=== PATIENT | male | born 1945 | race Caucasian/White ===

== ENCOUNTER → 2023-09-14 11:59 | Outpatient (REF) | payer OTHER, SELFPAY | LOC: HWRAD 11:59 | PROVIDERS: ATTENDING PHYSICIAN Internal Medicine | DX: T14.8XXA Other injury of unspecified body region, initial encounter (principal) | CPT/HCPCS: 73070 ==

== ENCOUNTER 2023-09-24 09:49 | Inpatient (IN) | payer OTHER, SELFPAY ==
[2023-09-24] VITALS (20 sets, daily range): BP systolic 80–115; BP diastolic 56–93; BMI 25.1; BMI 25.2
[2023-09-24 07:42] LABS: % Basophils 0.4 % (0-2); % Eosinophils 1.4 % (0-6); % Immature Granulocytes 0.4 % (0-0.5); % Monocytes 10.8 % (1.7-9.3); Absolute Eosinophils 0.1 10^3/uL (0-0.7); Absolute Lymphocytes 0.7 10^3/uL (1.2-3.4); Absolute Monocytes 0.9 10^3/uL (0.1-0.6); Absolute Neutrophils 6.3 10^3/uL (1.4-6.5); Hematocrit 48.2 % (39.0-52.0); Hemoglobin 15.9 g/dL (13.0-18.0); Mean Corpuscular Hgb 30.6 pg (27.0-31.0); Mean Corpuscular Volume 92.7 fL (80.0-94.0); Mean Platelet Volume 11.4 fL (7.4-10.4); Nucleated Red Blood Cells % 0 % (-); Platelet Count 149 10^3/uL (130-400); Red Cell Dist. Width 13.8 % (11.5-14.5)
[2023-09-24 08:00] LABS: Blood Urea Nitrogen 53 mg/dl (9-20); Calcium 9.4 mg/dl (8.4-10.2); Carbon Dioxide 22 mmol/L (22-30); Chloride 105 mmol/L (98-107); Glucose 252 mg/dl (70-99); Potassium 5.6 mmol/L (3.5-5.1); Sodium 136 mmol/L (135-145); eGFR 33.12
[2023-09-24] MEDS: NSS 250 IV (08:08)
[2023-09-24 08:20] LABS: NT-proBNP 18600 pg/ml
--- NOTE | 2023-09-24 09:19 | HPS.HSE ---
Family Physician
-
Family Physician: Lian Salcedo
Chief Complaint
-
Tachyarrhythmia
History of Present Illness
Patient 78 years old male with multiple comorbidities some of which include CHF, atrial fibrillation, VT/VF, CAD, hypertension, hyperlipidemia, diabetes mellitus, CKD, GI bleed in the past, FAY and came into the hospital with generalized fatigue
associated with diaphoresis and dyspnea. Patient tells me he has not been feeling well since yesterday and last night he was up and down for most of the night and woke up this morning around 5 AM having shortness of breath and diaphoresis and
feeling 'hunger in his heart' and he thinks this is similar to when he had a heart attack so decided to come to the hospital. He denies chest pain. He denies nausea or vomiting. Denies lower extremity edema. He denies weight gain. Denies
paroxysmal nocturnal dyspnea or orthopnea. Denies any fevers or chills. Denies nausea vomiting or diarrhea. Patient has history of CAD with PCI in 2012 subsequent in-stent thrombosis due to noncompliance and had another PCI in 2019 and had
ischemic cardiomyopathy and also cardiac arrhythmias and required cardioversions and ablation in the past and follows up with [facility]. Here in the ER, he was noted to be tachycardic in the 140s and he had a troponin of 17 with
blood pressure borderline low in the 100s. Cardiology consulted. He was referred to hospitalist for further evaluation.
Medical History
Past Medical History
Past Medical History: Reports Other (Chronic systolic CHF, paroxysmal atrial fibrillation, VT/VF, CAD, hypertension, hyperlipidemia, diabetes mellitus, CKD, GI bleed in the past, FAY.)
Past Surgical History: Reports Other (PCIs with stents, ablations, cardioversions, hip repair.)
Social History
Tobacco: Former Smoker
Alcohol: Occasional
Drug: None
Family History
Family History: Not pertinent
Allergies / Home Medications
Allergies reflects when Allergies were last updated in [facility].
Home Medications with original date entered in [employer]
Allergy/Medication List:
Allergies
Allergy/AdvReac Type Severity Reaction Status Date / Time
No Known Allergies Allergy Verified 09/24/23 07:19
Home Medications
tamsulosin 0.4 mg capsule 0.4 mg PO QPM Urinary issue 05/28/18
aspirin 81 mg tablet,delayed release 81 mg PO DAILY Blood clot prevention/tx 11/01/18
levothyroxine 25 mcg tablet 25 mcg PO DAILY Thyroid 02/03/20
rivaroxaban 15 mg tablet (Xarelto) 15 mg PO DAILY Blood clot prevention/tx 02/03/20
furosemide 40 mg tablet 40 mg PO DAILYPRN PRN edema 10/14/20
hydralazine 25 mg tablet 75 mg PO Q8H 03/27/23
magnesium oxide 800 mg PO HS 03/27/23
sacubitril 24 mg-valsartan 26 mg tablet (Entresto) 1 tab PO Q12H 03/27/23
Review of Systems
-
A 12 point ROS was completed and negative except as noted: Yes
Physical Exam
Vital Signs
Vital Signs
Temp Pulse Resp BP Pulse Ox
97.7 F 137 22 109/81 97
09/24/23 07:18 09/24/23 08:30 09/24/23 08:30 09/24/23 08:30 09/24/23 08:00
Physical exam:
General: Acutely ill
HEENT: Normocephalic, Atraumatic and Moist Mucous Membranes
Respiratory: Clear to Auscultation; Negative Wheezes, Rales or Rhonchi
Cardiac: Regular Rhythm, tachycardic, and S1/S2
GI: Soft, Nontender and Nondistended
Musculoskeletal: No Clubbing, No Cyanosis and No Edema
Neuro: Awake, Alert and Oriented
Psych: Calm
Physical Exam
General: Other
Laboratory Results
-
09/24/23 07:33
09/24/23 07:33
Laboratory Results
Troponin I 17.900 ng/ml H* 09/24/23 07:33
Data Reviewed
-
Diagnostic Radiology: Image Personally Visualized and interpreted
Lab Data: Labs Reviewed by me
Impression/Plan
-
IMPRESSION:
Patient 78 years old male with multiple comorbidities including complex cardiac history with CAD, A-fib, V. tach, V-fib, among other, came into the hospital with tachycardia and elevated troponin. Patient at increased risk morbidity mortality due
to cardiac arrhythmia and comorbidities. He will need to be admitted to intensive care unit and manage accordingly.
PLAN:
Wide-complex tachycardia felt to be atrial tachycardia (less likely although possible A-fib with aberration or VT):
Plan for cardioversion today
EPS cardiology consult
Cardiac monitoring
Initially admitted to ICU but later on cardiology okay'ed to transfer to IVU.
Elevated troponin, NSTEMI versus type II RI due to atrial arrhythmia:
Start heparin drip
Hold DOAC
Troponin is 17.9
Will continue to trend troponin
Plan to cardiac catheterization tomorrow or earlier if clinical picture worsens.
N.p.o. after midnight for above procedure
Plan for bedside echocardiogram
Interventional cardiology consulted
Cardiac monitoring
Hypotension, intermittent shock likely related to arrhythmia (cardiogenic):
Monitor blood pressure and address arrhythmia first
If persistent hypotension might require pressors
No signs of active infection
Bedside echocardiogram
Dyspnea:
Likely related to arrhythmia but cannot exclude ACS and less likely heart failure exacerbation or pneumonia
Chronic systolic CHF:
Baseline EF around 10 to 15%
Appears euvolemic
On goal-directed medical therapy
Monitor I/O
Daily weight
2 g sodium diet
CAD:
Stent to LAD 2011 and 2018
On heparin drip
Plan for cardiac cath
Beta-claudia intolerance
Statin intolerance
CKD versus ZENAIDA on CKD:
Monitor renal function closely
Baseline creatinine around 1.6
Avoid nephrotoxic
IV fluids given in the ED.
Hold off on any further IV fluid given history of CHF.
Paroxysmal atrial fibrillation:
Intolerance to beta-blockers
Intolerance to amiodarone
On anticoagulation, Xarelto
Currently on IV heparin drip in light of upcoming procedure and holding DOAC as above
History of cardioversions and ablation at [facility] back in April of this year
Hypertension:
Blood pressure medications with holding parameters
Monitor blood pressure and adjust medications as needed
Hyperlipidemia:
Intolerant to statin
Diabetes mellitus type 2:
Insulin sliding scale
Diabetic diet
Update hemoglobin A1c in a.m.
Hypothyroidism:
Will continue thyroid replacement
Update TSH in a.m.
BPH:
Will continue Flomax
Anemia:
He tells me he is due for iron infusion but will check ferritin, iron, TIBC, B12 and folate a.m.
Further recommendations based on rest of workup.
Thrombocytopenia:
No signs of active bleeding
Continue to monitor closely
History of GI in the past:
Monitor for any signs of GI bleed while on anticoagulation
FAY:
Intolerant to CPAP
Rheumatoid arthritis:
Follow-up as outpatient
RSD:
Monitor for pain exacerbation
DVT prophylaxis:
On heparin drip
CODE STATUS:
Full code
Total Critical Care Time 55 minutes. I was immediately available to the patient and staff. I personally examined, reviewed labs, diagnostic images/reports, interpretations, treatment plans, discussed patient care with other providers and family
or caregivers (if patient is unable to make decisions), entered orders as appropriate and documented the medical record.
--- NOTE | 2023-09-24 09:29 | W.PN.CD ---
Today's Communication / Plan
-
-
Early cardioversion for his symptomatic ATach precipitating type II AZ
Likely cath tomorrow
Impression / Plan
-
Consult dictated
Type II AZ
- Spoke with interventional cardiology
- Agree with them that we will defer cath for now and control arrhythmia
- Likely cath tomorrow, depending on clinical course
Atach, suspect he is an an AT and that has prompted his type II AZ
- Current atach in the 130-140 range, 1:1 by intracardiac EGMs from ICD interrogation
- Plan early cardioversion, spoke with anesthesia, anticipate cardioversion close to noon
Chronic compensated HFrEF - NYHF II at baseline, He reports [facility]
Ischemic cardiomyopathy
Prior anterior STEMI's 2018 and 04/2011. LAD PCI twice
AFib and ATach, he describes an 11 hour ablation at [facility] in 04/2023
- Unknown if paroxysmal or persistent forms, hx paroxysmal
- [id number] score is 6 (age, HTN, CHF, CAD, DM).
- On Xarelto with no missed doses
- Prior cardioversions, and he has had early recurrence of AT/AF in past
CKD, details unknown
Amio intolerance
Amio induced thyroid disease
BB intolerance
Statin intolerance, wont take any chol med
HTN
DM, type II, on no meds
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
Physical Exam
Vital Signs/Labs
Vital Signs
Temp Pulse Resp BP Pulse Ox
97.7 F 137 22 109/81 97
09/24/23 07:18 09/24/23 08:30 09/24/23 08:30 09/24/23 08:30 07/07/24 08:00
09/23/23 09/24/23 09/25/23
06:59 06:59 06:59
Actual Weight 81.6 kg
09/24/23 07:33
09/24/23 07:33
09/24/23
07:33
Abe-U-Kiijrqqpwyn Pept [id number]
LAB Results
09/24/23
07:33
Troponin I 17.900 H*
Data Reviewed
-
Date of Service: September 24, 2023
[2023-09-24 09:53] LABS: Lactic Acid 1.3 mmol/L (0.7-2.0)
--- NOTE | 2023-09-24 10:43 | W.PN.UPDATE ---
Addendum entered and electronically signed by Belia Valencia MD 09/24/23 12:30:
Addendum: Of note, at time of patient evaluation in ED, he only complains of generalized fatigue. He denies any CP, SOB, palpitations, dizziness or any other symptoms. No LOC or syncope at home. He notes prior iron deficiency anemia needing IV iron
repletion a few months ago. PLts low at 114K but no anemia on labs form today. Trop downtrending to 14.
Belia Valencia MD, [facility], [facility]
Original Note:
Update Note
Progress Note Update
Interventional Cardiology Note
Patient seen and evaluated in the emergency department. 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
due to in-stent thrombosis in the setting of noncompliance with another PCI in 2019, ischemic cardiomyopathy with baseline LVEF of 10 to 15% on goal-directed medical therapy, atrial arrhythmias on chronic Xarelto, last dose yesterday evening around
7 or 8 PM, chronic kidney disease stage III A, baseline creatinine 1.6 who follows at [facility] with most recent ablation of questionable atrial arrhythmia in April 2023 and follow-up as an outpatient within the last month who
presents with generalized fatigue, diaphoresis and some shortness of breath found to have an NSTEMI with initial troponin of 17 and EKG showing atrial tachycardia versus atrial flutter with heart rates in the 140s to 150s, borderline low blood
pressures ranging from 95-109 systolic.
On exam patient is awake, alert, mentating well, oriented x 3, elevated JVP, fine bibasilar Rales but otherwise clear, tachycardic, normal S1 and S2, abdomen is soft, nontender, nondistended with active bowel sounds, warm extremities.
Labs notable for creatinine of 2.0, lactate normal at 1.3. Troponin trends are pending. Most recent blood pressure 114/72.
Bedside echocardiogram with overall LVEF of about 10 to 15%. No obvious LV thrombus or significant pericardial effusion.
As discussed with Dr. Romel Gonzales, plan will be to continue management for presumed NSTEMI, trending troponins, monitoring on telemetry and treating underlying atrial arrhythmia for now. Tentative heart catheterization likely tomorrow in the
setting of recent Xarelto with baseline CKD. However if any worsening from a clinical standpoint, we would have a low threshold to take patient urgently to the heart catheterization lab as needed.
Also discussed all of above with patient and ED staff.
Belia Valencia MD, FACC, [facility]
[2023-09-24 11:02] LABS: Hematocrit 44.7 % (39.0-52.0); Hemoglobin 15.2 g/dL (13.0-18.0); Mean Corpuscular Hgb 31.2 pg (27.0-31.0); Mean Corpuscular Volume 91.8 fL (80.0-94.0); Mean Platelet Volume 10.9 fL (7.4-10.4); Platelet Count 114 10^3/uL (130-400); Red Blood Cell Count 4.87 10^6/uL (4.70-6.10); Red Cell Dist. Width 13.9 % (11.5-14.5); White Blood Cell Count 8.1 10^3/uL (4.8-10.8)
[2023-09-24 11:15] LABS: APTT 40.1 Sec (23.4-35.0)
--- NOTE | 2023-09-24 11:27 | CON.INTV ---
Addendum entered and electronically signed by Yossi Mackay MD 09/24/23 12:03:
Patient has been transferred to IVU
Patient is not interested in revisiting sleep apnea treatment, inspire at this time
We will sign off. Please call with questions
Original Note:
Consultation
Consultation Request
Date/Time Consultation Requested: 09/23
Date/Time Consultation Performed: 09/23
Reason for Consultation: Critical care
Medical History
-
History of Present Illness:
History obtained from the patient and reviewing outpatient records and prior hospital records. There are no ER records for me to review. 78-year-old male with complex cardiac history, atrial fibrillation, VT/VF, coronary disease, cardiomyopathy,
history of GI bleed with AVM requiring cauterization who presents with fatigue and shortness of breath. He states he is always fatigued and feels rundown but yesterday evening and through the night and into this morning he felt it was slightly
worse. He denies chest pain, palpitations, leg pain, leg swelling, change in weight, fevers, nausea, GI symptoms. Records suggest he came in with atrial tachycardia although there is no documentation from the ED. Cardiology correspondence suggest
heart rate 140s. Marginal blood pressure noted 80s to 90s. To my knowledge, no rate control medication was provided. We are asked to help from critical care standpoint due to hypotension, tachycardia.
.
PMH: Arrhythmias (atrial fibrillation on several toe with prior failed cardioversion, intolerant to amiodarone. Hx of periprocedurel VT/VF, required shock 03/2018), CAD (stable angina, emergent LAD PCI March 2018 required IABP; LAD stent 2011), CHF
(cardiomyopathy, EF 15%, followed at [facility] ([facility])), HTN, Hypercholesterolemia (refuses statin therapy), NIDDM (diagnosed 2010, noncompliant), Renal Failure (chronic kidney disease, baseline creatinine 1.4), Other (history of GI bleed with
AVM requiring cauterization September 2018, maintain on subtherapeutic Xarelto 15 mg as opposed to 20 mg (per pt). FAY intolerant to CPAP)
Past Medical History
Past Medical History: None (See above)
Past Surgical History: None (See above)
Social History
Tobacco: Former Smoker ([id number], quit )
Alcohol: Occasional
Drug: None
Personal: Single
Living: Alone
Employment: Retired
Allergies / Home Medications
Allergies
Allergy/AdvReac Type Severity Reaction Status Date / Time
No Known Allergies Allergy Verified 09/24/23 07:19
Home Medications
�Medication �Instructions �Recorded �Confirmed �Last Taken �Type
tamsulosin 0.4 mg capsule 0.4 mg PO QPM Urinary issue 05/28/18 03/27/23 03/26/23 History
aspirin 81 mg tablet,delayed 81 mg PO DAILY Blood clot 11/01/18 03/27/23 03/27/23 History
release prevention/tx
levothyroxine 25 mcg tablet 25 mcg PO DAILY Thyroid 02/03/20 03/27/23 03/27/23 History
rivaroxaban 15 mg tablet (Xarelto) 15 mg PO DAILY Blood clot 02/03/20 03/27/23 03/27/23 History
prevention/tx
furosemide 40 mg tablet 40 mg PO DAILYPRN PRN edema 10/14/20 03/27/23 03/25/23 History
hydralazine 25 mg tablet 75 mg PO Q8H 03/27/23 03/27/23 03/27/23 History
magnesium oxide 800 mg PO HS 03/27/23 03/27/23 03/26/23 History
sacubitril 24 mg-valsartan 26 mg 1 tab PO Q12H 03/27/23 03/27/23 03/27/23 History
tablet (Entresto)
Review of Systems
-
All other systems: Negative unless noted
Vitals / Labs / Diagnostic Testing
Vital Signs
Temp Pulse Resp BP Pulse Ox
97.7 F 129 19 102/90 97
09/24/23 07:18 09/24/23 10:30 09/24/23 10:30 09/24/23 10:30 09/24/23 09:00
Lab Data
09/24/23 10:42
09/24/23 07:33
Laboratory Results
09/24/23
11:15
PT Cancelled
INR Cancelled
Diagnostic Testing:
Physical Exam
-
HEENT: Normocephalic and Anicteric
Cardiovascular: S1/S2, Regular Rhythm and Murmur (n)
Respiratory: Wheeze (n), Rales (n), Rhonchi (n) and Non-Labored Respirations
GI: Soft and Non Distended
Neurology: Awake, Alert and No Motor Deficits
Skin: Good Color
Assessment
-
78-year-old male with complex cardiac history, history of known coronary disease, stent placement 2011 and 2019, hypertension/hyperlipidemia, diabetes, ischemic cardiomyopathy EF 50% presents with fatigue, shortness of breath. Patient was found to
be tachycardic and hypotensive, admitted to ICU for further management, possible cardioversion and catheterization. We are asked to help from critical care standpoint 09/24/2023
Acute dyspnea x 24 hours
Tachycardia, heart rate 140s
Atrial tachycardia
Elevated troponin
Mild bilateral infiltrates, questionable mild pulm edema (my review)
Conditions present prior to admission
History of ischemic cardiomyopathy, EF 15%
Atrial fibrillation, on subtherapeutic Xarelto (15mg)
Intolerant to amiodarone
Multiple failed cardioversions at [facility]
NIDDM, noncompliant
History of acute GI bleed/melena
AVM
History of acute anterior ST elevation CO status post emergent catheterization 04/12/18, proximal LAD stent/IABP placed
Periprocedural VT/VF, requiring cardioversion �2/amiodarone
ICM EF 15%
Followed at [facility]
History of coronary disease, LAD stent 2011, 2018
Hypertension/Hyperlipidemia
Refuses statin therapy
CKD3, baseline Cr 1.3
History of iron deficiency anemia
RA
RSD involving right knee
Treated with Percocet/Naprosyn
30+ pack year history smoking, quit 30 years ago
BPH
History of obstructive sleep apnea, intolerant to CPAP
Plan/recommendations
At this time, patient with extremely complex medical history
Reviewed outpatient records
Patient sees cardiology at [facility]
Does not follow-up with pulmonary
History of sleep apnea, intolerant
Moving forward
Patient being managed for atrial tachycardia
Cardiology following. No rate medications have been administered at this time
Patient proceeded to spontaneously convert to sinus rhythm during my evaluation
Blood pressure is improved from systolic pressure 80s to 90s to now 110s to 120s
Patient unaware symptomatically of conversion
Elevated troponin noted
Continue heparin therapy per cardiology
Patient intolerant to many rate control meds in the past including beta-claudia and amiodarone (according to patient)
Plan for catheterization in the a.m.
Unfortunately, patient intolerant to CPAP in the past
Recommend sleeping with head of bed elevated 30-45� of able
Patient was supposed to follow-up in the sleep clinic regarding inspire and/for nocturnal oxygen
Failed to follow-up
Unfortunately, patient has exhibited noncompliance on a variety of fronts in the past
Compliance with diet and cardiology recommendations discussed
Low suspicion for thromboembolic disease at this time. Patient without any presyncopal symptoms
Patient on low-dose Xarelto
Questionable history of rheumatoid arthritis noted. Although this puts him at risk for interstitial process, no evidence of interstitial disease per CT chest October 2018
Reviewed with critical care nursing, primary service, cardiology
TCCT 31 min
[2023-09-24 11:49] LABS: Magnesium 1.7 mg/dl (1.6-2.3)
[2023-09-24] MEDS: HEPARIN 25000 UNITS/250 ML IV (12:24)
--- NOTE | 2023-09-24 12:51 | PTCARENOTE ---
Updated assessment, admission data and ongoing vital sign trends. Dr Gonzales at bedside upon arrival to ICU, ecg obtained and charted. Patient presently in normal sinus 1degree avb noted, rate in the 90's with improved BP. Heparin drip started with
plan to eat today and have cardiac cath tomorrow. Downgraded to IVU as per hospitalist and cardiology. Advertising Sales Executive into see patient and updated. Continue follow up plan of cares. Friend/Family update by patient via phone. [place] patient to surrounds
and plan of cares.
--- NOTE | 2023-09-24 13:57 | PTCARENOTE ---
Patient's friend at bedside, updated as per his request. Review and reinforce teaching. Update plan of transfer to IVU await report update. Pharmacy at bedside update medicine rec. Continue to follow.
--- NOTE | 2023-09-24 15:46 | PTCARENOTE ---
Assumed care of pt upon tsf from ICU. Pt arrives in WC, Ox3. VSS, CM shows NSR with first degree and BBB, POX 94% on RA. Pt denies any pain or discomfort, for CC in am. Heparin drip infusing at 1,000 units/hr through RAC, first PTT due at 1830.
[2023-09-24] MEDS: ENTRESTO 24 MG/26 MG 1 TAB PO (15:53)
[2023-09-24] MEDS: NOVOLOG FLEXPEN-LOW RESISTANCE 3 UNITS SC (16:09)
[2023-09-24 16:13] LABS: Glucose - Point of Care 287 mg/dl (70-99)
[2023-09-24] MEDS: FLOMAX 0.4 MG PO (17:02)
[2023-09-24 21:24] LABS: Glucose - Point of Care 287 mg/dl (70-99)
[2023-09-24] MEDS: APRESOLINE PO (21:56)
[2023-09-24] MEDS: MAG-TAB SR 168 MG PO (21:56)
[2023-09-25] VITALS (11 sets, daily range): BP systolic 76–163; BP diastolic 58–134; BMI 25.2
[2023-09-25 00:37] LABS: Hematocrit 42.3 % (39.0-52.0); Hemoglobin 14.7 g/dL (13.0-18.0); Mean Corp Hgb Conc. 34.8 g/dL (33.0-37.0); Mean Corpuscular Hgb 31.1 pg (27.0-31.0); Mean Corpuscular Volume 89.6 fL (80.0-94.0); Red Blood Cell Count 4.72 10^6/uL (4.70-6.10); Red Cell Dist. Width 13.6 % (11.5-14.5); White Blood Cell Count 7.6 10^3/uL (4.8-10.8)
[2023-09-25 00:43] LABS: APTT 57.3 Sec (23.4-35.0)
[2023-09-25 01:00] LABS: Blood Urea Nitrogen 67 mg/dl (9-20); Calcium 9.1 mg/dl (8.4-10.2); Carbon Dioxide 14 mmol/L (22-30); Chloride 107 mmol/L (98-107); Estimated Creatinine Clearance 33 ml/min; Glucose 258 mg/dl (70-99); Iron 103 ug/dl (49-181); Magnesium 1.9 mg/dl (1.6-2.3); Potassium 5.4 mmol/L (3.5-5.1); Sodium 132 mmol/L (135-145); eGFR 35.22
[2023-09-25 01:07] LABS: Percent Saturation 38 % (20-50); Total Iron Binding Capacity 266 ug/dl (261-462)
[2023-09-25 01:08] LABS: Platelet Count 84 10^3/uL (130-400)
[2023-09-25 01:28] LABS: TSH Reflex To Free T4 1.86 uIU/ml (0.47-4.68)
[2023-09-25 01:57] LABS: Vitamin B12 695 pg/ml (239-931)
[2023-09-25 06:16] LABS: Glucose - Point of Care 223 mg/dl (70-99)
[2023-09-25] MEDS: SYNTHROID 25 MCG PO (06:41)
[2023-09-25 06:49] LABS: APTT 65.9 Sec (23.4-35.0)
[2023-09-25] MEDS: ASPIR LOW (ENTERIC COATED) 81 MG PO (08:08)
[2023-09-25] MEDS: APRESOLINE 50 MG PO (08:08)
[2023-09-25] MEDS: ENTRESTO 24 MG/26 MG 1 TAB PO (08:09)
[2023-09-25] MEDS: NOVOLOG FLEXPEN-LOW RESISTANCE 2 UNITS SC ×2 (08:12→17:00)
[2023-09-25 08:13] LABS: Glucose - Point of Care 212 mg/dl (70-99)
--- NOTE | 2023-09-25 08:41 | W.PN.CD ---
Today's Communication / Plan
-
IVF to try and lower risk of cath IV contrast induced nephropathy
Proceed to high risk cath / PCI
I reviewed the intensification of antiplatelet therapy that will be needed if new stent placed, could also intensify for NSTEMI but given GI bleed hx would only do if stent performed
He is chronically on ASA/Xarelto 15 mg a day
Has had GI bleeding on higher dose Xarelto. Correct AFib dose for his renal fxn is 15 a day
Impression / Plan
-
Type II MT
- Spoke with interventional cardiology today 09/25/[address] Jolley agrees to proceed at elevated risk
Atach, that has prompted his type II MT
- Was in atach in the 130-140 range, 1:1 by intracardiac EGMs from ICD interrogation
- He broke to sinus shortly after arrival from ICU to IVU yesterday afternoon
IVCD
- QRS wider than in past
- BiV ICD not really set up to provide [employer] perhaps based on preference of the HF team at [facility] when his QRS was over 120 but not LBBB
- For now no change to BiV ICD setup as his heart failure is so well compensated
[facility], He reports baseline EF now 12% ([facility])
Ischemic cardiomyopathy
Prior anterior STEMI's 2018 and 04/2011. LAD PCI twice
AFib and ATach, he describes an 11 hour ablation at [facility] in 04/2023
- Unknown if paroxysmal or persistent forms, hx paroxysmal
- [id number] score is 6 (age, HTN, CHF, CAD, DM).
- On Xarelto with no missed doses
- Prior cardioversions, and he has had early recurrence of AT/AF in past
CKD, details unknown
Amio intolerance
Amio induced thyroid disease
BB intolerance
Statin intolerance, wont take any chol med
HTN
DM, type II, on no meds
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
Subjective:
Feels better this morning
Physical Exam
Vital Signs/Labs
Vital Signs
Temp Pulse Resp BP Pulse Ox
97.8 F 88 15 104/77 98
09/25/23 07:08 09/25/23 08:08 09/25/23 08:23 09/25/23 08:08 09/25/23 08:23
09/24/23 09/25/23 09/26/23
06:59 06:59 06:59
Actual Weight 82 kg
09/25/23 00:20
09/25/23 00:20
PT Cancelled 09/24/23 11:15
INR Cancelled 09/24/23 11:15
APTT 65.9 Sec (23.4-35.0) H 09/25/23 06:22
Magnesium 1.9 mg/dl (1.6-2.3) 09/25/23 00:20
09/24/23
07:33
Aqh-C-Ukalcfqxoxn Pept [id number]
LAB Results
09/24/23 09/24/23 09/24/23
07:33 10:42 18:30
Troponin I 17.900 H* 14.500 H* Cancelled
09/25/23
00:20
Troponin I 28.500 H*
Physical Exam
Constitutional: No acute distress
EENT: Anicteric
Cardiovascular: Rhythm & rate is regular and Pedal edema is absent
Respiratory: Respiratory effort normal and Lungs clear to auscul.
GI: Soft and Distention absent
Data Reviewed
-
Date of Service: September 25, 2023
EKG: Other (Tele is sinus with PACs)
[2023-09-25] MEDS: NSS 1000 IV (08:52)
--- NOTE | 2023-09-25 09:03 | CM ---
Reviewed chart. Met with Mr. Ruiz to review discharge plans. He states prior to admission he resides alone in a one story home with a few steps to enter. He states prior to admission he was independent with ambulation and adls. He states he has
supplemental home 02 at home but currently does not use. He states he has a prescription plan and uses [facility]. Medical work-up in progress. The discharge plan is to return home when medically stable.
[2023-09-25 09:56] LABS: Glycohemoglobin (HgbA1c) 7.8 % (4.0-5.6)
--- NOTE | 2023-09-25 10:00 | PTCARENOTE ---
Dr Walker discussed canceling the cath today. He states to continue IV fluid for a total of 500 cc.
--- NOTE | 2023-09-25 10:08 | W.PN.UPDATE ---
Update Note
Progress Note Update
Alerted by pharmacy about Platelet count drop
HIT blood test ordered
Heparin stopped
Dr. Barbosa informed and I asked him to overtake platelet evaluation/management.
Reviewed with Dr. Jolley. He prefers to cancel cath for today and have cath done once platelets on the rise.
I will resume diet and stop IVF in several hours
Daily BMP/CBC/plt counts for at least several days.
More then 55 min spent on this pt today.
[2023-09-25 11:23] LABS: Glucose - Point of Care 190 mg/dl (70-99)
[2023-09-25] MEDS: NOVOLOG FLEXPEN-LOW RESISTANCE 1 UNITS SC (11:23)
[2023-09-25] MEDS: LOKELMA 10 GRAM PO (12:34)
--- NOTE | 2023-09-25 12:43 | W.PN.HOSP.TC ---
Today's Communication/Plan
-
Stop Entresto
Lokelma
sodium bicarbonate
N.p.o. after midnight
Assessment / Plan
Assessment / Plan
Gen-AAOx3, NAD
HEENT-NC, AT, anicteric, clear oral mm
Neck-supple
CV-reg, no M, +S1/S2
Lungs-clear B/L
Abd-soft, NT, ND
Ext-no edema
Musculoskeletal-no cyanosis, clubbing
Skin-warm and dry
Neuro-grossly non-focal
Psych-calm, cooperative
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 Doubt HIT as platelet count was low prior to initiation of heparin. Discussed with cardiology. He has seen hematology in the past, will try to discuss with .
Joni.
Atrial tachycardia/atrial fibrillation -on chronic Xarelto therapy. Spontaneously converted to sinus rhythm on day of admission.
Type II VT -peak troponin was 28.5. Awaiting cardiac catheterization tomorrow. Catheterization was canceled for today due to concerns over thrombocytopenia.
Hyperkalemia -discontinue Entresto. Give a dose of Lokelma.
Chronic heart failure reduced EF -stable.
CKD 3b -unclear baseline but creatinine was noted to be 1.6 in March. Currently 1.9. IV fluids ordered by cardiology in preparation for cardiac catheterization.
Normal anion gap metabolic acidosis, bicarb 14. Will recheck labs, start sodium bicarbonate.
Amiodarone induced thyroid disease -continue levothyroxine.
DM2 with hyperglycemia -hemoglobin A1c 7.8%. Glucose 258 this morning. Not on diabetes meds at home. Currently on low resistance aspart scale.
Pseudohyponatremia - due to hyperglycemia.
Essential hypertension -relative hypotension noted.
History of GI bleed
Full code
Anticipated Discharge: > 48 hours
Subjective/Interval History
-
Date of Service: September 25, 2023
Patient seen and examined. Currently no complaints.
Objective Data
-
Labs:
Laboratory Results
09/25/23 09/25/23 09/25/23
00:20 06:22 10:20
WBC 7.6
Hgb 14.7
Hct 42.3
Plt Count 84 L D
APTT 57.3 H 65.9 H
Sodium 132 L
Potassium 5.4 H
Chloride 107
Carbon Dioxide 14 L*
BUN 67 H
Creatinine 1.9 H
Glucose 258 H
Calcium 9.1
Vital Signs:
Vital Signs
Temp Pulse Resp BP Pulse Ox
97.8 F 84 22 98/73 98
09/25/23 11:17 09/25/23 11:15 09/25/23 11:17 09/25/23 11:15 09/25/23 11:17
I&O
09/24/23 09/25/23 09/26/23
06:59 06:59 06:59
Intake Total 545 / 545
Output Total 500 / 500
Balance 45 / 45
Review of Systems
-
History Source: Patient
All other systems: Reviewed and negative
--- NOTE | 2023-09-25 13:02 | PTCARENOTE ---
Extensive patient education completed about the pathophysiology of SC, the function of the heart including echo interpretation, maximizing cardiac output, and possible causes of SC. Modifiable risk factors discussed including A1C results and
glucose monitoring. Pt refuses to take medications for his diabetes. Reports that he used to be on insulin but, 'the doctors are all in cahoots with the drug companies and they only order all these medications to make money'. Pt refuses to change
this opinion despite extensive teaching. Pt demonstrated understanding of the teaching using the teach back method.
[2023-09-25] MEDS: SODIUM BICARBONATE 650 MG PO ×2 (15:10→21:05)
--- NOTE | 2023-09-25 16:34 | PTCARENOTE ---
Assumed care of pt from day RN. Pt received awake and alert, Ox3. VSS, CM shows NSR with first degree AVB, POX 98% on RA. Cath d/c'd for today, rescheduled for tomorow. He denies any pain or discomfort, resting comfortably.
[2023-09-25 16:59] LABS: Glucose - Point of Care 207 mg/dl (70-99)
[2023-09-25] MEDS: FLOMAX 0.4 MG PO (17:01)
[2023-09-25] MEDS: MAG-TAB SR 168 MG PO (21:06)
[2023-09-25] MEDS: APRESOLINE PO (21:07)
[2023-09-25 22:16] LABS: Glucose - Point of Care 225 mg/dl (70-99)
[2023-09-26] VITALS (15 sets, daily range): BP systolic 97–155; BP diastolic 69–134; BMI 25.4
--- NOTE | 2023-09-26 02:14 | PTCARENOTE ---
Pt. assessed at change of shift. Pt. AOx3, no complaints of pain. Continuing to monitor throughout the shift.
[2023-09-26 02:40] LABS: % Basophils 0.5 % (0-2); % Eosinophils 2.6 % (0-6); % Immature Granulocytes 0.3 % (0-0.5); % Lymphocytes 13.8 % (20.5-51.1); % Monocytes 9.3 % (1.7-9.3); % Neutrophils 73.5 % (42.2-75.2); Absolute Eosinophils 0.2 10^3/uL (0-0.7); Absolute Lymphocytes 0.9 10^3/uL (1.2-3.4); Absolute Monocytes 0.6 10^3/uL (0.1-0.6); Absolute Neutrophils 4.6 10^3/uL (1.4-6.5); Hematocrit 43.2 % (39.0-52.0); Hemoglobin 14.7 g/dL (13.0-18.0); Mean Corpuscular Hgb 30.5 pg (27.0-31.0); Mean Corpuscular Volume 89.6 fL (80.0-94.0); Mean Platelet Volume 11.1 fL (7.4-10.4); Nucleated Red Blood Cells % 0 % (-); Platelet Count 109 10^3/uL (130-400); Red Blood Cell Count 4.82 10^6/uL (4.70-6.10); Red Cell Dist. Width 13.8 % (11.5-14.5); White Blood Cell Count 6.2 10^3/uL (4.8-10.8)
[2023-09-26 03:02] LABS: Blood Urea Nitrogen 71 mg/dl (9-20); Calcium 9.1 mg/dl (8.4-10.2); Carbon Dioxide 16 mmol/L (22-30); Chloride 106 mmol/L (98-107); Estimated Creatinine Clearance 35 ml/min; Glucose 190 mg/dl (70-99); Potassium 4.8 mmol/L (3.5-5.1); Sodium 134 mmol/L (135-145); eGFR 37.58
[2023-09-26] MEDS: SYNTHROID 25 MCG PO (05:32)
[2023-09-26 08:29] LABS: Glucose - Point of Care 185 mg/dl (70-99)
[2023-09-26] MEDS: NOVOLOG FLEXPEN-LOW RESISTANCE 1 UNITS SC ×3 (09:08→17:04)
[2023-09-26] MEDS: ASPIR LOW (ENTERIC COATED) 81 MG PO (09:08)
[2023-09-26] MEDS: SODIUM BICARBONATE 650 MG PO ×3 (09:09→19:57)
[2023-09-26] MEDS: APRESOLINE 50 MG PO ×2 (09:09→19:57)
--- NOTE | 2023-09-26 12:14 | PTCARENOTE ---
Rec'd Pt post cardiac cath, A,A+O, denies pain. R-band intact to R radial site. VSS.
--- NOTE | 2023-09-26 12:15 | ITS.CL.CATH ---
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
Cardiac Catheterization
Procedure Report:
CARDIAC CATHETERIZATION REPORT
Date of Procedure: 09/26/2023
Referring: Romel Gonzales MD
Indication: Non-STEMI (peak Trop 29) in patient with ischemic cardiomyopathy
HEMODYNAMIC DATA
AO:
LV: Not done
LEFT VENTRICULOGRAPHY: Not done due to CKD stage IIIb
CORONARY ANGIOGRAPHY
Dominance: Right
Left Main: Calcified without focal stenosis
LAD: The LAD is severely calcified. There is a long stented segment from the proximal through mid LAD. There is focal 50-60% stenosis in the distal portion of the stent not extending to the distal edge however. There is 60% LAD stenosis distal to
the stented segment and otherwise mild luminal irregularities.
Circumflex: There is a medium sized ramus intermedius branch with 60% proximal and 70% mid stenoses. There is a relatively long 95% highly calcific mid circumflex stenosis distal to the takeoff of a tiny OM1 and proximal to the origin of the large
OM 2. The circumflex continues on to supply a large OM 3. There is calcific 70% ostial and 80% mid OM2 stenoses
RCA: Dominant severely calcified with 70% proximal stenosis, 60% mid stenosis, 40% mid stenosis just proximal to the crux, and 30% distal stenosis past the crux. The large PDA has 70% mid and 50% distal stenoses. The RCA terminates with a small
posterolateral system
Angioplasty: Options were discussed at the conclusion of the procedure. I told him we could pause and have him seen by CT surgery to discuss bypass; however, with ejection fraction measured at 12% by echo the likelihood that he would be considered
an acceptable surgical candidate by any surgical team is remote. The alternative was to proceed with high risk staged multivessel intervention with the plan to attempt to treat the severe multisegment circumflex disease and bring him back probably
in a week or two for RCA intervention. He opted for a trial of high risk PCI. A 6 Jordanian EBU 3.75 guide catheter was used. Heparin was used for anticoagulation. Plavix 600 mg was administered at the procedure conclusion. A BMW wire was advanced
into the circumflex and passed through the highly diseased mid circumflex. However, we were unable to pass this wire into the severely diseased large OM2 and instead positioned it in the distal circumflex. We then attempted to advance a whisper
wire into OM 2. This was unsuccessful. We then passed a Fielder XT wire with some difficulty into the large OM 2 through the ostial disease and then with difficulty through the 80% mid stenosis. At this point balloon angioplasty of the mid OM 2
lesion was accomplished with a 2.0 x 12 Euphora to 10 aly. This was followed by placement of a 2.5 x 12 Parth frontier MARY deployed across the mid OM 2 lesion. Stent deployment at 14 aly was followed by postdilatation with a 2.5 NC Euphora to 17
aly. The angiographic result was outstanding. At this point we dilated the severely calcified 95% mid circumflex disease which extended into the origin of OM 2 with a 2.5 x 20 NC trek to 10 aly. We then carefully placed a 3.5 x 26 [place] frontier
MARY across the mid circumflex lesion and into OM 2 to treat the ostial disease. Stent deployment at 14 aly was accomplished. At this point we noted some decrement in flow both in OM 2 and in the circumflex distal to OM 2. The patient remained
asymptomatic. Multiple doses of intracoronary adenosine were administered with steady improvement in flow rate. A decision was made not to post dilate the stent for fear of inducing more no reflow. Lasix 40 mg IV was administered at the procedure
conclusion. The final angiographic result was outstanding.
This was a complex case requiring multiple guidewires and balloons as well as significant procedural and fluoroscopy time.
Closure Device: None-the procedure was performed via the right radial artery.
Radiation (mGy): 894
DAP (cm2.Gy): 63.7
Fluoroscopy time: 11.2 minutes
Contrast: 123 mL Visipaque
CONCLUSIONS
1: Non-STEMI presentation in the setting of severe ischemic cardiomyopathy
2: Severe calcific triple-vessel CAD as described
3. Successful stenting of 80% mid OM2 stenosis using 2.5 x 12 [place] frontier MARY
4. Successful stenting of 95% mid circumflex stenosis extending into the origin of OM 2 using 3.5 x 26 Parth frontier MARY
5. Transient slow flow into OM 2 and OM 3 successfully treated with serial doses of intracoronary adenosine
6. Recommend triple therapy for 1 week then Xarelto/Plavix for 12 months. The Xarelto dose of 15 mg daily will be decreased to 10 mg daily while on Plavix per guidelines
7. Continue medication for severe left ventricular dysfunction
8. The patient will return for RCA intervention in 1-2 weeks
Copy to: Romel Gonzales MD, Lian Salcedo MD
Samuel Dangelo MD, FACC, [facility]
[2023-09-26 12:33] LABS: Glucose - Point of Care 189 mg/dl (70-99)
--- NOTE | 2023-09-26 12:56 | W.PN.HOSP.TC ---
Today's Communication/Plan
-
Start Farxiga
Assessment / Plan
Assessment / Plan
Gen-AAOx3, NAD
HEENT-NC, AT, anicteric, clear oral mm
Neck-supple
CV-reg, no M, +S1/S2
Lungs-clear B/L
Abd-soft, NT, ND
Ext-no edema
Musculoskeletal-no cyanosis, clubbing
Skin-warm and dry
Neuro-grossly non-focal
Psych-calm, cooperative
Multivessel CAD -severe three-vessel CAD noted on catheterization today. EF 12%, not CABG candidate according to cardiology. Mid circumflex and OM 2 lesions were stented. Cardiology plans on repeat catheterization in 1 to 2 weeks for RCA disease.
They recommended medical management of LAD disease.
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 Doubt HIT as platelet count was low prior to initiation of heparin. Discussed with cardiology. Diagnosis of pseudothrombocytopenia confirmed with hematology, I
spoke with Dr. Quinones on the phone, he knows the patient from previous visits.
Atrial tachycardia/atrial fibrillation -on chronic Xarelto therapy. Spontaneously converted to sinus rhythm on day of admission.
Type II AK -peak troponin was 28.5.
Hyperkalemia -discontinued Entresto. Given a dose of Lokelma yesterday, potassium improved to 4.8.
Chronic heart failure reduced EF -stable.
CKD 3b -unclear baseline but creatinine was noted to be 1.6 in March. Currently 1.8.
Normal anion gap metabolic acidosis, bicarb 16. Continue sodium bicarbonate. Recommend outpatient nephrology follow-up. Discussed with patient.
Amiodarone induced thyroid disease -continue levothyroxine.
DM2 with hyperglycemia -hemoglobin A1c 7.8%. Not on diabetes meds at home. I spent a good amount of time explaining to patient the benefits of diabetes treatment especially in light of his known CAD and chronic kidney disease. Recommend starting
SGLT-2 inhibitor. He is agreeable to start Farxiga. I explained the risks and benefits, and he understands and wants to try it. We discussed the benefits on his renal function, diabetes, heart disease.
Pseudohyponatremia - due to hyperglycemia.
Essential hypertension -relative hypotension noted.
History of GI bleed
Full code
Dispo -can discharge when cleared by cardiology.
Anticipated Discharge: Within 24 hours
Subjective/Interval History
-
Date of Service: September 26, 2023
Patient seen and examined. No complaints.
Objective Data
-
Labs:
Laboratory Results
09/26/23
02:25
WBC 6.2
Hgb 14.7
Hct 43.2
Plt Count 109 L D
Sodium 134 L
Potassium 4.8
Chloride 106
Carbon Dioxide 16 L
BUN 71 H
Creatinine 1.8 H
Glucose 190 H
Calcium 9.1
Vital Signs:
Vital Signs
Temp Pulse Resp BP Pulse Ox
97.4 F 95 18 124/91 95
09/26/23 08:23 09/26/23 12:15 09/26/23 08:23 09/26/23 12:15 09/26/23 08:23
I&O
09/25/23 09/26/23 09/27/23
06:59 06:59 06:59
Intake Total 545 / 545 885 / 885
Output Total 500 / 500
Balance 45 / 45 885 / 885
Review of Systems
-
History Source: Patient
All other systems: Reviewed and negative
[2023-09-26] MEDS: NSS 1000 IV (13:02)
[2023-09-26] MEDS: FARXIGA 5 MG PO (13:05)
--- NOTE | 2023-09-26 14:11 | CM ---
Reviewed chart. Telephone call to his insurance to check on co-pay for Farxiga 5 mg po daily. He is in the coverage gap for his prescriptions, so a one month supply would be $144.14 and a 90 day mail order supply would be $388.82. His out of
packet cost is $8000.00. He has $5100.00 remaining. After he meets his out of pocket cost the medication is free. He can use the one month free coupon. Placed the coupon in his red discharge folder.
[2023-09-26 17:04] LABS: Glucose - Point of Care 165 mg/dl (70-99)
[2023-09-26] MEDS: XARELTO 10 MG PO (17:15)
[2023-09-26] MEDS: FLOMAX 0.4 MG PO (17:15)
[2023-09-26 19:57] LABS: Glucose - Point of Care 242 mg/dl (70-99)
[2023-09-26] MEDS: MAG-TAB SR 168 MG PO (19:57)
--- NOTE | 2023-09-26 23:45 | PTCARENOTE ---
R radial CDI. + pulses. ambulating the room as a self. POC discussed- pt verbalized understanding.
[2023-09-27] VITALS (10 sets, daily range): BP systolic 96–131; BP diastolic 62–80; BMI 25.3
[2023-09-27] MEDS: SYNTHROID 25 MCG PO (03:19)
[2023-09-27 04:10] LABS: % Basophils 0.3 % (0-2); % Immature Granulocytes 0.3 % (0-0.5); % Lymphocytes 10.9 % (20.5-51.1); % Monocytes 10.4 % (1.7-9.3); % Neutrophils 76.1 % (42.2-75.2); Absolute Eosinophils 0.1 10^3/uL (0-0.7); Absolute Lymphocytes 0.7 10^3/uL (1.2-3.4); Absolute Monocytes 0.7 10^3/uL (0.1-0.6); Hematocrit 43.6 % (39.0-52.0); Hemoglobin 14.6 g/dL (13.0-18.0); Mean Corp Hgb Conc. 33.5 g/dL (33.0-37.0); Mean Corpuscular Hgb 30.5 pg (27.0-31.0); Mean Platelet Volume 11.7 fL (7.4-10.4); Nucleated Red Blood Cells % 0 % (-); Platelet Count 102 10^3/uL (130-400); Red Blood Cell Count 4.79 10^6/uL (4.70-6.10); Red Cell Dist. Width 13.6 % (11.5-14.5); White Blood Cell Count 6.6 10^3/uL (4.8-10.8)
[2023-09-27 04:32] LABS: Blood Urea Nitrogen 68 mg/dl (9-20); Carbon Dioxide 21 mmol/L (22-30); Chloride 103 mmol/L (98-107); Estimated Creatinine Clearance 33 ml/min; Glucose 175 mg/dl (70-99); HDL Cholesterol 39 mg/dl; LDL Cholesterol, Calculated 184 mg/dl; Potassium 4.8 mmol/L (3.5-5.1); Sodium 135 mmol/L (135-145); Total Cholesterol 246 mg/dl (50-199); Triglyceride 119 mg/dl (10-149); Very Low Density Lipoprotein 23 mg/dl (0-30); eGFR 35.22
[2023-09-27 06:54] LABS: Glucose - Point of Care 178 mg/dl (70-99)
[2023-09-27] MEDS: PLAVIX 75 MG PO (07:33)
[2023-09-27] MEDS: SODIUM BICARBONATE 650 MG PO ×3 (07:33→20:54)
[2023-09-27] MEDS: ASPIR LOW (ENTERIC COATED) 81 MG PO (07:33)
[2023-09-27] MEDS: FARXIGA 5 MG PO (07:33)
[2023-09-27] MEDS: APRESOLINE 50 MG PO ×2 (07:33→22:10)
[2023-09-27] MEDS: NOVOLOG FLEXPEN-LOW RESISTANCE 1 UNITS SC ×2 (07:34→11:57)
[2023-09-27] MEDS: FLUSH (NSS) 1 FLUSH IV (07:34)
--- NOTE | 2023-09-27 07:41 | PTCARENOTE ---
The patient refuses his Protonix medication this morning even after explaining tp him whys its ordered. He states that he doesn't want that and doesn't want to see it on his medication list when he goes home. He states that people are over zealous
prescribing medications.
--- NOTE | 2023-09-27 08:03 | W.PN.CD ---
Today's Communication / Plan
-
Continue meds
Tentative plan for RCA PCI next MondayOctober 05
Impression / Plan
-
NSTEMI
- S/p PCI to OM2 and circumflex
- aspirin plavix Xarelto 10 mg for 1 week, RCA PCI next Monday, last dose of Xarelto will be Monday prior to planned RCA intervention
ZENAIDA on CKD
- Cr 1.6 in March
- today 1.9
- if stable tomorrow likley d/c
Atach, that has prompted his type II GA
- Was in atach in the 130-140 range, 1:1 by intracardiac EGMs from ICD interrogation
- He broke to sinus shortly after arrival from ICU to IVU yesterday afternoon
IVCD
- QRS wider than in past
- BiV ICD not really set up to provide RECOVERY COACH perhaps based on preference of the HF team at [facility] when his QRS was over 120 but not LBBB
- For now no change to BiV ICD setup as his heart failure is so well compensated
Chronic compensated HFrEF - NYHF II at baseline, He reports baseline EF now 12% ([facility])
Ischemic cardiomyopathy
Prior anterior STEMI's 2018 and 04/2011. LAD PCI twice
AFib and ATach, he describes an 11 hour ablation at [facility] in 04/2023
- Unknown if paroxysmal or persistent forms, hx paroxysmal
- [id number] score is 6 (age, HTN, CHF, CAD, DM).
- On Xarelto with no missed doses
- Prior cardioversions, and he has had early recurrence of AT/AF in past
Amio intolerance
Amio induced thyroid disease
BB intolerance
Statin intolerance, wont take any chol med
HTN
DM, type II, on no meds
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
Subjective:
Continues to feel better anxious to leave
Physical Exam
Vital Signs/Labs
Vital Signs
Temp Pulse Resp BP Pulse Ox
98.3 F 90 20 124/70 94
09/27/23 06:50 09/27/23 07:33 09/27/23 06:50 09/27/23 07:33 09/27/23 06:50
09/26/23 09/27/23 09/28/23
06:59 06:59 06:59
Actual Weight 182 lb 5.156 oz 181 lb 3.52 oz
09/27/23 03:16
09/27/23 03:16
PT Cancelled 09/24/23 11:15
INR Cancelled 09/24/23 11:15
APTT 65.9 Sec (23.4-35.0) H 09/25/23 06:22
Magnesium 1.9 mg/dl (1.6-2.3) 09/25/23 00:20
Triglycerides 119 mg/dl (10-149) 09/27/23 03:16
LDL Cholesterol, Calc 184 mg/dl 09/27/23 03:16
VLDL Cholesterol, Calc 23 mg/dl (0-30) 09/27/23 03:16
HDL Cholesterol 39 mg/dl 09/27/23 03:16
09/24/23
07:33
[id number] Pept [id number]
LAB Results
09/24/23 09/24/23 09/24/23
07:33 10:42 18:30
Troponin I 17.900 H* 14.500 H* Cancelled
09/25/23 09/25/23
00:20 08:41
Troponin I 28.500 H* 19.500 H*
Physical Exam
Constitutional: No acute distress
EENT: Anicteric
Cardiovascular: Rhythm & rate is regular and Pedal edema is absent
Respiratory: Respiratory effort normal and Lungs clear to auscul.
GI: Soft
Neuro/Psych: AO x 3
Data Reviewed
-
Date of Service: September 27, 2023
EKG: Tracing Personally Visualized and interpreted (sr)
Echo: Report Reviewed by me
Labs: Labs Reviewed by me
--- NOTE | 2023-09-27 08:33 | W.PN.HOSP.TC ---
Today's Communication/Plan
-
Discharge
Assessment / Plan
Assessment / Plan
Gen-AAOx3, NAD
HEENT-NC, AT, anicteric, clear oral mm
Neck-supple
CV-reg, no M, +S1/S2
Lungs-clear B/L
Abd-soft, NT, ND
Ext-no edema
Musculoskeletal-no cyanosis, clubbing
Skin-warm and dry
Neuro-grossly non-focal
Psych-calm, cooperative
Multivessel CAD -severe three-vessel CAD noted on catheterization. EF 12%, not CABG candidate according to cardiology. Mid circumflex and OM 2 lesions were stented. Cardiology plans on repeat catheterization in 1 to 2 weeks for RCA disease. They
recommended medical management of LAD disease. For discharge on aspirin, Plavix, reduced dose of Xarelto for 7 days then Plavix and Xarelto thereafter according to cardiology.
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 Doubt HIT as platelet count was low prior to initiation of heparin. Discussed with cardiology. Diagnosis of pseudothrombocytopenia confirmed with hematology, I
spoke with Dr. Quinones on the phone, he knows the patient from previous visits.
Atrial tachycardia/atrial fibrillation -on chronic Xarelto therapy. Spontaneously converted to sinus rhythm on day of admission.
NSTEMI -peak troponin was 28.5.
Hyperkalemia -discontinued Entresto. Given a dose of Lokelma yesterday, potassium improved to 4.8.
Chronic heart failure reduced EF -stable.
CKD 3b -unclear baseline but creatinine was noted to be 1.6 in March. Currently 1.9.
Normal anion gap metabolic acidosis, bicarb 16. Continue sodium bicarbonate. Recommend outpatient nephrology follow-up. Discussed with patient.
Amiodarone induced thyroid disease -continue levothyroxine.
DM2 with hyperglycemia -hemoglobin A1c 7.8%. Not on diabetes meds at home. Farxiga started, continue on discharge.
Pseudohyponatremia - due to hyperglycemia.
Essential hypertension -relative hypotension noted.
History of GI bleed
Full code
Dispo -medically stable for discharge today. Outpatient follow-up.
35 minutes spent in discharge process.
Anticipated Discharge: Today
Subjective/Interval History
-
Date of Service: September 27, 2023
Patient seen and examined. No complaints. Eager to go home.
Objective Data
-
Labs:
Laboratory Results
09/27/23
03:16
WBC 6.6
Hgb 14.6
Hct 43.6
Plt Count 102 L
Sodium 135
Potassium 4.8
Chloride 103
Carbon Dioxide 21 L
BUN 68 H
Creatinine 1.9 H
Glucose 175 H
Calcium 9.0
Vital Signs:
Vital Signs
Temp Pulse Resp BP Pulse Ox
98.3 F 90 20 124/70 94
09/27/23 06:50 09/27/23 07:33 09/27/23 06:50 09/27/23 07:33 09/27/23 06:50
I&O
09/26/23 09/27/23 09/28/23
06:59 06:59 06:59
Intake Total 885 / 885 360 / 360
Output Total 150 / 150
Balance 885 / 885 -150 / -150 360 / 360
Review of Systems
-
History Source: Patient
All other systems: Reviewed and negative
--- NOTE | 2023-09-27 08:42 | W.DS.TRANS ---
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
-
Discharge Instructions:
Sleep Apnea Risk Intermediate
Discharge Diagnosis/Procedures Myocardial infarction, angioplasty and stent x2
to Left Circumflex artery
Diet Low Cholesterol,Low Fat,Diabetic, Carb
Controlled
Activity As tolerated
Driving Restrictions No driving for 24 hours
Bathing Restrictions None
Blood Work BMP in 1 week with your primary care doctor
Specialty Instructions Weigh Daily
Instructions: *PCP/Other Student Outreach Coordinator Heart Failure Instructions
Stand-Alone Forms: DC Instructions- Cath/EP Lab
Changes to Home Medications: Yes
Discharge Medications:
DC Medications w/original date entered in [email or web address]
tamsulosin 0.4 mg capsule 0.4 mg PO QPM Urinary issue 05/28/18
aspirin 81 mg tablet,delayed release 81 mg PO DAILY Blood clot prevention/tx 11/01/18
levothyroxine 25 mcg tablet 25 mcg PO DAILY Thyroid 02/03/20
furosemide 40 mg tablet 40 mg PO DAILYPRN PRN edema 10/14/20
hydralazine 25 mg tablet 50 mg PO BID Blood Pressure 03/27/23
magnesium oxide 800 mg PO HS Supplement 03/27/23
sacubitril 24 mg-valsartan 26 mg tablet (Entresto) 1 tab PO Q12H Heart Failure 03/27/23
atorvastatin 40 mg tablet 40 mg PO QPM #30 tabs 09/27/23
clopidogrel 75 mg tablet 75 mg PO DAILY #30 tabs 09/27/23
dapagliflozin propanediol 5 mg tablet 5 mg PO DAILY #30 tabs 09/27/23
rivaroxaban 10 mg tablet (Xarelto) 10 mg PO QPM #30 tabs 09/27/23
sodium bicarbonate 650 mg tablet 650 mg PO TID #20 tabs 09/27/23
Home Medication Changes
Xarelto dose reduced to 10 mg daily
Pending Results: No
--- NOTE | 2023-09-27 08:52 | CM ---
Addendum entered by Monse Copeland 09/27/23 09:33:
Reviewed co-pay for Bernicega with him. He states he cannot afford the co-pay.
Original Note:
Reviewed chart. Met with Mr. Ruiz to review discharge plans. He states he is feeling better and maybe able to go home soon. We reviewed [facility] and at this time he is declining [facility] Services. Prior to admission he resides alone in a one
story home with several steps to enter. Prior to admission he was independent with ambulation and adls. He has supplemental home 02 but current not using. He has a prescription plan and uses [facility]. Medical work-up in progress. The
discharge plan is to return home when medically stable.
[2023-09-27 11:57] LABS: Glucose - Point of Care 175 mg/dl (70-99)
[2023-09-27] MEDS: LOPRESSOR 5 MG IV (13:16)
[2023-09-27] MEDS: FLUSH (NSS) 2 FLUSH IV ×2 (13:16→16:32)
--- NOTE | 2023-09-27 13:20 | PTCARENOTE ---
Addendum entered by Milly Shepherd RN 09/27/23 13:26:
BP 120/80 during arrhythmia.
Original Note:
The patient was reading in bed and his HR went up to the 140's. He was asymptomatic, no sob, no chest pain, no palpations. ECG showing wide QRS tachycardia. I notified Dr. Barbosa and Dr. Smyth. Hope came in to see the patient while I was
having him blow through a closed straw. He tried bearing down also. He agreed to 5mg of IV metoprolol. Metoprolol was given as ordered and his HR decreased to the 90s.
--- NOTE | 2023-09-27 14:10 | W.PN.UPDATE ---
Update Note
Progress Note Update
Patient with atrial tachycardia. Rate sustained at 139 bpm. He is asymptomatic.
He preferred nonpharmacologic strategies. We tried vagal maneuver x 2 but unfortunately both were unsuccessful.
He agreed to a single dose of beta-claudia, metoprolol 5 mg IV was administered with rastafari to sinus rhythm. Heart rate in the 80s. Follow telemetry.
[2023-09-27] MEDS: LOPRESSOR 2.5 MG IV (16:32)
--- NOTE | 2023-09-27 16:32 | PTCARENOTE ---
The patient got oob to go to the bathroom and his HR went up to 139 and showing Atach on the monitor, BP 96/62. He was asymptomatic. I instructed hi to bear down while he was on the toilet but to no avail. I notified Hope, 2.5mg of Metoprolol was
ordered and given. His HR came down to 101.
[2023-09-27 16:48] LABS: Glucose - Point of Care 253 mg/dl (70-99)
[2023-09-27] MEDS: NOVOLOG FLEXPEN-LOW RESISTANCE 3 UNITS SC (16:49)
--- NOTE | 2023-09-27 17:42 | PTCARENOTE ---
The patient stated that he felt a 'little dizzy.' HR is 101 and showing afib on the monitor, BP 116/70. The patient stated that he 'hates metoprolol because of the way it makes me feel.' Instructed the patient to ring for help before he gets oob.
[2023-09-27] MEDS: FLOMAX 0.4 MG PO (18:32)
[2023-09-27] MEDS: XARELTO 10 MG PO (18:32)
[2023-09-27] MEDS: MAG-TAB SR 168 MG PO (20:54)
[2023-09-27 22:04] LABS: Glucose - Point of Care 218 mg/dl (70-99)
[2023-09-28 04:11] VITALS: BP 114/86
[2023-09-28] MEDS: SYNTHROID 25 MCG PO (04:34)
[2023-09-28 04:39] VITALS: BMI 25.5
[2023-09-28 04:49] LABS: % Basophils 0.4 % (0-2); % Eosinophils 2.5 % (0-6); % Immature Granulocytes 0.4 % (0-0.5); % Lymphocytes 15.2 % (20.5-51.1); % Monocytes 9.7 % (1.7-9.3); % Neutrophils 71.8 % (42.2-75.2); Absolute Eosinophils 0.1 10^3/uL (0-0.7); Absolute Lymphocytes 0.7 10^3/uL (1.2-3.4); Absolute Monocytes 0.5 10^3/uL (0.1-0.6); Absolute Neutrophils 3.5 10^3/uL (1.4-6.5); Hematocrit 40.9 % (39.0-52.0); Hemoglobin 13.7 g/dL (13.0-18.0); Mean Corp Hgb Conc. 33.5 g/dL (33.0-37.0); Mean Corpuscular Hgb 30.4 pg (27.0-31.0); Mean Corpuscular Volume 90.9 fL (80.0-94.0); Mean Platelet Volume 11.4 fL (7.4-10.4); Nucleated Red Blood Cells % 0 % (-); Platelet Count 103 10^3/uL (130-400); Red Cell Dist. Width 13.7 % (11.5-14.5); White Blood Cell Count 4.9 10^3/uL (4.8-10.8)
--- NOTE | 2023-09-28 05:08 | PTCARENOTE ---
Assumed care of patient at change of shift. VSS. Vpaced, NSR with first degree, and occasional PVCs on monitor. R radial site intact and open to air. Patient educated on activity restrictions. Ambulating independently in room, able to make needs
known. Call kimble within reach.
[2023-09-28 05:12] LABS: Blood Urea Nitrogen 70 mg/dl (9-20); Calcium 9.1 mg/dl (8.4-10.2); Carbon Dioxide 19 mmol/L (22-30); Chloride 105 mmol/L (98-107); Estimated Creatinine Clearance 33 ml/min; Glucose 194 mg/dl (70-99); Potassium 4.6 mmol/L (3.5-5.1); Sodium 135 mmol/L (135-145); eGFR 35.22
--- NOTE | 2023-09-28 07:24 | W.PN.CD ---
Today's Communication / Plan
-
Begin metoprolol XL 12.5mg daily
Impression / Plan
-
NSTEMI
- S/p PCI to OM2 and circumflex
- aspirin plavix Xarelto 10 mg for 1 week, RCA PCI next Monday, last dose of Xarelto will be Monday prior to planned RCA intervention. NO Xarelto next in prep for PCI Monday. Continue ASA 81 and Plavix 75qd without interruption
ZENAIDA on CKD
- Cr 1.6 in March
- today 1.9, yesterday 1.9, 1.8
- Stable renal function, OK for discharge
Atach, that has prompted his type II OH
- Was in atach in the 130-140 range, 1:1 by intracardiac EGMs from ICD interrogation
- He broke to sinus shortly after arrival from ICU to IVU
- He had episode yesterday that broke after metoprolol 5mg IV
- Following prolonged discussion about the benefit of BB in a man with low EF and episodic AT he has agreed to try low dose of BB starting today. When he returns if tolerating well we will increase dose. Will begin Metoprolol XL 12.5 mg daily
IVCD
- QRS wider than in past
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
- For now no change to BiV ICD setup as his heart failure is so well compensated
Chronic compensated HFrEF - [facility] II at baseline, He reports baseline EF now 12% ([facility])
Ischemic cardiomyopathy
Prior anterior STEMI's 2018 and 04/2011. LAD PCI twice
AFib and ATach, he describes an 11 hour ablation at [facility] in 04/2023
- Unknown if paroxysmal or persistent forms, hx paroxysmal
- [id number] score is 6 (age, HTN, CHF, CAD, DM).
- On Xarelto with no missed doses
- Prior cardioversions, and he has had early recurrence of AT/AF in past
Amio intolerance
Amio induced thyroid disease
BB intolerance
Statin intolerance, wont take any chol med
HTN
DM, type II, on no meds
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
DISPO: OK for home today from CV standpoint
Subjective:
Feels well. Wants to leave [facility].
Physical Exam
Vital Signs/Labs
Vital Signs
Temp Pulse Resp BP Pulse Ox
97.5 F 88 20 114/86 97
09/28/23 04:18 09/28/23 05:00 09/28/23 04:18 09/28/23 04:11 09/28/23 04:18
09/27/23 09/28/23 09/29/23
06:59 06:59 06:59
Actual Weight 181 lb 3.52 oz 182 lb 12.211 oz
09/28/23 04:29
09/28/23 04:29
PT Cancelled 09/24/23 11:15
INR Cancelled 09/24/23 11:15
APTT 65.9 Sec (23.4-35.0) H 09/25/23 06:22
Magnesium 1.9 mg/dl (1.6-2.3) 09/25/23 00:20
Triglycerides 119 mg/dl (10-149) 09/27/23 03:16
LDL Cholesterol, Calc 184 mg/dl 09/27/23 03:16
VLDL Cholesterol, Calc 23 mg/dl (0-30) 09/27/23 03:16
HDL Cholesterol 39 mg/dl 09/27/23 03:16
09/24/23
07:33
Wme-[id number] Pept [id number]
LAB Results
09/25/23
08:41
Troponin I 19.500 H*
Physical Exam
Constitutional: No acute distress and Comfortable
EENT: Anicteric
Cardiovascular: Rhythm & rate is regular and S1S2 is normal
Respiratory: Respiratory effort normal, Wheeze Absent and Crackles Absent
GI: Non tender
Neuro/Psych: AO x 3 and Motor deficits absent
Data Reviewed
-
Date of Service: September 28, 2023
[2023-09-28 07:39] VITALS: BP 131/88
[2023-09-28 07:41] LABS: Glucose - Point of Care 179 mg/dl (70-99)
[2023-09-28] MEDS: PLAVIX 75 MG PO (07:56)
[2023-09-28] MEDS: APRESOLINE 50 MG PO (07:56)
[2023-09-28] MEDS: SODIUM BICARBONATE 650 MG PO (07:56)
[2023-09-28] MEDS: TOPROL XL 12.5 MG PO (07:57)
[2023-09-28] MEDS: ASPIR LOW (ENTERIC COATED) 81 MG PO (07:57)
[2023-09-28] MEDS: FARXIGA 5 MG PO (07:57)
[2023-09-28] MEDS: NOVOLOG FLEXPEN-LOW RESISTANCE 1 UNITS SC ×2 (09:37→12:38)
[2023-09-28 11:38] VITALS: BP 126/93
[2023-09-28 11:41] LABS: Glucose - Point of Care 193 mg/dl (70-99)
--- NOTE | 2023-09-28 12:35 | W.DS.TRANS ---
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
-
Discharge Instructions:
Sleep Apnea Risk Intermediate
Discharge Diagnosis/Procedures Myocardial infarction, angioplasty and stent x2
to Left Circumflex artery
Diet Low Cholesterol,Low Fat,Diabetic, Carb
Controlled
Activity As tolerated
Driving Restrictions No driving for 24 hours
Bathing Restrictions None
Blood Work BMP in 1 week with your primary care doctor
Specialty Instructions Weigh Daily
Instructions: *PCP/Other Spray Cementer Heart Failure Instructions
Stand-Alone Forms: DC Instructions- Cath/EP Lab
Changes to Home Medications: Yes
Discharge Medications:
DC Medications w/original date entered in [employer]
tamsulosin 0.4 mg capsule 0.4 mg PO QPM Urinary issue 05/28/18
aspirin 81 mg tablet,delayed release 81 mg PO DAILY Blood clot prevention/tx 11/01/18
levothyroxine 25 mcg tablet 25 mcg PO DAILY Thyroid 02/03/20
furosemide 40 mg tablet 40 mg PO DAILYPRN PRN edema 10/14/20
hydralazine 25 mg tablet 50 mg PO BID Blood Pressure 03/27/23
magnesium oxide 800 mg PO HS Supplement 03/27/23
sacubitril 24 mg-valsartan 26 mg tablet (Entresto) 1 tab PO Q12H Heart Failure 03/27/23
atorvastatin 40 mg tablet 40 mg PO QPM #30 tabs 09/27/23
clopidogrel 75 mg tablet 75 mg PO DAILY #30 tabs 09/27/23
dapagliflozin propanediol 5 mg tablet 5 mg PO DAILY #30 tabs 09/27/23
rivaroxaban 10 mg tablet (Xarelto) 10 mg PO QPM #30 tabs 09/27/23
sodium bicarbonate 650 mg tablet 650 mg PO TID #20 tabs 09/27/23
metoprolol succinate 25 mg tablet,extended release 24 hr 12.5 mg (1/2 x 25 mg) PO DAILY #30 tabs 09/28/23
Home Medication Changes
Xarelto dose reduced.
Pending Results: No
--- NOTE | 2023-09-28 12:36 | W.PN.HOSP.TC ---
Today's Communication/Plan
-
Discharge
Assessment / Plan
Assessment / Plan
Gen-AAOx3, NAD
HEENT-NC, AT, anicteric, clear oral mm
Neck-supple
CV-reg, no M, +S1/S2
Lungs-clear B/L
Abd-soft, NT, ND
Ext-no edema
Musculoskeletal-no cyanosis, clubbing
Skin-warm and dry
Neuro-grossly non-focal
Psych-calm, cooperative
Multivessel CAD -severe three-vessel CAD noted on catheterization. EF 12%, not CABG candidate according to cardiology. Mid circumflex and OM 2 lesions were stented. Cardiology plans on repeat catheterization in 1 to 2 weeks for RCA disease. They
recommended medical management of LAD disease. For discharge on aspirin, Plavix, reduced dose of Xarelto for 7 days then Plavix and Xarelto thereafter according to cardiology.
Cardiology recommends not taking Xarelto on or Monday of next week in preparation for catheterization on October 05. Discussed with patient.
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 Doubt HIT as platelet count was low prior to initiation of heparin. Discussed with cardiology. Diagnosis of pseudothrombocytopenia confirmed with hematology, I
spoke with Dr. Quinones on the phone, he knows the patient from previous visits.
Atrial tachycardia/atrial fibrillation -on chronic Xarelto therapy. Spontaneously converted to sinus rhythm on day of admission.
NSTEMI -peak troponin was 28.5.
Hyperkalemia -resolved.
Chronic heart failure reduced EF -stable.
CKD 3b -unclear baseline but creatinine was noted to be 1.6 in March. Currently 1.9.
Normal anion gap metabolic acidosis, bicarb 16. Continue sodium bicarbonate. Recommend outpatient nephrology follow-up. Discussed with patient.
Amiodarone induced thyroid disease -continue levothyroxine.
DM2 with hyperglycemia -hemoglobin A1c 7.8%. Not on diabetes meds at home. Farxiga started, continue on discharge.
Pseudohyponatremia - due to hyperglycemia.
Essential hypertension -relative hypotension noted.
History of GI bleed
Full code
Dispo -medically stable for discharge today. Outpatient follow-up.
35 minutes spent in discharge process.
Anticipated Discharge: Today
Subjective/Interval History
-
Date of Service: September 28, 2023
Patient seen and examined. No complaints.
Objective Data
-
Labs:
Laboratory Results
09/28/23
04:29
WBC 4.9
Hgb 13.7
Hct 40.9
Plt Count 103 L
Sodium 135
Potassium 4.6
Chloride 105
Carbon Dioxide 19 L
BUN 70 H
Creatinine 1.9 H
Glucose 194 H
Calcium 9.1
Vital Signs:
Vital Signs
Temp Pulse Resp BP Pulse Ox
98.4 F 84 20 131/88 99
09/28/23 11:39 09/28/23 09:00 09/28/23 11:39 09/28/23 07:57 09/28/23 11:39
I&O
09/27/23 09/28/23 09/29/23
06:59 06:59 06:59
Intake Total 720 / 720
Output Total 150 / 150
Balance -150 / -150 720 / 720
Review of Systems
-
History Source: Patient
All other systems: Reviewed and negative
--- NOTE | 2023-09-28 13:29 | PTCARENOTE ---
Pt discharged to home, will return next Monday for cardiac cath. He is aware not to take Xarelto after 10/03 in preparation for repeat cardiac cath. He is also aware that he cannot drive for 24 hrs after having cardiac cath.
[2023-09-29 15:36] LABS: ACT-LR - POC > 397 Seconds (116-155)
[2023-09-29 15:36] LABS: ACT-LR - POC > 397 Seconds (116-155)
== END 2023-09-28 14:17 | disposition home or self-care (01) | DRG 322 ==
LOC: IVU 09:49
PROVIDERS: Internal Medicine Cardiovascular Disease; ADMITTING PHYSICIAN Hospitalist; ATTENDING PHYSICIAN Hospitalist; CONSULT PHYSICIAN Internal Medicine Cardiovascular Disease; CONSULT PHYSICIAN Internal Medicine Critical Care Medicine; EMERGENCY PHYSICIAN Emergency Medicine; FAMILY PHYSICIAN Internal Medicine
PROC: B2111ZZ Fluoroscopy of Multiple Coronary Arteries using Low Osmolar Contrast (ICD-10-PCS; 2023-09-26)
PROC: 027135Z Dilation of Coronary Artery, Two Arteries with Two Drug-eluting Intraluminal Devices, Percutaneous Approach (ICD-10-PCS; 2023-09-26)
DX: I21.4 Non-ST elevation (NSTEMI) myocardial infarction (principal); E87.20 Acidosis, unspecified; I13.0 Hypertensive heart and chronic kidney disease with heart failure and stage 1 through stage 4 chronic kidney disease, or unspecified chronic kidney disease; I47.19 Other supraventricular tachycardia; I50.22 Chronic systolic (congestive) heart failure; N17.9 Acute kidney failure, unspecified; E11.22 Type 2 diabetes mellitus with diabetic chronic kidney disease; D69.59 Other secondary thrombocytopenia; N18.32 Chronic kidney disease, stage 3b; M06.9 Rheumatoid arthritis, unspecified; E11.65 Type 2 diabetes mellitus with hyperglycemia; E03.2 Hypothyroidism due to medicaments and other exogenous substances; T46.2X5A Adverse effect of other antidysrhythmic drugs, initial encounter; I25.10 Atherosclerotic heart disease of native coronary artery without angina pectoris; I25.5 Ischemic cardiomyopathy; Z95.5 Presence of coronary angioplasty implant and graft; I25.2 Old myocardial infarction; I48.0 Paroxysmal atrial fibrillation; E78.5 Hyperlipidemia, unspecified; N40.0 Benign prostatic hyperplasia without lower urinary tract symptoms; G47.33 Obstructive sleep apnea (adult) (pediatric); E87.5 Hyperkalemia; Z79.82 Long term (current) use of aspirin; Z79.890 Hormone replacement therapy; Z79.899 Other long term (current) drug therapy; Z87.19 Personal history of other diseases of the digestive system; Z88.8 Allergy status to other drugs, medicaments and biological substances
CPT/HCPCS: 71045; 80048; 80061; 82607; 82728; 82746; 82962; 83036; 83540; 83550; 83605; 83735; 83880; 84443; 84484; 85025; 85027; 85049; 85347; 85730; 93005; 93306; 93454; 99291; C1725; C1769; C1874; C1894; C9600; J0153; J1327; Q9967

== ENCOUNTER 2023-10-06 11:21 | Day surgery (SDC) | payer OTHER, SELFPAY ==
[2023-10-06] VITALS (19 sets, daily range): BP systolic 101–150; BP diastolic 48–107; BMI 27.5
[2023-10-06 12:04] LABS: Glucose - Point of Care 162 mg/dl (70-99)
[2023-10-06 14:37] LABS: ACT-LR - POC 313 Seconds (116-155)
--- NOTE | 2023-10-06 15:03 | ITS.CL.ANGIO ---
Content Specialist - Angioplasty
Angioplasty
Procedure Report:
CORONARY ANGIOPLASTY REPORT
Date of Procedure: 10/06/2023
Referring: Romel Gonzales MD
Indication: Completion of revascularization for severe CAD/severe left ventricular dysfunction
PROCEDURE SUMMARY:
Successful stenting of 70% calcific mid and 70-80% calcific proximal RCA stenoses using 3.5 x 38 Xience rebecca point MARY
DESCRIPTION OF PROCEDURE: The patient returns for completion of his revascularization. He underwent complex circumflex stenting one week ago and returns now for treatment of calcific proximal and mid RCA disease.
Access was obtained via the right radial artery and a 6 F sheath placed. An AR1 guide provided good backup support. A BMW wire was advanced into the distal RCA. Angioplasty of the calcific proximal and mid lesions was accomplished to 12 BRANDI with a
2.5 x 12 NC Euphora balloon. We attempted unsuccessfully to place a 3.5 x 38 Xience [place] MARY to the target location. The undeployed stent was carefully removed and further angioplasty performed at the mid lesion using a 3.0 x 15 NC Euphora
inflated to 12 brandi. A 6F guideliner was advanced into the RCA to enhance backup support. The stent was then delivered to the target location and deployed at 14atm. Post dilation was accomplished with a 3.5 x 20 NC Euphora to 17 brandi. The final
angiographic result was outstanding. There were no procedural complications.
ANTI-COAGULATION THERAPY
1: Heparin 6000 units
Total contrast: 28 ml Visipaque
Closure Device Used: None- the procedure was performed via the right radial artery
Radiation (mGy): 438
DAP (cm2.Gy): 42.6
Fluoro time: 9.2 min
CONCLUSIONS: Successful stenting of prox and mid RCA disease using 3.5 x 38 Xience MARY. Plan one week triple therapy (ASA/Plavix/Xarelto 10mg) then Plavix and Xarelto 10mg alone for one year.
Copy to: Romel Gonzales MD, Lian Salcedo MD
Samuel Dangelo MD, MERGED WITH [facility]
[2023-10-06] MEDS: LASIX 40 MG IV (15:26)
[2023-10-06] MEDS: NSS 1000 IV (15:27)
--- NOTE | 2023-10-06 16:15 | W.PN.UPDATE ---
Update Note
Progress Note Update
78 yo WM s/p PCI RCA x 1 MARY (same day). He feels good, no cp, he has sob and fatigue from his low EF, EKG AsVpaced, R rad site c/d/i with TR band. He got the post op IV hydration protocol as well as Lasix 40 iv x 1. He will be in triple therapy
ASA/Plavix/Xarelto 10mg for 1 week then stop ASA. He will resume Xarelto Sat evening. Activity restrictions reviewed. Cardiac rehab c/s. He is for d/c home after 730pm.
CONCLUSIONS: Successful stenting of prox and mid RCA disease using 3.5 x 38 Xience AMRY. Plan one week triple therapy (ASA/Plavix/Xarelto 10mg) then Plavix and Xarelto 10mg alone for one year.
Copy to: Romel Gonzales MD, Lian Salcedo MD
[2023-10-10 11:03] LABS: ACT-LR - POC > 397 Seconds (116-155)
== END 2023-10-06 19:29 | disposition home or self-care (01) ==
LOC: CATH 11:21
PROVIDERS: ATTENDING PHYSICIAN Internal Medicine Cardiovascular Disease; FAMILY PHYSICIAN Internal Medicine; OTHER PHYSICIAN Internal Medicine Cardiovascular Disease
DX: I25.10 Atherosclerotic heart disease of native coronary artery without angina pectoris (principal); I21.4 Non-ST elevation (NSTEMI) myocardial infarction; I50.22 Chronic systolic (congestive) heart failure; Z79.01 Long term (current) use of anticoagulants; Z79.82 Long term (current) use of aspirin
CPT/HCPCS: 82962; 85347; 93005; C1725; C1769; C1874; C1894; C9600; Q9967

== ENCOUNTER 2023-11-01 07:15 | Emergency (ER) | payer OTHER, SELFPAY ==
[2023-11-01 07:22] VITALS: BP 99/66
[2023-11-01 08:34] LABS: % Basophils 0.6 % (0-2); % Eosinophils 3.6 % (0-6); % Immature Granulocytes 0.2 % (0-0.5); % Lymphocytes 13.6 % (20.5-51.1); % Monocytes 8.4 % (1.7-9.3); % Neutrophils 73.6 % (42.2-75.2); Absolute Eosinophils 0.2 10^3/uL (0-0.7); Absolute Lymphocytes 0.7 10^3/uL (1.2-3.4); Absolute Monocytes 0.4 10^3/uL (0.1-0.6); Absolute Neutrophils 3.5 10^3/uL (1.4-6.5); Hematocrit 47.6 % (39.0-52.0); Hemoglobin 15.7 g/dL (13.0-18.0); Mean Corpuscular Volume 93.9 fL (80.0-94.0); Mean Platelet Volume 11.7 fL (7.4-10.4); Nucleated Red Blood Cells % 0 % (-); Platelet Count 101 10^3/uL (130-400); Red Blood Cell Count 5.07 10^6/uL (4.70-6.10); Red Cell Dist. Width 14.2 % (11.5-14.5); White Blood Cell Count 4.8 10^3/uL (4.8-10.8)
[2023-11-01 08:40] LABS: ALT (SGPT) 42 U/L (0-50); AST (SGOT) 33 U/L (17-59); Albumin 4.5 g/dl (3.5-5.0); Alkaline Phosphatase 86 U/L (38-126); Blood Urea Nitrogen 57 mg/dl (9-20); Calcium 9.6 mg/dl (8.4-10.2); Carbon Dioxide 20 mmol/L (22-30); Chloride 104 mmol/L (98-107); Glucose 200 mg/dl (70-99); Magnesium 1.8 mg/dl (1.6-2.3); Potassium 5.1 mmol/L (3.5-5.1); Sodium 136 mmol/L (135-145); Total Bilirubin 1.2 mg/dl (0.2-1.3); Total Protein 6.9 g/dl (6.3-8.2); eGFR 37.58
[2023-11-01 09:58] VITALS: BP 98/67
[2023-11-01 10:00] VITALS: BP 96/63
--- NOTE | 2023-11-01 10:45 | ED.GENMED ---
History of Present Illness
General
Chief Complaint: Cardiac Symptoms
Source: patient
Exam Limitations: none
Time Seen by Provider: 11/01/23 07:29
History of Present Illness
History of Present Illness:
This is an 78-year-old male who presents after presenting to cardiac rehab and being found to be tachycardic. In addition his blood pressure was low. Patient is a long history of congestive heart failure and A-fib. He has a pacemaker. The
patient states his EF is less than 15%. The patient is frustrated because he feels normal and at baseline. The patient states he does not want to be here. He sees his regular campus monitor at [facility]. He did have a heart attack
in the past and recently had a stent. Denies melena or hematochezia. No chest pain. No shortness of breath. No abdominal pain. No back pain.
Past History
Past History
ED Past Medical History: Arrthythmia (Vent Tach, Atrial flutter), CAD, CHF, HTN, NIDDM, [place] and Other (Enlarged prostate)
ED Past Surgical History: Cardiac (stents X2), Orthopedic (hip fx) and Other (Cardiac stent)
Social History
Tobacco: Former smoker
Alcohol: None
Drug: None
Personal:
Living: alone
Phy Exam
Physical Exam
Physical Exam:
CONSTITUTIONAL Patient alert and oriented to person, place and time. Well-appearing. Vital signs reviewed.
HEAD atraumatic, normocephalic.
EYES eyelids normal to inspection, Extraocular muscles intact, Conjunctiva normal, Sclera normal.
NECK normal range of motion, Trachea midline, no jugular venous distention.
RESPIRATORY CHEST No respiratory distress noted, Chest expansion equal, Bilateral breath sounds clear.
CARDIOVASCULAR regular rate and tachycardic
ABDOMEN abdomen nontender, Bowel sounds normal. No distention.
BACK normal inspection, no obvious deformities
UPPER EXTREMITY range of motion normal, Motor strength normal, no cyanosis, no edema.
LOWER EXTREMITY range of motion normal, Motor strength normal, no cyanosis, no edema.
NEURO Speech normal, No focal motor deficits, Faraz coma scale 15, Memory normal, Cranial Nerves intact to screening exam.
SKIN skin warm, dry, and normal in color.
PSYCHIATRIC patient oriented to person place and time, Normal affect.
Course
Orders/Labs/Results
Orders:
Orders
11/01/23 07:16
EKG [Electrocardiogram (*1)] Urgent
Reason for Study: Bradycardia / Tachycardia
EKG- Treatment ONCE
11/01/23 08:12
Complete Blood Count/With Diff Urgent
Comprehensive Metabolic Panel Urgent
Magnesium Urgent
11/01/23 08:48
Electrocardiogram (*1) Urgent
Reason for Study: Palpitations
EKG- Treatment ONCE
11/01/23 11:32
EKG [Electrocardiogram (*1)] Routine
Reason for Study: Tachycardia
Abnormal Lab Results
11/01/23
08:12
Plt Count 101 L 10^3/uL
(130-400)
MPV 11.7 H fL
(7.4-10.4)
Absolute Lymphs (auto) 0.7 L 10^3/uL
(1.2-3.4)
Lymphocytes % 13.6 L %
(20.5-51.1)
Carbon Dioxide 20 L mmol/L
(22-30)
BUN 57 H mg/dl
(9-20)
Creatinine 1.8 H mg/dL
(0.7-1.3)
Glucose 200 H mg/dl
(70-99)
11/01/23 08:12
11/01/23 08:12
Vital Signs
Initial and Last Documented VS:
Initial Vital Signs
Temp Pulse Resp BP Pulse Ox
97.9 F 130 18 99/66 97
11/01/23 07:22 11/01/23 07:22 11/01/23 07:22 11/01/23 07:22 11/01/23 07:22
Last Documented Vital Signs
Temp Pulse Resp BP Pulse Ox
97.9 F 88 15 109/65 98
11/01/23 07:22 11/01/23 11:00 11/01/23 11:00 11/01/23 11:00 11/01/23 11:00
MDM/Problems Addressed
MDM/Problems Addressed:
Atrial tachycardia, A-V dissociation, chronic heart failure
*Pulse Oximetry
Patient hypoxic: no
*EKG
Interpreted by ED Provider?: Yes
Interpretation: abnormal
Rate: tachycardiac
Rhythm: sinus
Ischemia: non-specific ST changes
*Pigment Making Supervisor Interpretation
Rate: tachycardiac
Interpretation: abnormal
Rhythm: sinus
*Critical Care Note
Total Time (30-74mins, 75-104mins- exclusive of procedures): 30 minutes
Data Reviewed
Review of Other/Old Records Reveals: Other (Catheterization report reviewed from September 2023)
Source: patient
Prescriptions/Medications Considered But Not Given:
Considered AV blockade but patient has tenuous blood pressure and likely cannot tolerate any other additional medications given his current medications
Patient Management
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
Escalation/DeEscalation of care consider admission/obs:
case d/w Dr Hernandez. Patient with extensive medical history. Stable and has no symptoms. Was tachycardic on arrival that has resolved. Now appears to have second-degree heart block. Dr. Hernandez feels patient safe for discharge and he did
discuss the case with the patient's primary campus monitor. They did make some medication adjustments. Patient feels well and wants to go home.
ED Attending Note
-
Portions of this chart may have been created with voice recognition software.� Occasional wrong word or��sound alike� substitutions may have occurred due to the inherent limitations of voice recognition software.
Discharge Plan
Departure
Patient Disposition: Home (Routine Discharge)
Date of Disposition: 11/01/23
Time of Disposition: 12:35
Patient with high blood pressure during this ER visit?: No
Discharge Problem:
Atrial tachycardia, Second-degree heart block
Prescriptions:
No Action
tamsulosin 0.4 MG capsule
0.4 mg PO QPM
levothyroxine 25 MCG tablet
25 mcg PO DAILY
furosemide 40 MG tablet
40 mg PO DAILYPRN PRN (Reason: edema)
hydralazine 25 mg Tablet
50 mg PO BID
Entresto 24-26 mg Tablet
1 tab PO Q12H
magnesium oxide 400 mg magnesium Tablet
800 mg PO HS
clopidogrel 75 mg Tablet
75 mg PO DAILY Qty: 30 0RF
sodium bicarbonate 650 mg Tablet
650 mg PO TID Qty: 20 0RF
dapagliflozin propanediol 5 mg Tablet
5 mg PO DAILY Qty: 30 0RF
Rx Instructions:
has not started
Xarelto 10 mg Tablet
10 mg PO QPM Qty: 30 0RF
metoprolol succinate 25 mg tablet extended release 24 hr
12.5 mg PO HS
aspirin 81 MG tablet,delayed release (DR/EC)
81 mg PO DAILY Qty: 1 0RF
Rx Instructions:
Stop after 10/13/23
Referrals:
Lian Salcedo MD [Family Provider] -
Activity Restrictions/Additional Instructions:
Atrial tachycardia
Second degree heart block
Please see your campus monitor in follow-up as advised. Return immediately for chest pain, shortness of breath, weakness of any kind, fevers or any other concerns.
Interventions
Interventions:
*Risk Screen - Suicide Last Done: 11/01/23 07:23
*General Assessment Last Done: 11/01/23 07:23
*Neglect/Abuse Screening Last Done: 11/01/23 07:23
ED- Fall Risk Assessment Last Done: 11/01/23 09:26
*ED COVID-19 Vaccine History Last Done: 11/01/23 07:23
ED- Pulmonary Assessment Last Done: 11/01/23 09:26
ED- Cardiac Assessment Last Done: 11/01/23 09:26
Discharge Date and Time
Print Language: KISWAHILI
[2023-11-01 11:00] VITALS: BP 109/65
--- NOTE | 2023-11-01 11:16 | CON.CAR ---
Addendum entered and electronically signed by Alex Hernandez MD 11/01/23 12:43:
I saw and examined the patient.
The CHAIR INSTALLER's note was reviewed and I agree with the note.
Patient was sent to the emergency department after showing up in cardiac rehab with asymptomatic heart rates in the 130s and rhythm consistent with atrial tachycardia. Patient denies having any complaints of palpitations heart racing chest pain
shortness of breath lightheadedness or dizziness.
78-year-old male with a history of cardiomyopathy and severely reduced left ventricular function, ejection fraction 15%, coronary artery disease and most recent coronary stenting in September 2023, atrial fibrillation status post ablation, atrial
tachycardia and biventricular ICD. Of note during patient's last admission he was noted to have atrial tachycardia he received some beta-claudia during that admission and his rhythm resolved. In the past he had reported not feeling well on
beta-blockers but during that visit agreed to take Toprol-XL 12.5 mg a day which he has tolerated as an outpatient. Patient was asymptomatic when he was evaluated the emergency department. Respiratory status was stable he appeared euvolemic and
lungs were clear. ECGs showed atrial tachycardia in addition there were periods where he had atrial tachycardia versus sinus tachycardia and Mobitz 1 secondary AV block. His device was interrogated and appeared to be functioning appropriately he
only had very brief A-fib i on October 20 with multiple very short episodes and in total with a equaled about 4 minutes. No other arrhythmias detected. Considering the patient's heart rates were back in the 80s and he was asymptomatic it appears
reasonable for him to be discharged. I have recommended increasing Toprol-XL to 12.5 mg twice daily and patient is currently in agreement. He will then follow-up with Dr. Jorge Quintanilla at [facility] at the end of the month as
previously scheduled.
-The above issues were reviewed with his primary executive secretary Dr. Quintanilla
-Treatment plan also coordinated with emergency department physician Dr Gaines
Original Note:
Consultation
Consultation Request
Date/Time Consultation Requested: 11/01/23 1045
Date/Time Consultation Performed: 11/01/23 1100
Requesting Provider: Dr. Gaines
Performing Provider: Carrie SR for Dr. Hernandez
Reason for Consultation: arrhythmia
Medical History
-
Chief Complaint: arrhythmia
History of Present Illness:
78 y/o male with CAD with hx RI's and stenting (most recent last month), ICM EF 15%, HFrEF, AFIB (s/p ablations), atach, DM, [employer] Bi-V ICD. He is here from cardiac rehab due to suspected atrial tachycardia noted on the monitor. HR was
elevated and BP was on low end. He was and is feeling fine. HR on arrival 130's with SBP in 80's. However HR currently in 80's-90's and BP 109/65.
Past Medical History
Past Medical History: Arrhythmias (AFIB, atach), CAD, CHF and NIDDM
Social History
Tobacco: Former Smoker
Family History
Family History: Reviewed & Not Pertinent
Allergies / Home Medications
Allergy/AdvReac Type Severity Reaction Status Date / Time
Cbzpkio-RWC-[id number] Reductase Allergy Unknown Unknown Verified 11/01/23 07:17
Inhibitor
�Medication �Instructions �Recorded �Confirmed �Type
tamsulosin 0.4 mg capsule 0.4 mg PO QPM Urinary issue 05/28/18 10/06/23 History
levothyroxine 25 mcg tablet 25 mcg PO DAILY Thyroid 02/03/20 10/06/23 History
furosemide 40 mg tablet 40 mg PO DAILYPRN PRN edema 10/14/20 10/06/23 History
hydralazine 25 mg tablet 50 mg PO BID Blood Pressure 03/27/23 10/06/23 History
magnesium oxide 800 mg PO HS Supplement 03/27/23 10/06/23 History
sacubitril 24 mg-valsartan 26 mg 1 tab PO Q12H Heart Failure 03/27/23 10/06/23 History
tablet (Entresto)
clopidogrel 75 mg tablet 75 mg PO DAILY #30 tabs 09/27/23 10/06/23 Rx
dapagliflozin propanediol 5 mg 5 mg PO DAILY #30 tabs 09/27/23 10/06/23 Rx
tablet
rivaroxaban 10 mg tablet (Xarelto) 10 mg PO QPM #30 tabs 09/27/23 10/06/23 Rx
sodium bicarbonate 650 mg tablet 650 mg PO TID #20 tabs 09/27/23 10/06/23 Rx
aspirin 81 mg tablet,delayed 81 mg PO DAILY Blood clot 10/06/23 10/06/23 Rx
release prevention/tx #1 tab
metoprolol succinate 25 mg 12.5 mg PO HS 10/06/23 10/06/23 History
tablet,extended release 24 hr
Review of Systems
-
History Source: Patient
All other systems: Negative unless noted (no symptoms)
Physical Exam
Vital Signs
Temp Pulse Resp BP Pulse Ox
97.9 F 88 15 109/65 98
11/01/23 07:22 11/01/23 11:00 11/01/23 11:00 11/01/23 11:00 11/01/23 11:00
Lab Results
11/01/23 08:12
11/01/23 08:12
Physical Exam
General: Well Developed, Well Nourished and No Apparent Distress
HEENT: Normocephalic and Anicteric
Respiratory: Clear and Non Labored Respirations
Cardiac: Regular Rhythm
Musculoskeletal: No Edema
Skin: Warm and Dry
Neuro: AO x 3
Psych: Calm
Impression / Plan
-
Arrhythmia:
-initially was in an atrial tachycardia on arrival in 130's, but now appears as SR with Mobitz 1 heart block
-no symptoms
-increase metoprolol XL to 12.5 mg PO BID and follow-up with his primary executive secretary (Dr. Quintanilla)- will send in prescription
CAD:
-with recent NSTEMI and stenting
-stable without CP
-continue medical therapy with Plavix, Xarelto as planned
HFrEF:
-appears compensated
ICM EF 15%:
-[employer] ICD in place and was interrogated this AM and no concerning arrhythmias
-on Entresto and metoprolol, as well as Farxiga
Dr. Hernandez called and discussed above case with Dr. Quintanilla (patient's executive secretary)
Data Reviewed
-
EKG: Tracing Personally Visualized and interpreted
Medical Tests (Nuc Med, Echo etc): Report Reviewed by me (echo 09/24/23:LVEF is 15%. Global hypokinesis with akinesis of the apex and septum. The RV is dilated and hypokinetic. Severe biatrial enlargement. Mild mitral regurgitation. Mild aortic
stenosis, mean 7 mmHg . Mild to moderate tricuspid regurgitation. Est PASP 58 mmHg.)
Labs: Labs Reviewed by me
[2023-11-01 11:52] VITALS: BP 128/86
[2023-11-01 12:00] VITALS: BP 120/95
== END 2023-11-01 12:55 | disposition home or self-care (01) ==
LOC: EMR 07:15
PROVIDERS: EMERGENCY PHYSICIAN Emergency Medicine; FAMILY PHYSICIAN Internal Medicine; OTHER PHYSICIAN Internal Medicine Cardiovascular Disease
DX: I44.1 Atrioventricular block, second degree (principal); I47.19 Other supraventricular tachycardia; I11.0 Hypertensive heart disease with heart failure; I50.22 Chronic systolic (congestive) heart failure; I48.91 Unspecified atrial fibrillation; I25.10 Atherosclerotic heart disease of native coronary artery without angina pectoris; E11.9 Type 2 diabetes mellitus without complications; N40.0 Benign prostatic hyperplasia without lower urinary tract symptoms; I08.3 Combined rheumatic disorders of mitral, aortic and tricuspid valves; I42.9 Cardiomyopathy, unspecified; I48.92 Unspecified atrial flutter; I25.2 Old myocardial infarction; Z98.890 Other specified postprocedural states; Z95.810 Presence of automatic (implantable) cardiac defibrillator; Z95.5 Presence of coronary angioplasty implant and graft; Z87.891 Personal history of nicotine dependence; Z79.02 Long term (current) use of antithrombotics/antiplatelets; Z79.82 Long term (current) use of aspirin; Z88.8 Allergy status to other drugs, medicaments and biological substances
CPT/HCPCS: 99291; 93289; 80053; 83735; 85025; 93005

== ENCOUNTER 2023-11-17 06:48 | Outpatient (RCR) | payer OTHER, SELFPAY ==
[2023-10-25 14:18] LABS: Glucose - Point of Care 142 mg/dl (70-99)
[2023-10-25 15:00] LABS: Glucose - Point of Care 143 mg/dl (70-99)
[2023-10-27 06:31] LABS: Glucose - Point of Care 167 mg/dl (70-99)
[2023-10-27 07:13] LABS: Glucose - Point of Care 162 mg/dl (70-99)
[2023-10-30 06:28] LABS: Glucose - Point of Care 172 mg/dl (70-99)
[2023-10-30 07:10] LABS: Glucose - Point of Care 172 mg/dl (70-99)
[2023-11-01 06:36] LABS: Glucose - Point of Care 188 mg/dl (70-99)
[2023-11-03 06:36] LABS: Glucose - Point of Care 177 mg/dl (70-99)
[2023-11-03 07:19] LABS: Glucose - Point of Care 174 mg/dl (70-99)
[2023-11-06 06:31] LABS: Glucose - Point of Care 173 mg/dl (70-99)
[2023-11-06 07:24] LABS: Glucose - Point of Care 148 mg/dl (70-99)
[2023-11-08 06:33] LABS: Glucose - Point of Care 165 mg/dl (70-99)
[2023-11-08 07:24] LABS: Glucose - Point of Care 175 mg/dl (70-99)
[2023-11-13 07:12] LABS: Glucose - Point of Care 158 mg/dl (70-99)
== END 2023-11-17 23:59 | disposition home or self-care (01) ==
LOC: CRHB 06:48
PROVIDERS: ATTENDING PHYSICIAN Internal Medicine Cardiovascular Disease; FAMILY PHYSICIAN Internal Medicine
DX: I25.10 Atherosclerotic heart disease of native coronary artery without angina pectoris (principal); Z95.5 Presence of coronary angioplasty implant and graft; I25.2 Old myocardial infarction
CPT/HCPCS: 80053; 82962; 83735; 85025; 93005; G0422; G0423

== ENCOUNTER 2023-12-18 09:01 | Outpatient (RCR) | payer OTHER, SELFPAY | END 2023-12-18 23:59 | disposition home or self-care (01) | LOC: CRHB 09:01 | PROVIDERS: ATTENDING PHYSICIAN Internal Medicine Cardiovascular Disease; FAMILY PHYSICIAN Internal Medicine Endocrinology, Diabetes & Metabolism | DX: I25.110 Atherosclerotic heart disease of native coronary artery with unstable angina pectoris (principal); Z95.5 Presence of coronary angioplasty implant and graft | CPT/HCPCS: 93005; 93798; G0422; G0423 ==

== ENCOUNTER 2024-01-17 08:48 | Outpatient (RCR) | payer OTHER, SELFPAY | END 2024-01-17 23:59 | disposition home or self-care (01) | LOC: CRHB 08:48 | PROVIDERS: ATTENDING PHYSICIAN Internal Medicine Cardiovascular Disease; FAMILY PHYSICIAN Internal Medicine Endocrinology, Diabetes & Metabolism | DX: I25.10 Atherosclerotic heart disease of native coronary artery without angina pectoris (principal); Z95.5 Presence of coronary angioplasty implant and graft | CPT/HCPCS: G0422; G0423 ==

== ENCOUNTER 2024-05-31 21:17 | Inpatient (IN) | payer OTHER, SELFPAY ==
[2024-05-31] VITALS (7 sets, daily range): BP systolic 98–132; BP diastolic 67–117; BMI 25.0
[2024-05-31 17:17] LABS: % Basophils 0.4 % (0-2); % Eosinophils 1.1 % (0-6); % Immature Granulocytes 0.2 % (0-0.5); % Lymphocytes 10.4 % (20.5-51.1); % Monocytes 8.8 % (1.7-9.3); % Neutrophils 79.1 % (42.2-75.2); Absolute Eosinophils 0.1 10^3/uL (0-0.7); Absolute Lymphocytes 0.6 10^3/uL (1.2-3.4); Absolute Monocytes 0.5 10^3/uL (0.1-0.6); Absolute Neutrophils 4.3 10^3/uL (1.4-6.5); Hematocrit 54.1 % (39.0-52.0); Hemoglobin 17.5 g/dL (13.0-18.0); Mean Corp Hgb Conc. 32.3 g/dL (33.0-37.0); Mean Corpuscular Hgb 31.9 pg (27.0-31.0); Mean Corpuscular Volume 98.5 fL (80.0-94.0); Nucleated Red Blood Cells % 0 % (-); Platelet Count 90 10^3/uL (130-400); Red Blood Cell Count 5.49 10^6/uL (4.70-6.10); White Blood Cell Count 5.5 10^3/uL (4.8-10.8)
[2024-05-31 17:28] LABS: ALT (SGPT) 33 U/L (0-50); AST (SGOT) 27 U/L (17-59); Alkaline Phosphatase 79 U/L (38-126); Blood Urea Nitrogen 60 mg/dl (9-20); Calcium 9.6 mg/dl (8.4-10.2); Carbon Dioxide 16 mmol/L (22-30); Chloride 108 mmol/L (98-107); Glucose 246 mg/dl (70-99); Potassium 4.9 mmol/L (3.5-5.1); Sodium 136 mmol/L (135-145); Total Bilirubin 1.1 mg/dl (0.2-1.3); Total Protein 6.3 g/dl (6.3-8.2); eGFR 35.22
[2024-05-31 17:33] LABS: Troponin I 0.072 ng/ml
--- NOTE | 2024-05-31 19:07 | ED.GENMED ---
History of Present Illness
General
Chief Complaint: Cardiac Symptoms
Source: patient
Exam Limitations: none
Time Seen by Provider: 05/31/24 19:02
Nursing documentation reviewed up to this point in time: agreed with
History of Present Illness
History of Present Illness:
78-year-old male presents emergency department from complaining of shortness of breath. He was seen in [facility] and [place], and sent to the emergency department. He has a [employer] pacemaker.
Past History
Past History
ED Past Medical History: Arrthythmia (Vent Tach, Atrial flutter), CAD, CHF, HTN, NIDDM, AR and Other (Enlarged prostate)
ED Past Surgical History: Cardiac (stents X2), Orthopedic (hip fx) and Other (Cardiac stent)
Social History
Tobacco: Former smoker
Alcohol: None
Drug: None
Personal:
Living: alone
Review of Systems
Review of Systems
Allergies reviewed?: Yes
All Other Systems: Not applicable
Constitutional: Reports no symptoms
EENT: Reports no symptoms
Respiratory: Reports trouble breathing
Cardiac: Reports no symptoms
ABD/GI: Reports no symptoms
: Reports no symptoms
Musculoskeletal: Reports no symptoms
Skin: Reports no symptoms
Neurological: Reports no symptoms
Endocrine: Reports no symptoms
Hematologic/Lymphatic: Reports no symptoms
Psychiatric: Reports no symptoms
Phy Exam
Physical Exam
Physical Exam:
Physical Exam
General: Appears short of breath
Neck: supple. no meningeal signs. normal posterior pharynx
Heart: s1/s2 regular rate and rhythm, no murmur. equal radial
pulses. Pacemaker
HEENT: Pupils equal round reactive to light, EOMI
Lungs: Moderate respiratory distress. Rales bilaterally
Abdomen: normal bowel sounds. not tender. no CVAT
Neuro: alert and oriented. no focal neurological deficits cranial nerves II through XII intact
Skin: no rash
Psychiatric: well kept. interactive and cooperative
Extremities: no edema. no calf tenderness. negative homans. good distal pulses
Scores
Heart Failure Risk
Heart Failure Risk Score: Yes
History of Stroke or TIA: No
History of intubation for respiratory distress: No
Heart rate on ED arrival >/= 110: No
SaO2 <90% on arrival on room air: No
HR >/=110 during 3min walk test (or too ill to perform test): Yes
ECG has acute ischemic changes: No
Urea >/=12mmol/L (BUN 33.6mg/dL): Yes
Serum CO2>/=35mmol/L: No
Troponin I or T elevated to AR Level (0.4mg/dL): No
NT-proBNP >/=5,000ng/L (5,000pg/ml): Yes
HF Risk Score: 4
Admission Status: HIGH RISK 26.1% Consider SNF treatment or admission to hospital
Course
Orders/Labs/Results
Orders:
Orders
05/31/24 Breakfast
Cholesterol Lowering
At Your Request: Full Participation
Cholesterol Lowering: Sodium, 2 Gram
05/31/24 16:38
Electrocardiogram (*1) Urgent
Reason for Study: Shortness of Breath
05/31/24 16:39
EKG- Treatment ONCE
05/31/24 16:54
Complete Blood Count/With Diff Urgent
Comprehensive Metabolic Panel Urgent
NT-proBNP Urgent
Comment: ADD ON
Troponin I Urgent
05/31/24 19:05
Add On- LAB Urgent
Tests Added?: pro-bnp
05/31/24 19:06
CR Chest - 2 Views Urgent
Comment:
Reason For Exam: short of breath
05/31/24 20:19
Furosemide [Lasix] 40 mg IV NOW STA
05/31/24 20:57
Admit/Transfer Patient As Directed
Co-Sign Provider:
Level of Care: Inpatient admission
Assign to:: IMU- Intermediate Care
Physician / Group: uriely
Diagnosis: Dyspnea. Acute decompensated chr HFrEF
Reason for Hospitalization: Dyspnea
Acute decompensated chr HFrEF
Expected length of stay greater than two midnights?: Yes
ELOS- Estimated Length of Stay in days: 5
I certify the patient meets the requirements for IP care: Yes
05/31/24 20:59
Code Status As Directed
Resuscitation Status: Full Code
05/31/24 22:05
Levothyroxine [Synthroid] 25 mcg PO HS
Sacubitril 24/Valsartan 26 [Entresto 24 mg/26 mg] 1 tab PO Q12
05/31/24 22:05
HF DIETARY CONSULT Routine
HF EDUCATOR CONSULT Routine
Comment:
Activity As Directed
Activity Level: With Assistance
Intake/ Output As Directed
Frequency: Per unit guidelines
Patient Education As Directed
Type: CHF folder
Comment: give on admission. Document in Interdisciplinary Education record
Sleep Apnea Assessment by RN As Directed
Comment:
Physician Instructions:
Vital Signs As Directed
Frequency: Other
Additional Instructions:: Q12 or per unit guidelines if more frequent.
Weight As Directed
Frequency: Daily
Type of Scale: Standing Scale
Comment: Daily morning weight. If unable to stand, use balanced bed scale.
Weight As Directed
Frequency: Once
Type of Scale: Standing Scale
Comment: Upon Admission. If unable to stand, use balanced bed scale.
Pulse Ox/cont/shift [RESP] Routine
Quantity: 1
Special Instructions: Daily pulse oximetry at rest. If greater than 92% at rest also obtain pulse oximetry
while ambulating as tolerated.
05/31/24 22:56
Troponin I Q6H
Comment: at admission & every 6 hours x 2 (3 total), ECG to be done with each level
06/01/24 04:05
Troponin I Q6H
Comment: at admission & every 6 hours x 2 (3 total), ECG to be done with each level
06/01/24 06:00
Echo 2D MMode Color/Doppler IN AM
Reason for Study: heart failure
Basic Metabolic Panel IN AM
Cardiovascular Evaluation IN AM
Complete Blood Count/No Diff IN AM
TSH Reflex To Free T4 IN AM
06/01/24 08:00
Clopidogrel Bisulfate [Plavix] 75 mg PO DAILY
Dapagliflozin [Farxiga] 5 mg PO DAILY
Furosemide [Lasix] 40 mg IV DAILY
06/01/24 10:05
Troponin I Q6H
Comment: at admission & every 6 hours x 2 (3 total), ECG to be done with each level
06/01/24 18:00
Rivaroxaban [Xarelto] 10 mg PO QPM
Tamsulosin [Flomax] 0.4 mg PO QPM
06/02/24 06:00
Basic Metabolic Panel IN AM
06/03/24 06:00
Basic Metabolic Panel IN AM
Abnormal Lab Results
05/31/24
16:54
Hct 54.1 H %
(39.0-52.0)
MCV 98.5 H fL
(80.0-94.0)
MCH 31.9 H pg
(27.0-31.0)
MCHC 32.3 L g/dL
(33.0-37.0)
RDW 15.0 H %
(11.5-14.5)
Plt Count 90 L 10^3/uL
(130-400)
MPV 12.0 H fL
(7.4-10.4)
Absolute Lymphs (auto) 0.6 L 10^3/uL
(1.2-3.4)
Neutrophils % 79.1 H %
(42.2-75.2)
Lymphocytes % 10.4 L %
(20.5-51.1)
Chloride 108 H mmol/L
(98-107)
Carbon Dioxide 16 L mmol/L
(22-30)
BUN 60 H mg/dl
(9-20)
Creatinine 1.9 H mg/dL
(0.7-1.3)
Glucose 246 H mg/dl
(70-99)
Troponin I 0.072 H* ng/ml
05/31/24 16:54
05/31/24 16:54
Vital Signs
Initial and Last Documented VS:
Initial Vital Signs
Temp Pulse Resp BP Pulse Ox
97.5 F 86 16 124/80 96
05/31/24 16:48 05/31/24 16:48 05/31/24 16:48 05/31/24 16:48 05/31/24 16:48
Last Documented Vital Signs
Temp Pulse Resp BP Pulse Ox
98.2 F 75 21 98/67 93
05/31/24 22:30 05/31/24 22:58 05/31/24 21:30 05/31/24 22:58 05/31/24 23:16
MDM/Problems Addressed
Differential Diagnosis Includes:
CHF exacerbation, pneumonia, atrial fibrillation
MDM/Problems Addressed:
78-year-old male with CHF exacerbation. A-fib not found on interrogation of pacemaker. Admit to hospitalist. IV Lasix given.
Chronic conditions affecting care: Cardiomyopathy and Arrhythmia
Acute Exacerbation and/or Progression of Chronic Illness: Cardiomyopathy and Arrhythmia
*Radiology
Radiology exam reviewed: radiology read reviewed (Chest x-ray pulmonary edema)
*Pulse Oximetry
Patient hypoxic: no
*EKG
Interpreted by ED Provider?: Yes
EKG Intrepretation Date: 05/31/24
EKG Intrepretation Time: 16:42
Interpretation: abnormal
Comparison EKG: changes noted
Heart Rate: 88
Rate: normal
Rhythm: av sequential
[place]: left axis deviation
Interval: normal interval
QRS Pattern: normal QRS
Ischemia: no ischemia
*Violin Teacher Interpretation
Rate: normal
Interpretation: abnormal
Heart Rate: 78
Rhythm: sinus and av sequential
*Critical Care Note
Total Time (30-74mins, 75-104mins- exclusive of procedures): Not Applicable
Data Reviewed
Review of Other/Old Records Reveals: Progress Notes (Prior atrial tachycardia )
Patient Management
Social determinants of health affecting care: Living situation and Strong social support
Discussion with other providers: Hospitalist
Escalation/DeEscalation of care consider admission/obs:
Admit indicated
ED Attending Note
-
Portions of this chart may have been created with voice recognition software.� Occasional wrong word or��sound alike� substitutions may have occurred due to the inherent limitations of voice recognition software.
Discharge Plan
Departure
Patient Disposition: Admit
Date of Disposition: 05/31/24
Time of Disposition: 20:19
Admit to: Telemetry
Presentation/result/management discussed w/ accepting MD/DO: Hospitalist
Patient with high blood pressure during this ER visit?: No
Condition: Fair
Discharge Problem:
Acute exacerbation of CHF (congestive heart failure)
Interventions
Interventions:
*Risk Screen - Suicide Last Done: 05/31/24 22:22
*General Assessment Last Done: 05/31/24 17:52
*Neglect/Abuse Screening Last Done: 05/31/24 17:52
*ED- Fall Risk Assessment Last Done: 05/31/24 17:52
*ED COVID-19 Vaccine History Last Done: 05/31/24 22:22
*Nursing Disposition Last Done: 05/31/24 22:10
ED- Pulmonary Assessment Last Done: 05/31/24 17:52
ED- Cardiac Assessment Last Done: 05/31/24 17:52
Discharge Date and Time
Discharge Date/Time: 05/31/24 22:00
[2024-05-31 19:49] LABS: NT-proBNP 10800 pg/ml
[2024-05-31] MEDS: LASIX 40 MG IV (20:31)
--- NOTE | 2024-05-31 20:47 | HPS.HSE ---
Family Physician
-
Family Physician: Stella Salcedo
Chief Complaint
-
SoB
History of Present Illness
78 y/o male with CAD with hx PR's and stenting (most recent last month), ICM EF 15%, HFrEF, AFIB (s/p ablations), atach, DM, [employer] Bi-V ICD seen at ER
- shortness of breadth today
- he reports ' I was swimming two days ago ' m
- he reports taking Frusemide e only as needed and perhaps once a month only
Loss 5.3 kg weight over ( 84.3 kg i September, Now
- He was seen in [facility] and [place], and sent to the emergency department.
Medical History
Past Medical History
Past Medical History: Reports Other (Chronic systolic CHF, paroxysmal atrial fibrillation, VT/VF, CAD, hypertension, hyperlipidemia, diabetes mellitus, CKD, GI bleed in the past, FAY.)
Past Surgical History: Reports Other (PCIs with stents, ablations, cardioversions, hip repair.)
Social History
Tobacco: Former Smoker
Alcohol: Occasional
Drug: None
Family History
Family History: Not pertinent
Allergies / Home Medications
Allergies reflects when Allergies were last updated in [employer].
Home Medications with original date entered in [facility]
Allergy/Medication List:
Allergies
Allergy/AdvReac Type Severity Reaction Status Date / Time
No Known Allergies Allergy Verified 09/24/23 07:19
Home Medications
tamsulosin 0.4 mg capsule 0.4 mg PO QPM Urinary issue 05/28/18
aspirin 81 mg tablet,delayed release 81 mg PO DAILY Blood clot prevention/tx 11/01/18
levothyroxine 25 mcg tablet 25 mcg PO DAILY Thyroid 02/03/20
rivaroxaban 15 mg tablet (Xarelto) 15 mg PO DAILY Blood clot prevention/tx 02/03/20
furosemide 40 mg tablet 40 mg PO DAILYPRN PRN edema 10/14/20
hydralazine 25 mg tablet 75 mg PO Q8H 03/27/23
magnesium oxide 800 mg PO HS 03/27/23
sacubitril 24 mg-valsartan 26 mg tablet (Entresto) 1 tab PO Q12H 03/27/23
Review of Systems
-
Constitutional: Reports No Symptoms
EENT: Reports No Symptoms
Respiratory: Reports See HPI and Trouble Breathing
Cardiac: Reports No Symptoms
Abdomen/GI: Reports No Symptoms
: Reports No Symptoms
Musculoskeletal: Reports No Symptoms
Skin: Reports No Symptoms
Neurological: Reports No Symptoms
Endocrine: Reports No Symptoms
Hematologic/Lymphatic: Reports No Symptoms
Psych: Reports No Symptoms
Physical Exam
Vital Signs
Vital Signs
Temp Pulse Resp BP Pulse Ox
97.5 F 78 24 117/83 99
05/31/24 16:48 05/31/24 20:31 05/31/24 20:30 05/31/24 20:31 05/31/24 19:30
Physical Exam
General: Other
Laboratory Results
-
05/31/24 16:54
05/31/24 16:54
Laboratory Results
Total Bilirubin 1.1 mg/dl (0.2-1.3) 05/31/24 16:54
AST 27 U/L (17-59) 05/31/24 16:54
ALT 33 U/L (0-50) 05/31/24 16:54
Alkaline Phosphatase 79 U/L (38-126) 05/31/24 16:54
Troponin I 0.072 ng/ml H* 05/31/24 16:54
Data Reviewed
-
Diagnostic Radiology: Image Personally Visualized and interpreted
Medical Tests (Nuc Med, Echo, EKG etc): Report Reviewed by me
Lab Data: Labs Reviewed by me
Impression/Plan
-
Reviewed VS:
Selected Entries
05/31/24
16:48 05/31/24
17:45 05/31/24
17:50
Temp 97.5 F
Pulse 86 86
Resp Rate 16
Blood pressure 124/80
SaO2 96
Oxygen Mode of Delivery Room air
Actual Weight 79 kg
Laboratory Tests
09/24/23 11/01/23 05/31/24
07:33 08:12 16:54
WBC 5.5
Hgb 17.5
Plt Count 101 L 90 L
Potassium 4.9
Chloride 108 H
Carbon Dioxide 16 L
BUN 60 H
Creatinine 1.8 H 1.9 H
eGFR 37.58 35.22
Glucose 246 H
Troponin I 0.072 H*
Xrd-S-Zygsywgjeor Pept [id number]
05/31/24 CXR: pending final report. CHF by my view
EKG
Atrial-sensed ventricular-paced rhythm with prolonged AV conduction
Biventricular pacemaker detected
ABNORMAL ECG
WHEN COMPARED WITH ECG OF 27-NOV-2023 07:02,
ELECTRONIC VENTRICULAR PACEMAKER HAS REPLACED WIDE QRS TACHYCARDIA
VENT. RATE HAS DECREASED BY 44 BPM
Confirmed by JOSHUA HILL MD ([id number]) on 05/31/2024 5:15:47 PM
09/24/23 TTE
Left ventricle is moderately dilated.
LVEF is 15%.
Global hypokinesis with akinesis of the apex and septum.
The RV is dilated and hypokinetic
Severe biatrial enlargement.
Mild mitral regurgitation.
Mild aortic stenosis, mean 7 mmHg (very poor LVEF noted).
Mild to moderate tricuspid regurgitation.
Est PASP 58 mmHg, RA estimated at 3 mmHg.
No pericardial effusion.
Pacing/ICD wires noted.
No significant change since the prior study of 11/02/2018 but ICD is new.
Last hospitalist admission:
ASSESSMENT & PLAN
Dyspnea with exertion. Not orthopneic
Acute decompensated chr HFrEF
Reports taking Frusemide e only as needed and perhaps once a month only
Loss 5.3 kg weight over ( 84.3 kg i September, Now 79 kg)
HX ICM EF 15%
[employer] ICD in place and was interrogated upon admission at ER and no concerning arrhythmias
- significantly elevated pro BNP
- IV Lasix 40 daily - f/u IOS, daily Wt and daily BMP
- c/w current MANAGER DRUG GDMT : Entresto , Dapagliflozin, metoprolol XL
- c/w PO Hydralazine
- CBC card consult
Paced rhythm: Atrial-sensed ventricular-paced rhythm with prolonged AV conduction
Biventricular pacemaker detected
HX Afib
- do not see current A Fib on [employer] PPMK interrogation
- c/w MANAGER DRUG Xarelto
HX CAD: with recent NSTEMI and stenting
-stable without CP
-continue medical therapy with Plavix, Xarelto as planned
HX CKD3b
At baseline Cr hi 1s and baseline e GFR 30s
- daily BMP while IV Diuresing
Chronic thrombocytopenia
- no active bleeding
- currently on DAPL and Xarelto
- Trend Platelet count
Hypothyroid
- on MANAGER DRUG LT4
BPH
- on Tamsulosin
DVT Px: Xarelto
Full code
IMU
[2024-05-31] MEDS: FLUSH (NSS) 1 FLUSH IV (21:30)
[2024-05-31] MEDS: ENTRESTO 24 MG/26 MG PO (22:58)
[2024-05-31] MEDS: XARELTO 10 MG PO (23:03)
[2024-05-31] MEDS: FLOMAX 0.4 MG PO (23:03)
[2024-05-31 23:31] LABS: Troponin I 0.086 ng/ml
[2024-06-01] VITALS (7 sets, daily range): BP systolic 89–122; BP diastolic 54–93; BMI 25.7
--- NOTE | 2024-06-01 00:47 | PTCARENOTE ---
Patient admitted to IMU around 2229. Patient aaox3, able to transfer from stretcher to bed with standby assist x1. Patient has [employer] bi-ventricular pacemaker and is currently 100% v-paced, positive pedal and radial pulses b/l. Patient on
RA, [place] noted, pox 93-97% on RA. Overnight patients o2 sats decreased to low 80's, quick rebound return to 97%. Patient started on O2 2L via n/c due to frequent pox drops to low 80's. BS active, patient continent of bowel and bladder. Using bedside
urinal with standing assist x1 for safety. Patient ambulatory independently at baseline. 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 Patient with skin tear to lower RUE and lower LUE as well,
silicone bordered foam dressings applied. Patient currently resting in bed, forgets to use call kimble prior to getting oob, bed alarm on. Will continue to monitor pt closely.
[2024-06-01] MEDS: SYNTHROID 25 MCG PO ×2 (04:49→21:24)
[2024-06-01 05:26] LABS: Hematocrit 48.6 % (39.0-52.0); Hemoglobin 15.8 g/dL (13.0-18.0); Mean Corp Hgb Conc. 32.5 g/dL (33.0-37.0); Mean Corpuscular Hgb 31.1 pg (27.0-31.0); Mean Corpuscular Volume 95.7 fL (80.0-94.0); Mean Platelet Volume 11.9 fL (7.4-10.4); Platelet Count 97 10^3/uL (130-400); Red Blood Cell Count 5.08 10^6/uL (4.70-6.10); Red Cell Dist. Width 14.6 % (11.5-14.5); White Blood Cell Count 3.9 10^3/uL (4.8-10.8)
[2024-06-01 05:41] LABS: Blood Urea Nitrogen 62 mg/dl (9-20); Calcium 9.1 mg/dl (8.4-10.2); Carbon Dioxide 19 mmol/L (22-30); Chloride 107 mmol/L (98-107); Estimated Creatinine Clearance 30 ml/min; Glucose 215 mg/dl (70-99); HDL Cholesterol 30 mg/dl; LDL Cholesterol, Calculated 119 mg/dl; Magnesium 1.9 mg/dl (1.6-2.3); Potassium 4.5 mmol/L (3.5-5.1); Sodium 139 mmol/L (135-145); Total Cholesterol 165 mg/dl (50-199); Triglyceride 83 mg/dl (10-149); Very Low Density Lipoprotein 16 mg/dl (0-30); eGFR 33.12
[2024-06-01 05:45] LABS: Troponin I 0.079 ng/ml
[2024-06-01 06:11] LABS: TSH Reflex To Free T4 4.45 uIU/ml (0.47-4.68)
--- NOTE | 2024-06-01 08:23 | CON.CAR ---
Addendum entered and electronically signed by Alex Hernandez MD 06/01/24 11:07:
I saw and examined the patient.
The BLIND STITCH MACHINE OPERATOR's note was reviewed and I agree with the note.
Primary resident engineer Dr. Quintanilla
78-year-old male with a history of cardiomyopathy and severely reduced left ventricular function, ejection fraction 15%, coronary artery disease and most recent coronary stenting in September 2023, atrial fibrillation status post ablation, atrial
tachycardia, biventricular ICD and CKD normally followed by Dr. Quintanilla. Patient's had increased shortness of breath for over a week was seen by primary resident engineer and told he would need to go to the ER to be shocked although by ECG and telemetry
has been in sinus rhythm with heart rates in the 70s and 80s. Review of ICD interrogation without evidence of sustained VT or sustained atrial arrhythmias. Unclear if patient had an abnormal rhythm in his physician's office. He has a history of
atrial tachycardia it is possible he had atrial tachycardia that was below the tach detection rate for his device and is now spontaneously back in sinus rhythm. Patient's had atrial tachycardia in the past had tolerated Toprol 12.5 mg a day but
then did not like the way he felt when the dose was increased so he discontinued it and he has not been on it for a month or 2. He has been admitted to the hospitalist service. Chest x-ray suggested mild interstitial edema and patient has received
IV diuretics but it appears did not have much diuresis overnight. Currently comfortable at rest had some shortness of breath walking to the bathroom remains on 2 L nasal cannula.
.
Heart failure reduced ejection fraction-appears he has a component of acute on chronic left heart failure. Not clear that there is a precipitating factor. Unclear if he is had more atrial arrhythmias that are not detectable on his device that
could have contributed no clear dietary and distraction or change in medical therapy. Of note patient does have underlying CKD and creatinine 2.0
-Diuresis with IV Lasix with close monitoring of renal function. Patient currently on IV Lasix 40 mg twice daily if patient does not appear to have a response to the 40 mg this morning then will give a total of Lasix 80 mg this morning
-Monitor renal function and weights closely
.
PAT. Prior history of PAT
-Would resume Toprol 12.5 mg in the evening. He is tolerated this in the past and is willing to go back on it.
.
PAF
-In sinus rhythm
-Prior history. On Xarelto and Plavix with dosing as listed. Will continue with current dosing and can follow-up with PCP
.
Coronary artery disease. Currently with no symptoms to suggest angina. Continue current medical therapy.
-Troponin 0.086 and 0.079 likely non-VA troponin related to CHF
.
? Or arrhythmia. Unclear if patient had arrhythmia in physicians office that is not noted on his device. If he has a history of PAF A-fib should have been detected possible that he could have had PAT at lower rate then detected.
-Will try and contact primary resident engineer
.
CKD. Monitor closely with diuresis. Creatinine currently 2.0
.
ICD
.
Reviewed issues with patient. He wants to go home but also wants to feel better I explained to him that he has cardiac issues and medical issues that are quite complex and that it will take time to address his issues. We also will need to have him
at a point where his breathing feels better while off oxygen prior to considering discharge
Original Note:
Consultation
Consultation Request
Date/Time Consultation Requested: 05/31/24 444
Date/Time Consultation Performed: 06/01/24 0820
Requesting Provider: Dr. Lopez
Performing Provider: Carrie SR for Dr. Hernandez
Reason for Consultation: CHF
Medical History
-
Chief Complaint: SOB
History of Present Illness:
78 y/o male with CAD with stenting (confirmed with patient last stenting 10/06/[address] Dangelo), HFrEF, ICM EF 15%, ICD in place, AT, CKD, PAF, thrombocytopenia. He follows at [place] with Dr. Quintanilla and Dr. Melara, but had stenting with
[facility] 2023. He is here for evaluation of SOB and is admitted for management of nvnxo-xt-mzazbra HFrEF. He tells me that he has had progressive SOB since earlier this week and that he saw Dr. Quintanilla yesterday, who told him to go to the hospital to
be 'shocked'. On arrival, his EKG shows a-sensed, V-paced rhythm- same on monitor. BS interrogation also does not appear to show arrhythmic issue this past week to my review. However, he does seem to be volume overloaded and is admitted for CHF
exacerbation. He has noted his weight creeping up. He normally takes lasix 40 mg PRN once a month when he feels sluggish- more recently it has been once per week. He reports noting mild BLE edema. No orthopnea or PND. He is being treated with IV
lasix. He does not feel that there has been successful diuresis yet. He is in no distress at the time of my assessment. He is wearing O2 by SC. He has no CP.
Past Medical History
Past Medical History: Arrhythmias, CAD and CHF
Social History
Tobacco: Former Smoker
Family History
Family History: Reviewed & Not Pertinent
Allergies / Home Medications
Allergy/AdvReac Type Severity Reaction Status Date / Time
Xfpksil-KSN-GaW Reductase Allergy Pt. Verified 05/31/24 22:12
Inhibitor reports
muscle
cramps
�Medication �Instructions �Recorded �Confirmed �Type
tamsulosin 0.4 mg capsule 0.4 mg PO QPM Urinary issue 05/28/18 05/31/24 History
levothyroxine 25 mcg tablet 25 mcg PO HS Thyroid 02/03/20 05/31/24 History
furosemide 40 mg tablet 40 mg PO DAILYPRN PRN edema 10/14/20 05/31/24 History
sacubitril 24 mg-valsartan 26 mg 1 tab PO Q12H Heart Failure 03/27/23 05/31/24 History
tablet (Entresto)
clopidogrel 75 mg tablet 75 mg PO DAILY #30 tabs 09/27/23 05/31/24 Rx
dapagliflozin propanediol 5 mg 5 mg PO DAILY #30 tabs 09/27/23 05/31/24 Rx
tablet
rivaroxaban 10 mg tablet (Xarelto) 10 mg PO QPM #30 tabs 09/27/23 05/31/24 Rx
Review of Systems
-
History Source: Patient
All other systems: Negative unless noted
Constitutional: Weight Gain
Respiratory: Trouble Breathing
Musculoskeletal: Edema
Physical Exam
Vital Signs
Temp Pulse Resp BP Pulse Ox
97.6 F 66 24 109/75 98
06/01/24 03:00 06/01/24 06:00 06/01/24 05:30 06/01/24 06:00 06/01/24 06:00
Lab Results
06/01/24 04:59
06/01/24 04:59
Troponin I 0.079 ng/ml H* 06/01/24 04:59
Tsi-R-Ngiotgdnrqu Pept 75317 pg/ml 05/31/24 16:54
Physical Exam
General: Well Developed, Well Nourished and No Apparent Distress
HEENT: Normocephalic and Anicteric
Respiratory: Crackles (left base, mild) and Other (on O2 by NC)
Cardiac: Regular Rhythm and Peripheral Edema (trace BLE)
Skin: Warm and Dry
Neuro: AO x 3
Psych: Calm
Impression / Plan
-
Sqbob-ei-liklveu HFrEF/severe ICM EF 15%:
-agree with IV lasix, but will likely need a higher dose- this requires intensive monitoring
-repeat echo is ordered
-continue SGLT2i, Entresto. Formerly on CHF BB, but made him feel bad so he stopped. Will not add MRA with renal function.
-weight currently 179. He thinks dry weight is low 170's.
CAD with multiple stents:
-confirmed most recent 09/[address] Dangelo
-on Plavix, Xarelto
-denies any CP
PAF, AT:
-rhythm is stable at present- follow telemetry
-formerly on BB, but it made him feel bad so stopped months ago
-on lower Xarelto with Plavix on board
BS ICD:
-interrogation in chart
CKD:
-monitor with diuresis
-follows with Dr. Rboles
Data Reviewed
-
EKG: Tracing Personally Visualized and interpreted ( GRAIN SCOOPER 88 B PM)
Radiology: Report Reviewed by me (CXR: Cardiomegaly. Radiographic findings suggest mild interstitial pulmonary edema pattern.)
Medical Tests (Nuc Med, Echo etc): Report Reviewed by me (Cath 10/06/23: Successful stenting of 70% calcific mid and 70-80% calcific proximal RCA stenoses using 3.5 x 38 Xience rebecca point MARY. Echo 09/24/23: LVEF is 15%. Global hypokinesis with akinesis
of the apex and septum. The RV is dilated and hypokinetic. Severe biatrial enlargement. Mild mitral regurgit)
Labs: Labs Reviewed by me
--- NOTE | 2024-06-01 08:34 | W.PN.HOSP.TC ---
Today's Communication/Plan
-
see bold
Assessment / Plan
Assessment / Plan
HPI: 78 y/o male with CAD with stenting (confirmed with patient last stenting 10/06/[address] Dangelo), HFrEF, ICM EF 15%, ICD in place, AT, CKD, PAF, thrombocytopenia. He follows at [facility] with Dr. Quintanilla and Dr. Melara, but had stenting with
Antolin 2023. He is here for evaluation of SOB and is admitted for management of aeoam-ma-gfvgfqq HFrEF.
#Acute heart failure with a reduced ejection fraction
#Ischemic cardiomyopathy ejection fraction 15% status post ICD
Reports taking Lasix only as needed perhaps once a month
Cardiology following, continue Lasix 40 mg IV daily
Continue Farxiga & enresto, cardiology added Toprol-XL 12.5 mg every afternoon
Trend creatinine, trend daily weights
#Stage III CKD
Trend creatinine with diuresis
#Paroxysmal atrial fibrillation
#Paroxysmal atrial tachycardia
Resumed on Toprol XL 12.5 mg every afternoon, continue Xarelto
#Coronary artery disease status post stent
#Nonischemic myocardial injury
Continue Plavix, xarelto
#Hypothyroidism
Continue levothyroxine
#BPH
Continue Flomax
DVT prophylaxis�continue Xarelto
Full code
Total time spent to see the patient on the floor, examine the patient, review data and lab results, discuss treatment plan with patient, nursing staff around 51 minutes.
Physical Exam
General: No acute distress
HEENT: Normocephalic, Atraumatic, EOMI, MMM
Respiratory: Bibasilar crackles
Cardiac: Normal S1/S2, Regular Rate and Rhythm
GI: Soft, Nontender, Nondistended, Normal Bowel Sounds
Extremities: No Clubbing, Cyanosis
Bilateral lower extremity edema with skin changes reflective of chronic venous stasis dermatitis
Neuro: Nonfocal/Grossly Intact
Anticipated Discharge: 24 - 48 hours
Subjective/Interval History
-
Date of Service: June 01, 2024
Patient denies shortness of breath at rest. Has dyspnea with activity, mildly improved. No fever, no vomiting. No chest pain.
Objective Data
-
Labs:
Laboratory Results
06/01/24
04:59
WBC 3.9 L
Hgb 15.8
Hct 48.6
Plt Count 97 L
Sodium 139
Potassium 4.5
Chloride 107
Carbon Dioxide 19 L
BUN 62 H
Creatinine 2.0 H
Glucose 215 H
Calcium 9.1
Vital Signs:
Vital Signs
Temp Pulse Resp BP Pulse Ox
97.6 F 66 24 109/75 98
06/01/24 03:00 06/01/24 06:00 06/01/24 05:30 06/01/24 06:00 06/01/24 06:00
I&O
05/31/24 06/01/24 06/02/24
06:59 06:59 06:59
Intake Total 240 / 240
Output Total 745 / 745
Balance -505 / -505
[2024-06-01] MEDS: ENTRESTO 24 MG/26 MG 1 TAB PO (09:06)
[2024-06-01] MEDS: PLAVIX 75 MG PO (09:06)
[2024-06-01] MEDS: FARXIGA 5 MG PO (09:07)
[2024-06-01] MEDS: LASIX 40 MG IV ×2 (09:07→12:43)
--- NOTE | 2024-06-01 12:27 | CM ---
Reviewed the chart notes and spoke with the patient at the bedside. The patient resides alone in a one story home with two steps to enter. The patient reports no DME/VN/SNF. The patient confirmed his pharmacy of choice is the [facility]
[place]. CM continues to be available to patient/family and is monitoring medical plan for needs at discharge.
Plan: Discharge plans will depend on the patient's progress.
--- NOTE | 2024-06-01 18:04 | PTCARENOTE ---
Report given to Rosi CHEEK on ; Pt sent to room 415-1 via wheelchair
[2024-06-01] MEDS: TOPROL XL 12.5 MG PO (18:08)
[2024-06-01] MEDS: FLOMAX 0.4 MG PO (18:08)
[2024-06-01] MEDS: XARELTO 10 MG PO (18:08)
--- NOTE | 2024-06-01 18:28 | PTCARENOTE ---
PATIENT TRANSFERRED FROM IMU VIA WHEELCHAIR. PT AOX3, PLEASANT AND ABLE TO MAKE NEEDS KNOWN. PT AMBULATED TO BED FROM STRETCHER. PT ORIENTED TO ROOM & RECEIVED PM MEDICATIONS. NO COMPLAINTS OFFERED AT THIS TIME. CONTINUE TO MONITOR
[2024-06-01] MEDS: ENTRESTO 24 MG/26 MG PO (20:20)
[2024-06-01] MEDS: MAGNESIUM OXIDE 500 MG PO (20:27)
[2024-06-02 03:00] VITALS: BP 96/63
[2024-06-02 06:00] VITALS: BMI 24.9
[2024-06-02 07:30] VITALS: BP 124/70
[2024-06-02 07:42] LABS: Blood Urea Nitrogen 61 mg/dl (9-20); Calcium 8.7 mg/dl (8.4-10.2); Carbon Dioxide 20 mmol/L (22-30); Chloride 106 mmol/L (98-107); Estimated Creatinine Clearance 36 ml/min; Glucose 176 mg/dl (70-99); Magnesium 1.9 mg/dl (1.6-2.3); Potassium 4.3 mmol/L (3.5-5.1); Sodium 136 mmol/L (135-145); eGFR 40.25
[2024-06-02] MEDS: FARXIGA 5 MG PO (08:24)
[2024-06-02] MEDS: ENTRESTO 24 MG/26 MG 1 TAB PO ×2 (08:24→20:27)
[2024-06-02] MEDS: PLAVIX 75 MG PO (08:25)
[2024-06-02] MEDS: LASIX 40 MG IV ×2 (08:25→11:13)
--- NOTE | 2024-06-02 09:21 | W.PN.HOSP.TC ---
Today's Communication/Plan
-
Continue IV Lasix
Ambulate
Assessment / Plan
Assessment / Plan
HPI: 78 y/o male with CAD with stenting (confirmed with patient last stenting 10/06/[address] Dangelo), HFrEF, ICM EF 15%, ICD in place, AT, CKD, PAF, thrombocytopenia. He follows at [place] with Dr. Quintanilla and Dr. Melara, but had stenting with
Antolin 2023. He is here for evaluation of SOB and is admitted for management of rymig-hr-vcvuiqr HFrEF.
#Acute heart failure with a reduced ejection fraction
#Acute hypoxic respiratory insufficiency
#Ischemic cardiomyopathy ejection fraction 15% status post ICD
Reports taking Lasix only as needed perhaps once a month
Was requiring 2 L of oxygen, currently 97% on room air
Cardiology following, continue Lasix 40 mg IV daily
Continue Farxiga & enresto, cardiology added Toprol-XL 12.5 mg every afternoon
Trend creatinine, trend daily weights
#Stage III CKD
Trend creatinine with diuresis
#Paroxysmal atrial fibrillation
#Paroxysmal atrial tachycardia
Resumed on Toprol XL 12.5 mg every afternoon, continue Xarelto
#Coronary artery disease status post stent
#Nonischemic myocardial injury
Continue Plavix, xarelto
#Hypothyroidism
Continue levothyroxine
#BPH
Continue Flomax
DVT prophylaxis�continue Xarelto
Full code
Total time spent to see the patient on the floor, examine the patient, review data and lab results, discuss treatment plan with patient, nursing staff around 41 minutes.
Physical Exam
General: No acute distress
HEENT: Normocephalic, Atraumatic, EOMI, MMM
Respiratory: Clear to auscultation bilaterally
Cardiac: Normal S1/S2, Regular Rate and Rhythm
GI: Soft, Nontender, Nondistended, Normal Bowel Sounds
Extremities: No Clubbing, Cyanosis
Bilateral lower extremity edema with skin changes reflective of chronic venous stasis dermatitis
Neuro: Nonfocal/Grossly Intact
Anticipated Discharge: 24 - 48 hours
Subjective/Interval History
-
Date of Service: June 02, 2024
Patient denies shortness of breath at rest. States he does not know if his dyspnea with activity has improved since he has not walked around much. No chest pain. No fever, no vomiting.
Objective Data
-
Labs:
Laboratory Results
06/02/24
06:55
Sodium 136
Potassium 4.3
Chloride 106
Carbon Dioxide 20 L
BUN 61 H
Creatinine 1.7 H
Glucose 176 H
Calcium 8.7
Vital Signs:
Vital Signs
Temp Pulse Resp BP Pulse Ox
97.8 F 63 18 124/70 99
06/02/24 07:30 06/02/24 08:25 06/02/24 07:30 06/02/24 08:25 06/02/24 07:30
I&O
06/01/24 06/02/24 06/03/24
06:59 06:59 06:59
Intake Total 240 / 240 1440 / 1440
Output Total 745 / 745 950 / 950
Balance -505 / -505 490 / 490
--- NOTE | 2024-06-02 10:05 | W.PN.CD ---
Addendum entered and electronically signed by Alex Hernandez MD 06/02/24 19:57:
ICD is [employer]
Addendum entered and electronically signed by Alex Hernandez MD 06/02/24 11:09:
I was able to get a hold of Dr. Quintanilla's coverage reviewed with Dr. Traylor.
Patient's heart rates were in the 80s by ECG in the office it was just in the office they could not tell if patient had atrial flutter. Review of interrogation did not show any evidence of A-fib or a flutter in May. Patient's had brief episodes
by prior cardiac monitoring in April. We agreed that we would continue with heart failure treatment and also would plan to discharge on daily Lasix when it is time for him to leave the hospital.
I also confirmed that on their med list the Xarelto dosing is 15 mg daily
Addendum entered and electronically signed by Alex Hernandez MD 06/02/24 10:11:
I had a long discussion with the patient both yesterday and today about the importance of trying to optimize his medical therapy I also had suggested that he remains in the hospital. Yesterday he had wanted to go home today we also had a discussion
regarding timing of discharge. He is agreeable with staying today but is hoping that he could be discharged tomorrow. It is possible that if he is weaned off O2 respiratory status is close to baseline and labs are stable then discharge could be
considered in 24 hours.
Original Note:
Today's Communication / Plan
-
-Faint wheeze at bases. Would favor additional inpatient IV diuretic and close monitoring. Note patient was only using as needed Lasix at home I explained importance of daily Lasix. He has 40 mg tablets would likely go Lasix 40 mg once a day at
home. I also made him aware that he may not respond as well to Lasix 40 mg with his underlying renal insufficiency. He will need to also watch salt and volume intake. patient states he will be better about his diet he thinks he was eating too
much salt prior to admission and this was contributing.
.
Also a call was placed to his primary cell tuber hand office. Trying to reach covering cell tuber hand to see if there is any additional information but any abnormal rhythms that were witnessed during his office visit. Patient raise question of abnormal
rhythm. None noted on his device. He does have prior history of PAT and was not taking beta-claudia. Now back on low-dose beta-claudia which will be continued.
Impression / Plan
-
Sdubf-rw-hqomqcv HFrEF/severe ICM EF 15%:
-IV lasix. received 80mg IV yesterday. Feels better but still is on O2. Will see if we can wean O2 and see how he does with ambulation
-Faint wheeze at bases. Would favor additional inpatient IV diuretic and close monitoring. Note patient was only using as needed Lasix at home I explained importance of daily Lasix. He has 40 mg tablets would likely go Lasix 40 mg once a day at
home. I also made him aware that he may not respond as well to Lasix 40 mg with his underlying renal insufficiency. He will need to also watch salt and volume intake. patient states he will be better about his diet he thinks he was eating too
much salt prior to admission and this was contributing.
- echo 06/03/24
-continue SGLT2i, Entresto. Formerly on CHF BB, but made him feel bad so he stopped. Will not add MRA with renal function.
-weigth 78.6 kg . I/O only a littel negatvei ? accuracy. Weights since admit79, 81 78.6
- monitor renal function [facility] improved 2.0-1.7 with diuresis
CAD with multiple stents:
-confirmed most recent 09/[address] Dangelo
-on Plavix, Xarelto
-denies any CP
PAF, AT:
-rhythm is stable at present- follow telemetry
- was on tolreol 12.5mg in evening and tolerated but did not like it whendose was increased an dhe has been off a couple months. Restarted evening dosing this admit ( for both PAT and CM)
-on lower Xarelto with Plavix on board
BS ICD:
-interrogation in chart
CKD:
-monitor with diuresis
-follows with Dr. Robles
Physical Exam
Vital Signs/Labs
Vital Signs
Temp Pulse Resp BP Pulse Ox
97.8 F 63 18 124/70 99
06/02/24 07:30 06/02/24 08:25 06/02/24 07:30 06/02/24 08:25 06/02/24 07:30
06/01/24 06/02/24 06/03/24
06:59 06:59 06:59
Actual Weight 81.4 kg 78.608 kg
06/01/24 04:59
06/02/24 06:55
Magnesium 1.9 mg/dl (1.6-2.3) 06/02/24 06:55
Triglycerides 83 mg/dl (10-149) 06/01/24 04:59
LDL Cholesterol, Calc 119 mg/dl 06/01/24 04:59
VLDL Cholesterol, Calc 16 mg/dl (0-30) 06/01/24 04:59
HDL Cholesterol 30 mg/dl 06/01/24 04:59
05/31/24
16:54
Onq-Q-Joumobdlqdt Pept 19906
LAB Results
05/31/24 05/31/24 06/01/24
16:54 22:56 04:59
Troponin I 0.072 H* 0.086 H* 0.079 H*
06/01/24
10:05
Troponin I Cancelled
Physical Exam
Constitutional: No acute distress
Cardiovascular: Rhythm & rate is regular
Respiratory: Lungs clear to auscul.
GI: Soft
Neuro/Psych: Alert, Oriented and AO x 3
Data Reviewed
-
Date of Service: June 02, 2024
Medical Decision Making: Reviewed Test Results
Echo: Report Reviewed by me
Medical Tests (PFT, Pathology etc): Report Reviewed by me
Labs: Labs Reviewed by me
[2024-06-02 11:03] VITALS: BP 122/82
--- NOTE | 2024-06-02 11:17 | W.PN.UPDATE ---
Addendum entered and electronically signed by Alex Hernandez MD 06/02/24 19:56:
ICD is [employer]
Original Note:
Update Note
Progress Note Update
I received a call back from Dr. Quintanilla's coverage. Additional info was gained so they were calling back to share the information apparently patient was felt to be in atrial flutter by interrogation in the office that seems to be in conflict with
what the remote interrogation was detecting. Our ECGs appear consistent with sinus and remote interrogation did not clearly suggest atrial flutter.
Will have additional assessment by EP and interrogation of device tomorrow to clarify patient's rhythm and make determination regarding management
[2024-06-02 15:00] VITALS: BP 110/73
[2024-06-02] MEDS: FLOMAX 0.4 MG PO (17:22)
[2024-06-02] MEDS: TOPROL XL 12.5 MG PO (17:22)
[2024-06-02] MEDS: XARELTO 15 MG PO (17:22)
[2024-06-02 20:23] VITALS: BP 108/66
[2024-06-02] MEDS: MAGNESIUM OXIDE 500 MG PO (20:37)
[2024-06-02] MEDS: SYNTHROID 25 MCG PO (22:41)
[2024-06-02 23:35] VITALS: BP 101/63
[2024-06-03 03:20] VITALS: BP 86/51
[2024-06-03 03:56] VITALS: BP 92/66
[2024-06-03 06:39] VITALS: BMI 24.5
[2024-06-03 08:00] VITALS: BP 92/62
--- NOTE | 2024-06-03 08:19 | W.CARD.DEVCH ---
Cardiac Device Check
-
Device: Implanted Cardioverter-Defibrillator
Verify Rep: [facility]
The patient's device was interrogated personally. The device is LINER INSERTER-D device from [employer] implanted at [facility] in 2019. The device had normal function. No abnormalities seen.
The AFL episodes were reviewed. Last AFL was seen in Apr 2024. No new AF or flutter seen.
--- NOTE | 2024-06-03 08:21 | W.PN.CD ---
Today's Communication / Plan
-
- ECHO today
- Stable for discharge
- Continue Entresto, dapagliflozin, and Xarelto with Plavix
- Resume hose dose of lasix 40 mg QD
- Follow up with Dr. Purcell - his primary refinery pipeline operator
Impression / Plan
-
Ivedu-hc-hanbrlm HFrEF/severe ICM EF 15%:
-Appears euvolemic now.
- s/p IV lasix. received 80mg IV
- Off oxygen and ambulating.
- echo is pending today -06/03/24
-continue SGLT2i, Entresto. Formerly on CHF BB, but made him feel bad so he stopped. Will not add MRA with renal function.
-weight 77.4 kg . assume his dry weight
-CKD-III- monitor renal function which improved 2.0-1.7 with diuresis
CAD with multiple stents:
-confirmed most recent 09/[address] Dangelo
-on Plavix, Xarelto
-denies any CP
PAF, AT:
-rhythm is stable at present- follow telemetry
- was on tolreol 12.5mg in evening and tolerated but did not like it whendose was increased an dhe has been off a couple months. Restarted evening dosing this admit ( for both PAT and CM)
-on lower Xarelto with Plavix on board
BS ICD:
-interrogation in chart
CKD:
-monitor with diuresis
-follows with Dr. Robles
Physical Exam
Vital Signs/Labs
Vital Signs
Temp Pulse Resp BP Pulse Ox
97.8 F 67 16 92/66 99
06/03/24 03:20 06/03/24 03:56 06/03/24 03:20 06/03/24 03:56 06/03/24 03:20
06/02/24 06/03/24 06/04/24
06:59 06:59 06:59
Actual Weight 78.608 kg 77.428 kg
06/01/24 04:59
Magnesium 1.9 mg/dl (1.6-2.3) 06/02/24 06:55
Triglycerides 83 mg/dl (10-149) 06/01/24 04:59
LDL Cholesterol, Calc 119 mg/dl 06/01/24 04:59
VLDL Cholesterol, Calc 16 mg/dl (0-30) 06/01/24 04:59
HDL Cholesterol 30 mg/dl 06/01/24 04:59
05/31/24
16:54
Rih-V-Wvbnxjixahu Pept [id number]
LAB Results
05/31/24 05/31/24 06/01/24
16:54 22:56 04:59
Troponin I 0.072 H* 0.086 H* 0.079 H*
06/01/24
10:05
Troponin I Cancelled
Physical Exam
Constitutional: No acute distress and Comfortable
EENT: Anicteric and Moist mucous membranes
Cardiovascular: Rhythm & rate is regular, Pedal edema is absent and JVD pressure is normal
Respiratory: Respiratory effort normal, Lungs clear to auscul. and Wheeze Absent
GI: Soft, Distention absent, Non tender and Normal bowel sounds
Neuro/Psych: Alert, Oriented and AO x 3
Other: Cardiac Device Site
Data Reviewed
-
Date of Service: June 03, 2024
Medical Decision Making: Reviewed Test Results, Independent Historian Assessment, Test Interpretation and Review of Case with other Provider
EKG: Tracing Personally Visualized and interpreted
Echo: Report Reviewed by me
Labs: Labs Reviewed by me
Old Records: Reviewed
[2024-06-03] MEDS: LASIX 40 MG IV (09:41)
[2024-06-03] MEDS: ENTRESTO 24 MG/26 MG PO (09:41)
[2024-06-03] MEDS: FARXIGA 5 MG PO (09:41)
[2024-06-03] MEDS: PLAVIX 75 MG PO (09:48)
[2024-06-03 10:46] LABS: Blood Urea Nitrogen 63 mg/dl (9-20); Calcium 9.4 mg/dl (8.4-10.2); Carbon Dioxide 19 mmol/L (22-30); Chloride 102 mmol/L (98-107); Estimated Creatinine Clearance 36 ml/min; Glucose 176 mg/dl (70-99); Potassium 4.2 mmol/L (3.5-5.1); Sodium 136 mmol/L (135-145); eGFR 40.25
[2024-06-03 11:10] VITALS: BP 96/59
--- NOTE | 2024-06-03 11:34 | W.PN.HOSP.TC ---
Today's Communication/Plan
-
dc
Assessment / Plan
Assessment / Plan
HPI: 78 y/o male with CAD with stenting (confirmed with patient last stenting 10/06/[address] Dangelo), HFrEF, ICM EF 15%, ICD in place, AT, CKD, PAF, thrombocytopenia. He follows at [facility] with Dr. Quintanilla and Dr. Melara, but had stenting with
Antolin 2023. He is here for evaluation of SOB and is admitted for management of ovgsv-wj-oxpyxkn HFrEF.
#Acute heart failure with a reduced ejection fraction
#Acute hypoxic respiratory insufficiency
#Ischemic cardiomyopathy ejection fraction 15% status post ICD
Reports taking Lasix only as needed perhaps once a month
Was requiring 2 L of oxygen, currently 97% on room air
Cardiology following, Lasix 40 mg IV daily, Resume hose dose of lasix 40 mg QD and Continue Entresto, dapagliflozin, and Xarelto with Plavix upon discharge
Follow up with Dr. Purcell - his primary immigration inspector
#Stage III CKD
Stable
#Paroxysmal atrial fibrillation
#Paroxysmal atrial tachycardia
Resumed on Toprol XL 12.5 mg every afternoon, continue Xarelto
#Coronary artery disease status post stent
#Nonischemic myocardial injury
Continue Plavix, Xarelto
# Chronic thrombocytopenia seems to be present for few years according to OP records.
No bleeding at this time
Will defer to PCP for further work up
# Mild leukopenia, no fevers
#Hypothyroidism
Continue levothyroxine
#BPH
Continue Flomax
DVT prophylaxis�continue Xarelto
Full code
Total discharge time spent to see the patient on the floor, examine the patient, review data and lab results, discuss discharge plan with patient, nursing staff around 65 minutes.
Physical Exam
General: No acute distress
HEENT: Normocephalic, Atraumatic, EOMI, MMM
Respiratory: Clear to auscultation bilaterally
Cardiac: Normal S1/S2, Regular Rate and Rhythm
GI: Soft, Nontender, Nondistended, Normal Bowel Sounds
Extremities: No Clubbing, Cyanosis
Bilateral lower extremity edema with skin changes reflective of chronic venous stasis dermatitis
Neuro: Nonfocal/Grossly Intact
Psych: calm
Anticipated Discharge: Today
Subjective/Interval History
-
Date of Service: June 03, 2024
No chest pain
No sob
Anxious to go home
Objective Data
-
Labs:
Laboratory Results
06/03/24
09:26
Sodium 136
Potassium 4.2
Chloride 102
Carbon Dioxide 19 L
BUN 63 H
Creatinine 1.7 H
Glucose 176 H
Calcium 9.4
Vital Signs:
Vital Signs
Temp Pulse Resp BP Pulse Ox
97.4 F 63 14 92/62 94
06/03/24 08:00 06/03/24 08:00 06/03/24 08:00 06/03/24 09:41 06/03/24 08:35
I&O
06/02/24 06/03/24 06/04/24
06:59 06:59 06:59
Intake Total 1440 / 1440 1200 / 1200
Output Total 950 / 950 3025 / 3025
Balance 490 / 490 -1825 / -1825
--- NOTE | 2024-06-03 11:53 | WOUNDNOTE ---
WON RN note: Patient admitted with CHF
See H&P for complete history. Lives by self.
PMH:Past Medical History: Reports Other (Chronic systolic CHF, paroxysmal atrial fibrillation, VT/VF, CAD, hypertension, hyperlipidemia, diabetes mellitus, CKD, GI bleed in the past, FAY.)
Past Surgical History: Reports Other (PCIs with stents, ablations, cardioversions, hip repair.)
Wound Location and type/assessment: Patient admitted with: old scabbed venous ulcers vs abrasions on lower legs, scant drainage from R lower leg. R and L arms with skin tears, small drainage. Scattered bruising on both arms.
Nurse Vanessa reports sacrum is intact, heels intact.
Appetite: Good.
Pressure redistribution devices in place:Accumax, patient is ad christopher.
Plan: Local wound care applied and teaching done with patient on how to do wound care. Supplies at bedside.
Will confirm orders with hospitalist and updated nurse. Updated care plan and will follow as needed.
Note to case management of equipment requested for discharge: None
--- NOTE | 2024-06-03 12:13 | CM ---
Chart reviewed. Patient is stable for d/c today.
Met w/ patient bedside, agreeable for d/c. CM consulted for HC, patient declined needing this.
IMM verbally reviewed, patient given copy, copy placed on chart
Per patient, a friend is able to transport him home
Plan: Home; no needs
--- NOTE | 2024-06-03 12:21 | W.HF.CON ---
Heart Failure
- LV Function
Left ventricular function study result: LV Ejection fraction </= 35%
Ejection Fraction Percentage: 10-15
- ARNI
Patient already on ARNI: Yes
- ACEI/ARB
Patient already on ACEI/ARB: No
Heart Failure ACEI/ARB Not Indicated: Patient ordered/on ARNI
- Beta Carine
Patient already on Evidence Based Beta Carine: Yes
- Mineralocorticord Receptor Antagonist
Patient already on MRA: No
Heart Failure MRA Contraindication: Acute Renal Insufficiency, Potentially Non-compliant
- SGLT-2 Inhibitor
Patient already on SGLT-2 Inhibitor: Yes
- Afib Anticoagulation
Patient already on Anticoagulation for Afib: Yes
- NYHA CHF Classification
NYHA CHF Classification Level: Class III - Symptoms w/ min exertion, interferes w/ nml daily activity
- ACC/AHA Stage
ACC/AHA Stage: Stage D: Advanced Heart Failure
--- NOTE | 2024-06-03 14:30 | W.DCSUMMARY ---
Discharge Summary
Discharge Data
Date of Admission: 05/31/24
Date of Discharge: 06/03/24
-
Pending Results: No
Hospital Course
78 years old male presented with history of shortness of breath, progressive. Patient denied cough and fever on admission. EKG showed sinus rhythm with no signs of arrhythmias. ICD interrogation without evidence of sustained V. tach or atrial
arrhythmias. Chest radiography was consistent with mild interstitial edema. Patient was diagnosed with acute on chronic heart failure with reduced ejection fraction. He was started on intravenous furosemide treatment. He had none chronic kidney
disease, creatinine upon discharge 1.7. Patient was evaluated by tag press operator. Repeat echocardiogram showed LVEF 10 to 15%, mild to moderate MR, mild aortic stenosis, mild aortic regurgitation, mild to moderate tricuspid regurgitation with
moderately elevated pulmonary artery systolic pressure around 47 mmHg. Patient responded well to the treatment. He lost weight and his breathing improved. He did not need supplemental oxygen upon discharge. Cardiology started him on low-dose
Toprol 12.5 mg daily. He was maintained on Xarelto/low-dose with continuation of Plavix. Patient was noted to have chronic thrombocytopenia. He did not have signs of active bleeding. Patient was advised to follow with his a primary care doctor
regarding thrombocytopenia, he was also advised to continue taking his medications including Entresto, dapagliflozin, and Xarelto with Plavix. He remained hemodynamically stable. He was able to ambulate independently. Patient declined home care
services. Patient was discharged in a stable condition.
Discharge Plan
-
Patient Disposition: Home with Home Care
Discharge Diagnosis/Procedures: -Acute on chronic heart failure with severely reduced left ventricular systolic function, left ventricular ejection fraction 10 to 15%.
-Valvular heart disease with mild to moderate mitral regurgitation, mild aortic stenosis, mild aortic regurgitation-, mild to moderate tricuspid regurgitation.
-Chronic thrombocytopenia, low platelets, follow-up with your primary care doctor for further workup. Possibly related to hepatic congestion -use of anticoagulation/antiplatelet therapy
-Coronary artery disease
- chronic kidney disease
-Status post ICD
-Paroxysmal atrial fibrillation, on chronic anticoagulant therapy
Diet: As tolerated and Low Sodium
Activity Restrictions/Additional Instructions:
Wound Care Instructions
Arms: clean with soap and water, adaptic and dry dressing change every 2 days or if drainage.
R lower leg: clean with soap and water, dry dressing change every 2 days and if drainage.
Instructions: *PCP/Other Relocation Coordinator Heart Failure Instructions
Referrals:
Jorge Workman MD [Non-Admitting Privileges] -
Stella Salcedo MD [Family Provider] -
Prescriptions:
New
metoprolol succinate 25 mg Tablet Extended Release 24 Hr
12.5 mg PO QPM Qty: 30 0RF
Continued
tamsulosin 0.4 MG capsule
0.4 mg PO QPM
levothyroxine 25 MCG tablet
25 mcg PO HS
Entresto 24-26 mg Tablet
1 tab PO Q12H
clopidogrel 75 mg Tablet
75 mg PO DAILY Qty: 30 0RF
dapagliflozin propanediol 5 mg Tablet
5 mg PO DAILY Qty: 30 0RF
Xarelto 10 mg Tablet
10 mg PO QPM Qty: 30 0RF
magnesium oxide 500 mg magnesium Tablet
500 mg PO DAILY
Changed
furosemide 40 MG tablet
40 mg PO DAILY Qty: 0 0RF
Discharge Orders:
Discharge Patient (As Directed); Ordered 06/03/24
Ordered By: Wesley Carrillo
Discharge Date and Time
Discharge Date/Time: 06/03/24 13:02
Print Language: MAURITIAN
== END 2024-06-03 13:02 | disposition home or self-care (01) | DRG 291 ==
LOC: 4 WEST ACU 21:17
PROVIDERS: Emergency Medicine; Internal Medicine Cardiovascular Disease; ADMITTING PHYSICIAN Internal Medicine; ATTENDING PHYSICIAN Internal Medicine; CONSULT PHYSICIAN Internal Medicine Cardiovascular Disease; EMERGENCY PHYSICIAN Emergency Medicine; FAMILY PHYSICIAN Internal Medicine Endocrinology, Diabetes & Metabolism
PROC: 4B02XTZ Measurement of Cardiac Defibrillator, External Approach (ICD-10-PCS; 2024-06-03)
DX: I13.0 Hypertensive heart and chronic kidney disease with heart failure and stage 1 through stage 4 chronic kidney disease, or unspecified chronic kidney disease (principal); I50.23 Acute on chronic systolic (congestive) heart failure; I48.92 Unspecified atrial flutter; N18.32 Chronic kidney disease, stage 3b; E11.22 Type 2 diabetes mellitus with diabetic chronic kidney disease; I08.3 Combined rheumatic disorders of mitral, aortic and tricuspid valves; D69.6 Thrombocytopenia, unspecified; I25.10 Atherosclerotic heart disease of native coronary artery without angina pectoris; Z95.810 Presence of automatic (implantable) cardiac defibrillator; I48.0 Paroxysmal atrial fibrillation; Z79.01 Long term (current) use of anticoagulants; Z87.891 Personal history of nicotine dependence; Z79.82 Long term (current) use of aspirin; I25.2 Old myocardial infarction; E03.9 Hypothyroidism, unspecified; N40.0 Benign prostatic hyperplasia without lower urinary tract symptoms; I5A Non-ischemic myocardial injury (non-traumatic); E78.5 Hyperlipidemia, unspecified; G47.33 Obstructive sleep apnea (adult) (pediatric); Z79.02 Long term (current) use of antithrombotics/antiplatelets; Z79.84 Long term (current) use of oral hypoglycemic drugs; Z79.890 Hormone replacement therapy; Z95.5 Presence of coronary angioplasty implant and graft; I25.5 Ischemic cardiomyopathy
CPT/HCPCS: 71046; 80048; 80053; 80061; 83735; 83880; 84443; 84484; 85025; 85027; 93005; 93289; 93306; 96374; 99285

== ENCOUNTER 2024-08-30 14:22 | Inpatient (IN) | payer OTHER, SELFPAY ==
[2024-08-30] VITALS (17 sets, daily range): BP systolic 85–130; BP diastolic 54–84; BMI 26.2
--- NOTE | 2024-08-30 08:52 | ED.GENMED ---
History of Present Illness
General
Chief Complaint: Breathing Problem
Time Seen by Provider: 08/30/24 08:29
History of Present Illness
History of Present Illness:
79-year-old male with history of CHF on Lasix, paroxysmal A-fib on Xarelto, chronic kidney disease, hypertension, diabetes, hyperlipidemia presenting for shortness of breath. Patient reports symptoms for the past several weeks. He says he took 5
tablets of his Lasix this morning because of his difficulty breathing. He feels that there is fluid on his lungs and into his lower extremities. Reports pain to bilateral lower extremities, left greater than right. Denies any history of blood
clots. Patient recently seen and admitted to the hospital from 05/31 to 06/03 for new onset CHF. At that time his echo showed an EF of 10 to 15%. Patient had been started on Lasix at that time. Denies chest pain. Denies fever or cough. Denies
abdominal pain or GI symptoms. Denies additional acute medical complaints
Past History
Past History
ED Past Medical History: Arrthythmia (Vent Tach, Atrial flutter), CAD, CHF, HTN, NIDDM, DE and Other (Enlarged prostate)
ED Past Surgical History: Cardiac (stents X2), Orthopedic (hip fx) and Other (Cardiac stent)
Social History
Tobacco: Former smoker
Alcohol: None
Drug: None
Personal:
Living: alone
Phy Exam
Physical Exam
Physical Exam:
General: Well-appearing, no clinical signs of dehydration, nontoxic and in no acute distress
HEENT: protecting airway
Neck: appears supple
CV: Tachycardic, regular rhythm, no evidence of cyanosis
Resp: Increased work of breathing, crackles at bases
Abd: Soft and non-distended, no tenderness to palpation, normal bowel sounds
Extremities: Bilateral +2 pitting edema with weeping. Swelling asymmetric, increased to the left lower extremity compared to the right with diffuse tenderness to palpation. Pulses intact.
Neuro: alert, no focal neurologic deficit
: deferred
Rectal: deferred
Psych: Normal affect
Skin: Intact
Scores
Heart Failure Risk
Heart Failure Risk Score: Yes
History of Stroke or TIA: No
History of intubation for respiratory distress: No
Heart rate on ED arrival >/= 110: Yes
SaO2 <90% on arrival on room air: Yes
HR >/=110 during 3min walk test (or too ill to perform test): Yes
ECG has acute ischemic changes: No
Urea >/=12mmol/L (BUN 33.6mg/dL): No
Serum CO2>/=35mmol/L: No
Troponin I or T elevated to DE Level (0.4mg/dL): No
NT-proBNP >/=5,000ng/L (5,000pg/ml): Yes
HF Risk Score: 4
Admission Status: HIGH RISK 26.1% Consider SNF treatment or admission to hospital
Course
Orders/Labs/Results
Orders:
Orders
08/30/24 08:28
Electrocardiogram (*1) Urgent
Reason for Study: Shortness of Breath
EKG- Treatment ONCE
08/30/24 08:29
CR Chest Portable - 1 View Urgent
Comment:
Reason For Exam: sob
Reason Study Needs to be Portable: Unable to Transport
08/30/24 08:35
Venous Doppler Lwr Ext Left [US Perip Venous LOWER Ext LT] Urgent
Comment:
Reason For Exam: swelling and pain
08/30/24 08:55
COVID-19 Antigen Urgent
Source: Nasal Swab
Complete Blood Count/With Diff Urgent
Comprehensive Metabolic Panel Urgent
Glycohemoglobin (HgbA1c) Urgent
NT-proBNP Urgent
Troponin I Urgent
Influenza A+B Rapid Molecular Urgent
BENNETT Source: Nasal Swab
Specimen Description:
08/30/24 11:37
Heparin 6,600 units IV NOW STA
Nursing to Place Non Medication Order As Directed
Physician Order: PTT 6 hours after initial start of Heparin infusion
08/30/24 11:42
PTT Urgent
Comment: Obtain baseline before beginning heparin infusion if not already collected
08/30/24 11:45
Heparin 83519 Units/250 ml 25,000 units in 250 ml IV PER PROTOCOL
Weight to be used for heparin protocol in kilograms (kg):: 82.9
Protocol:: DVT/PE
PTT Goal Range to be used:: PTT 73 to 111 seconds
Order type:: Initial
INITIAL Infusion Dose (UNITS/KG/hr) & then follow protocol:: 18 units/kg/hr
Infusion Dose in UNITS/hr & then follow protocol (UNITS/hr):: 1,500
INFUSION RATE in mL/hr & then follow protocol (mL/hr):: 15
For DVT/PE algorithm, re-bolus for low PTT?: Yes
PTT less than or equal to 64 seconds:: Re-bolus 80 units/kg (max 10,000units). Increase by 300 units/hr
(+ 3mL/hr)
PTT 64.1 to 72.9 seconds:: Re-bolus 40 units/kg (max 5,000 units). Increase by 200 units/hr
(+ 2mL/hr)
PTT 73 to 111 seconds:: Target Range. No change in rate.
PTT 111.1 to 130.9 seconds:: Decrease rate by 200 units/hr (- 2 mL/hr)
PTT 131 to 199.9 seconds:: HOLD for 1 hr. Then decrease by 300 units/hr (- 3mL/hr)
PTT greater than or equal to 200 seconds:: HOLD for 2 hrs & Notify Provider. Then decrease by 300 units/hr
(- 3mL/hr)
Lab follow-up:: Each change, PTT q6h until 2 consecutive are therapeutic. Then
PTT daily.
08/30/24 12:56
Heparin 3,300 units IV PRN PRN
Heparin 6,600 units IV PRN PRN
08/30/24 12:57
VQ Scan [NM Lung Scan Vent/perf ] Urgent
Comment:
Reason For Exam: SOB, LE DVT
08/30/24 13:11
Add On- LAB Urgent
Tests Added?: HbA1C
08/30/24 14:00
Admit/Transfer Patient As Directed
Co-Sign Provider:
Level of Care: Inpatient admission
Assign to:: Medical/Surgical
Physician / Group: Hospitalist
Diagnosis: Shortness of breath , CHF, DVT
Reason for Hospitalization: Shortness of breath , CHF, DVT
Expected length of stay greater than two midnights?: Yes
ELOS- Estimated Length of Stay in days: 3
I certify the patient meets the requirements for IP care: Yes
PRN Pain Medication Management As Directed
May give lesser potent ordered pain med per pt: Yes
preference::
Protocol:: Medication orders for pain may be administered in a
manner that supports deferring to patient preference
when the pt is:
- Requesting an ordered lesser potent pain medication.
Least to most potent pain medications are defined
as: acetaminophen < NSAID < tramadol < opioids
(morphine, oxycodone, hydromorphone).
- Requesting a lesser dose of the same medication IF
ORDERED.
- Requesting a less intrusive route of administration
if both routes are prescribed by the provider (PO <
IV).
08/30/24 14:02
Code Status As Directed
Resuscitation Status: Full Code
08/30/24 14:04
CeFAZolin 2 GRAM [Ancef] 2 grams in 10 ml IV NOW
Leg Tibia/Fibula, Left 2 View [CR Leg Tibia/fibula Left 2 Vw] Urgent
Comment:
Reason For Exam: fall
Abnormal Lab Results
08/30/24
08:55
MCV 94.3 H fL
(80.0-94.0)
MCH 31.5 H pg
(27.0-31.0)
RDW 14.6 H %
(11.5-14.5)
Plt Count 89 L 10^3/uL
(130-400)
MPV 12.5 H fL
(7.4-10.4)
Absolute Lymphs (auto) 0.3 L 10^3/uL
(1.2-3.4)
Neutrophils % 87.3 H %
(42.2-75.2)
Lymphocytes % 4.4 L %
(20.5-51.1)
BUN 77 H mg/dl
(9-20)
Creatinine 2.1 H mg/dL
(0.7-1.3)
Glucose 301 H mg/dl
(70-99)
Total Bilirubin 1.8 H mg/dl
(0.2-1.3)
Troponin I 0.069 H* ng/ml
08/30/24 08:55
08/30/24 08:55
Vital Signs
Initial and Last Documented VS:
Initial Vital Signs
Temp Pulse Resp BP Pulse Ox
98.2 F 77 16 130/74 72
08/30/24 08:25 08/30/24 08:25 08/30/24 08:25 08/30/24 08:25 08/30/24 08:25
Last Documented Vital Signs
Temp Pulse Resp BP Pulse Ox
97.7 F 89 25 94/69 95
08/30/24 09:02 08/30/24 13:45 08/30/24 13:45 08/30/24 14:15 08/30/24 13:45
MDM/Problems Addressed
MDM/Problems Addressed:
79-year-old male with history of CHF on Lasix, paroxysmal A-fib on Xarelto, chronic kidney disease, hypertension, diabetes, hyperlipidemia presenting for increasing shortness of breath and lower extremity swelling. Vital signs on arrival
significant for hypoxia, tachycardia, tachypnea.
On exam, patient in mild to moderate respiratory distress. Examination appears most consistent with congestive heart failure. Recent admission for similar symptoms. Crackles on exam to the lungs, with lower extremity edema, pitting. Concern for
fluid overload state. DVT/PE is also consideration, due to tachycardia and increased lower extremity edema. Will obtain lower extremity ultrasound imaging, however suspect cardiac pathology as more likely etiology. Patient is on Xarelto. Plan
for laboratory analysis and chest x-ray imaging. Patient placed on supplemental O2. Will likely require admission
11:30 - Chest x-ray is consistent with CHF. BNP is also elevated. Troponin is elevated, however suspect ischemic demand, has had elevations in the past no present chest pain. Ultrasound is positive for DVT. Patient does admit to taking his
medications, however questionable compliance. He did not have his Eliquis with today. Will start on heparin. Patient also took 4 to 5 tablets of his 40 mg Lasix today. Will hold additional Lasix. Plan for admission
*EKG
Interpreted by ED Provider?: Yes
EKG Intrepretation Date: 08/30/24
EKG Intrepretation Time: 09:06
Interpretation: abnormal
Comparison EKG: no changes (06/01/24)
Heart Rate: 125
Rate: tachycardiac
Rhythm: sinus
[place]: left axis deviation
Interval: first degree heart block
QRS Pattern: left bundle branch block
Ischemia: non-specific ST changes
*Critical Care Note
Total Time (30-74mins, 75-104mins- exclusive of procedures): Not Applicable
ED Attending Note
-
Portions of this chart may have been created with voice recognition software.� Occasional wrong word or��sound alike� substitutions may have occurred due to the inherent limitations of voice recognition software.
Discharge Plan
Departure
Patient Disposition: Admit
Date of Disposition: 08/30/24
Time of Disposition: 11:38
Presentation/result/management discussed w/ accepting MD/DO: Hospitalist
Patient with high blood pressure during this ER visit?: No
Condition: Fair
Discharge Problem:
Congestive heart failure (CHF), Acute deep vein thrombosis of left peroneal vein
Interventions
Interventions:
*Risk Screen - Suicide Last Done: 08/30/24 08:25
*General Assessment Last Done: 08/30/24 08:40
*Neglect/Abuse Screening Last Done: 08/30/24 08:25
*ED- Fall Risk Assessment Last Done: 08/30/24 08:40
*ED COVID-19 Vaccine History Last Done: 08/30/24 08:40
ED- Cardiac Assessment Last Done: 08/30/24 08:40
ED- Pulmonary Assessment Last Done: 08/30/24 08:40
[2024-08-30 09:25] LABS: % Basophils 0.1 % (0-2); % Eosinophils 0.6 % (0-6); % Immature Granulocytes 0.3 % (0-0.5); % Lymphocytes 4.4 % (20.5-51.1); % Monocytes 7.3 % (1.7-9.3); % Neutrophils 87.3 % (42.2-75.2); Absolute Lymphocytes 0.3 10^3/uL (1.2-3.4); Absolute Monocytes 0.5 10^3/uL (0.1-0.6); Absolute Neutrophils 6.2 10^3/uL (1.4-6.5); Hematocrit 51.5 % (39.0-52.0); Hemoglobin 17.2 g/dL (13.0-18.0); Mean Corp Hgb Conc. 33.4 g/dL (33.0-37.0); Mean Corpuscular Hgb 31.5 pg (27.0-31.0); Mean Corpuscular Volume 94.3 fL (80.0-94.0); Mean Platelet Volume 12.5 fL (7.4-10.4); Nucleated Red Blood Cells % 0 % (-); Platelet Count 89 10^3/uL (130-400); Red Blood Cell Count 5.46 10^6/uL (4.70-6.10); Red Cell Dist. Width 14.6 % (11.5-14.5); White Blood Cell Count 7.1 10^3/uL (4.8-10.8)
[2024-08-30 09:29] LABS: ALT (SGPT) 28 U/L (0-50); AST (SGOT) 25 U/L (17-59); Albumin 4.8 g/dl (3.5-5.0); Alkaline Phosphatase 93 U/L (38-126); Blood Urea Nitrogen 77 mg/dl (9-20); Calcium 9.6 mg/dl (8.4-10.2); Carbon Dioxide 29 mmol/L (22-30); Chloride 100 mmol/L (98-107); Estimated Creatinine Clearance 28 ml/min; Glucose 301 mg/dl (70-99); Potassium 4.2 mmol/L (3.5-5.1); Sodium 140 mmol/L (135-145); Total Bilirubin 1.8 mg/dl (0.2-1.3); Total Protein 7.3 g/dl (6.3-8.2); eGFR 31.04
[2024-08-30 09:38] LABS: COVID-19 Antigen Negative (Negative)
[2024-08-30 09:46] LABS: NT-proBNP 12000 pg/ml; Troponin I 0.069 ng/ml
[2024-08-30 12:03] LABS: APTT 34.8 Sec (23.4-35.0)
[2024-08-30] MEDS: HEPARIN 6600 UNITS IV (12:56)
--- NOTE | 2024-08-30 12:56 | HPS.HSE ---
Family Physician
-
Family Physician: Lian Salcedo
Chief Complaint
-
Shortness of breath
History of Present Illness
79-year-old with shortness of breath. Patient took 5 doses of Lasix today because of difficulty breathing pain bilateral lower extremities patient was admitted to [facility] 05/31/2024 to 06/03/2024 with CHF EF was 10 to 15%. Patient states
that he was chasing the dog and took a fall 2 days ago. He is not sure if he bumped his head. He has had pain in the left leg since then. No fever. His leg has been giving him trouble since then
Medical History
Past Medical History
Past Medical History: Reports Other
Additional Past Medical History:
RSD right leg, sleep apnea, atrial fibrillation, CHF, cardiomyopathy, hypertension, history of GI bleed, prostatic hypertrophy, rheumatoid arthritis, diabetes, impaired vision, anemia, hypothyroidism, CKD stage III
Past Surgical History: Reports Other
Additional Past Surgical History:
Bilateral knee cartilage repair, stents in the heart including LAD, cardiac ablation,
Social History
Tobacco: Former Smoker
Alcohol: None
Drug: None
Living: Alone
Family History
Family History: Not pertinent
Allergies / Home Medications
Allergies reflects when Allergies were last updated in [employer]
Home Medications with original date entered in [employer].
Allergy/Medication List:
Allergies
Allergy/AdvReac Type Severity Reaction Status Date / Time
Boaslwb-CJN-[id number] Reductase Allergy Pt. Verified 08/30/24 08:27
Inhibitor reports
muscle
cramps
Home Medications
tamsulosin 0.4 mg capsule 0.4 mg PO QPM Urinary issue 05/28/18
levothyroxine 25 mcg tablet 25 mcg PO HS Thyroid 02/03/20
sacubitril 24 mg-valsartan 26 mg tablet (Entresto) 1 tab PO Q12H Heart Failure 03/27/23
clopidogrel 75 mg tablet 75 mg PO DAILY #30 tabs 09/27/23
dapagliflozin propanediol 5 mg tablet 5 mg PO DAILY #30 tabs 09/27/23
rivaroxaban 10 mg tablet (Xarelto) 10 mg PO QPM #30 tabs 09/27/23
furosemide 40 mg tablet 40 mg PO DAILY #0 tabs 06/03/24
metoprolol succinate 25 mg tablet,extended release 24 hr 12.5 mg (1/2 x 25 mg) PO QPM #30 tabs 06/03/24
hydralazine 25 mg tablet 25 mg PO BID 08/30/24
Review of Systems
-
A 12 point ROS was completed and negative except as noted: Yes
Respiratory: Reports Trouble Breathing
Cardiac: Denies Chest Pain
Musculoskeletal: Reports Muscle Pain
Physical Exam
Vital Signs
Vital Signs
Temp Pulse Resp BP Pulse Ox
97.7 F 101 20 115/54 98
08/30/24 09:02 08/30/24 12:15 08/30/24 12:15 08/30/24 12:03 08/30/24 12:15
Physical Exam
General: Conversant
Respiratory: Rales
Cardiac: S1/S2 and Murmur (aa)
GI: Soft, Non Tender and Normal Bowel Sounds
Musculoskeletal: Edema, Right Upper Extremity and Edema, Left Lower Extremity
Skin: Ulcers (Small ulcers/abrasion on the left with redness and tenderness)
Neuro: Oriented and Nonfocal/grossly intact
Psych: Intact Judgment/Insight
Laboratory Results
-
08/30/24 08:55
08/30/24 08:55
Laboratory Results
APTT 34.8 Sec (23.4-35.0) 08/30/24 11:42
Total Bilirubin 1.8 mg/dl (0.2-1.3) H 08/30/24 08:55
AST 25 U/L (17-59) 08/30/24 08:55
ALT 28 U/L (0-50) 08/30/24 08:55
Alkaline Phosphatase 93 U/L (38-126) 08/30/24 08:55
Troponin I 0.069 ng/ml H* 08/30/24 08:55
Data Reviewed
-
Diagnostic Radiology: Image Personally Visualized and interpreted (Interstitial edema-on chest x-ray)
Ultrasound: Report Reviewed by me (Occlusive thrombus involving mid to distal peroneal veins on the left)
Medical Tests (Nuc Med, Echo, EKG etc): Image Personally Visualized and interpreted (Sinus tachycardia, left bundle branch block)
Impression/Plan
-
IMPRESSION/PLAN:
Echo 06/03/2024-LV moderately dilated. Severely reduced LV systolic function EF 10 to 15%. Mild to moderate MR. Mild . Mild AI. Enlarged RV with reduced systolic function. Mild to moderate TR. Pulmonary artery pressure [address]
[employer] [address] Quintanilla
# Shortness of breath
COVID-19 antigen negative
Differentials include acute CHF versus PE
Since patient cannot get CTA-check VQ scan
# Occlusive thrombus involving mid to distal peroneal vein on the left-started on heparin drip-continue for now
# Cellulitis left lower extremity-Ancef started
# Fall with injury to the left leg 2 days ago-check x-rays. Patient is adamant that he does not want a CT scan of the head. Risks of missing a bleed and complications discussed with the patient. Patient verbalized understanding.
# Acute on chronic HFrEF
BNP 12,000
Change Lasix to IV starting tomorrow as patient took multiple doses today ( 5 pills - So about 200 mg lasix)
Continue metoprolol, Entresto, dapagliflozin
Troponin slightly elevated-continue to follow until it peaks
Intake output charting
Cardiology evaluation requested
# Coronary artery disease with stents in the heart including LAD--continue Plavix.
# Paroxysmal atrial fibrillation-unclear why he is on Xarelto 10 mg as outpatient. Continue with metoprolol.
# BiV ICD
# Diet controlled diabetes-blood sugar 301. Check hemoglobin A1c
Accu-Cheks and sliding scale coverage
# Hypothyroidism-continue Synthroid
# Prostate disease-continue Flomax
# Chronic anemia
# RSD right lower extremity
# Sleep apnea-PAP machine intolerant
# Ex-smoker
# DVT prophylaxis-heparin drip
# CODE STATUS-full code
Discussed with cardiology
Discussed with pharmacy-unclear why the patient was only on 10 mg of Xarelto. Pharmacy checking
Patient is aware that he needs to have a power of senior attorney or advanced directives because he states he has no family. He states that he wants to be a full code however he does not want to be in a vegetative state if he has any reversible damage and
not able to come off of life support he does not want to remain like that. I discussed with him that he really needs to get a power of senior attorney/advanced directive taken care of as and as he leaves the hospital.
Time spent over 75 minutes.
Part of this note was created using voice recognition system. Occasional wrong word or��sound alike� substitutions may have inadvertently occurred due to the inherent limitations of voice recognition software. If noted kindly bring it to my
attention for correction.
[2024-08-30] MEDS: HEPARIN 25000 UNITS/250 ML IV (12:57)
--- NOTE | 2024-08-30 13:14 | CON.CAR ---
Addendum entered and electronically signed by Duglas Stauffer MD 08/30/24 17:09:
I saw and examined the patient.
The CORPORATE LEGAL INTERN's note was reviewed and I agree with the note.
Comment:
79 y/o male (cardiology: [place] Dr. Quintanilla) with CAD with stenting (most recent 10/06/[address] Dangelo), HFrEF, ICM EF 10-15%, ICD in place, AT, CKD, PAF, and thrombocytopenia. He presents with lower extremity swelling/pain, shortness of breath,
and weight gain. No clear cause of his heart failure exacerbation. He attributes it to iron infusions. Previously he had been taking p.o. Lasix 40 mg as needed but for the last 3 days he has been taking 120 mg daily with variable output. This
morning around 3:30 AM he took 200 mg without significant response.
He was found to have left lower extremity DVT on ultrasound. VQ scan with low probability for pulmonary embolism. CXR with interstitial pulmonary edema. ER labs notable for creatinine 2.1 (close to baseline), troponin 0.069, BNP 12,000. ECG
reveals sinus tachycardia with first-degree AV block and left bundle branch block. Telemetry reveals an episode of VT with HR 240 bpm and successful ATP by device. Last TTE 06/03/2024: LVEF 10-15%, mild/mod MR, mild AAS, mild AR, reduced RV
function, PASP 47 mmHg.
HFrEF, acute on chronic. Weight is up 12 pounds from discharge weight in May. BNP elevated. CXR with pulmonary edema. Initiate IV diuresis with Lasix 80 mg twice daily. Closely monitor I/Os, electrolytes, and weights. Continue metoprolol.
Hold Entresto and hydralazine for lower blood pressures and ZENAIDA. Continue Farxiga.
NSVT. He had a very fast VT in the ER requiring ATP. Unable to uptitrate metoprolol due to hypotension. He adamantly refuses to start amiodarone. If he has recurrence of this arrhythmia, I will reach out to his EP doctor (Dr. Melara) at [place]
to see what he recommends.
DVT. VQ scan negative for PE. He was on Xarelto 10 mg daily at home which may not have been a therapeutic dose. Continue heparin drip. Consider increasing to Xarelto 20 mg daily on discharge; we need to figure out why he was only on 10 mg.
CAD with stenting. Continue Plavix and metoprolol. He is statin intolerant.
Original Note:
Consultation
Consultation Request
Date/Time Consultation Requested: 08/30/24 1256
Date/Time Consultation Performed: 08/30/24 1310
Requesting Provider: Dr. Parekh
Performing Provider: Carrie SR for Dr. Stauffer
Reason for Consultation: SOB, cardiac history
Medical History
-
Chief Complaint: SOB, LE pain
History of Present Illness:
79 y/o male (cardiology: [facility]) with CAD with stenting (most recent 10/06/[address] Dangelo), HFrEF, ICM EF 10-15%, ICD in place, AT, CKD, PAF, and thrombocytopenia. He is here for evaluation of LLE pain, redness, swelling noted over the
past few days. He has a LLE DVT. He is now on a heparin drip, while PE is being looked into (VQ scan to avoid contrast with CT due to renal dysfunction). He has also had SOB and 10 lb weight gain. He was supposed to be on lasix 40 mg daily, but was
only taking it PRN until recently noted weight gain after getting iron infusions. He started taking 3 pills per day and today took 5! He has not noticed a difference in urination, surprisingly. On assessment, he has mildly increased WOB, but is in
no distress.
Past Medical History
Past Medical History: Arrhythmias, CAD, CHF and Other (as above)
Social History
Tobacco: Former Smoker
Family History
Family History: Reviewed & Not Pertinent
Allergies / Home Medications
Allergy/AdvReac Type Severity Reaction Status Date / Time
Jyfqoyh-IET-HhX Reductase Allergy Pt. Verified 08/30/24 08:27
Inhibitor reports
muscle
cramps
�Medication �Instructions �Recorded �Confirmed �Type
tamsulosin 0.4 mg capsule 0.4 mg PO QPM Urinary issue 05/28/18 08/30/24 History
levothyroxine 25 mcg tablet 25 mcg PO HS Thyroid 02/03/20 08/30/24 History
sacubitril 24 mg-valsartan 26 mg 1 tab PO Q12H Heart Failure 03/27/23 08/30/24 History
tablet (Entresto)
clopidogrel 75 mg tablet 75 mg PO DAILY #30 tabs 09/27/23 08/30/24 Rx
dapagliflozin propanediol 5 mg 5 mg PO DAILY #30 tabs 09/27/23 08/30/24 Rx
tablet
rivaroxaban 10 mg tablet (Xarelto) 10 mg PO QPM #30 tabs 09/27/23 08/30/24 Rx
furosemide 40 mg tablet 40 mg PO DAILY #0 tabs 06/03/24 08/30/24 Rx
metoprolol succinate 25 mg 12.5 mg (1/2 x 25 mg) PO QPM #30 06/03/24 08/30/24 Rx
tablet,extended release 24 hr tabs
hydralazine 25 mg tablet 25 mg PO BID 08/30/24 08/30/24 History
Review of Systems
-
History Source: Patient
All other systems: Negative unless noted
Constitutional: Weight Gain
Respiratory: Trouble Breathing
Skin: Other (LLE pain, redness, swelling)
Physical Exam
Vital Signs
Temp Pulse Resp BP Pulse Ox
97.7 F 101 20 115/54 98
08/30/24 09:02 08/30/24 12:15 08/30/24 12:15 08/30/24 12:03 08/30/24 12:15
Lab Results
08/30/24 08:55
08/30/24 08:55
Troponin I 0.069 ng/ml H* 08/30/24 08:55
Tld-F-Bxajosqgjuf Pept 55879 pg/ml 08/30/24 08:55
Physical Exam
General: Well Developed, Well Nourished and No Apparent Distress
HEENT: Normocephalic and Anicteric
Respiratory: Crackles (b/l bases)
Cardiac: Regular Rhythm
Musculoskeletal: Edema (BLE edema)
Skin: Warm, Dry and Other (LLE reddened)
Neuro: AO x 3
Psych: Calm
Impression / Plan
-
SOB:
-patient with DVT. PE is possible, but CT scan not done due to renal dysfunction. VQ scan ordered. Heparin drip initiated- this requires intensive monitoring. Of note, he reports compliance with Xarelto, but has been on lower dose with Plavix and
stenting.
-also patient with severe ICM- see assessment below
HFrEF- jmkmk-ks-etfdeou/severe ICM EF 10-15%:
-Echo 06/03/24: Left ventricle is moderately dilated. Severely reduced left ventricular systolic function. LVEF is 10-15%. Mild/moderate mitral regurgitation. Mild aortic stenosis. Mild aortic regurgitation. Enlarged right ventricular size. Reduced
right ventricular systolic function. Mild/moderate tricuspid regurgitation. Moderately elevated PASP. Estimated pulmonary artery pressure of 47 mmHg assuming a right atrial pressure of 15 mmHg.
-on metoprolol, Entresto, Farxiga as OP
-BS ICD in place
-I do think he is volume overloaded (CXR, assessment, BNP), but he took 200 mg of lasix prior to coming in, there is renal dysfunction, and we are looking into DVT, so will hold off on additional diuresis today
-monitor volume
CAD with multiple stents:
-denies any CP
-continue Plavix. On Xarelto as OP, but now on heparin gtt, which requires intensive monitoring
PAF, AT:
-currently stable in SR, follow telemetry
-continue metoprolol (higher doses not tolerated per chart)
-on lower dose Xarelto as OP, since on Plavix (with plan to increased to typical dosing once off Plavix)- but now on heparin as above
CKD:
-creatinine slightly higher than usual
-monitor closely
Abnormal troponin:
-trend
-no CP
-similar to previous
-likely chronic myocardial injury in setting of CKD, CHF
Data Reviewed
-
EKG: Tracing Personally Visualized and interpreted (ST with 1st degree AV block, LBBB)
Radiology: Report Reviewed by me (CXR: radiographic findings highly suggestive of interstitial pulmonary edema pattern.)
Ultrasound: Report Reviewed by me (Occlusive thrombus involving the mid to distal peroneal veins on the left.)
Medical Tests (Nuc Med, Echo etc): Report Reviewed by me (as noted)
Labs: Labs Reviewed by me
[2024-08-30] MEDS: ANCEF 10 IV (14:20)
--- NOTE | 2024-08-30 15:20 | W.PN.UPDATE ---
Update Note
Progress Note Update
Unclear why the patient on 10 mg of Xarelto.
--- NOTE | 2024-08-30 15:55 | CM ---
Patient seen at bedside in ED. Patient states that he lives alone in a 1 story home with 2 steps to enter. Patient stated that he has no DME and no VN at this time. Patient stated that his PCP is Dr. Salcedo and uses the [facility] on [facility].
[place]. Patient states he has no family support but does have a friend. Patient plan is for discharge home with no needs. CM will continue to follow for discharge planning needs.
Plan; home with no needs; watch for VN needs.
--- NOTE | 2024-08-30 15:58 | EDRN ---
Pt coming back from xray was noted to have a run of v-tach. Pt denies any symptoms. Back to baseline rhythm at this time. Hospitalist and cards notified.
[2024-08-30 16:43] LABS: Magnesium 1.9 mg/dl (1.6-2.3)
[2024-08-30] MEDS: LASIX 80 MG IV (17:20)
[2024-08-30 18:03] LABS: Troponin I 0.083 ng/ml
[2024-08-30] MEDS: NOVOLOG FLEXPEN-LOW RESISTANCE SC (19:26)
--- NOTE | 2024-08-30 19:26 | PTCARENOTE ---
Received patient from the ED at 1800, required assist of two to transfer from the stretcher to sit on the side of the bed. Notably [place] but refusing any O2 at this time. Difficulty obtaining pulse ox, was able to get a pulse ox of 98% on his left
ear. IV heparin infusing at 1500 units/hr. Patient complaining of pain LLE but unable to rate and states it changes. Bilateral legs with pitting edema, reddened and weeping serous fluid, DP pulses by doppler. Oriented to the room and plan of care,
stressed importance of calling for assistance if he needs to get oob, call kimble in reach.
[2024-08-30] MEDS: FLOMAX 0.4 MG PO (19:33)
[2024-08-30] MEDS: TOPROL XL PO (19:36)
[2024-08-30 20:15] LABS: APTT > 200 Sec (23.4-35.0)
[2024-08-30 21:14] LABS: Glucose - Point of Care 257 mg/dl (70-99)
[2024-08-30] MEDS: TOPROL XL 12.5 MG PO (21:44)
--- NOTE | 2024-08-30 22:00 | PTCARENOTE ---
@2150 pt voided 100cc. Bladder scanned for 468cc. pt made second attempt 10 mins later and voided 300cc more.
[2024-08-30 23:09] LABS: Troponin I 0.091 ng/ml
[2024-08-31] VITALS (8 sets, daily range): BP systolic 91–108; BP diastolic 67–92; BMI 25.7
--- NOTE | 2024-08-31 00:32 | PTCARENOTE ---
Received pt at change of shift resting in bed. V-paced on the monitor, HR in the 80's. Pt dyspneic on exertion and at rest. Pt refused supplemental O2 and/or CPAP for sleep apnea. SpO2 anywhere from mid 80's-high 90's. Harsh non-productive cough
noted. BP 99/70 @1839, retook BP @1936 and was 89/68. Held Toprol--see MAY. Fall risk precautions in place, pt calls appropriately. Urinal at bedside. Call kimble within reach.
@ approx 2120 tele alarmed Vtach with HR of 120. Pt asymptomatic. EKG obtained showing V-paced with PVC's. BP 104/76 [place], CVPA, made aware. Instructed to give Toprol at this time--see MAY.
@approx 2230 pt resting in bed. HR in the 80's.
[2024-08-31] MEDS: DESENEX/MITRAZOL/ZEASORB 1 APPLIC TOPICAL ×3 (02:35→20:13)
[2024-08-31] MEDS: ANCEF 10 IV ×2 (02:36→14:50)
--- NOTE | 2024-08-31 04:59 | PTCARENOTE ---
Obtained daily weight this AM on standing scale. pt unable to bear weight on left foot/leg without yelling out in pain, despite wanting to ambulate in the room.
[2024-08-31 05:01] LABS: Hematocrit 42.9 % (39.0-52.0); Hemoglobin 14.9 g/dL (13.0-18.0); Mean Corp Hgb Conc. 34.7 g/dL (33.0-37.0); Mean Corpuscular Hgb 31.6 pg (27.0-31.0); Mean Corpuscular Volume 91.1 fL (80.0-94.0); Mean Platelet Volume 12.6 fL (7.4-10.4); Platelet Count 74 10^3/uL (130-400); Red Blood Cell Count 4.71 10^6/uL (4.70-6.10); Red Cell Dist. Width 14.4 % (11.5-14.5); White Blood Cell Count 5.9 10^3/uL (4.8-10.8)
[2024-08-31 05:19] LABS: Blood Urea Nitrogen 78 mg/dl (9-20); Calcium 8.7 mg/dl (8.4-10.2); Carbon Dioxide 22 mmol/L (22-30); Chloride 105 mmol/L (98-107); Estimated Creatinine Clearance 33 ml/min; Glucose 245 mg/dl (70-99); Phosphorus 3.5 mg/dl (2.5-4.5); Potassium 3.4 mmol/L (3.5-5.1); Sodium 136 mmol/L (135-145); eGFR 37.35
[2024-08-31 05:28] LABS: Troponin I 0.079 ng/ml
[2024-08-31 05:31] LABS: APTT 74.7 Sec (23.4-35.0)
[2024-08-31] MEDS: KCL 40 MEQ PO (05:41)
[2024-08-31] MEDS: SYNTHROID 25 MCG PO (05:41)
[2024-08-31 07:39] LABS: Glucose - Point of Care 250 mg/dl (70-99)
--- NOTE | 2024-08-31 08:05 | PTCARENOTE ---
Assumed care of pt from prev nsg shift; Pt AAOx3 w/no c/o CP or SOB, however pt is visibly dyspneic at rest. Pt's VSS w/HR in the 80's & BP 96/71 this AM. Pt is V-paced on telemetry monitoring. Pt w/IV Heparin infusing through patent IV line as
ordered. Pt assisted OOB x1P w/RW to BR; gait steady, but pt w/difficulty bearing wgt due to pain in bilat LE's. Pt assisted back to bed & call kimble within reach. Plan of care ongoing.
[2024-08-31] MEDS: NOVOLOG FLEXPEN-LOW RESISTANCE 3 UNITS SC ×2 (09:39→17:25)
[2024-08-31] MEDS: FARXIGA 5 MG PO (09:40)
[2024-08-31] MEDS: PLAVIX 75 MG PO (09:40)
[2024-08-31] MEDS: FLUSH (NSS) 2 FLUSH IV (09:40)
[2024-08-31] MEDS: LASIX 80 MG IV ×2 (09:40→14:50)
[2024-08-31] MEDS: HEPARIN 25000 UNITS/250 ML IV (09:45)
--- NOTE | 2024-08-31 09:54 | W.PN.CD ---
Today's Communication / Plan
-
Stop heparin and start Xarelto 15mg daily this PM
Continue IV Lasix
He is in end-stage HF
Impression / Plan
-
HFrEF- ufmon-zy-zfwapen/severe ICM EF 10-15%:
-Weight up 12 pounds from discharge weight in May. BNP elevated. CXR with pulmonary edema.
-Echo 06/03/24: Left ventricle is moderately dilated. Severely reduced left ventricular systolic function. LVEF is 10-15%. Mild/moderate mitral regurgitation. Mild aortic stenosis. Mild aortic regurgitation. Enlarged right ventricular size. Reduced
right ventricular systolic function. Mild/moderate tricuspid regurgitation. Moderately elevated PASP. Estimated pulmonary artery pressure of 47 mmHg assuming a right atrial pressure of 15 mmHg.
-Continue diuresis with IV Lasix 80 mg twice daily. Will likely need to change home diuretic as he was not responding to PO Lasix 40mg.
-GDMT:
--BB: continue home metoprolol 12.5 mg daily
--ARNI: on hold for hypotension
--SGLT2i: continue
--MRA: not a candidate due to CKD
--ICD in place
-Update echo on Monday. New systolic murmur
-Suspect he is in end-stage HF
DVT
-VQ scan negative for PE.
-He was on Xarelto 10 mg daily at home which may not have been a therapeutic dose. Unclear why this low dose (may be due to CKD and DAPT).
-Continue heparin drip until this PM. Requires intensive monitoring
-Resume Xarelto at 15mg daily tonight
NSVT
-He had a very fast VT in the ER requiring ATP. Has not recurred. Max 4 beats NSVT on telemetry
-Suspect this is all end-stage HF
-Continue BB. He refuses Amiodarone
-If he has recurrence of this arrhythmia, I will reach out to his EP doctor (Dr. Melara) at [facility] to see what he recommends.
CAD with multiple stents:
-denies any CP
-continue Plavix. On Xarelto as OP, but now on heparin gtt, which requires intensive monitoring
-he is statin intolerant
PAF, AT:
-currently stable in SR, follow telemetry
-continue metoprolol (higher doses not tolerated per chart)
-on lower dose Xarelto as OP, since on Plavix (with plan to increased to typical dosing once off Plavix)- but now on heparin as above
CKD:
-creatinine slightly higher than usual
-monitor closely
Abnormal troponin:
-has plateaued. stop trending
-no CP
-similar to previous
-likely chronic myocardial injury in setting of CKD, CHF
Subjective: When asked how he is he says 'I'm here' and 'I'm not worse'
Physical Exam
Vital Signs/Labs
Vital Signs
Temp Pulse Resp BP Pulse Ox
98.9 F 89 20 91/67 98
08/31/24 07:50 08/31/24 08:30 08/31/24 07:50 08/31/24 09:40 08/31/24 07:50
08/30/24 08/31/24 09/01/24
06:59 06:59 06:59
Actual Weight 179 lb 0.246 oz
08/31/24 04:34
08/31/24 04:34
APTT 74.7 Sec (23.4-35.0) H 08/31/24 04:34
Magnesium 1.9 mg/dl (1.6-2.3) 08/30/24 08:55
08/30/24
08:55
Llg-Q-Pygksiljtdr Pept 87069
LAB Results
08/30/24 08/30/24 08/30/24
08:55 17:29 22:35
Troponin I 0.069 H* 0.083 H* 0.091 H*
08/31/24
04:34
Troponin I 0.079 H*
Physical Exam
Constitutional: No acute distress and Comfortable
Cardiovascular: Rhythm & rate is regular, Pedal edema present, Systolic murmur present and S1S2 is normal
Respiratory: Respiratory effort normal and Crackles Present
Neuro/Psych: AO x 3
Data Reviewed
-
Date of Service: August 31, 2024
Medical Decision Making: Reviewed Test Results, Independent Historian Assessment, Test Interpretation and Review of Case with other Provider
EKG: Tracing Personally Visualized and interpreted
Echo: Report Reviewed by me
X-Ray/CT/US/MRI/NUC/PET: Report Reviewed by me
Labs: Labs Reviewed by me
[2024-08-31 11:43] LABS: Glucose - Point of Care 181 mg/dl (70-99)
--- NOTE | 2024-08-31 12:04 | W.PN.HOSP.TC ---
Today's Communication/Plan
-
Continue with IV Lasix
Assessment / Plan
Assessment / Plan
IMPRESSION/PLAN:
Echo 06/03/2024-LV moderately dilated. Severely reduced LV systolic function EF 10 to 15%. Mild to moderate MR. Mild . Mild AI. Enlarged RV with reduced systolic function. Mild to moderate TR. Pulmonary artery pressure [address] Quintanilla
# Shortness of breath
COVID-19 antigen negative
Suspect secondary to acute CHF
Patient with known cardiomyopathy
Improved. Currently on room air. VQ scan low probability of PE
# Occlusive thrombus involving mid to distal peroneal vein on the left-started on heparin drip-continue for now-getting switched to Xarelto this evening
# Cellulitis left lower extremity-continue Ancef started
# Fall with injury to the left leg 2 days ago-check x-rays. Patient is adamant that he does not want a CT scan of the head. Risks of missing a bleed and complications discussed with the patient. Patient verbalized understanding.
# Acute on chronic HFrEF
BNP 12,000
Change IV Lasix
Continue metoprolol, Entresto, dapagliflozin
Troponin slightly elevated-continue to follow until it peaks
Intake output charting
Cardiology evaluation appreciated
# Coronary artery disease with stents in the heart including LAD--continue Plavix.
# Paroxysmal atrial fibrillation-unclear why he is on Xarelto 10 mg as outpatient. Continue with metoprolol.
# BiV ICD
# Diet controlled diabetes-blood sugar 301. Check hemoglobin A1c
Accu-Cheks and sliding scale coverage
# Hypothyroidism-continue Synthroid
# Prostate disease-continue Flomax
# Chronic anemia
# RSD right lower extremity
# Sleep apnea-PAP machine intolerant
# Ex-smoker
# DVT prophylaxis-heparin drip
# CODE STATUS-full code
Discussed with cardiology today.
Discussed with RN
Total time spent on today's encounter was 52 minutes which included time spent in counseling the patient/family regarding diagnosis and treatment plan as listed above, goals of care, and symptom management. Case was discussed with nursing staff,
specialists, and care coordinators/case management. All labs and imaging personally reviewed by me. Remainder the time spent in detailed review of previous records, lab data, imaging, and other medical provider documentation.
Full code
Part of this note was created using voice recognition system. Occasional wrong word or��sound alike� substitutions may have inadvertently occurred due to the inherent limitations of voice recognition software. If noted kindly bring it to my
attention for correction.
Anticipated Discharge: > 48 hours
Subjective/Interval History
-
Date of Service: August 31, 2024
Feeling improved with the breathing.
Still some left leg pain though improved.
No fever chills.
Denies any chest pain or palpitation.
Denies dizziness.
Objective Data
-
Labs:
Laboratory Results
08/31/24 08/31/24
04:34 11:30
WBC 5.9
Hgb 14.9
Hct 42.9
Plt Count 74 L
APTT 74.7 H Pending
Sodium 136
Potassium 3.4 L
Chloride 105
Carbon Dioxide 22
BUN 78 H
Creatinine 1.8 H
Glucose 245 H
Calcium 8.7
Vital Signs:
Vital Signs
Temp Pulse Resp BP Pulse Ox
98.3 F 89 20 91/67 95
08/31/24 11:31 08/31/24 08:30 08/31/24 11:31 08/31/24 09:40 08/31/24 11:31
I&O
08/30/24 08/31/24 09/01/24
06:59 06:59 06:59
Intake Total 900 / 900 480 / 480
Output Total 1000 / 1000 500 / 500
Balance -100 / -100 -20 / -20
Physical Exam
-
General: Comfortable
HEENT: Moist Mucous Membranes
Respiratory: Clear to Auscultation and Non Labored Respirations; Negative Accessory Resp Muscle Use
Cardiac: Regular Rhythm and S1/S2
GI: Soft
Musculoskeletal: Edema, Right Lower Extrem and Edema, Left Lower Extrem (More than right leg and has redness and increased warmth in the mid posterior calf area)
Neuro: AO x 3
Psych: Calm
Data Reviewed
-
Labs: Labs Reviewed by me
[2024-08-31] MEDS: NOVOLOG FLEXPEN-LOW RESISTANCE 1 UNITS SC (12:43)
[2024-08-31 13:25] LABS: APTT 70.1 Sec (23.4-35.0)
[2024-08-31] MEDS: FLUSH (NSS) 3 FLUSH IV (14:50)
[2024-08-31] MEDS: HEPARIN 3300 UNITS IV (14:51)
[2024-08-31 17:19] LABS: Glucose - Point of Care 284 mg/dl (70-99)
[2024-08-31] MEDS: TOPROL XL 12.5 MG PO (17:24)
[2024-08-31] MEDS: FLUSH (NSS) 1 FLUSH IV (17:25)
[2024-08-31] MEDS: FLOMAX 0.4 MG PO (17:25)
[2024-08-31] MEDS: XARELTO 15 MG PO (17:25)
[2024-08-31 22:13] LABS: Glucose - Point of Care 255 mg/dl (70-99)
--- NOTE | 2024-08-31 22:17 | PTCARENOTE ---
patient resting comfortably in bed. complains of LE pain- refusing Tylenol at this time. patient complains of dyspnea on exertion at times. appears short of breath at rest-patient denies. tachypneic at times. 98% on RA. Vpaced on tele 70s-80s.
reviewed plan of care with patient and verbalized understanding. call kimble within reach. makes needs known.
[2024-09-01] VITALS (7 sets, daily range): BP systolic 93–108; BP diastolic 65–81; BMI 25.8
[2024-09-01] MEDS: ANCEF 10 IV (04:04)
[2024-09-01 04:57] LABS: Blood Urea Nitrogen 85 mg/dl (9-20); Calcium 8.7 mg/dl (8.4-10.2); Carbon Dioxide 23 mmol/L (22-30); Chloride 103 mmol/L (98-107); Estimated Creatinine Clearance 28 ml/min; Glucose 241 mg/dl (70-99); Potassium 3.9 mmol/L (3.5-5.1); Sodium 135 mmol/L (135-145); eGFR 31.04
--- NOTE | 2024-09-01 06:20 | PTCARENOTE ---
patient had a 14 beat run of VT. asymptomatic. bp 103/73. updated Gissel Riley LOAN ADMINISTRATOR. no new orders at this time. HR currently paced in the 80s.
[2024-09-01] MEDS: SYNTHROID 25 MCG PO (06:25)
[2024-09-01 07:58] LABS: Glucose - Point of Care 258 mg/dl (70-99)
[2024-09-01] MEDS: NOVOLOG FLEXPEN-LOW RESISTANCE 3 UNITS SC (07:58)
[2024-09-01] MEDS: PLAVIX 75 MG PO (08:12)
[2024-09-01] MEDS: FARXIGA 5 MG PO (08:12)
[2024-09-01] MEDS: DESENEX/MITRAZOL/ZEASORB 1 APPLIC TOPICAL ×2 (08:12→20:03)
[2024-09-01] MEDS: LASIX IV (09:56)
--- NOTE | 2024-09-01 11:42 | W.PN.CD ---
Today's Communication / Plan
-
Start Eliquis (VTE dosing)
PPI for GI prophylaxis
Hold diuresis
Impression / Plan
-
HFrEF- slfdk-an-gzgdcfu/severe ICM EF 10-15%:
-Weight up 12 pounds from discharge weight in May. BNP elevated. CXR with pulmonary edema.
-Echo 06/03/24: Left ventricle is moderately dilated. Severely reduced left ventricular systolic function. LVEF is 10-15%. Mild/moderate mitral regurgitation. Mild aortic stenosis. Mild aortic regurgitation. Enlarged right ventricular size. Reduced
right ventricular systolic function. Mild/moderate tricuspid regurgitation. Moderately elevated PASP. Estimated pulmonary artery pressure of 47 mmHg assuming a right atrial pressure of 15 mmHg.
-GDMT:
--BB: continue home metoprolol 12.5 mg daily
--ARNI: on hold for hypotension
--SGLT2i: continue
--MRA: not a candidate due to CKD
--ICD in place
-Update limited echo on Monday
- Hold diuresis today given bump in BUN/creatinine
-Suspect he is in end-stage HF. Had a long discussion with him about prognosis. See below.
DVT
-VQ scan negative for PE.
-He was on Xarelto 10 mg daily at home which may not have been a therapeutic dose. Unclear why this low dose (may be due to CKD and DAPT).
-S/p heparin drip
-He will need to switch to Eliquis given VTE and CKD. Eliquis 10 mg twice daily for 7 days then 5 mg twice daily.
-CM to spangler Eliquis
NSVT
-He had a very fast VT in the ER requiring ATP. Has not recurred. Max 14 beats NSVT on telemetry
-Suspect this is all end-stage HF
-Continue BB. He refuses Amiodarone
-If he has recurrence of this arrhythmia, I will reach out to his EP doctor (Dr. Melara) at [facility] to see what he recommends.
CAD with multiple stents:
-denies any CP
-continue Plavix, last PCI 09/2023. Start PPI given need for AC.
-he is statin intolerant
PAF, AT:
-currently stable in SR, follow telemetry
-continue metoprolol (higher doses not tolerated per chart)
-Eliquis as above
CKD:
-creatinine slightly higher than usual
-monitor closely
Abnormal troponin:
-has plateaued. stop trending
-no CP
-similar to previous
-likely chronic myocardial injury in setting of CKD, CHF
Subjective: Leg pain is worse than yesterday.
I had a long conversation with him about his overall prognosis. I believe that he is reaching end-stage heart failure. He explains that he is not ready to give up. I am the first person to mention to him that he might be nearing the end. He is
not ready to see palliative care. If he were unable to make decisions for himself, he has no living family. He has a friend named Millicent who he would want to make decisions. He has a living will which I recommended he bring into the hospital or ask
Millicent to do so. He explained that if he needed CPR, he would want us to try but if it looked futile he would not want us to prolong his suffering. I explained that he should make his wishes known to Millicent then make sure they are documented.
Physical Exam
Vital Signs/Labs
Vital Signs
Temp Pulse Resp BP Pulse Ox
97.2 F 71 22 95/65 96
09/01/24 11:24 09/01/24 08:56 09/01/24 11:24 09/01/24 08:56 09/01/24 11:24
08/31/24 09/01/24 09/02/24
06:59 06:59 06:59
Actual Weight 179 lb 0.246 oz 180 lb 1.883 oz
08/31/24 04:34
09/01/24 04:07
APTT 70.1 Sec (23.4-35.0) H 08/31/24 12:54
Magnesium 1.9 mg/dl (1.6-2.3) 08/30/24 08:55
08/30/24
08:55
Lrx-N-Vahzfylgkhe Pept [id number]
LAB Results
08/30/24 08/30/24 08/30/24
08:55 17:29 22:35
Troponin I 0.069 H* 0.083 H* 0.091 H*
08/31/24
04:34
Troponin I 0.079 H*
Physical Exam
Constitutional: No acute distress and Comfortable
Cardiovascular: Rhythm & rate is regular, Pedal edema present, Systolic murmur present and S1S2 is normal
Respiratory: Respiratory effort normal and Lungs clear to auscul.
Neuro/Psych: AO x 3
Data Reviewed
-
Date of Service: September 01, 2024
Medical Decision Making: Reviewed Test Results, Independent Historian Assessment, Test Interpretation and Review of Case with other Provider
EKG: Tracing Personally Visualized and interpreted
Echo: Report Reviewed by me
Labs: Labs Reviewed by me
[2024-09-01 11:47] LABS: Glucose - Point of Care 223 mg/dl (70-99)
[2024-09-01] MEDS: ELIQUIS 10 MG PO ×2 (12:28→21:47)
[2024-09-01] MEDS: NOVOLOG FLEXPEN-LOW RESISTANCE 2 UNITS SC (12:29)
[2024-09-01] MEDS: PROTONIX PO (12:34)
--- NOTE | 2024-09-01 12:57 | W.PN.HOSP.TC ---
Today's Communication/Plan
-
Swith abx to IV vancomycin
Check MRSA screen
Diabetic REHAB TECH consult in am
Start on Lantus HS for now
CW IV diuresis per cards
Assessment / Plan
Assessment / Plan
IMPRESSION/PLAN:
Echo 06/03/2024-LV moderately dilated. Severely reduced LV systolic function EF 10 to 15%. Mild to moderate MR. Mild . Mild AI. Enlarged RV with reduced systolic function. Mild to moderate TR. Pulmonary artery pressure [address] Of Case [address] Quintanilla
# Shortness of breath
Suspect secondary to acute CHF
Patient with known cardiomyopathy
Improved. Currently on room air. VQ scan low probability of PE
# Acute on chronic HFrEF
BNP 12,000
CW IV Lasix
Continue metoprolol,dapagliflozin. Entresto on hold
Follow creatinine closely
Troponin slightly elevated-continue to follow until it peaks
Intake output charting
Cardiology evaluation appreciated
# Occlusive thrombus involving mid to distal peroneal vein on the left-Now on Eliquis.
# Cellulitis left lower extremity-with continued symptom of pain and tenderness and redness switch to IV vancomycin.Check MRSA screen
# Fall with injury to the left leg 2 days ago-neg L tib/fib x-rays for fracture. On adx- Patient is adamant that he does not want a CT scan of the head. Risks of missing a bleed and complications discussed with the patient. Patient verbalized
understanding.
# Coronary artery disease with stents in the heart including LAD--continue Plavix.
# Paroxysmal atrial fibrillation-unclear why he is on Xarelto 10 mg as outpatient. Continue with metoprolol. Now on Eliquis.
# BiV ICD
# Diet controlled diabetes-blood sugar 301. hemoglobin A1c 11.0
Accu-Cheks and sliding scale coverage
Add bedtime Lantus
Diabetic nurse educator consult in a.m.
# Hypothyroidism-continue Synthroid
# Prostate disease-continue Flomax
# Chronic anemia
# RSD right lower extremity
# Sleep apnea-PAP machine intolerant
# Ex-smoker
# DVT prophylaxis-heparin drip
# CODE STATUS-full code
Total time spent on today's encounter was 52 minutes which included time spent in counseling the patient/family regarding diagnosis and treatment plan as listed above, goals of care, and symptom management. Case was discussed with nursing staff,
specialists, and care coordinators/case management. All labs and imaging personally reviewed by me. Remainder the time spent in detailed review of previous records, lab data, imaging, and other medical provider documentation.
Full code
Part of this note was created using voice recognition system. Occasional wrong word or��sound alike� substitutions may have inadvertently occurred due to the inherent limitations of voice recognition software. If noted kindly bring it to my
attention for correction.
Anticipated Discharge: > 48 hours
Subjective/Interval History
-
Date of Service: September 01, 2024
Breathing is okay. Denies any chest pain or palpitation.
No nausea vomiting.
Patient feels still a lot of tenderness in the left leg not seeing much improvement. He does not feel any when he is resting but worse with movement.
Denies any fever or chills.
No dizziness
Objective Data
-
Labs:
Laboratory Results
09/01/24
04:07
Sodium 135
Potassium 3.9
Chloride 103
Carbon Dioxide 23
BUN 85 H
Creatinine 2.1 H
Glucose 241 H
Calcium 8.7
Vital Signs:
Vital Signs
Temp Pulse Resp BP Pulse Ox
97.2 F 71 22 95/65 96
09/01/24 11:24 09/01/24 08:56 09/01/24 11:24 09/01/24 08:56 09/01/24 11:24
I&O
06/09/01/24 09/02/24
06:59 06:59 06:59
Intake Total 900 / 900 1200 / 1200
Output Total 1000 / 1000 1800 / 1800 300 / 300
Balance -100 / -100 -600 / -600 -300 / -300
Physical Exam
-
General: Comfortable
HEENT: Moist Mucous Membranes
Respiratory: Clear to Auscultation and Non Labored Respirations; Negative Accessory Resp Muscle Use
Cardiac: S1/S2 and Irregular Rhythm; Negative Tachycardic
GI: Soft
Musculoskeletal: Edema, Right Lower Extrem (improved) and Edema, Left Lower Extrem (improved but still with redness and increased warmth. Tenderness in post calf more so distally in leg)
Neuro: AO x 3
Psych: Calm
Data Reviewed
-
Labs: Labs Reviewed by me
--- NOTE | 2024-09-01 14:26 | PHA.VAN.IN ---
Assessment
- Assessment
Renal Function: SCR Appears Elevated from baseline
Maximum Temperature: 98.3
Minimum Temperature: 97.2
Plan
- Plan
Initial / Loading Dose: Vanc 2000mg--administration pending
Maintenance Regimen: PRN by level
Monitoring: R 16 AM
Pharmacokinetics Vancomycin I
- -
Patient Age: 79
Patient Sex: Male
Vancomycin Day #: 1
Indication: Skin And Soft Tissue
Requesting Provider: Danilo
Height / Weight:
Height 5 ft 10 in
Actual Weight 81.7 kg
IBW in k
Adjusted BW in k.5
Pertinent Past Medical History: CKD3
- Vital Signs / Lab Results
Temp Pulse Resp BP Pulse Ox
97.2 F 71 22 95/65 96
09/01/24 11:24 09/01/24 08:56 09/01/24 11:24 09/01/24 08:56 09/01/24 11:24
Lab Results - Hematology
08/30/24 08/31/24
08:55 04:34
WBC 7.1 5.9
Lab Results - Chemistry
08/30/24 08/31/24 09/01/24
08:55 04:34 04:07
BUN 77 H 78 H 85 H
Creatinine 2.1 H 1.8 H 2.1 H
Estimated Creat Clear 28 33 28
Albumin 4.8
Microbiology Results
08/30/24 08:55 Influenza Types A & B (SHERINE) - Final
Nasal Swab Negative for Influenza A & B, NAAT
Negative results must be combined with clinical observations
and patient history.
Nucleic Acid Amplification test (NAAT)performed on the
[employer] platform.
[2024-09-01] MEDS: VANCOCIN 540 MG IV (14:49)
[2024-09-01 16:48] LABS: Glucose - Point of Care 193 mg/dl (70-99)
[2024-09-01] MEDS: TYLENOL 650 MG PO (16:51)
[2024-09-01] MEDS: TOPROL XL 12.5 MG PO (16:52)
[2024-09-01] MEDS: NOVOLOG FLEXPEN-LOW RESISTANCE 1 UNITS SC (17:04)
--- NOTE | 2024-09-01 18:00 | PTCARENOTE ---
Pt received this am with no c/o of pain or sob. Room air sat 97%. Pt refused to sit oob in the chair for meals. Ambulates to the BR with the walker and 1 assist. Voiding clear elizabet urine in the BR.
[2024-09-01] MEDS: FLOMAX 0.4 MG PO (18:59)
[2024-09-01 21:06] LABS: Glucose - Point of Care 220 mg/dl (70-99)
[2024-09-01] MEDS: LANTUS 0.12 UNITS SC (21:47)
[2024-09-02] VITALS (10 sets, daily range): BP systolic 97–114; BP diastolic 68–91; PULSE 120; BMI 26.4
--- NOTE | 2024-09-02 00:48 | PTCARENOTE ---
Pt. V-paced on the monitor. Complained of left lower leg discomfort, Tylenol effective. OOB with RW & assist x 1. Does get SOB with ambulation, pulse ox 93-97% on RA, exertional wheeze audible at times. Voiding without difficulty in BR. Pt.
resting quietly.
[2024-09-02 05:21] LABS: Blood Urea Nitrogen 90 mg/dl (9-20); Calcium 8.8 mg/dl (8.4-10.2); Carbon Dioxide 22 mmol/L (22-30); Chloride 104 mmol/L (98-107); Estimated Creatinine Clearance 31 ml/min; Glucose 183 mg/dl (70-99); Potassium 4.1 mmol/L (3.5-5.1); Sodium 135 mmol/L (135-145)
[2024-09-02 05:23] LABS: Vancomycin Random 15.3 ug/ml
[2024-09-02] MEDS: SYNTHROID 25 MCG PO (06:10)
[2024-09-02] MEDS: TYLENOL 650 MG PO (06:10)
[2024-09-02 08:10] LABS: Glucose - Point of Care 165 mg/dl (70-99)
--- NOTE | 2024-09-02 08:18 | W.PN.CD ---
Addendum entered and electronically signed by Duglas Stauffer MD 09/02/24 11:52:
I saw and examined the patient.
The ENTREPRENEUR's note was reviewed and I agree with the note.
Comment:
79-year-old with end-stage heart failure who presents with DVT, cellulitis, and HF exacerbation. Today he feels better overall. Lower extremity pain is improved.
Physical exam is notable for regular rate and rhythm, no murmurs, lungs are clear, 1+ lower extremity edema on the left and trace lower extremity edema on the right. Left lower extremity is erythematous and wrapped with Wei bandage.
HF exacerbation. I suspect he is close to euvolemic. Hold diuretics for 1 more day and resume p.o. Lasix tomorrow. Increase to 80 mg (home 40 mg) given that he feels he was no longer responding to home dose and creatinine has increased. Continue
current GDMT. I have expressed to him that his heart failure is end-stage. Follow-up today's echo.
DVT. Continue Eliquis.
Lower extremity cellulitis. Continue vancomycin.
NSVT. Continue beta-claudia. Stable on telemetry.
Original Note:
Today's Communication / Plan
-
Limited echocardiogram today
Case management to place apixaban
Impression / Plan
-
I/P: 79M with CAD with stenting (most recent 10/06/[address] Dangelo), HFrEF, ICM EF 10-15%, ICD in place, AT, CKD, PAF, and thrombocytopenia. He is here for evaluation of LLE pain, redness, swelling noted over the past few days.
Outpatient dry cleaning attendant (HF): Dr. Quintanilla ([facility])
Outpatient dry cleaning attendant (EP): Dr. Melara
HFrEF- btsqn-xl-aadcfud/severe ICM EF 10-15%:
-Weight up 12 pounds from discharge weight in May. BNP elevated. CXR with pulmonary edema.
-Echo 06/03/24: Left ventricle is moderately dilated. Severely reduced left ventricular systolic function. LVEF is 10-15%. Mild/moderate mitral regurgitation. Mild aortic stenosis. Mild aortic regurgitation. Enlarged right ventricular size. Reduced
right ventricular systolic function. Mild/moderate tricuspid regurgitation. Moderately elevated PASP. Estimated pulmonary artery pressure of 47 mmHg assuming a right atrial pressure of 15 mmHg.
-GDMT:
--BB: continue home metoprolol 12.5 mg daily
--ARNI: on hold for hypotension
--SGLT2i: Farxiga 5mg daily
--MRA: not a candidate due to CKD
--ICD: in place
- Update limited echo today
- Diuresis is on hold, weight up I/Os negative?
- Suspect he is in end-stage HF. Had a long discussion with him about prognosis. See below.
DVT
- VQ scan negative for PE.
-He was on Xarelto 10 mg daily at home which may not have been a therapeutic dose. Unclear why this low dose (may be due to CKD and DAPT).
- S/p heparin drip -> Eliquis 10 mg twice daily for 7 days then 5 mg twice daily.
- CM to spangler Eliquis (pending)
NSVT
-He had a very fast VT in the ER requiring ATP. Has not recurred. Max 14 beats NSVT on telemetry
-Suspect this is all end-stage HF
-Continue BB. He refuses Amiodarone.
-If he has recurrence of this arrhythmia, I will reach out to his EP doctor (Dr. Melara) at [facility] to see what he recommends.
CAD with multiple stents:
-Denies any CP
-Continue Plavix, last PCI 09/2023.
-He is statin intolerant
PAF, AT:
-Currently stable in SR, follow telemetry
-Continue metoprolol (higher doses not tolerated per chart)
-Oral anticoagulation: Eliquis as above
CKD:
-creatinine slightly higher than usual
-monitor closely
Abnormal troponin, nonischemic myocardial injury in the setting of heart failure and chronic kidney disease
- Chest pain-free
- Troponin flat, similar to previous admissions
Type 2 diabetes, uncontrolled, HbA1c 11%, care per primary service
SUBJECTIVE:
LLE pain unchanged.
Dr Stauffer, 09/01/2024:
I had a long conversation with him about his overall prognosis. I believe that he is reaching end-stage heart failure. He explains that he is not ready to give up. I am the first person to mention to him that he might be nearing the end. He is
not ready to see palliative care. If he were unable to make decisions for himself, he has no living family. He has a friend named Millicent who he would want to make decisions. He has a living will which I recommended he bring into the hospital or ask
Millicent to do so. He explained that if he needed CPR, he would want us to try but if it looked futile he would not want us to prolong his suffering. I explained that he should make his wishes known to Millicent then make sure they are documented.
Physical Exam
Vital Signs/Labs
Vital Signs
Temp Pulse Resp BP Pulse Ox
97.5 F 90 20 110/91 98
09/02/24 06:47 09/02/24 01:26 09/02/24 06:47 09/02/24 01:26 09/02/24 06:47
09/01/24 09/02/24 09/03/24
06:59 06:59 06:59
Actual Weight 81.7 kg 83.3 kg
08/31/24 04:34
09/02/24 04:49
APTT 70.1 Sec (23.4-35.0) H 08/31/24 12:54
Magnesium 1.9 mg/dl (1.6-2.3) 08/30/24 08:55
08/30/24
08:55
Ovt-I-Clcpatfphpg Pept 44045
LAB Results
08/30/24 08/30/2408/30/25
08:55 17:29 22:35
Troponin I 0.069 H* 0.083 H* 0.091 H*
08/31/24
04:34
Troponin I 0.079 H*
Physical Exam
Constitutional: No acute distress and Comfortable
EENT: Anicteric and Moist mucous membranes
Cardiovascular: Rhythm & rate is regular and Pedal edema is absent
Respiratory: Respiratory effort normal and Lungs clear to auscul.
GI: Soft, Distention absent, Flat and Non tender
Neuro/Psych: AO x 3
Other: Skin (warm and dry) and Other (LLE redness)
Data Reviewed
-
Date of Service: September 02, 2024
[2024-09-02] MEDS: NOVOLOG FLEXPEN-LOW RESISTANCE 1 UNITS SC ×2 (08:42→12:55)
[2024-09-02] MEDS: DESENEX/MITRAZOL/ZEASORB 1 APPLIC TOPICAL ×2 (08:43→19:39)
[2024-09-02] MEDS: PLAVIX 75 MG PO (08:44)
[2024-09-02] MEDS: PROTONIX PO (08:44)
[2024-09-02] MEDS: ELIQUIS 10 MG PO ×2 (08:44→19:39)
[2024-09-02] MEDS: FARXIGA 5 MG PO (08:44)
--- NOTE | 2024-09-02 09:20 | PHA.VAN.FU ---
Vancomycin Assessment / Plan
- Assessment
Renal Function: Stable
WBC's are: WNL
In the past 24 hrs, patient has been: Afebrile
- Assessment - Therapeutic Drug Monitoring
Random Level: 15.3 - drawn ~14H after 2g loading dose
- Dosing Plan
Dosing by Level: Re-dose today (Vanc 1000mg)
- Monitoring Plan
Random Level: 09/03 0600
- Follow Up
Pharmacy will continue to follow.
Vancomycin Follow UP
- -
Patient Age: 79
Patient Sex: Male
Vancomycin Day #: 2
Indication: Skin And Soft Tissue
Requesting Provider: Dr. Carrasco
Pertinent Antimicrobial Allergies:
no pertinent antibiotic allergies
Height / Weight:
Height 5 ft 10 in
Actual Weight 83.3 kg
IBW in k
Adjusted BW in k.5
Pertinent Past Medical History: CKD3
- Vital Signs / Lab Results
Temp Pulse Resp BP Pulse Ox
97.5 F 90 20 110/91 98
09/02/24 06:47 09/02/24 01:26 09/02/24 06:47 09/02/24 01:26 09/02/24 06:47
Lab Results - Hematology
08/30/24 08/31/24
08:55 04:34
WBC 7.1 5.9
Lab Results - Chemistry
08/30/24 08/31/24 09/01/24
08:55 04:34 04:07
BUN 77 H 78 H 85 H
Creatinine 2.1 H 1.8 H 2.1 H
Estimated Creat Clear 28 33 28
Albumin 4.8
09/02/24
04:49
BUN 90 H
Creatinine 1.9 H
Estimated Creat Clear 31
Albumin
Therapeutic Drug Monitoring
Random Vancomycin 15.3 ug/ml 09/02/24 04:49
--- NOTE | 2024-09-02 10:26 | PTCARENOTE ---
received patient this am lying in bed, awake, patient c/o left carroll hurting, took dsg. off, scant amount of serous fluid noted, cleansed with saline, adaptic and 4x4 applied with Russ, distal bilat dorsalis pedal pulses by Doppler only. leg is
reddened and warm to touch. plt count this am 74, Dr. Marquez and Dr Nicole aware. Cr. 1.9, MD's aware. monitor shows V paced, VSS. Echo completed at bedside. patient would like to shower today.
--- NOTE | 2024-09-02 10:34 | CM ---
Addendum entered by Monse Copeland 09/02/24 13:15:
Telephone call to his insurance to check the coverage for Lantud insulin 14 s.c units. He has coverage for Lantus and he has a zero co-pay because he has met his out of pocket cost.
Original Note:
Reviewed chart. Met with Mr. Ruiz to review discharge plans. He states prior to admission he resides alone in a one story home with two steps to enter. He states prior to admission he was independent with ambulation and adls. He states he has a
single point cane but currently louis not use it. He states he has a prescription plan with [facility] and uses [facility]. Telephone call to [facility] to check on co-pay for Eliquis 10 mg bid for a week then 5 mg po bid. He needs a
pror auth. for the first week of Eliquis 10 m,g po bid. The prior auth. number is ([id number]). He has met his out of pocket cost so his co-pay for Eliquis would be zero for Eliquis 10 mg po if approved and zero co-pay for five mg po bid.
Reviewed co-pay with Mr. Ruiz. He is agreeable to the co-pay. We reviewed [facility] with him. At this point he is declining [facility]NA Services. Will need to his current functional level to see if he will have any skilled care needs. Medical work-up
in progress. The discharge plan is to return home when medically stable.
--- NOTE | 2024-09-02 11:27 | WOUNDNOTE ---
L MEDIAL LOWER LEG
--- NOTE | 2024-09-02 11:30 | WOUNDNOTE ---
WON RN note: Patient admitted with CHF and acute DVT of L leg.
See H&P for complete history. Lives by self.
PMH:Past Medical History: Reports Other (Chronic systolic CHF, paroxysmal atrial fibrillation, VT/VF, CAD, hypertension, hyperlipidemia, diabetes mellitus, CKD, GI bleed in the past, FAY.) lower leg ulcers.
Past Surgical History: Reports Other (PCIs with stents, ablations, cardioversions, hip repair.)
Wound Location and type/assessment: Patient known to service for lower leg ulcers. Admitted with: old scabbed abrasions on lower legs, chronic discolored skin on lower legs. Patient states he tripped over his dogs and fell on his knees. R knee
with small intact blood blister. L knee with open blood blister, residual non viable skin on edges. Dry skin on legs and heels blanchable pink. L medial lower leg with scant drainage, edema and cellulitis. L foot + pedal pulse audible with Doppler,
R + palpable pedal pulse. Scattered bruising on both arms. Patient turned to side, sacrum is intact. Patient requested sacral silicone foam be removed.
Appetite: Good. Encouraged protein in his diet for wound healing.
Pressure redistribution devices in place:Accumax, patient is ad christopher, turn self, pillow under calves.
Plan: Local wound care applied and teaching done with patient on how to do wound care. Supplies at bedside. Encouraged leg elevation when sitting in recliner chair. Will hold on compression due to thrombus in L leg.
Will confirm orders with hospitalist and updated nurse Carlie. Updated care plan and will follow as needed.
Note to case management of equipment requested for discharge: None
[2024-09-02 12:07] LABS: Glucose - Point of Care 192 mg/dl (70-99)
--- NOTE | 2024-09-02 12:09 | W.PN.HOSP.TC ---
Today's Communication/Plan
-
Educate how to check sugars and also administer insulin
Case management to check if Lantus and Eliquis are covered
landscaper consult
Increase Lantus to 14 units, not sure if he will take NovoLog 3 times a day also
Continue Eliquis
Physical therapy to evaluate
Possible discharge tomorrow
Assessment / Plan
Assessment / Plan
IMPRESSION/PLAN:
Echo 09/02/20242220-drah-iikncuw cardiac enlargement. EF 10 to 15%, mild MR, mild to moderate AAS, mild AI, mild to moderate TR pulmonary artery pressure 55 mmHg
Training Engineer -Dr. Quintanilla
EP -Dr. Melara at [facility]
Patient awake and alert
Cardiovascular system S1-S2, systolic murmur at apex
Chest clear to auscultation
Abdomen soft and nontender
Pedal edema much better, redness in the left lower extremity also improved
# Shortness of breath
Secondary to acute on chronic CHF
Patient with known cardiomyopathy
Symptoms improved ,currently on room air.
VQ scan low probability of PE
# Acute on chronic HFrEF
End-stage cardiomyopathy/CHF
BNP 12,000
Holding Lasix today
Continue metoprolol,dapagliflozin. Entresto on hold
Follow creatinine closely
Troponin slightly elevated-continue to follow until it peaks
Intake output charting
Cardiology evaluation appreciated
# Occlusive thrombus involving mid to distal peroneal vein on the left-Now on Eliquis.
# Cellulitis left lower extremity-with continued symptom of pain and tenderness and redness - IV vancomycin.Check MRSA screen
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 On adx- Patient is adamant that he does not want a CT scan of the head. Risks of missing a bleed and complications discussed with the patient. Patient verbalized
understanding.
# Coronary artery disease with stents in the heart including LAD--continue Plavix.
# Paroxysmal atrial fibrillation-he was on lower dose of Xarelto because he was also on Plavix, continue with metoprolol. Now on Eliquis.
# BiV ICD
# Diet controlled diabetes-blood sugar 301. hemoglobin A1c 11.0
Accu-Cheks and sliding scale coverage
Bedtime Lantus added-increase Lantus to 14 units
Diabetic nurse educator consult in a.m.
Educate patient how to do insulin
# Hypothyroidism-continue Synthroid
# Prostate disease-continue Flomax
# Chronic anemia
# RSD right lower extremity
# Sleep apnea-PAP machine intolerant
# Ex-smoker
# DVT prophylaxis-Eliquis
# CODE STATUS-full code
Discussed with nursing
Discussed with cardiology
Total time spent on today's encounter was 51 minutes which included time spent in counseling the patient/family regarding diagnosis and treatment plan as listed above, goals of care, and symptom management. Case was discussed with nursing staff,
specialists, and care coordinators/case management. All labs and imaging personally reviewed by me. Remainder the time spent in detailed review of previous records, lab data, imaging, and other medical provider documentation.
Part of this note was created using voice recognition system. Occasional wrong word or��sound alike� substitutions may have inadvertently occurred due to the inherent limitations of voice recognition software. If noted kindly bring it to my
attention for correction.
Anticipated Discharge: Within 24 hours
Subjective/Interval History
-
Date of Service: September 02, 2024
Objective Data
-
Labs:
Laboratory Results
09/02/24
04:49
Sodium 135
Potassium 4.1
Chloride 104
Carbon Dioxide 22
BUN 90 H
Creatinine 1.9 H
Glucose 183 H
Calcium 8.8
Vital Signs:
Vital Signs
Temp Pulse Resp BP Pulse Ox
97.3 F 98 20 111/83 97
09/02/24 10:52 09/02/24 10:08 09/02/24 10:52 09/02/24 06:47 09/02/24 10:52
I&O
09/01/24 09/02/24 09/03/24
06:59 06:59 06:59
Intake Total 1200 / 1200 240 / 240
Output Total 1800 / 1800 750 / 750 400 / 400
Balance -600 / -600 -510 / -510 -400 / -400
[2024-09-02] MEDS: HYDROPHOR TOPICAL (12:55)
[2024-09-02] MEDS: VANCOCIN 200 IV (13:03)
--- NOTE | 2024-09-02 13:46 | PN.DE.MGMTRT ---
Insulin Management
- -
09/02/2024 Diabetes Management Consult
Patient admitted 08/30 with SOB. H CHF, afib, CKD, HTN, diabetes, HLD. Patient known to me from outpatient setting and inpatient. He has in the past refused insulin. Prior to admission was taking farxiga 5 mg daily. A1C on admission is 11%,
cr 1.9, eGFR 35.
Patient is awake alert and oriented, recognized me immediately. Able to discuss diabetes care. States his diet has not been so great lately.
Glucose 09/01 193 to 258, received lantus 12 units with low corrective insulin.
Patient reluctant to take 4 shots a day agrees to 2. Will stop lantus and start novolog 70/30 14 units BID with low corrective.
He states he needs a new meter.
Discussed with nurse
Will follow
Diabetes History
- -
Type of Diabetes: 2 requiring insulin
Pre-Admission Diabetes Regimen
09/02/24
04:49
Creatinine 1.9 H
Lab Results
Hemoglobin A1c 11.0 % (4.0-5.6) H 08/30/24 08:55
Insulin Pump Settings
IP Diabetes Regimen
09/01/24 09/01/24 09/02/24
16:47 21:04 04:49
Glucose 183 H
POC Glucose 193 H 220 H
09/02/24 09/02/24
08:08 12:06
Glucose
POC Glucose 165 H 192 H
Meal type: Breakfast
Meal type: Dinner
Amount consumed: 100%
Amount consumed: 100%
Patient Education
--- NOTE | 2024-09-02 15:32 | PTCARENOTE ---
09/02/2024
I met with Mr. Carter to review diabetes management.
He declined education on T2D, states he knows all about it and more information would be overwhelming. He also states that he used to check his glucose with a One Touch glucometer and was previously prescribed mealtime insulin. He gave up on both
because his numbers did not change.
I educated on the mechanism of action of Farxiga, which he is currently prescribed.
I educated that he is now prescribed insulin he states he used to take this and also took it before meals. He stopped taking it because of weight gain.
I educated and demonstrated on insulin injection technique, timing, and storage. Discussed long, intermeidate and short acting insulin; onset/peak/duration, and encouraged to administer his own injections with RN supervision while admitted.
I educated and reviewed using Contour Next glucometer, member acknowledged understanding with a self demonstration of checking BS. Provided him with a Contour Next sample kit. I stated we can order his preferred diabetes testing supplies to his
pharmacy on record: [facility].
He states he previously attended DSME classes, and that nothing he does will help lower his glucose. Written material provided on signs of hyperglycemia, hypoglycemia and hypoglycemia protocol; BS parameters and recommended HbA1c goals, glucometer
and CGM instructions, glucose tracker, medic alert bracelet.
[2024-09-02 17:10] LABS: Glucose - Point of Care 260 mg/dl (70-99)
[2024-09-02] MEDS: NOVOLOG FLEXPEN-LOW RESISTANCE 3 UNITS SC (17:20)
[2024-09-02] MEDS: NOVOLOG MIX 70/30 FLEXPEN 14 UNITS SC (17:21)
[2024-09-02] MEDS: TOPROL XL 12.5 MG PO (17:22)
[2024-09-02] MEDS: FLOMAX 0.4 MG PO (17:22)
[2024-09-02 22:27] LABS: Glucose - Point of Care 93 mg/dl (70-99)
--- NOTE | 2024-09-02 22:34 | PTCARENOTE ---
patient resting in bed comfortably. ambulating in the room with the rolling walker, steady. patient states improved pain at his left leg. b/l LE red. L>R edema noted. doppler pulses. mild dyspnea on exertion noted. denies any cp. Vpaced on tele-70s.
bp 98/68. educated patient to inform RN with any changes overnight. educated to call Rn with assistance oob. call kimble within reach. makes needs known.
[2024-09-03] VITALS (11 sets, daily range): BP systolic 86–117; BP diastolic 61–80; PULSE 82; O2SAT 94; BMI 26.4
[2024-09-03 03:07] LABS: Glucose - Point of Care 77 mg/dl (70-99)
[2024-09-03 03:39] LABS: Blood Urea Nitrogen 93 mg/dl (9-20); Calcium 8.9 mg/dl (8.4-10.2); Carbon Dioxide 24 mmol/L (22-30); Chloride 105 mmol/L (98-107); Estimated Creatinine Clearance 35 ml/min; Glucose 79 mg/dl (70-99); Sodium 136 mmol/L (135-145)
[2024-09-03 03:44] LABS: Vancomycin Random 17.5 ug/ml
[2024-09-03] MEDS: SYNTHROID 25 MCG PO (06:20)
[2024-09-03] MEDS: TYLENOL 650 MG PO ×2 (06:35→20:13)
[2024-09-03 07:46] LABS: Glucose - Point of Care 70 mg/dl (70-99)
--- NOTE | 2024-09-03 08:45 | PN.DE.MGMTRT ---
Addendum entered and electronically signed by Gissel Vazquez NP 09/03/24 12:32:
Pre lunch glucose 64, will further reduce BID 70/30 to 8 units first dose with dinner this evening.
Original Note:
Insulin Management
- -
09/03/2024 Diabetes Management Consult Follow up
Patient admitted 08/30 with SOB. H CHF, afib, CKD, HTN, diabetes, HLD. Patient known to me from outpatient setting and inpatient. He has in the past refused insulin. Prior to admission was taking farxiga 5 mg daily. A1C on admission is 11%,
cr 1.9, eGFR 35.
Patient is awake alert and oriented, recognized me immediately. Able to discuss diabetes care. States his diet has not been so great lately.
Glucose 09/02 165 to 260, started 70/30 14 units with dinner.
09/03 Fasting glucose 79 venous. Will reduce 70/30 to 10 units BID with low corrective.
He states he needs a new meter. Has been provided with One Touch Verio. RX for supplies for meter in ambulatory orders.
Discussed with nurse
Will follow
Diabetes History
- -
Type of Diabetes: 2 requiring insulin
Pre-Admission Diabetes Regimen
09/03/24
03:00
Creatinine 1.7 H
Lab Results
Hemoglobin A1c 11.0 % (4.0-5.6) H 08/30/24 08:55
Insulin Pump Settings
IP Diabetes Regimen
09/02/24 09/02/24 09/02/24
12:06 17:09 22:25
Glucose
POC Glucose 192 H 260 H 93
09/03/24 09/03/24 09/03/24
03:00 03:03 07:44
Glucose 79
POC Glucose 77 70
Meal type: Dinner
Amount consumed: 90%
Patient Education
[2024-09-03] MEDS: NOVOLOG FLEXPEN-LOW RESISTANCE SC ×3 (08:54→17:32)
[2024-09-03] MEDS: DESENEX/MITRAZOL/ZEASORB 1 APPLIC TOPICAL ×2 (08:55→20:30)
[2024-09-03] MEDS: ELIQUIS 10 MG PO ×2 (08:55→19:42)
[2024-09-03] MEDS: HYDROPHOR 1 APPLIC TOPICAL (08:55)
[2024-09-03] MEDS: FARXIGA 5 MG PO (08:55)
[2024-09-03] MEDS: NOVOLOG MIX 70/30 FLEXPEN 10 UNITS SC (08:56)
[2024-09-03] MEDS: PLAVIX 75 MG PO (08:56)
[2024-09-03] MEDS: PROTONIX PO (08:56)
[2024-09-03] MEDS: NOVOLOG MIX 70/30 FLEXPEN SC (09:24)
--- NOTE | 2024-09-03 09:24 | W.PN.CD ---
Addendum entered and electronically signed by Duglas Stauffer MD 09/03/24 10:30:
Correction: Labs transmitted to [facility].
Addendum entered and electronically signed by Duglas Stauffer MD 09/03/24 09:54:
Reviewed case with Dr. Nicole. Antibiotics are being switched to p.o. today and he could be discharged. I have requested follow-up with our office. He should get a BMP in 1 week. This was ordered in [facility] and sent electronically to [facility].
Original Note:
Today's Communication / Plan
-
Resume low-dose Entresto
P.o. Lasix
Impression / Plan
-
I/P: 79M with CAD with stenting (most recent 10/06/[address]angelo), HFrEF, ICM EF 10-15%, ICD in place, AT, CKD, PAF, and thrombocytopenia. He is here for evaluation of LLE pain, redness, swelling noted over the past few days.
Outpatient captain's assistant (HF): Dr. Quintanilla ([facility])
Outpatient captain's assistant (EP): Dr. Melara
HFrEF- [id number]-fe-dbtxlpn/severe ICM EF 10-15%:
- TTE 09/02/2024: LVEF 10-15%, mild MR, mild/mod , mild AR, mild/mod TR, PASP 50-55 mmHg
-GDMT:
--BB: continue home metoprolol 12.5 mg daily
--ARNI: resume low dose entresto
--SGLT2i: Farxiga 5mg daily
--MRA: not a candidate due to CKD
--ICD: in place
- S/p IV diuresis => ZENAIDA => start PO Lasix 80mg daily
- Suspect he is in end-stage HF. Had a long discussion with him about prognosis. See below.
DVT
- VQ scan negative for PE.
-He was on Xarelto 10 mg daily at home which may not have been a therapeutic dose. Unclear why this low dose (may be due to CKD and DAPT).
- S/p heparin drip -> Eliquis 10 mg twice daily for 7 days then 5 mg twice daily ($0 copay per CM)
Cellulitis
- Continue IV Vancomycin
- Hospitalist to decide on PO abx
NSVT
-He had a very fast VT in the ER requiring ATP. Has not recurred. Max 14 beats NSVT on telemetry
-Suspect this is all end-stage HF
-Continue BB. He refuses Amiodarone.
-If he has recurrence of this arrhythmia, I will reach out to his EP doctor (Dr. Melara) at [facility] to see what he recommends.
CAD with multiple stents:
-Denies any CP
-Continue Plavix, last PCI 09/2023.
-He is statin intolerant
PAF, AT:
-Currently stable in SR, follow telemetry
-Continue metoprolol (higher doses not tolerated per chart)
-Oral anticoagulation: Eliquis as above
CKD:
-creatinine slightly higher than usual
-monitor closely
Abnormal troponin, nonischemic myocardial injury in the setting of heart failure and chronic kidney disease
- Chest pain-free
- Troponin flat, similar to previous admissions
Type 2 diabetes, uncontrolled, HbA1c 11%, care per primary service
SUBJECTIVE:
Overall leg swelling and pain are improving.
Dr Stauffer, 09/01/2024:
I had a long conversation with him about his overall prognosis. I believe that he is reaching end-stage heart failure. He explains that he is not ready to give up. I am the first person to mention to him that he might be nearing the end. He is
not ready to see palliative care. If he were unable to make decisions for himself, he has no living family. He has a friend named Millicent who he would want to make decisions. He has a living will which I recommended he bring into the hospital or ask
Millicent to do so. He explained that if he needed CPR, he would want us to try but if it looked futile he would not want us to prolong his suffering. I explained that he should make his wishes known to Millicetn then make sure they are documented.
Physical Exam
Vital Signs/Labs
Vital Signs
Temp Pulse Resp BP Pulse Ox
98.2 F 86 20 102/61 96
09/03/24 03:00 09/03/24 07:33 09/03/24 07:33 09/03/24 02:59 09/03/24 07:33
09/02/24 09/03/24 09/04/24
06:59 06:59 06:59
Actual Weight 183 lb 10.321 oz 184 lb 1.376 oz
08/31/24 04:34
09/03/24 03:00
APTT 70.1 Sec (23.4-35.0) H 08/31/24 12:54
Magnesium 1.9 mg/dl (1.6-2.3) 08/30/24 08:55
08/30/24
08:55
Tzi-U-Rleqyqfcfsy Pept 61115
Physical Exam
Constitutional: No acute distress and Comfortable
Cardiovascular: Rhythm & rate is regular, Pedal edema present (erythema L>R), Systolic murmur present and S1S2 is normal
Respiratory: Respiratory effort normal
Neuro/Psych: AO x 3
Data Reviewed
-
Date of Service: September 03, 2024
Medical Decision Making: Reviewed Test Results, Independent Historian Assessment, Test Interpretation and Review of Case with other Provider
EKG: Tracing Personally Visualized and interpreted
Echo: Report Reviewed by me
Labs: Labs Reviewed by me
[2024-09-03] MEDS: LASIX 80 MG PO (09:57)
[2024-09-03] MEDS: ENTRESTO 24 MG/26 MG 1 TAB PO ×2 (09:58→19:43)
--- NOTE | 2024-09-03 10:43 | W.PN.HOSP.TC ---
Today's Communication/Plan
-
Patient has concerns about his leg
Wei bandages today
If looking stable will discharge tomorrow. Change antibiotics to Ceftin. MRSA screen negative
Assessment / Plan
Assessment / Plan
IMPRESSION/PLAN:
Echo 09/02/[id number] cardiac enlargement. EF 10 to 15%, mild MR, mild to moderate AAS, mild AI, mild to moderate TR pulmonary artery pressure 55 mmHg
Warehouse Receiving Clerk -Dr. Quintanilla
EP -Dr. Melara at [place]
Patient awake and alert
Cardiovascular system S1-S2, systolic murmur at apex
Chest clear to auscultation
Abdomen soft and nontender
Redness and edema below the dressing on the left leg
# Shortness of breath
Secondary to acute on chronic CHF
Patient with known cardiomyopathy
Symptoms improved ,currently on room air.
VQ scan low probability of PE
# Acute on chronic HFrEF
End-stage cardiomyopathy/CHF
BNP 12,000
Holding Lasix today
Continue metoprolol,dapagliflozin. Entresto on hold
Follow creatinine closely
Troponin slightly elevated-continue to follow until it peaks
Intake output charting
Cardiology evaluation appreciated
# Occlusive thrombus involving mid to distal peroneal vein on the left-Now on Eliquis.
# Cellulitis left lower extremity-with continued symptom of pain and tenderness and redness -MRSA screen negative. Change antibiotics to p.o.
We need to do Wei bandages for bilateral lower extremity. It needs to be wrapped starting just above the toes all the way up to the knees.
Wound care dressing should not be tightly wrapped.
# Fall with injury to the left leg 2 days [employer]END[employer]-neg L tib/fib x-rays for fracture. On adx- Patient is adamant that he does not want a CT scan of the head. Risks of missing a bleed and complications discussed with the patient. Patient verbalized
understanding.
# Coronary artery disease with stents in the heart including LAD--continue Plavix.
# Paroxysmal atrial fibrillation-he was on lower dose of Xarelto because he was also on Plavix, continue with metoprolol. Now on Eliquis.
# BiV ICD
# Diet controlled diabetes-blood sugar 301. hemoglobin A1c 11.0
Accu-Cheks and sliding scale coverage
Insulin changed to 70/30 twice daily -10 units
May need to go down the doses sugars are tightly controlled
# Hypothyroidism-continue Synthroid
# Prostate disease-continue Flomax
# Chronic anemia
# RSD right lower extremity
# Sleep apnea-PAP machine intolerant
# Ex-smoker
# DVT prophylaxis-Eliquis
# CODE STATUS-full code
Discussed with nursing
Discussed with cardiology
Part of this note was created using voice recognition system. Occasional wrong word or��sound alike� substitutions may have inadvertently occurred due to the inherent limitations of voice recognition software. If noted kindly bring it to my
attention for correction.
Anticipated Discharge: Within 24 hours
Subjective/Interval History
-
Date of Service: September 03, 2024
Objective Data
-
Labs:
Laboratory Results
09/03/24
03:00
Sodium 136
Potassium 4.0
Chloride 105
Carbon Dioxide 24
BUN 93 H
Creatinine 1.7 H
Glucose 79
Calcium 8.9
Vital Signs:
Vital Signs
Temp Pulse Resp BP Pulse Ox
98.2 F 79 20 106/70 95
09/03/24 03:00 09/03/24 09:58 09/03/24 07:33 09/03/24 09:58 09/03/24 08:30
I&O
09/02/24 09/03/24 09/04/24
06:59 06:59 06:59
Intake Total 240 / 240 200 / 200
Output Total 750 / 750 1200 / 1200 100 / 100
Balance -510 / -510 -1000 / -1000 -100 / -100
[2024-09-03] MEDS: CEFTIN 500 MG PO ×2 (11:35→19:43)
[2024-09-03 11:52] LABS: Glucose - Point of Care 64 mg/dl (70-99)
[2024-09-03 12:16] LABS: Glucose - Point of Care 89 mg/dl (70-99)
--- NOTE | 2024-09-03 12:23 | PTCARENOTE ---
BS at noon 64, please look at hypoglycemic protocol on work list.
[2024-09-03 14:31] LABS: Glucose - Point of Care 116 mg/dl (70-99)
--- NOTE | 2024-09-03 14:55 | PTCARENOTE ---
Addendum entered by Carlie Earl RN 09/03/24 14:55:
BS taken at 1430 not 1400
Original Note:
BS taken at 1400 as per protocol, BS 116.
--- NOTE | 2024-09-03 16:07 | CM ---
Reviewed chart. Met with Mr. Ruiz to review discharge plans. He states he maybe able to go home soon. We reviewed VNA Services with him. He is agreeable to having VNA serices with [facility]. Telephone call to [facility] to make
the referral. Sent the referral. Prior to admission he resides alone in a one story home with two steps to enter. Prior to admission he was independent with ambulation and adls. He has a single point cane at home. Will need to check if he was a
walker at home. If not will need script for walker. He has a prescription plan with [facility] and uses [facility]. Medical work-up in progress. The discharge plan is to return home with [facility] when medically stable.
[2024-09-03 16:25] LABS: Glucose - Point of Care 94 mg/dl (70-99)
--- NOTE | 2024-09-03 16:28 | PTCARENOTE ---
BS at 0725 94.
[2024-09-03] MEDS: NOVOLOG MIX 70/30 FLEXPEN 8 UNITS SC (17:33)
[2024-09-03] MEDS: TOPROL XL 12.5 MG PO (17:35)
[2024-09-03] MEDS: FLOMAX 0.4 MG PO (17:35)
[2024-09-03 21:39] LABS: Glucose - Point of Care 90 mg/dl (70-99)
--- NOTE | 2024-09-03 22:34 | PTCARENOTE ---
Received pt @ change of shift. AAOx3. VSS-- V-paced on monitor. VIKY wraps on bilateral lower extremities. C/o pain in left leg-- Tylenol given-- See MAR. Discussed plan of care for evening. Pt verbalizes understanding-- agrees to call when needing
to get out of bed. Call kimble within reach.
[2024-09-04] MEDS: TYLENOL 650 MG PO ×2 (00:30→10:28)
[2024-09-04 03:38] VITALS: BP 108/83
--- NOTE | 2024-09-04 04:18 | DOWNTIME ---
Addendum entered and electronically signed by Zelalem Mcadams RN 09/04/24 14:24:
Correction: Downtime was 09/04/2024 from 0100 to 09/04/2024 at 0415
Original Note:
There was a [employer] [facility] [employer] Downtime on 09/03/2024 from 0100 to 09/04/2024 at 0415. Downtime documentation of patient's care, including medication administrations, has been reconciled in the electronic record per guidelines. Refer to the
patient's paper chart under the miscellaneous tab to see printed paper medication records and downtime forms.
[2024-09-04 04:23] VITALS: BP 108/83
[2024-09-04 05:03] LABS: Glucose - Point of Care 74 mg/dl (70-99)
[2024-09-04] MEDS: SYNTHROID 25 MCG PO (05:07)
[2024-09-04 05:08] VITALS: BMI 26.4
--- NOTE | 2024-09-04 06:58 | PTCARENOTE ---
During [employer] Downtime, the pt's blood sugar was taken (03:36) and resulted @ 67. RN gave pt 4 oz. OJ and rechecked pt ~0400 which resulted @ 78. The Accucheck machine did not transfer the data over, and the second blood sugar was not recordeded
in the machine either. An additional blood sugar was taken @ 0502 once it was noted there was an error with the transfers and resulted @ 74.
The machine was sent to lab to obtain a new Accucheck device.
[2024-09-04 07:13] VITALS: BP 98/77
[2024-09-04 07:19] LABS: Glucose - Point of Care 86 mg/dl (70-99)
--- NOTE | 2024-09-04 07:57 | PN.DE.MGMTRT ---
Insulin Management
- -
09/04/2024 Diabetes Management Consult Follow up
Patient admitted 08/30 with SOB. H CHF, afib, CKD, HTN, diabetes, HLD. Patient known to me from outpatient setting and inpatient. He has in the past refused insulin. Prior to admission was taking farxiga 5 mg daily. A1C on admission is 11%,
cr 1.9, eGFR 35.
Patient is awake alert and oriented, recognized me immediately. Able to discuss diabetes care. States his diet has not been so great lately.
09/03 Fasting glucose 79 venous. Pre lunch glucose 64, will further reduce BID 70/30 to 8 units. HS glucose 90
09/04 3AM glucose 67, patient treated with juice, fasting 86. Will further reduce 70/30 novolog to 6 units.
He states he needs a new meter. Has been provided with One Touch Verio. RX for supplies for meter in ambulatory orders.
Discussed with nurse
Will follow
Diabetes History
- -
Type of Diabetes: 2 requiring insulin
Pre-Admission Diabetes Regimen
Lab Results
Hemoglobin A1c 11.0 % (4.0-5.6) H 08/30/24 08:55
Insulin Pump Settings
IP Diabetes Regimen
09/03/24 09/03/24 09/03/24
11:50 12:15 14:29
POC Glucose 64 L 89 116 H
09/03/24 09/03/24 09/04/24
16:24 21:38 05:02
POC Glucose 94 90 74
09/04/24
07:18
POC Glucose 86
Meal type: Breakfast
Meal type: Dinner
Meal type: Breakfast
Amount consumed: 100%
Amount consumed: 100%
Amount consumed: 90%
Patient Education
--- NOTE | 2024-09-04 08:00 | PTCARENOTE ---
Assumed care of pt from prev nsg shift; Pt AAOX3 w/no c/o CP or SOB. Pt does c/o 'mild left LE' pain. Pt offered PRN Po Tylenol, which pt declined until 'later when he works w/PT'. Pt's VSS w/HR 90's-110's & BP 98/77 this AM. Pt is V-paced on
telemetry monitoring. Pt anxious for D/C this AM. This RN discussed D/C planning & explained how medication prescriptions will be sent to pt's preferred pharmacy. Pt needs a lot of reinforcement re: D/C plan. Pt w/call kimble within reach & no addtl
needs at this time.
[2024-09-04] MEDS: NOVOLOG FLEXPEN-LOW RESISTANCE SC ×2 (08:01→11:29)
[2024-09-04 08:19] LABS: Glucose - Point of Care 67 mg/dl (70-99)
--- NOTE | 2024-09-04 10:15 | CM ---
Reviewed chart. Met with Mr. Ruiz to review discharge plans. We reviewed SNF/Rehab. with him and currently he is declining SNF/Rehab. [facility]. Referral made yesterday to [facility]. Asked
attending physician for rolling walker script. Physical therapy will give him a rolling walker to take home. Prior to admission he resides alone in a one story home with two steps to enter. Prior to admission he was independent with ambulation
and adls. He ambulated in the room independent with the rolling walker. He has a single point cane at home. He has a prescription plan with [facility] and uses [facility]. Medical work-up in progress. The discharge plan is to return
[facility] when medically stable.
[2024-09-04] MEDS: CEFTIN 500 MG PO (10:23)
[2024-09-04] MEDS: FARXIGA 5 MG PO (10:23)
[2024-09-04] MEDS: DESENEX/MITRAZOL/ZEASORB 1 APPLIC TOPICAL (10:23)
[2024-09-04] MEDS: LASIX 80 MG PO (10:24)
[2024-09-04] MEDS: ELIQUIS 10 MG PO (10:24)
[2024-09-04] MEDS: ENTRESTO 24 MG/26 MG 1 TAB PO (10:24)
[2024-09-04] MEDS: HYDROPHOR 1 APPLIC TOPICAL (10:24)
[2024-09-04] MEDS: PLAVIX 75 MG PO (10:24)
[2024-09-04] MEDS: NOVOLOG MIX 70/30 FLEXPEN 6 UNITS SC (10:25)
[2024-09-04] MEDS: PROTONIX 20 MG PO (10:25)
[2024-09-04 11:11] VITALS: BP 93/67
[2024-09-04 11:17] LABS: Glucose - Point of Care 127 mg/dl (70-99)
--- NOTE | 2024-09-04 12:22 | W.PN.HOSP.TC ---
Today's Communication/Plan
-
Discharge
Assessment / Plan
Assessment / Plan
IMPRESSION/PLAN:
Echo 09/02/[id number] cardiac enlargement. EF 10 to 15%, mild MR, mild to moderate AAS, mild AI, mild to moderate TR pulmonary artery pressure 55 mmHg
Felt Machine Mechanic -Dr. Quintanilla
EP -Dr. Melara at [place]
Patient awake and alert
Cardiovascular system S1-S2, systolic murmur at apex
Chest clear to auscultation
Abdomen soft and nontender
Redness and edema below the dressing on the left leg much better today he had Wei bandages on
Bilateral knee abrasions look stable
# Shortness of breath
Secondary to acute on chronic CHF
Patient with known cardiomyopathy
Symptoms improved ,currently on room air.
VQ scan low probability of PE
# Acute on chronic HFrEF
End-stage cardiomyopathy/CHF
BNP 12,000
Lasix restarted
Continue metoprolol,dapagliflozin. Entresto can be restarted per discussion with cardiology
Follow creatinine closely
Troponin slightly elevated-continue to follow until it peaks
Intake output charting
Cardiology evaluation appreciated
# Occlusive thrombus involving mid to distal peroneal vein on the left-Now on Eliquis.
# Cellulitis left lower extremity-with continued symptom of pain and tenderness and redness -MRSA screen negative. Changed antibiotics to p.o.
We need to do Wei bandages for bilateral lower extremity. It needs to be wrapped starting just above the toes all the way up to the knees.
Wound care dressing should not be tightly wrapped.
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 On adx- Patient is adamant that he does not want a CT scan of the head. Risks of missing a bleed and complications discussed with the patient. Patient verbalized
understanding.
# Coronary artery disease with stents in the heart including LAD--continue Plavix.
# Paroxysmal atrial fibrillation-he was on lower dose of Xarelto because he was also on Plavix, continue with metoprolol. Now on Eliquis.
# BiV ICD
# Diet controlled diabetes-blood sugar 301. hemoglobin A1c 11.0
Accu-Cheks and sliding scale coverage
Insulin changed to 70/30 twice daily -6 units twice daily
# Hypothyroidism-continue Synthroid
# Prostate disease-continue Flomax
# Chronic anemia
# RSD right lower extremity
# Sleep apnea-PAP machine intolerant
# Ex-smoker
# DVT prophylaxis-Eliquis
# CODE STATUS-full code
Discussed with nursing
Discussed with cardiology
Part of this note was created using voice recognition system. Occasional wrong word or��sound alike� substitutions may have inadvertently occurred due to the inherent limitations of voice recognition software. If noted kindly bring it to my
attention for correction.
He does not want to go to rehab. He is okay with visiting nurses
More than 30 minutes spent in discharge including
Final examination of the patient
Summarizing hospital stay
Instructions for continuing care to all relevant caregivers
Preparation of discharge records, prescriptions, and referral forms
Total time spent (in minutes): 37 min
Anticipated Discharge: Today
Subjective/Interval History
-
Date of Service: September 04, 2024
Objective Data
-
Vital Signs:
Vital Signs
Temp Pulse Resp BP Pulse Ox
97.5 F 85 16 93/67 96
09/04/24 11:12 09/04/24 11:12 09/04/24 11:12 09/04/24 11:11 09/04/24 11:12
I&O
09/03/24 09/04/24 09/05/24
06:59 06:59 06:59
Intake Total 200 / 200
Output Total 1200 / 1200 1350 / 1350 450 / 450
Balance -1000 / -1000 -1350 / -1350 -450 / -450
--- NOTE | 2024-09-04 12:23 | VNURNOTE ---
Home Health Liaison spoke with patient to discuss [facility] nurse/therapy, visits, schedule and homebound status. Patient is agreeable and understands that visits at home will be 2-3 x per week to assess and teach medical management. He confirms that he
has a scale at home. He is aware that [facility] will contact them for start of care in 1-2 days after discharge from .
[facility] referral accepted in [facility].
--- NOTE | 2024-09-04 12:44 | W.DS.TRANS ---
Addendum entered and electronically signed by Amanda Nicole MD 09/04/24 16:51:
Dictation- [id number]
Original Note:
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
-
Discharge Instructions:
Discharge Diagnosis/Procedures CHF
Peroneal vein DVT on the left
Cellulitis left leg
Coronary artery disease
Atrial fibrillation
Diabetes
Hypothyroidism
Prostate disease
RSD right lower extremity
Diet 2 Gram Sodium,Restrict fluids to 48 oz,Diabetic,
Carb Controlled
Activity As tolerated,With assistance
Blood Work BMP 1 week
Other Services VN
Specialty Instructions Weigh Daily
Instructions: *PCP/Other Mechanic Recovery Heart Failure Instructions
Stand-Alone Forms:
Changes to Home Medications: Yes
Discharge Medications:
DC Medications w/original date entered in [employer]
tamsulosin 0.4 mg capsule 0.4 mg PO QPM Urinary issue 05/28/18
sacubitril 24 mg-valsartan 26 mg tablet (Entresto) 1 tab PO Q12H Heart Failure 03/27/23
blood sugar diagnostic (OneTouch Verio test strips) #100 ea 09/03/24
blood-glucose meter (OneTouch Verio Flex Meter) #1 ea 09/03/24
lancets 33 gauge (OneTouch Delica Plus Lancet) #100 ea 09/03/24
apixaban 5 mg tablet (Eliquis) 5 mg PO BID Blood clot prevention/tx #60 tabs 09/04/24
apixaban 5 mg tablet (Eliquis) 10 mg (2 x 5 mg) PO BID Blood clot prevention/tx #14 tabs 09/04/24
cefuroxime axetil 500 mg tablet 500 mg PO BID Infection #5 tabs 09/04/24
clopidogrel 75 mg tablet 75 mg PO DAILY Blood clot prevention/tx #30 tabs 09/04/24
dapagliflozin propanediol 5 mg tablet 5 mg PO DAILY Heart disease/condition #30 tabs 09/04/24
furosemide 40 mg tablet 80 mg (2 x 40 mg) PO DAILY Fluid Retention/Swelling #30 tabs 09/04/24
insulin aspar prot-insulin aspart 100 unit/mL (70-30) subcutaneous pen 6 unit (0.06 mL) SC BID@0800,1700 Diabetes #15 mL 09/04/24
levothyroxine 25 mcg tablet 25 mcg PO DAILY Thyroid #0 tabs 09/04/24
metoprolol succinate 25 mg tablet,extended release 24 hr 12.5 mg (1/2 x 25 mg) PO QPM Heart disease/condition #30 tabs 09/04/24
pantoprazole 20 mg tablet,delayed release 20 mg PO DAILY Gastrointestinal issue #30 tabs 09/04/24
Home Medication Changes
new
Protonix
Insulin
Lasix
Cefuroxime
Eliquis
Hydralazine and Xarelto stopped
Pending Results: Yes
--- NOTE | 2024-09-04 14:00 | PTCARENOTE ---
D/C'd pt's IV line & telemetry pack. Pt assisted w/showering prior to D/C & wound care to amy LE's completed. D/C instructions discussed w/pt & this RN needed to repeat instructions 5 times before the pt was able to verbalize back his new
medication instructions. VN ordered for pt. Pt left via wheelchair w/a friend driving him home. Pt left w/personal belongings including ipad, smelter charger, & addtl wound care supplies as requested by VN.
--- NOTE | 2024-09-05 09:53 | W.HF.CON ---
Heart Failure
- LV Function
Left ventricular function study result: LV Ejection fraction </= 35%
Ejection Fraction Percentage: 10-15
- ARNI
Patient already on ARNI: Yes
- ACEI/ARB
Patient already on ACEI/ARB: No
Heart Failure ACEI/ARB Not Indicated: Patient ordered/on ARNI
- Beta Carine
Patient already on Evidence Based Beta Carine: Yes
- Mineralocorticord Receptor Antagonist
Patient already on MRA: No
Heart Failure MRA Contraindication: Acute Renal Insufficiency
- SGLT-2 Inhibitor
Patient already on SGLT-2 Inhibitor: Yes
- Afib Anticoagulation
Patient already on Anticoagulation for Afib: Yes
- NYHA CHF Classification
NYHA CHF Classification Level: Class III - Symptoms w/ min exertion, interferes w/ nml daily activity
- ACC/AHA Stage
ACC/AHA Stage: Stage D: Advanced Heart Failure
== END 2024-09-04 14:39 | disposition home health service (06) | DRG 291 ==
LOC: IVU 14:22
PROVIDERS: Emergency Medicine; Internal Medicine; ADMITTING PHYSICIAN Hospitalist; CONSULT PHYSICIAN Student in an Organized Health Care Education/Training Program; EMERGENCY PHYSICIAN Student in an Organized Health Care Education/Training Program; FAMILY PHYSICIAN Internal Medicine
DX: I13.0 Hypertensive heart and chronic kidney disease with heart failure and stage 1 through stage 4 chronic kidney disease, or unspecified chronic kidney disease (principal); I50.23 Acute on chronic systolic (congestive) heart failure; L03.116 Cellulitis of left lower limb; G90.521 Complex regional pain syndrome I of right lower limb; I82.452 Acute embolism and thrombosis of left peroneal vein; E11.22 Type 2 diabetes mellitus with diabetic chronic kidney disease; I42.9 Cardiomyopathy, unspecified; W01.0XXA Fall on same level from slipping, tripping and stumbling without subsequent striking against object, initial encounter; I25.10 Atherosclerotic heart disease of native coronary artery without angina pectoris; Z95.5 Presence of coronary angioplasty implant and graft; Z79.02 Long term (current) use of antithrombotics/antiplatelets; Z79.01 Long term (current) use of anticoagulants; I48.0 Paroxysmal atrial fibrillation; E03.9 Hypothyroidism, unspecified; D63.1 Anemia in chronic kidney disease; G47.30 Sleep apnea, unspecified; Z87.891 Personal history of nicotine dependence; Z79.890 Hormone replacement therapy; Z79.899 Other long term (current) drug therapy; Z95.810 Presence of automatic (implantable) cardiac defibrillator; H54.7 Unspecified visual loss; N18.30 Chronic kidney disease, stage 3 unspecified; N40.0 Benign prostatic hyperplasia without lower urinary tract symptoms; M06.9 Rheumatoid arthritis, unspecified; E78.5 Hyperlipidemia, unspecified; I44.0 Atrioventricular block, first degree; I44.7 Left bundle-branch block, unspecified; Z11.52 Encounter for screening for COVID-19
CPT/HCPCS: 71045; 73590; 78582; 80048; 80053; 80202; 82962; 83036; 83735; 83880; 84100; 84484; 85025; 85027; 85730; 87070; 87502; 87811; 93005; 93306; 93971; 96365; 96366; 97116; 97163; 97530; 99285; A9540; A9567

== ENCOUNTER 2024-09-23 17:45 | Inpatient (IN) | payer OTHER, SELFPAY ==
[2024-09-23] VITALS (7 sets, daily range): BP systolic 101–122; BP diastolic 63–87; BMI 26.9
[2024-09-23 14:40] LABS: Hematocrit 48.8 % (39.0-52.0); Hemoglobin 16.1 g/dL (13.0-18.0); Mean Corp Hgb Conc. 33.0 g/dL (33.0-37.0); Mean Corpuscular Volume 97.0 fL (80.0-94.0); Nucleated Red Blood Cells % 0 % (-); Platelet Count 103 10^3/uL (130-400); Red Cell Dist. Width 16.4 % (11.5-14.5)
[2024-09-23 15:12] LABS: Blood Urea Nitrogen 62 mg/dl (9-20); Glucose 138 mg/dl (70-99)
[2024-09-23 15:13] LABS: Calcium 9.0 mg/dl (8.4-10.2); Carbon Dioxide 24 mmol/L (22-30); Chloride 105 mmol/L (98-107); Sodium 140 mmol/L (135-145); eGFR 35.00
--- NOTE | 2024-09-23 15:19 | CON.CAR ---
Addendum entered and electronically signed by Duglas Stauffer MD 09/23/24 19:37:
I saw and examined the patient.
The STORES ASSISTANT's note was reviewed and I agree with the note.
Comment:
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 He was discharged from on 09/04/2024 for HF
exacerbation and DVT. He underwent IV diuresis and was started on anticoagulation for DVT. Since then he reports that he has just not been getting any better. A few days ago he decreased his Lasix from 80 mg daily to 40 mg daily due to overall
weakness. He has been having worsening lower extremity edema and abdominal distention causing shortness of breath.
Physical exam notable for regular rate and rhythm, systolic murmur, nonpitting edema up to thighs, abdominal distention, + hepatojugular reflux, clear lungs
Labs notable for creatinine 1.9 (baseline 1.7), BNP 12,000, troponin 0.046
TTE 09/02/2024: LVEF 10-15%, mild MR, mild/mod , mild AR, mild/mod TR, PASP 50-55 mmHg
ECG paced and unchanged from prior
He has end-stage heart failure. I explained that there is no way to reverse this. We had several conversations about this last admission and it seems that it did partially sink in because he said he made a will since then. He would like to give
it '1 more shot'. We can try milrinone assisted diuresis, but this is just a Band-Aid and will not prolong his life. It may buy him a few days/weeks of symptomatic improvement. We will plan for RHC tomorrow. Tonight we can try IV Lasix but his
potassium from earlier hemolyzed and needs to be repeated prior to diuresis. Hold Eliquis for RHC tomorrow (5 mg twice daily is the correct dose as it is for DVT). Hold metoprolol and Entresto due to concern for low output state.
In terms of CODE STATUS, he says that he would not want to end up 'as a vegetable'. I explained that if his heart were to stop, I do not think CPR and intubation would be appropriate as it would not meaningfully prolong his life. He will think
about this but wants to remain full code for now.
Original Note:
Medical History
-
Chief Complaint: LE swelling
History of Present Illness:
Km Carter is an 79-year-old male (known to Dr. Quintanilla at [facility]), CAD with stenting (most recent 10/06/[address] Dangelo), HFrEF, ICM EF 10-15%, ICD, atrial tachycardia, CKD, paroxysmal atrial fibrillation, and thrombocytopenia who presented to
the emergency department with a chief complaint of lower extremity swelling. He endorses associated lower extremity edema and shortness of breath. Approximately 5 days ago, he self decreased his furosemide from 80 mg daily to 40 mg daily. This was
due to significant fatigue and hypotension. He believes he has gained approximately 10 pounds on his home scale over the past 2 weeks. He reports dietary adherence. Other than the decrease in the furosemide, he endorses medication adherence.
We did discuss his worsening heart failure. He is aware this is severe. He is aware of his end-stage cardiomyopathy. We discussed code status and he would like to remain a full code.
Past Medical History
Past Medical History: Arrhythmias (Paroxysmal atrial fibrillation, paroxysmal atrial tachycardia), CAD (With stenting), CHF (HFrEF/ICM), HTN, Hypercholesterolemia, [place], Renal Failure (CKD) and Other
Past Surgical History: Orthopedic
Social History
Tobacco: Former Smoker
Alcohol: None
Drug: None
Living: Alone
Family History
Family History: Reviewed & Not Pertinent
Allergies / Home Medications
Allergy/AdvReac Type Severity Reaction Status Date / Time
Mcemxog-NUD-NkY Reductase Allergy Pt. Verified 09/23/24 14:08
Inhibitor reports
muscle
cramps
�Medication �Instructions �Recorded �Confirmed �Type
tamsulosin 0.4 mg capsule 0.4 mg PO QPM Urinary issue 05/28/18 08/30/24 History
sacubitril 24 mg-valsartan 26 mg 1 tab PO Q12H Heart Failure 03/27/23 08/30/24 History
tablet (Entresto)
blood sugar diagnostic (OneTouch #100 ea 09/03/24 Rx
Verio test strips)
blood-glucose meter (OneTouch #1 ea 09/03/24 Rx
Verio Flex Meter)
lancets 33 gauge (OneTouch Delica #100 ea 09/03/24 Rx
Plus Lancet)
apixaban 5 mg tablet (Eliquis) 5 mg PO BID Blood clot 09/04/24 Rx
prevention/tx #60 tabs
apixaban 5 mg tablet (Eliquis) 10 mg (2 x 5 mg) PO BID Blood clot 09/04/24 Rx
prevention/tx #14 tabs
cefuroxime axetil 500 mg tablet 500 mg PO BID Infection #5 tabs 09/04/24 Rx
clopidogrel 75 mg tablet 75 mg PO DAILY Blood clot 09/04/24 08/30/24 Rx
prevention/tx #30 tabs
dapagliflozin propanediol 5 mg 5 mg PO DAILY Heart 09/04/24 08/30/24 Rx
tablet disease/condition #30 tabs
furosemide 40 mg tablet 80 mg (2 x 40 mg) PO DAILY Fluid 09/04/24 08/30/24 Rx
Retention/Swelling #30 tabs
insulin aspar prot-insulin aspart 6 unit (0.06 mL) SC BID@0800,1700 09/04/24 Rx
100 unit/mL (70-30) subcutaneous Diabetes #15 mL
pen
levothyroxine 25 mcg tablet 25 mcg PO DAILY Thyroid #0 tabs 09/04/24 08/30/24 Rx
metoprolol succinate 25 mg 12.5 mg (1/2 x 25 mg) PO QPM Heart 09/04/24 08/30/24 Rx
tablet,extended release 24 hr disease/condition #30 tabs
pantoprazole 20 mg tablet,delayed 20 mg PO DAILY Gastrointestinal 09/04/24 Rx
release issue #30 tabs
pen needle, diabetic 32 gauge x #100 ea 09/04/24 Rx
' (Tyesha 2nd Gen Pen Needle)
Review of Systems
-
History Source: Patient
All other systems: Negative unless noted
Constitutional: Fatigue
EENT: No Symptoms
Respiratory: No Symptoms
Cardiac: No Symptoms
Abdomen/GI: No Symptoms
: No Symptoms
Musculoskeletal: Edema
Skin: No Symptoms
Neurological: Weakness
Endocrine: No Symptoms
Hematologic/Lymphatic: No Symptoms
Physical Exam
Vital Signs
Temp Pulse Resp BP Pulse Ox
98.2 F 84 22 107/68 97
09/23/24 14:08 09/23/24 14:08 09/23/24 14:08 09/23/24 14:08 09/23/24 14:08
Lab Results
09/23/24 14:27
09/23/24 14:27
Physical Exam
General: Well Developed, Well Nourished, No Apparent Distress and Comfortable
HEENT: Normocephalic, Anicteric and Moist Mucous Membranes
Respiratory: Clear and Non Labored Respirations
Cardiac: S1/S2, Regular Rhythm and Peripheral Edema (+2 pitting edema to upper thighs)
Breast: Deferred by me
GI: Soft, Non Tender, Non Distended and Normal Bowel Sounds
Rectal: Deferred by Provider
Genito-urinary: No Costovertebral Tender
Musculoskeletal: No Clubbing, No Cyanosis and No Edema
Skin: Warm and Dry
Neuro: AO x 3
Hematologic/Lymphatic: No Lymphadenopathy
Psych: Calm
Impression / Plan
-
I/P: 79M with CAD with stenting (most recent 10/06/[address] Dangelo), HFrEF, ICM EF 10-15%, ICD in place, AT, CKD, PAF, and thrombocytopenia presenting withlower extremity edema.
Local gullet slitter: Dr. Stauffer
Outpatient gullet slitter (HF): Dr. Quintanilla ([facility])
Outpatient gullet slitter (EP): Dr. Melara
HFrEF, pewpd-gh-veoybwq/severe ICM EF 10-15%
- Diuresis with furosemide 80 mg IV twice daily, await potassium, some of his labs hemolyzed
- Consider inotrope
- TTE 09/02/2024: LVEF 10-15%, mild MR, mild/mod , mild AR, mild/mod TR, PASP 50-55 mmHg
- GDMT as tolerated:
-BB: Metoprolol succinate 12.5 mg daily, he did not tolerate higher doses
-VIKY/ARB/ARNI: Entresto
-SGLT2i: Farxiga 5mg daily
-MRA: Not a candidate due to CKD
-ICD: Moreno Sci
- Trend daily weight, I/O, and BMP with diuresis
- Heart failure education
NSVT
- Moreno Sci ICD in place
- Continue BB. He refuses Amiodarone.
- If he has recurrence of this arrhythmia, I will reach out to his EP doctor (Dr. Melara) at [facility] to see what he recommends.
CAD with multiple stents:
- Denies any CP
- Continue Plavix, last PCI 09/2023.
- He is statin intolerant
Paroxysmal atrial tachycardia/Paroxysmal atrial fibrillation
- Currently stable in SR, follow telemetry
- Continue metoprolol (higher doses not tolerated per chart)
- Oral anticoagulation: Eliquis 2.5mg BID (age 79, creatinine >1.5), he denies missed doses and abnormal bleeding
CKD:
- At baseline, trend with diuresis
Aortic stenosis, mild to moderate, peak/mean gradients 11/7 mmHg, GILLIAN 1.0 cm�
Type 2 diabetes, uncontrolled, HgbA1c 11%, care per primary service
TEJ, follows with Dr. Torrez
Former smoker, continued cessation recommended
SUBJECTIVE:
As above.
DATA:
TTE, 09/02/2024:
Four chamber cardiac enlargement with biventricular systolic dysfunction.
LVEF 10-15%
Mild mitral regurgitation.
Mild to moderate aortic stenosis.
Mild aortic regurgitation.
Mild to moderate tricuspid regurgitation.
Estimated PASP 50-55 mmHg and estimated RA 15 mmHg.
No significant change since the prior study of 06/03/2024.
Data Reviewed
-
EKG: Report Reviewed by me (Atrial sensed ventricular paced rhythm, rate 80)
Medical Tests (Nuc Med, Echo etc): Report Reviewed by me
Labs: Labs Reviewed by me
Old Records: Reviewed
--- NOTE | 2024-09-23 17:07 | ED.GENMED ---
History of Present Illness
General
Chief Complaint: Swelling
Time Seen by Provider: 09/23/24 16:31
History of Present Illness
History of Present Illness:
79-year-old male referred to the ER by cardiology office for further evaluation of weight gain and profound weakness and over the past week or so. Patient states that last Monday he was feeling so weak that he reached out to the office and was
advised to take decreased dosing of Lasix from 80 mg daily down to 40 mg. Patient states that this is not improved how he has been feeling. He denies syncope or trauma. He has been compliant with taking all his other medications including his
Eliquis. He denies headache or change in vision. No vomiting. No change in urine output.
Past History
Past History
ED Past Medical History: Arrthythmia (Vent Tach, Atrial flutter), CAD, CHF, HTN, NIDDM, FL and Other (Enlarged prostate)
ED Past Surgical History: Cardiac (stents X2), Orthopedic (hip fx) and Other (Cardiac stent)
Social History
Tobacco: Former smoker
Alcohol: None
Drug: None
Personal:
Living: alone
Phy Exam
Physical Exam
Physical Exam:
Patient is awake, alert, appears in no acute distress, jose roberto complexion, conjunctiva pink, mucous membranes moist, no JVD, lungs are clear to auscultation without wheezes rales or rhonchi, heart regular rate and rhythm without murmurs or ectopy,
pacer present left anterior chest wall, abdomen is soft and nontender, 2+ pitting edema over the sacrum, 3+ edema bilateral thighs, 2+ DP pulses present bilateral feet, GCS is 15, speech is clear, wearing glasses
Scores
Heart Failure Risk
Heart Failure Risk Score: Yes
History of Stroke or TIA: No
History of intubation for respiratory distress: No
Heart rate on ED arrival >/= 110: No
SaO2 <90% on arrival on room air: No
HR >/=110 during 3min walk test (or too ill to perform test): No
ECG has acute ischemic changes: No
Urea >/=12mmol/L (BUN 33.6mg/dL): Yes
Serum CO2>/=35mmol/L: No
Troponin I or T elevated to FL Level (0.4mg/dL): Yes
NT-proBNP >/=5,000ng/L (5,000pg/ml): Yes
HF Risk Score: 4
Admission Status: HIGH RISK 26.1% Consider SNF treatment or admission to hospital
Course
Orders/Labs/Results
Orders:
Orders
09/23/24 14:08
Electrocardiogram (*1) Urgent
Reason for Study: Shortness of Breath
EKG- Treatment ONCE
09/23/24 14:11
CR Chest - 2 Views Urgent
Comment:
Reason For Exam: SOB
09/23/24 14:27
Basic Metabolic Panel Urgent
Complete Blood Count/With Diff Urgent
09/23/24 Dinner
1800 calorie (15 carb) Diabetic
At Your Request: Full Participation
09/23/24 16:37
NT-proBNP Urgent
Troponin I Urgent
09/23/24 17:30
Admit/Transfer Patient As Directed
Co-Sign Provider:
Level of Care: Inpatient admission
Assign to:: IVU
Physician / Group: Chelsey
Diagnosis: Acute on chronic CHF
Reason for Hospitalization: IV Lasix, cardiology consult
Expected length of stay greater than two midnights?: Yes
ELOS- Estimated Length of Stay in days: 4
I certify the patient meets the requirements for IP care: Yes
PRN Pain Medication Management As Directed
May give lesser potent ordered pain med per pt: Yes
preference::
Protocol:: Medication orders for pain may be administered in a
manner that supports deferring to patient preference
when the pt is:
- Requesting an ordered lesser potent pain medication.
Least to most potent pain medications are defined
as: acetaminophen < NSAID < tramadol < opioids
(morphine, oxycodone, hydromorphone).
- Requesting a lesser dose of the same medication IF
ORDERED.
- Requesting a less intrusive route of administration
if both routes are prescribed by the provider (PO <
IV).
09/23/24 17:31
Code Status As Directed
Resuscitation Status: Full Code
09/23/24 17:41
Furosemide [Lasix] 80 mg IV NOW STA
Abnormal Lab Results
09/23/24 09/23/24
14:27 16:37
WBC 4.1 L 10^3/uL
(4.8-10.8)
MCV 97.0 H fL
(80.0-94.0)
MCH 32.0 H pg
(27.0-31.0)
RDW 16.4 H %
(11.5-14.5)
Plt Count 103 L 10^3/uL
(130-400)
MPV 12.5 H fL
(7.4-10.4)
Absolute Lymphs (auto) 0.6 L 10^3/uL
(1.2-3.4)
Lymphocytes % 13.4 L %
(20.5-51.1)
BUN 62 H mg/dl
(9-20)
Creatinine 1.9 H mg/dL
(0.7-1.3)
Glucose 138 H mg/dl
(70-99)
Troponin I 0.046 H* ng/ml
09/23/24 14:27
09/23/24 14:27
Vital Signs
Initial and Last Documented VS:
Initial Vital Signs
Temp Pulse Resp BP Pulse Ox
98.2 F 84 22 107/68 97
09/23/24 14:08 09/23/24 14:08 09/23/24 14:08 09/23/24 14:08 09/23/24 14:08
Last Documented Vital Signs
Temp Pulse Resp BP Pulse Ox
98.2 F 79 19 105/80 97
09/23/24 14:08 09/23/24 18:15 09/23/24 18:15 09/23/24 18:00 09/23/24 17:07
MDM/Problems Addressed
Differential Diagnosis Includes:
Differential diagnosis considered but not limited to congestive heart failure, ACS, arrhythmia, noncompliance, acute kidney injury, along with other etiologies considered
Chronic conditions affecting care:
A-fib, CHF, arrhythmia, diabetes
*Radiology
Radiology exam reviewed: preliminary read by ED provider (I dependently viewed and interpreted x-ray showing cardiomegaly, pacer present, mild cephalization without focal infiltration)
*Pulse Oximetry
SaO2: 97
Oxygen Mode of Delivery: Room air
Patient hypoxic: no
*EKG
Interpreted by ED Provider?: Yes (I independently viewed and interpreted rhythm strip showing paced rhythm, I independently viewed and [id number] lead EKG showing paced rhythm, rate 80, improved rate compared to prior)
*Critical Care Note
Total Time (30-74mins, 75-104mins- exclusive of procedures): Not Applicable
Update Note
Update Note:
Patient was evaluated by nurse practitioner from cardiology office at time of initial presentation. Patient will require admission for diuresis and likely right heart cath tomorrow. I reviewed patient presentation with hospitalist team, patient is
excepted for admission.
ED Attending Note
-
Portions of this chart may have been created with voice recognition software.� Occasional wrong word or��sound alike� substitutions may have occurred due to the inherent limitations of voice recognition software.
Discharge Plan
Departure
Patient Disposition: Admit
Date of Disposition: 09/23/24
Time of Disposition: 17:14
Admit to: Telemetry
Presentation/result/management discussed w/ accepting MD/DO: Hospitalist
Discharge Problem:
Congestive heart failure
Interventions
Interventions:
*General Assessment Last Done: 09/23/24 14:08
ED- Cardiac Assessment Last Done: 09/23/24 16:41
ED- Pulmonary Assessment Last Done: 09/23/24 16:41
ED-Skin Assessment Last Done: 09/23/24 16:41
[2024-09-23 17:17] LABS: Troponin I 0.046 ng/ml
--- NOTE | 2024-09-23 17:36 | HPS.HSE ---
Family Physician
-
Family Physician: Lian Salcedo
Chief Complaint
-
Generalized weakness, weight gain
History of Present Illness
79-year-old male referred to the emergency room by his manager engagement for generalized weakness and weight gain.
He is a very poor and limited historian.
His primary concern is to get his dinner tonight before it is too late.
Medical History
Past Medical History
Past Medical History: Reports Other
Additional Past Medical History:
Paroxysmal atrial fibrillation
CAD
CKD 3B
DM 2
Hypothyroidism
Chronic thrombocytopenia
Left lower extremity DVT -08/30/2024
Right lower extremity RSD
Chronic heart failure reduced EF
Mild to moderate aortic stenosis
Mild to moderate TR
FAY
BPH
History of GI bleed
Past Surgical History: Reports Orthopedic and Other
Additional Past Surgical History:
Cardiac ablation
Social History
Tobacco: Former Smoker
Alcohol: None
Drug: None
Personal: Single
Living: Alone
Employment: Not Employed
Family History
Family History: Not pertinent
Allergies / Home Medications
Allergies reflects when Allergies were last updated in [facility].
Home Medications with original date entered in [facility]
Allergy/Medication List:
Allergies
Allergy/AdvReac Type Severity Reaction Status Date / Time
Wgfgwkk-GHW-AeM Reductase Allergy Pt. Verified 09/23/24 14:08
Inhibitor reports
muscle
cramps
Home Medications
tamsulosin 0.4 mg capsule 0.4 mg PO QPM Urinary issue 05/28/18
sacubitril 24 mg-valsartan 26 mg tablet (Entresto) 1 tab PO Q12H Heart Failure 03/27/23
apixaban 5 mg tablet (Eliquis) 5 mg PO BID Blood clot prevention/tx #60 tabs 09/04/24
clopidogrel 75 mg tablet 75 mg PO DAILY Blood clot prevention/tx #30 tabs 09/04/24
dapagliflozin propanediol 5 mg tablet 5 mg PO DAILY Heart disease/condition #30 tabs 09/04/24
levothyroxine 25 mcg tablet 25 mcg PO DAILY Thyroid #0 tabs 09/04/24
metoprolol succinate 25 mg tablet,extended release 24 hr 12.5 mg (1/2 x 25 mg) PO QPM Heart disease/condition #30 tabs 09/04/24
furosemide 40 mg tablet 40 mg PO DAILY Fluid Retention/Swelling 09/23/24
insulin aspar prot-insulin aspart 100 unit/mL (70-30) subcutaneous pen 6 unit SC QPM Diabetes 09/23/24
insulin aspar prt-insulin aspart 100 unit/mL (70-30) subcutaneous soln (Novolog Mix 70-30 U-100 Insuln) 8 unit SC DAILY 09/23/24
Review of Systems
-
History Source: Patient
A 12 point ROS was completed and negative except as noted: Yes
Physical Exam
Vital Signs
Vital Signs
Temp Pulse Resp BP Pulse Ox
98.2 F 83 14 107/68 97
09/23/24 14:08 09/23/24 17:03 09/23/24 17:03 09/23/24 14:08 09/23/24 17:07
Physical Exam
General: Well Developed, Well Nourished, No Apparent Distress and Comfortable
HEENT: NormoCephalic, Anicteric and Moist mucous membranes
Respiratory: Decreased Breath Sounds
Cardiac: S1/S2 and Regular Rhythm
GI: Soft, Non Tender and Non Distended
Genito-urinary: Deferred by me
Musculoskeletal: No Clubbing, No Cyanosis and No Edema
Skin: Warm, Dry and Other (Bilateral lower extremity Wei wraps)
Neuro: AO x 3
Hematologic/Lymphatic: No Lymphadenopathy
Psych: Calm
Laboratory Results
-
09/23/24 14:27
09/23/24 14:27
Laboratory Results
Total Bilirubin Cancelled 09/23/24 14:27
AST Cancelled 09/23/24 14:27
ALT Cancelled 09/23/24 14:27
Alkaline Phosphatase Cancelled 09/23/24 14:27
Troponin I 0.046 ng/ml H* 09/23/24 16:37
Impression/Plan
-
Acute on chronic heart failure with reduced EF -admit to IVU. Consult cardiology. Start IV Lasix. Monitor renal function, especially in light of CKD. BNP noted to be 12,000. 2 view chest x-ray shows mild pulmonary edema, small right and minimal
left pleural effusions. Moderate cardiomegaly.
Recent echocardiogram done 09/02/2024 showed LVEF 10 to 15%, mild MR, mild to moderate AAS, mild AR, mild to moderate TR.
Patient was taking Lasix 80 mg daily up until a few days ago when the dose was reduced to 40 mg daily under the guidance of his manager engagement. The dose was reduced due to complaints of weakness. Weakness did not improve and he noticed weight gain
which prompted his referral back to the emergency room today.
Troponin elevation -doubt ACS. Suspect acute nonischemic myocardial injury due to congestive heart failure. EKG shows atrial sensed ventricular paced rhythm. Patient denies chest pain.
CKD 3B -renal function at baseline.
CAD -with prior stenting.
Recent left lower extremity DVT -continue Eliquis.
Paroxysmal atrial fibrillation
DM 2 without hyperglycemia -at home he has been on 7030 mix insulin, 6 units twice daily. Hemoglobin A1c 11% in August of this year.
Chronic thrombocytopenia -unclear etiology. Follow-up with PCP.
Acute leukopenia -unclear etiology. Monitor for now.
Hypothyroidism -levothyroxine.
BPH -tamsulosin.
Full code
[2024-09-23] MEDS: LASIX 80 MG IV (18:26)
[2024-09-23 20:20] LABS: Blood Urea Nitrogen 63 mg/dl (9-20); Calcium 8.6 mg/dl (8.4-10.2); Carbon Dioxide 25 mmol/L (22-30); Chloride 102 mmol/L (98-107); Estimated Creatinine Clearance 29 ml/min; Glucose 257 mg/dl (70-99); Potassium 4.2 mmol/L (3.5-5.1); Sodium 137 mmol/L (135-145); eGFR 32.91
[2024-09-23] MEDS: FLOMAX 0.4 MG PO (20:33)
--- NOTE | 2024-09-23 21:07 | TRANSFER ---
Patient received from ED via stretcher at approximately 2000. Ambulated into the room, standby assist. Telemetry applied, VS obtained. Vpaced with a BBB on telemetry. Admission assessment completed. Patient refused heart failure education booklet,
stated he 'throws that stuff away' when he gets home. Patient initially agitated, raising voice at staff and being uncooperative. Concerned about having new socks put on, upset that his orange shirt was missing (the orange shirt was recovered from
the ED and placed in a patient belonging bag at the bedside). Agitated regarding removal of EKG stickers. The patient was able to be settled into the room and oriented to the unit. Call kimble within reach. Fall risk band applied as the patient had a
recent fall within the past three months (states that he tripped over one of his four dogs). The patient was educated on utilizing his call kimble and asking for assistance when getting out of bed to the bathroom. Discussed plan of care with patient.
Care ongoing.
[2024-09-23 22:41] LABS: Glucose - Point of Care 224 mg/dl (70-99)
--- NOTE | 2024-09-23 23:35 | PTCARENOTE ---
Patient ambulating to bathroom, standby assist. Voiding appropriately in the bathroom, see worklist intervention for total amount. Discussed NPO status at midnight for anticipated cath tomorrow. Remains Vpaced on telemetry. Reports no pain at this
time. Endorses dyspnea on exertion. 2300 troponin drawn and sent, results pending. Call kimble within reach. Care ongoing.
[2024-09-23 23:47] LABS: Troponin I 0.049 ng/ml
[2024-09-24] VITALS (12 sets, daily range): BP systolic 90–113; BP diastolic 67–91; BMI 26.1
[2024-09-24 04:39] LABS: ALT (SGPT) 18 U/L (0-50); AST (SGOT) 22 U/L (17-59); Albumin 3.9 g/dl (3.5-5.0); Alkaline Phosphatase 86 U/L (38-126); Blood Urea Nitrogen 59 mg/dl (9-20); Calcium 9.1 mg/dl (8.4-10.2); Carbon Dioxide 22 mmol/L (22-30); Chloride 107 mmol/L (98-107); Estimated Creatinine Clearance 31 ml/min; Glucose 176 mg/dl (70-99); Potassium 4.2 mmol/L (3.5-5.1); Sodium 139 mmol/L (135-145); Total Protein 6.1 g/dl (6.3-8.2); eGFR 35.00
[2024-09-24 04:46] LABS: Troponin I 0.053 ng/ml
[2024-09-24] MEDS: SYNTHROID 25 MCG PO (05:13)
[2024-09-24 07:26] LABS: Glucose - Point of Care 147 mg/dl (70-99)
[2024-09-24] MEDS: NOVOLOG FLEXPEN-LOW RESISTANCE SC ×3 (07:36→16:14)
[2024-09-24] MEDS: PLAVIX 75 MG PO (07:42)
[2024-09-24] MEDS: FARXIGA 5 MG PO (07:42)
--- NOTE | 2024-09-24 08:05 | PTCARENOTE ---
received patient this am, in [place] already doing am care. monitor shows V paced with a BBC, VSS. patient appears to be anxious , patient remains NPO for heart cath today.
--- NOTE | 2024-09-24 09:19 | W.PN.HOSP.TC ---
Today's Communication/Plan
-
Await right heart catheterization
Assessment / Plan
Assessment / Plan
Gen-AAOx3, NAD
HEENT-NC, AT, anicteric, clear oral mm
Neck-supple
CV-reg, no M, +S1/S2
Lungs-clear B/L
Abd-soft, NT, ND
Ext-no edema
Musculoskeletal-no cyanosis, clubbing
Skin-warm and dry
Neuro-grossly non-focal
Psych-calm, cooperative
Acute on chronic heart failure with reduced EF -improving. Weight is down since admission. Continue IV Lasix. Monitor renal function, especially in light of CKD. BNP noted to be 12,000. 2 view chest x-ray shows mild pulmonary edema, small right
and minimal left pleural effusions. Moderate cardiomegaly.
Recent echocardiogram done 09/02/2024 showed LVEF 10 to 15%, mild MR, mild to moderate AAS, mild AR, mild to moderate TR.
Patient was taking Lasix 80 mg daily up until a few days ago when the dose was reduced to 40 mg daily under the guidance of his oil scout. The dose was reduced due to complaints of weakness. Weakness did not improve and he noticed weight gain
which prompted his referral back to the emergency room.
Awaiting right heart catheterization today per cardiology. Cardiology contemplating starting inotropes, milrinone. Overall prognosis remains poor as per cardiology. It appears that patient has poor insight.
Troponin elevation -doubt ACS. Suspect acute nonischemic myocardial injury due to congestive heart failure. EKG shows atrial sensed ventricular paced rhythm. Patient denies chest pain.
CKD 3B -renal function at baseline.
CAD -with prior stenting.
Recent left lower extremity DVT -Eliquis on hold for right heart catheterization today.
Paroxysmal atrial fibrillation -Eliquis on hold as above.
DM 2 without hyperglycemia -at home he has been on 7030 mix insulin, 6 units twice daily. Hemoglobin A1c 11% in August of this year.
Chronic thrombocytopenia -unclear etiology. Follow-up with PCP.
Acute leukopenia -unclear etiology. Monitor for now.
Hypothyroidism -levothyroxine. Last TSH 4.45 in May of this year.
BPH -tamsulosin.
Full code
Anticipated Discharge: 24 - 48 hours
Subjective/Interval History
-
Date of Service: September 24, 2024
Patient seen and examined. No complaints.
Objective Data
-
Labs:
Laboratory Results
09/24/24
03:31
Sodium 139
Potassium 4.2
Chloride 107
Carbon Dioxide 22
BUN 59 H
Creatinine 1.9 H
Glucose 176 H
Calcium 9.1
Total Bilirubin 1.1
AST 22
ALT 18
Alkaline Phosphatase 86
Vital Signs:
Vital Signs
Temp Pulse Resp BP Pulse Ox
97.5 F 91 18 112/79 98
09/24/24 07:23 09/24/24 07:23 09/24/24 07:23 09/24/24 03:34 09/24/24 07:23
I&O
09/23/24 09/24/24 09/25/24
06:59 06:59 06:59
Intake Total 240 / 240
Output Total 1625 / 1625
Balance -1385 / -1385
Review of Systems
-
History Source: Patient
All other systems: Reviewed and negative
--- NOTE | 2024-09-24 10:18 | VNURNOTE ---
Chart reviewed. Patient is current with VN. Will continue to follow hospital course and DC plans.
[2024-09-24 10:33] LABS: Troponin I 0.051 ng/ml
[2024-09-24 11:45] LABS: Glucose - Point of Care 131 mg/dl (70-99)
[2024-09-24] MEDS: LASIX 80 MG IV ×2 (11:51→17:32)
[2024-09-24] MEDS: FLUSH (NSS) 1 FLUSH IV (11:53)
--- NOTE | 2024-09-24 12:51 | CM ---
Reviewed chart. Met with Mr. Ruiz to review discharge plans. He states prior to admission he resides alone in a one story home with three steps to enter. He states prior to admission he ambulates sometime with a single point cane or rolling
walker. He states he is current with [facility] and he would like to continue to this service. We reviewed SNF/Rehab. if indicated. At this point he is not interested in going to a SNF. If he is agreeable to SNF, will need to pre-cert with
his insurance. Will need to see his current functional level to see if he will have any skilled care needs. He states he has a prescription plan and uses [facility]. Medical work-up in progress. The discharge plan is to return home with
resumption of [facility] versus SNF/Rehab. if agreeable, bed available and approved by insurance when medically stable. .
--- NOTE | 2024-09-24 15:45 | ITS.CL.PN ---
[facility] [employer] [facility] - Procedure Note
Procedure
Procedure Note:
CARDIAC CATHETERIZATION REPORT
Date of Procedure: 09/24/2024
Referring: Dr. Gayathri Stauffer MD
Indication: acute on chronic systolic heart failure
PROCEDURE: right heart catheterization
ACCESS: 5F right antecubital vein (closure: manual hemostasis)
CATHETERS: 5F [place]
MODERATE SEDATION: 25 minutes of moderate sedation was utilized. An independent medical staff specialist was present to assist with and help manage the patient's level of consciousness and physiologic status.
HEMODYNAMIC DATA
SBP 107/88 (mean 93) mmHg
RA 22 mmHg
RV 60/9 (EDP 17) mmHg
PA 66/42 (mean 49) mmHg
PCWP 35 mmHg
SaO2 93.0%
SvO2 62.9%
Hb 16.5 g/dL
CO/CI 3.71/1.85 L/min/m2
SVR 1530 dsc*-5
PVR 3.77 Wood units
RADIATION: dose 23 mGy; DAP 3.1 Gy*cm2; fluoroscopy time 1.7 min
CONCLUSIONS
1. 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
RECOMMENDATIONS
1. Continue IV diuresis for goal 1-2 L negative
2. Reinitiate home Entresto and beta-claudia
3. Interrogate HYDRAULIC STRAINER OPERATOR device to assess for arrhythmia and assess HYDRAULIC STRAINER OPERATOR function
Copy to: Dr. Jorge Purcell MD, PhD (legal project manager); Dr. Lian Salcedo MD (PCP)
Signed: Reid Rodriguez MD, PhD
[2024-09-24 16:07] LABS: Glucose - Point of Care 113 mg/dl (70-99)
--- NOTE | 2024-09-24 16:08 | W.PN.CD ---
Today's Communication / Plan
-
cont. diuresis
no need for milrinone currently
restart entresto and metop at home doses
interrogate ICD
restart eliquis tonight
Impression / Plan
-
I/P: 79M with CAD with stenting (most recent 10/06/[address] Dangelo), HFrEF, ICM EF 10-15%, ICD in place, AT, CKD, PAF, and thrombocytopenia presenting withlower extremity edema.
Local proprietary trader: Dr. Stauffer
Outpatient proprietary trader (HF): Dr. Quintanilla ([facility])
Outpatient proprietary trader (EP): Dr. Melara
HFrEF, [id number]-cm-saaufbk/severe ICM EF 10-15%
- Diuresis with furosemide 80 mg IV twice daily, await potassium, some of his labs hemolyzed
- good UOP to IV lasix, does not appear to require inotrope at this time
- cont. IV diuresis for goal negative 1-2L
- TTE 09/02/2024: LVEF 10-15%, mild MR, mild/mod , mild AR, mild/mod TR, PASP 50-55 mmHg
- GDMT as tolerated:
-BB: Metoprolol succinate 12.5 mg daily, he did not tolerate higher doses (held, will restart today)
-VIKY/ARB/ARNI: Entresto (held, will restart)
-SGLT2i: Farxiga 5mg daily
-MRA: Not a candidate due to CKD
-ICD: Moreno Sci, patient QRS noted to transition during the case multiple times, slow VT vs. RECYCLING CENTER OPERATOR malfunction? will get device interrogated
- Trend daily weight, I/O, and BMP with diuresis
- Heart failure education
NSVT
- Moreno Sci ICD in place
- Continue BB. He refuses Amiodarone.
- If he has recurrence of this arrhythmia, I will reach out to his EP doctor (Dr. Melara) at [facility] to see what he recommends.
CAD with multiple stents:
Troponin elevation
- Denies any CP
- Continue Plavix, last PCI 09/2023.
- He is statin intolerant
- trop elevation likely myocardial injury in setting of heart failure
- this does not appear to be an ACS presentation, no role for coronary angiography
Paroxysmal atrial tachycardia/Paroxysmal atrial fibrillation
- Currently stable in SR, follow telemetry
- Continue metoprolol (higher doses not tolerated per chart)
- Oral anticoagulation: Eliquis 2.5mg BID (age 79, creatinine >1.5), he denies missed doses and abnormal bleeding; can restart tonight
CKD:
- At baseline, trend with diuresis
Aortic stenosis, mild to moderate, peak/mean gradients 11/7 mmHg, GILLIAN 1.0 cm�
Type 2 diabetes, uncontrolled, HgbA1c 11%, care per primary service
TEJ, follows with Dr. Torrez
Former smoker, continued cessation recommended
SUBJECTIVE:
As above.
DATA:
[facility] 09/24/2024
SBP 107/88 (mean 93) mmHg
RA 22 mmHg
RV 60/9 (EDP 17) mmHg
PA 66/42 (mean 49) mmHg
PCWP 35 mmHg
SaO2 93.0%
SvO2 62.9%
Hb 16.5 g/dL
CO/CI 3.71/1.85 L/min/m2
SVR 1530 dsc*-5
PVR 3.77 Wood units
TTE, 09/02/2024:
Four chamber cardiac enlargement with biventricular systolic dysfunction.
LVEF 10-15%
Mild mitral regurgitation.
Mild to moderate aortic stenosis.
Mild aortic regurgitation.
Mild to moderate tricuspid regurgitation.
Estimated PASP 50-55 mmHg and estimated RA 15 mmHg.
No significant change since the prior study of 06/03/2024.
Physical Exam
Vital Signs/Labs
Vital Signs
Temp Pulse Resp BP Pulse Ox
36.4 C 78 20 113/84 97
09/24/24 11:17 09/24/24 14:00 09/24/24 11:17 09/24/24 11:51 09/24/24 11:17
09/23/24 09/24/24 09/25/24
06:59 06:59 06:59
Actual Weight 82.6 kg
09/23/24 14:27
09/24/24 03:31
09/23/24 09/23/24
14:27 16:37
Sxs-W-Poubisciebf Pept Cancelled [id number]
LAB Results
09/23/24 09/23/24 09/23/24
14:27 16:37 23:07
Troponin I Cancelled 0.046 H* 0.049 H*
09/24/24 09/24/24
03:31 09:55
Troponin I 0.053 H* 0.051 H*
Physical Exam
Constitutional: Comfortable
Cardiovascular: Rhythm & rate is regular
Respiratory: Respiratory effort normal
Neuro/Psych: AO x 3
Data Reviewed
-
Date of Service: September 24, 2024
Medical Decision Making: Reviewed Test Results
EKG: Tracing Personally Visualized and interpreted
Echo: Report Reviewed by me
Labs: Labs Reviewed by me
--- NOTE | 2024-09-24 16:20 | PTCARENOTE ---
patient arrived back from dental laboratory technician, right brachial site has pressure dsg, distal pulse palpable. monitor shows Vpaced at times but HR in the 120's, as per report from dental laboratory technician they will interrogate ICD. new INT in left hand, right ant. INT D/C'd in
dental laboratory technician. patient voided 300cc of urine. patient eating late lunch and is happy.
[2024-09-24] MEDS: TOPROL XL 12.5 MG PO (17:33)
[2024-09-24] MEDS: FLOMAX 0.4 MG PO (17:33)
--- NOTE | 2024-09-24 18:33 | PTCARENOTE ---
helped patient OOB to have a BM and void, patient stated 'I am sick of using that urinal', also patient stated, 'My heart is failing and that is hard to accept'. I am tired. offered emotional support.
[2024-09-24] MEDS: ENTRESTO 24 MG/26 MG 1 TAB PO (20:21)
[2024-09-24] MEDS: ELIQUIS 2.5 MG PO (20:21)
[2024-09-24 22:23] LABS: Glucose - Point of Care 229 mg/dl (70-99)
--- NOTE | 2024-09-24 23:32 | PTCARENOTE ---
Patient received at change of shift sitting at the edge of the bed. Right brachial site C/D/I. Denies chest pain. Endorses dyspnea on exertion. Appears somewhat dyspneic at rest. Vpaced with a BBB on telemetry. Oxygen saturation 97-98% on room air.
Patient continues to void in the bathroom and is compliant with measuring output. Plan of care discussed. Call kimble within reach. Care ongoing.
[2024-09-25 02:40] VITALS: BP 104/70
[2024-09-25 03:38] LABS: ALT (SGPT) 18 U/L (0-50); AST (SGOT) 22 U/L (17-59); Albumin 3.9 g/dl (3.5-5.0); Alkaline Phosphatase 80 U/L (38-126); Blood Urea Nitrogen 60 mg/dl (9-20); Calcium 9.2 mg/dl (8.4-10.2); Carbon Dioxide 24 mmol/L (22-30); Chloride 105 mmol/L (98-107); Estimated Creatinine Clearance 33 ml/min; Glucose 222 mg/dl (70-99); Potassium 4.4 mmol/L (3.5-5.1); Sodium 138 mmol/L (135-145); Total Protein 6.0 g/dl (6.3-8.2); eGFR 37.35
[2024-09-25] MEDS: SYNTHROID 25 MCG PO (05:43)
[2024-09-25 05:51] VITALS: BMI 25.3
[2024-09-25 07:14] VITALS: BP 104/75
[2024-09-25 07:19] LABS: Glucose - Point of Care 174 mg/dl (70-99)
[2024-09-25] MEDS: PLAVIX 75 MG PO (08:10)
[2024-09-25] MEDS: ENTRESTO 24 MG/26 MG 1 TAB PO ×2 (08:10→19:30)
[2024-09-25] MEDS: FARXIGA 5 MG PO (08:10)
[2024-09-25] MEDS: ELIQUIS 2.5 MG PO ×2 (08:10→09:58)
[2024-09-25] MEDS: NOVOLOG FLEXPEN-LOW RESISTANCE 1 UNITS SC ×2 (08:11→17:21)
[2024-09-25] MEDS: LASIX 80 MG IV ×2 (08:26→15:47)
--- NOTE | 2024-09-25 08:50 | W.PN.HOSP.TC ---
Today's Communication/Plan
-
Continue IV Lasix
Increase Eliquis to 5 mg twice daily
Assessment / Plan
Assessment / Plan
Gen-AAOx3, NAD
HEENT-NC, AT, anicteric, clear oral mm
Neck-supple
CV-reg, no M, +S1/S2
Lungs-clear B/L
Abd-soft, NT, ND
Ext-no edema
Musculoskeletal-no cyanosis, clubbing
Skin-warm and dry
Neuro-grossly non-focal
Psych-calm, cooperative
Acute on chronic heart failure with reduced EF -improving. Weight is down since admission. Continue IV Lasix. Monitor renal function, especially in light of CKD. BNP noted to be 12,000. 2 view chest x-ray shows mild pulmonary edema, small right
and minimal left pleural effusions. Moderate cardiomegaly.
Recent echocardiogram done 09/02/2024 showed LVEF 10 to 15%, mild MR, mild to moderate AAS, mild AR, mild to moderate TR.
Patient was taking Lasix 80 mg daily up until a few days ago when the dose was reduced to 40 mg daily under the guidance of his spindle frame carver. The dose was reduced due to complaints of weakness. Weakness did not improve and he noticed weight gain
which prompted his referral back to the emergency room.
Overall prognosis remains poor as per cardiology. It appears that patient has poor insight.
Right heart catheterization done September 24 showing PCWP 35, cardiac index 1.85, SVR 1530. Continue IV Lasix. Weight is trending down. Monitor renal function.
Troponin elevation -doubt ACS. Suspect acute nonischemic myocardial injury due to congestive heart failure. EKG shows atrial sensed ventricular paced rhythm. Patient denies chest pain.
CKD 3B -renal function at baseline.
CAD -with prior stenting.
Recent left lower extremity DVT -Eliquis to resume today, appropriate dose is 5 mg twice daily for DVT despite his renal insufficiency and age.
Paroxysmal atrial fibrillation -Eliquis resumed.
DM 2 without hyperglycemia -at home he has been on 70/30 mix insulin, 6 units twice daily, Farxiga 5 mg daily. Hemoglobin A1c 11% in August of this year.
In the hospital he is on aspart low resistance scale, Farxiga 5 mg daily.
Glucose 174 this morning, 229 last night.
Chronic thrombocytopenia -unclear etiology. Follow-up with PCP.
Acute leukopenia -unclear etiology. Monitor for now.
Hypothyroidism -levothyroxine. Last TSH 4.45 in May of this year.
BPH -tamsulosin.
Full code
Anticipated Discharge: > 48 hours
Subjective/Interval History
-
Date of Service: September 25, 2024
Patient seen and examined. No complaints at rest. Does have dyspnea on exertion.
Objective Data
-
Labs:
Laboratory Results
09/25/24
02:48
Sodium 138
Potassium 4.4
Chloride 105
Carbon Dioxide 24
BUN 60 H
Creatinine 1.8 H
Glucose 222 H
Calcium 9.2
Total Bilirubin 1.1
AST 22
ALT 18
Alkaline Phosphatase 80
Vital Signs:
Vital Signs
Temp Pulse Resp BP Pulse Ox
97.6 F 79 20 104/75 96
09/25/24 07:14 09/25/24 08:26 09/25/24 07:14 09/25/24 08:26 09/25/24 07:14
I&O
09/24/24 09/25/24 09/26/24
06:59 06:59 06:59
Intake Total 240 / 240
Output Total 1625 / 1625 2950 / 2950
Balance -1385 / -1385 -2950 / -2950
Review of Systems
-
History Source: Patient
All other systems: Reviewed and negative
--- NOTE | 2024-09-25 10:19 | W.PN.CD ---
Today's Communication / Plan
-
Convert diuretics to furosemide 80 mg PO daily tomorrow.
Augment loop diuretics with metolazone 5 mg if he is unable to maintain euvolemia.
Maintain current GDMT.
ICD interrogation pending.
Impression / Plan
-
Impression/Plan: 79M with CAD s/p prior PCI (most recent 10/06/[address] Dangelo), ICM (LVEF 10-15%) s/p primary prevention ICD, CKD, AT/PAF, and thrombocytopenia admitted with acute on chronic HFrEF after medication misadventure due to decrease in
his diuretic dose.
Local certified surgical technologist: Dr. Stauffer
Outpatient certified surgical technologist (HF): Dr. Quintanilla ([facility])
Outpatient certified surgical technologist (EP): Dr. Melara
#ICMO/HFrEF
-Shttm-mg-drfwijy.
-He decreased home furosemide from 80 mg daily to 40 mg daily due to fatigue, hypotension, subsequently began to notice weight gain/edema.
-LVEF 10-15%.
-Improving with diuresis.
-GDMT as tolerated:
-Diuretics: Currently furosemide 80 mg IV BID. Transition to furosemide 80 mg PO daily tomorrow. We may supplement with metolazone 5 mg 30 minutes prior to loop diuretic.
-Beta Carine: Metoprolol succinate 12.5 mg daily, he did not tolerate higher doses. Tolerating this morning.
-VIKY/ARB/ARNI: Sacubitril-Valsartan 24-26 mg BID.
-SGLT2i: Dapagliflozin 5mg daily.
-MRA: Not a candidate due to CKD.
-ICD: Moreno Sci; patient QRS noted to transition during the case multiple times, slow VT vs. CLOTH MEASURER malfunction?
#NSVT
-Chronic, stable.
-ICD in place.
-Continue BB. He refuses Amiodarone.
-If he has recurrence of this arrhythmia, we will reach out to his EP doctor (Dr. Melara) at [facility] to see what he recommends.
#CAD with multiple stents/troponin elevation:
-Chronic, stable.
-Denies any CP. Troponin elevation likely myocardial injury in setting of heart failure. No role for angiography.
-Continue clopidogrel (last PCI 09/2023), metoprolol.
-He is statin intolerant.
#Paroxysmal atrial tachycardia/Paroxysmal atrial fibrillation
-Chronic, stable.
-Currently stable in SR, follow telemetry.
-Rate control with metoprolol (higher doses not tolerated per chart).
-CHADS2-Vasc = 5 (CHF, Age x 2, DM, vascular disease).
-Oral anticoagulation: Eliquis 5 mg BID (dose previously reduced for age > 80, creatinine >1.5, but increased due to indication of DVT).
#DVT
-Acute, seen on US from 08/30/2024.
-VQ scan is low probability for PE.
-Apixaban 5 mg BID (no dose reduction for age, renal function).
#CKD:
-At baseline, trend with diuresis.
#Aortic stenosis
-Chronic, progressive.
-Mild to moderate, peak/mean gradients 11/7 mmHg, GILLIAN 1.0 cm�.
#Type 2 diabetes
-Chronic, uncontrolled.
-HgbA1c = 11%.
-Care per primary service.
#TEJ, follows with Dr. Torrez
#Former smoker, continued cessation recommended
Subjective/Interval History:
Weight is down 1.5 kg from yesterday.
Probably near ced.
BP holding.
He has a lot of questions.
DATA:
[facility], 09/24/2024:
SBP 107/88 (mean 93) mmHg
RA 22 mmHg
RV 60/9 (EDP 17) mmHg
PA 66/42 (mean 49) mmHg
PCWP 35 mmHg
SaO2 93.0%
SvO2 62.9%
Hb 16.5 g/dL
CO/CI 3.71/1.85 L/min/m2
SVR 1530 dsc*-5
PVR 3.77 Wood units
TTE, 09/02/2024:
Four chamber cardiac enlargement with biventricular systolic dysfunction.
LVEF 10-15%
Mild mitral regurgitation.
Mild to moderate aortic stenosis.
Mild aortic regurgitation.
Mild to moderate tricuspid regurgitation.
Estimated PASP 50-55 mmHg and estimated RA 15 mmHg.
No significant change since the prior study of 06/03/2024.
Physical Exam
Vital Signs/Labs
Vital Signs
Temp Pulse Resp BP Pulse Ox
36.4 C 80 20 104/75 96
09/25/24 07:14 09/25/24 09:00 09/25/24 07:14 09/25/24 08:26 09/25/24 08:30
09/23/24 09/24/24 09/25/24
11:59 11:59 11:59
Actual Weight 82.6 kg 80.1 kg
09/23/24 14:27
09/25/24 02:48
09/23/24 09/23/24
14:27 16:37
Pzn-J-Cuplcylnsqu Pept Cancelled [id number]
LAB Results
09/23/24 09/23/24 09/23/24
14:27 16:37 23:07
Troponin I Cancelled 0.046 H* 0.049 H*
09/24/24 09/24/24
03:31 09:55
Troponin I 0.053 H* 0.051 H*
Physical Exam
Constitutional: No acute distress and Comfortable
EENT: Anicteric and Moist mucous membranes
Cardiovascular: Rhythm & rate is regular, JVD pressure is normal, Pedal edema present (Trace to 1+.), S1S2 is normal and Murmur/rub/gallop absent
Respiratory: Respiratory effort normal, Lungs clear to auscul., Wheeze Absent, Crackles Absent and Rhonchi Absent
GI: Soft, Distention absent, Flat, Non tender and Normal bowel sounds
Neuro/Psych: AO x 3
Data Reviewed
-
Date of Service: September 25, 2024
Medical Decision Making: Reviewed Test Results, Independent Historian Assessment and Test Interpretation
EKG: Tracing Personally Visualized and interpreted and Report Reviewed by me
Echo: Report Reviewed by me
X-Ray/CT/US/MRI/NUC/PET: Image Personally Visualized and interpreted and Report Reviewed by me
Medical Tests (PFT, Pathology etc): Report Reviewed by me
Labs: Labs Reviewed by me
Old Records: Reviewed
--- NOTE | 2024-09-25 11:15 | PTCARENOTE ---
received patient this am in bed, NIH check done and documented. carotid U/S was completed at bedside. ROSITA completed and lynx recorder placed, Dermabond, steri strips and dsg. D/I.
--- NOTE | 2024-09-25 11:26 | PTCARENOTE ---
received patient this am, [facility]. monitor shows V paced, VSS. right brachial dsg. remains on, D/I, distal pulses palpable. patient ambulating in hallway.
[2024-09-25 11:43] VITALS: BP 109/80
[2024-09-25] MEDS: NOVOLOG FLEXPEN-LOW RESISTANCE 2 UNITS SC (11:46)
[2024-09-25 11:48] LABS: Glucose - Point of Care 200 mg/dl (70-99)
--- NOTE | 2024-09-25 11:48 | PTCARENOTE ---
right brachial dsg. removed, pulse palpable, slight ecchymosis, no hematoma.
--- NOTE | 2024-09-25 12:15 | CM ---
Revbiewed chart. Met with Mr. Ruiz to review discharge plans. He states he is feeling okay. He was concerned about letting [facility] know he was her and he may not get to his scheduled Monday home care visit. Telephone call to
[facility] to update them and to make a new referral to them.. Sent referral to [facility]. Reviewed [facility] services with him.. He is agreeable to [facility]. Will need to see his current functional level to see if
he will have any skilled care needs. Medical work-up in progress. The discharge plan is to return home with resumption of [facility] when medically stable
--- NOTE | 2024-09-25 13:30 | PTCARENOTE ---
interrogating pacemaker at bedside.
[2024-09-25 15:00] VITALS: BP 108/81
[2024-09-25] MEDS: FLUSH (NSS) 1 FLUSH IV (15:47)
[2024-09-25 17:21] LABS: Glucose - Point of Care 152 mg/dl (70-99)
[2024-09-25] MEDS: TOPROL XL 12.5 MG PO (17:22)
[2024-09-25] MEDS: FLOMAX 0.4 MG PO (17:22)
[2024-09-25 19:27] VITALS: BP 109/79
[2024-09-25] MEDS: ELIQUIS 5 MG PO (19:30)
[2024-09-25 21:59] VITALS: BP 114/86
[2024-09-25 22:04] LABS: Glucose - Point of Care 177 mg/dl (70-99)
--- NOTE | 2024-09-25 23:45 | PTCARENOTE ---
Pt AAOx3, VSS, and sating 93-97% RA. C/o EVERETT when ambulating in room. Pt has an occasional JACKAROO cough w/ b/l fine crackles in bases. Tele remains Vpaced. Pt voiding w/out difficulty, and monitoring urine output. Call kimble within reach, pt rings
approp.
[2024-09-26] VITALS (8 sets, daily range): BP systolic 95–112; BP diastolic 58–88; BMI 24.8
[2024-09-26] MEDS: TYLENOL 650 MG PO ×3 (00:17→23:02)
[2024-09-26] MEDS: SYNTHROID 25 MCG PO (04:44)
[2024-09-26 04:59] LABS: Hematocrit 49.4 % (39.0-52.0); Hemoglobin 16.2 g/dL (13.0-18.0); Mean Corp Hgb Conc. 32.8 g/dL (33.0-37.0); Mean Corpuscular Volume 95.2 fL (80.0-94.0); Nucleated Red Blood Cells % 0 % (-); Platelet Count 102 10^3/uL (130-400); Red Cell Dist. Width 16.3 % (11.5-14.5)
[2024-09-26 05:25] LABS: ALT (SGPT) 17 U/L (0-50); AST (SGOT) 21 U/L (17-59); Albumin 3.9 g/dl (3.5-5.0); Alkaline Phosphatase 85 U/L (38-126); Blood Urea Nitrogen 58 mg/dl (9-20); Calcium 9.1 mg/dl (8.4-10.2); Carbon Dioxide 25 mmol/L (22-30); Chloride 105 mmol/L (98-107); Estimated Creatinine Clearance 33 ml/min; Glucose 163 mg/dl (70-99); Magnesium 2.0 mg/dl (1.6-2.3); Potassium 4.0 mmol/L (3.5-5.1); Sodium 139 mmol/L (135-145); Total Protein 6.1 g/dl (6.3-8.2); eGFR 37.35
[2024-09-26 06:55] LABS: Glucose - Point of Care 131 mg/dl (70-99)
--- NOTE | 2024-09-26 08:07 | W.PN.CD ---
Today's Communication / Plan
-
cont. IV diuresis for now
Impression / Plan
-
Impression/Plan: 79M with CAD s/p prior PCI (most recent 10/06/[address] Dangelo), ICM (LVEF 10-15%) s/p primary prevention ICD, CKD, AT/PAF, and thrombocytopenia admitted with acute on chronic HFrEF after medication misadventure due to decrease in
his diuretic dose.
Local gatehouse attendant: Dr. Stauffer
Outpatient gatehouse attendant (HF): Dr. Quintanilla ([facility])
Outpatient gatehouse attendant (EP): Dr. Melara
#ICMO/HFrEF
-[id number].
-He decreased home furosemide from 80 mg daily to 40 mg daily due to fatigue, hypotension, subsequently began to notice weight gain/edema.
-LVEF 10-15%.
-Improving with diuresis. Cont. IV diuresis until more clearly euvolemic then will transition to PO 80 and ensure maintains euvolemia.
-GDMT as tolerated:
-Diuretics: Currently furosemide 80 mg IV BID. Transition to furosemide 80 mg PO daily once euvolemic. We may supplement with metolazone 5 mg 30 minutes prior to loop diuretic if needed to establish sucessful outpatient PO regimen.
-Beta Carine: Metoprolol succinate 12.5 mg daily, he did not tolerate higher doses. Tolerating this morning.
-VIKY/ARB/ARNI: Sacubitril-Valsartan 24-26 mg BID.
-SGLT2i: Dapagliflozin 5mg daily.
-MRA: Not a candidate due to CKD.
-ICD: Moreno Sci; interrogated on this admission with normal function per report
#NSVT
-Chronic, stable.
-ICD in place.
-Continue BB. He refuses Amiodarone.
-If he has recurrence of this arrhythmia, we will reach out to his EP doctor (Dr. Melara) at [place] to see what he recommends.
#CAD with multiple stents/troponin elevation:
-Chronic, stable.
-Denies any CP. Troponin elevation likely myocardial injury in setting of heart failure. No role for angiography.
-Continue clopidogrel (last PCI 09/2023), metoprolol.
-He is statin intolerant.
#Paroxysmal atrial tachycardia/Paroxysmal atrial fibrillation
-Chronic, stable.
-Currently stable in SR, follow telemetry.
-Rate control with metoprolol (higher doses not tolerated per chart).
-CHADS2-Vasc = 5 (CHF, Age x 2, DM, vascular disease).
-Oral anticoagulation: Eliquis 5 mg BID (dose previously reduced for age > 80, creatinine >1.5, but increased due to indication of DVT).
#DVT
-Acute, seen on US from 08/30/2024.
-VQ scan is low probability for PE.
-Apixaban 5 mg BID (no dose reduction for age, renal function).
#CKD:
-At baseline, trend with diuresis.
#Aortic stenosis
-Chronic, progressive.
-Mild to moderate, peak/mean gradients 11/7 mmHg, GILLIAN 1.0 cm�.
#Type 2 diabetes
-Chronic, uncontrolled.
-HgbA1c = 11%.
-Care per primary service.
#TEJ, follows with Dr. Torrez
#Former smoker, continued cessation recommended
Subjective/Interval History:
Continues to diureses well on IV lasix
DATA:
[facility], 09/24/2024:
SBP 107/88 (mean 93) mmHg
RA 22 mmHg
RV 60/9 (EDP 17) mmHg
PA 66/42 (mean 49) mmHg
PCWP 35 mmHg
SaO2 93.0%
SvO2 62.9%
Hb 16.5 g/dL
CO/CI 3.71/1.85 L/min/m2
SVR 1530 dsc*-5
PVR 3.77 Wood units
TTE, 09/02/2024:
Four chamber cardiac enlargement with biventricular systolic dysfunction.
LVEF 10-15%
Mild mitral regurgitation.
Mild to moderate aortic stenosis.
Mild aortic regurgitation.
Mild to moderate tricuspid regurgitation.
Estimated PASP 50-55 mmHg and estimated RA 15 mmHg.
No significant change since the prior study of 06/03/2024.
Physical Exam
Vital Signs/Labs
Vital Signs
Temp Pulse Resp BP Pulse Ox
36.4 C 67 16 112/78 97
09/26/24 04:27 09/26/24 05:00 09/26/24 04:27 09/26/24 04:28 09/26/24 04:27
09/25/24 09/26/24 09/27/24
06:59 06:59 06:59
Actual Weight 80.1 kg 78.4 kg
09/26/24 04:36
09/26/24 04:36
Magnesium 2.0 mg/dl (1.6-2.3) 09/26/24 04:36
09/23/24 09/23/24
14:27 16:37
Gnj-H-Omxpetmyeha Pept Cancelled [id number]
LAB Results
09/23/24 09/23/24 09/23/24
14:27 16:37 23:07
Troponin I Cancelled 0.046 H* 0.049 H*
09/24/24 09/24/24
03:31 09:55
Troponin I 0.053 H* 0.051 H*
Physical Exam
Constitutional: Comfortable
Cardiovascular: Rhythm & rate is regular
Respiratory: Respiratory effort normal
Neuro/Psych: AO x 3
Data Reviewed
-
Date of Service: September 26, 2024
Medical Decision Making: Reviewed Test Results
Labs: Labs Reviewed by me
[2024-09-26] MEDS: NOVOLOG FLEXPEN-LOW RESISTANCE SC (08:08)
[2024-09-26] MEDS: LASIX 80 MG IV ×2 (08:09→15:35)
[2024-09-26] MEDS: ENTRESTO 24 MG/26 MG 1 TAB PO ×2 (08:09→19:51)
[2024-09-26] MEDS: FARXIGA 5 MG PO (08:09)
[2024-09-26] MEDS: PLAVIX 75 MG PO (08:09)
[2024-09-26] MEDS: ELIQUIS 5 MG PO ×2 (08:09→19:51)
--- NOTE | 2024-09-26 08:58 | W.PN.HOSP.TC ---
Today's Communication/Plan
-
PT/OT
IV Lasix
Assessment / Plan
Assessment / Plan
Gen-AAOx3, NAD
HEENT-NC, AT, anicteric, clear oral mm
Neck-supple
CV-reg, no M, +S1/S2
Lungs-clear B/L
Abd-soft, NT, ND
Ext-no edema
Musculoskeletal-no cyanosis, clubbing
Skin-warm and dry
Neuro-grossly non-focal
Psych-calm, cooperative
Acute on chronic heart failure with reduced EF -improving. BNP noted to be 12,000. 2 view chest x-ray shows mild pulmonary edema, small right and minimal left pleural effusions. Moderate cardiomegaly.
Recent echocardiogram done 09/02/2024 showed LVEF 10 to 15%, mild MR, mild to moderate AAS, mild AR, mild to moderate TR.
Patient was taking Lasix 80 mg daily up until a few days ago when the dose was reduced to 40 mg daily under the guidance of his [id number] armor crewman. The dose was reduced due to complaints of weakness. Weakness did not improve and he noticed weight gain
which prompted his referral back to the emergency room.
Overall prognosis remains poor as per cardiology. It appears that patient has poor insight.
Right heart catheterization done September 24 showing PCWP 35, cardiac index 1.85, SVR 1530. Continue IV Lasix. Weight is trending down. Monitor renal function.
Now has sinus tachycardia. Asymptomatic. Monitor for now.
Troponin elevation -doubt ACS. Suspect acute nonischemic myocardial injury due to congestive heart failure. EKG shows atrial sensed ventricular paced rhythm. Patient denies chest pain.
CKD 3B -renal function at baseline.
CAD -with prior stenting.
Recent left lower extremity DVT -Eliquis to resume today, appropriate dose is 5 mg twice daily for DVT despite his renal insufficiency and age.
Paroxysmal atrial fibrillation -Eliquis resumed.
DM 2 without hyperglycemia -at home he has been on 70/30 mix insulin, 6 units twice daily, Farxiga 5 mg daily. Hemoglobin A1c 11% in August of this year.
In the hospital he is on aspart low resistance scale, Farxiga 5 mg daily.
Glucose 163 this morning, 177 last night.
Chronic thrombocytopenia -unclear etiology. Follow-up with PCP.
Acute leukopenia -unclear etiology. Monitor for now.
Hypothyroidism -levothyroxine. Last TSH 4.45 in May of this year.
BPH -tamsulosin.
Full code
Anticipated Discharge: > 48 hours
Subjective/Interval History
-
Date of Service: September 26, 2024
Patient seen and examined. No complaints. Feeling better.
Objective Data
-
Labs:
Laboratory Results
09/26/24
04:36
WBC 3.8 L
Hgb 16.2
Hct 49.4
Plt Count 102 L
Sodium 139
Potassium 4.0
Chloride 105
Carbon Dioxide 25
BUN 58 H
Creatinine 1.8 H
Glucose 163 H
Calcium 9.1
Total Bilirubin 1.2
AST 21
ALT 17
Alkaline Phosphatase 85
Vital Signs:
Vital Signs
Temp Pulse Resp BP Pulse Ox
97.8 F 97 20 107/81 92
09/26/24 08:34 09/26/24 08:34 09/26/24 08:34 09/26/24 08:09 09/26/24 08:34
I&O
09/25/24 09/26/24 09/27/24
06:59 06:59 06:59
Intake Total 480 / 480
Output Total 2950 / 2950 2550 / 2550 200 / 200
Balance -2950 / -2950 -2070 / -2070 -200 / -200
Review of Systems
-
History Source: Patient
All other systems: Reviewed and negative
--- NOTE | 2024-09-26 09:28 | PTCARENOTE ---
The patient cut his chin shaving. Cleaned the cut with saline. Applied pressure to the wound. Applied No-Sting Barrier film around the cut and applied a small silicone boarder foam on cut. Advised the patient on not using a razor blade to shave
while on blood thinners.
[2024-09-26 11:48] LABS: Glucose - Point of Care 194 mg/dl (70-99)
[2024-09-26] MEDS: NOVOLOG FLEXPEN-LOW RESISTANCE 1 UNITS SC (12:38)
[2024-09-26 17:17] LABS: Glucose - Point of Care 205 mg/dl (70-99)
[2024-09-26] MEDS: NOVOLOG FLEXPEN-LOW RESISTANCE 2 UNITS SC (18:03)
[2024-09-26] MEDS: TOPROL XL 12.5 MG PO (18:09)
[2024-09-26] MEDS: FLOMAX 0.4 MG PO (18:11)
--- NOTE | 2024-09-26 19:13 | PTCARENOTE ---
~[id number]: Handoff report received from nightshift RN. Pt AOx4, AV paced on tele 110s-120s, asymptomatic, [id number], RA satting 92%, LLL base fine crackles, R lung throughout inspiratory wheezes noted, occassional dry cough and [place]ERETT. Pt c/o chromic R
knee pain, PRN tylenol given with relief. + pulses, trace BLE edema. As informed by patient, he cut his chin while shaving this AM, dressing applied. Dressing is CDI. Informed Dr. Samuel Rodriguez about high HR, no new orders at this time, per Dr.
Jennifer 'continue to monitor.'All needs met at this time, call kimble within reach.
~3328-1419: HR AV paced 70s-80s.
~[id number]: Pt ambulated multiple times in deshpande independently. No c/o pain. HR back up in 120s AV paced. All needs met at this time, call kimble within reach. handoff report given to nightshift RN.
[2024-09-26 21:39] LABS: Glucose - Point of Care 220 mg/dl (70-99)
[2024-09-27] VITALS (8 sets, daily range): BP systolic 97–119; BP diastolic 70–82; BMI 24.1
[2024-09-27 04:38] LABS: Blood Urea Nitrogen 63 mg/dl (9-20); Calcium 8.9 mg/dl (8.4-10.2); Carbon Dioxide 29 mmol/L (22-30); Chloride 101 mmol/L (98-107); Estimated Creatinine Clearance 31 ml/min; Glucose 174 mg/dl (70-99); Potassium 3.8 mmol/L (3.5-5.1); Sodium 140 mmol/L (135-145); eGFR 35.00
[2024-09-27] MEDS: SYNTHROID 25 MCG PO (06:19)
[2024-09-27 07:32] LABS: Glucose - Point of Care 136 mg/dl (70-99)
[2024-09-27] MEDS: NOVOLOG FLEXPEN-LOW RESISTANCE SC (07:55)
[2024-09-27] MEDS: LASIX 80 MG IV ×2 (08:20→15:25)
[2024-09-27] MEDS: ELIQUIS 5 MG PO ×2 (08:22→20:09)
[2024-09-27] MEDS: PLAVIX 75 MG PO (08:22)
[2024-09-27] MEDS: FARXIGA 5 MG PO (08:22)
[2024-09-27] MEDS: ENTRESTO 24 MG/26 MG 1 TAB PO ×2 (08:22→20:09)
[2024-09-27] MEDS: FLUSH (NSS) 1 FLUSH IV ×2 (08:23→15:26)
--- NOTE | 2024-09-27 08:53 | W.PN.HOSP.TC ---
Today's Communication/Plan
-
Await cardiology input
Assessment / Plan
Assessment / Plan
Gen-AAOx3, NAD
HEENT-NC, AT, anicteric, clear oral mm
Neck-supple
CV-reg, no M, +S1/S2
Lungs-clear B/L
Abd-soft, NT, ND
Ext-no edema
Musculoskeletal-no cyanosis, clubbing
Skin-warm and dry
Neuro-grossly non-focal
Psych-calm, cooperative
Acute on chronic heart failure with reduced EF -improving. BNP noted to be 12,000. 2 view chest x-ray shows mild pulmonary edema, small right and minimal left pleural effusions. Moderate cardiomegaly.
Recent echocardiogram done 09/02/2024 showed LVEF 10 to 15%, mild MR, mild to moderate AAS, mild AR, mild to moderate TR.
Patient was taking Lasix 80 mg daily up until a few days ago when the dose was reduced to 40 mg daily under the guidance of his channel rougher. The dose was reduced due to complaints of weakness. Weakness did not improve and he noticed weight gain
which prompted his referral back to the emergency room.
Overall prognosis remains poor as per cardiology. It appears that patient has poor insight.
Right heart catheterization done September 24 showing PCWP 35, cardiac index 1.85, SVR 1530. Continue IV Lasix. Weight down 9 kg so far. Monitor renal function.
Troponin elevation -doubt ACS. Suspect acute nonischemic myocardial injury due to congestive heart failure. EKG shows atrial sensed ventricular paced rhythm. Patient denies chest pain.
CKD 3B -renal function at baseline.
CAD -with prior stenting.
Recent left lower extremity DVT -Eliquis to resume today, appropriate dose is 5 mg twice daily for DVT despite his renal insufficiency and age.
Paroxysmal atrial fibrillation -Eliquis resumed.
DM 2 without hyperglycemia -at home he has been on 70/30 mix insulin, 6 units twice daily, Farxiga 5 mg daily. Hemoglobin A1c 11% in August of this year.
In the hospital he is on aspart low resistance scale, Farxiga 5 mg daily.
Glucose 163 this morning, 177 last night.
Chronic thrombocytopenia -unclear etiology. Follow-up with PCP.
Acute leukopenia -unclear etiology. Monitor for now.
Hypothyroidism -levothyroxine. Last TSH 4.45 in May of this year.
BPH -tamsulosin.
Full code
Dispo -can discharge today if cleared by cardiology. Outpatient follow-up.
Anticipated Discharge: Today
Subjective/Interval History
-
Date of Service: September 27, 2024
Patient seen and examined. No complaints.
Objective Data
-
Labs:
Laboratory Results
09/27/24
03:48
Sodium 140
Potassium 3.8
Chloride 101
Carbon Dioxide 29
BUN 63 H
Creatinine 1.9 H
Glucose 174 H
Calcium 8.9
Vital Signs:
Vital Signs
Temp Pulse Resp BP Pulse Ox
97.6 F 89 18 101/74 95
09/27/24 08:06 09/27/24 08:22 09/27/24 08:06 09/27/24 08:22 09/27/24 08:06
I&O
09/26/24 09/27/24 09/28/24
06:59 06:59 06:59
Intake Total 480 / 480
Output Total 2550 / 2550 3350 / 3350
Balance -2070 / -2070 -3350 / -3350
Review of Systems
-
History Source: Patient
All other systems: Reviewed and negative
--- NOTE | 2024-09-27 09:02 | PTCARENOTE ---
received patient this am, already ambulating in hallway, does stop to catch his breath. monitor shows V Paced, VSS. right brachial site MARI, distal pulse palpable.
[2024-09-27 11:41] LABS: Glucose - Point of Care 200 mg/dl (70-99)
[2024-09-27] MEDS: NOVOLOG FLEXPEN-LOW RESISTANCE 2 UNITS SC (12:47)
--- NOTE | 2024-09-27 15:37 | CM ---
Reviewed chart. Met with Mr. Ruiz to review discharge plans. He states he is feeling better. He states he ambulated in the hallway today. We reviewed [facility] and he is agreeable to the resumption of [facility] when medically stable.
Prior to admission he resides alone in a one story home with three steps to enter He states prior to admission he sometimes uses a single point cane or walker at home for ambulation. He has a prescription plan and uses [facility]. Medical
work-up in progress. The discharge plan is to return home with resumption of [facility] when medically stable.
--- NOTE | 2024-09-27 16:08 | W.PN.CD ---
Today's Communication / Plan
-
cont. IV diuresis until definitively dry (alkalosis, cr bump, symptoms of hypovolemia, etc.)
Impression / Plan
-
Impression/Plan: 79M with CAD s/p prior PCI (most recent 10/06/[address] Dangelo), ICM (LVEF 10-15%) s/p primary prevention ICD, CKD, AT/PAF, and thrombocytopenia admitted with acute on chronic HFrEF after medication misadventure due to decrease in
his diuretic dose.
Local administrator of home health: Dr. Stauffer
Outpatient administrator of home health (HF): Dr. Quintanilla ([facility])
Outpatient administrator of home health (EP): Dr. Melara
#ICMO/HFrEF
-Rlhsi-dy-kbanuwi.
-He decreased home furosemide from 80 mg daily to 40 mg daily due to fatigue, hypotension, subsequently began to notice weight gain/edema.
-LVEF 10-15%.
-Improving with diuresis. Cont. IV diuresis until more clearly euvolemic then will transition to PO 80 and ensure maintains euvolemia.
-GDMT as tolerated:
-Diuretics: Currently furosemide 80 mg IV BID. Transition to furosemide 80 mg PO daily once euvolemic. We may supplement with metolazone 5 mg 30 minutes prior to loop diuretic if needed to establish sucessful outpatient PO regimen.
-Beta Carine: Metoprolol succinate 12.5 mg daily, he did not tolerate higher doses. Tolerating this morning.
-VIKY/ARB/ARNI: Sacubitril-Valsartan 24-26 mg BID.
-SGLT2i: Dapagliflozin 5mg daily.
-MRA: Not a candidate due to CKD.
-ICD: Moreno Sci; interrogated on this admission with normal function per report
#NSVT
-Chronic, stable.
-ICD in place.
-Continue BB. He refuses Amiodarone.
-If he has recurrence of this arrhythmia, we will reach out to his EP doctor (Dr. Melara) at [place] to see what he recommends.
#CAD with multiple stents/troponin elevation:
-Chronic, stable.
-Denies any CP. Troponin elevation likely myocardial injury in setting of heart failure. No role for angiography.
-Continue clopidogrel (last PCI 09/2023), metoprolol.
-He is statin intolerant.
#Paroxysmal atrial tachycardia/Paroxysmal atrial fibrillation
-Chronic, stable.
-Currently stable in SR, follow telemetry.
-Rate control with metoprolol (higher doses not tolerated per chart).
-CHADS2-Vasc = 5 (CHF, Age x 2, DM, vascular disease).
-Oral anticoagulation: Eliquis 5 mg BID (dose previously reduced for age > 80, creatinine >1.5, but increased due to indication of DVT).
#DVT
-Acute, seen on US from 08/30/2024.
-VQ scan is low probability for PE.
-Apixaban 5 mg BID (no dose reduction for age, renal function).
#CKD:
-At baseline, trend with diuresis.
#Aortic stenosis
-Chronic, progressive.
-Mild to moderate, peak/mean gradients 11/7 mmHg, GILLIAN 1.0 cm�.
#Type 2 diabetes
-Chronic, uncontrolled.
-HgbA1c = 11%.
-Care per primary service.
#TEJ, follows with Dr. Torrez
#Former smoker, continued cessation recommended
Subjective/Interval History:
Continues to diureses well on IV lasix
Walking the halls, says he feels much better better
DATA:
[facility], 09/24/2024:
SBP 107/88 (mean 93) mmHg
RA 22 mmHg
RV 60/9 (EDP 17) mmHg
PA 66/42 (mean 49) mmHg
PCWP 35 mmHg
SaO2 93.0%
SvO2 62.9%
Hb 16.5 g/dL
CO/CI 3.71/1.85 L/min/m2
SVR 1530 dsc*-5
PVR 3.77 Wood units
TTE, 09/02/2024:
Four chamber cardiac enlargement with biventricular systolic dysfunction.
LVEF 10-15%
Mild mitral regurgitation.
Mild to moderate aortic stenosis.
Mild aortic regurgitation.
Mild to moderate tricuspid regurgitation.
Estimated PASP 50-55 mmHg and estimated RA 15 mmHg.
No significant change since the prior study of 06/03/2024.
Physical Exam
Vital Signs/Labs
Vital Signs
Temp Pulse Resp BP Pulse Ox
36.6 C 71 18 107/78 94
09/27/24 15:34 09/27/24 15:34 09/27/24 15:34 09/27/24 15:25 09/27/24 15:34
09/26/24 09/27/24 09/28/24
06:59 06:59 06:59
Actual Weight 78.4 kg 76.2 kg
09/26/24 04:36
09/27/24 03:48
Magnesium 2.0 mg/dl (1.6-2.3) 09/26/24 04:36
09/23/24 09/23/24
14:27 16:37
Kyb-G-Poiqgjhufod Pept Cancelled [id number]
Physical Exam
Constitutional: Comfortable
Cardiovascular: Rhythm & rate is regular
Respiratory: Respiratory effort normal
Neuro/Psych: AO x 3
Data Reviewed
-
Date of Service: September 27, 2024
Medical Decision Making: Reviewed Test Results
Labs: Labs Reviewed by me
[2024-09-27 17:21] LABS: Glucose - Point of Care 161 mg/dl (70-99)
[2024-09-27] MEDS: NOVOLOG FLEXPEN-LOW RESISTANCE 1 UNITS SC (17:33)
[2024-09-27] MEDS: FLOMAX 0.4 MG PO (17:36)
[2024-09-27] MEDS: TOPROL XL 12.5 MG PO (17:36)
[2024-09-27 21:55] LABS: Glucose - Point of Care 219 mg/dl (70-99)
[2024-09-27] MEDS: TYLENOL 650 MG PO (22:01)
--- NOTE | 2024-09-27 23:03 | PTCARENOTE ---
received patient at the change of shift. ambulating in the halls. patient states feeling much better today. mild dyspnea on exertion per patient- improved and at his baselines. lungs clear throughout. Vpaced on tele. bp stable. R brachial site PURCHASING AGENT.
palpable pulses. new IV site placed by the VAT RN. tolerated. educated patient to call RN with any changes overnight. call kimble within reach.
[2024-09-28] VITALS (10 sets, daily range): BP systolic 92–131; BP diastolic 56–102; BMI 23.3
--- NOTE | 2024-09-28 00:34 | PTCARENOTE ---
patient called RN complaining of severe leg and hand cramps. updated Giovana Morin ELECTRIC MOTOR ANALYST. magnesium added to labs and labs drawn early; sent. patient ambulated and states improvement of leg cramps. awaiting labs.
[2024-09-28 00:57] LABS: Magnesium 2.0 mg/dl (1.6-2.3)
[2024-09-28 01:00] LABS: Blood Urea Nitrogen 67 mg/dl (9-20); Calcium 9.3 mg/dl (8.4-10.2); Carbon Dioxide 31 mmol/L (22-30); Chloride 97 mmol/L (98-107); Estimated Creatinine Clearance 31 ml/min; Glucose 167 mg/dl (70-99); Potassium 4.2 mmol/L (3.5-5.1); Sodium 140 mmol/L (135-145); eGFR 35.00
[2024-09-28 07:42] LABS: Glucose - Point of Care 140 mg/dl (70-99)
[2024-09-28] MEDS: SYNTHROID 25 MCG PO (07:42)
[2024-09-28] MEDS: NOVOLOG FLEXPEN-LOW RESISTANCE SC ×2 (07:42→16:54)
[2024-09-28] MEDS: PLAVIX 75 MG PO (07:44)
[2024-09-28] MEDS: ENTRESTO 24 MG/26 MG 1 TAB PO ×2 (07:44→20:14)
[2024-09-28] MEDS: ELIQUIS 5 MG PO ×2 (07:44→20:14)
[2024-09-28] MEDS: FARXIGA 5 MG PO (07:44)
[2024-09-28] MEDS: LASIX IV (07:45)
--- NOTE | 2024-09-28 08:22 | W.PN.HOSP.TC ---
Today's Communication/Plan
-
Await cardiology input
Assessment / Plan
Assessment / Plan
Gen-AAOx3, NAD
HEENT-NC, AT, anicteric, clear oral mm
Neck-supple
CV-reg, no M, +S1/S2
Lungs-clear B/L
Abd-soft, NT, ND
Ext-no edema
Musculoskeletal-no cyanosis, clubbing
Skin-warm and dry
Neuro-grossly non-focal
Psych-calm, cooperative
Acute on chronic heart failure with reduced EF -improving. BNP noted to be 12,000. 2 view chest x-ray shows mild pulmonary edema, small right and minimal left pleural effusions. Moderate cardiomegaly.
Recent echocardiogram done 09/02/2024 showed LVEF 10 to 15%, mild MR, mild to moderate AAS, mild AR, mild to moderate TR.
Patient was taking Lasix 80 mg daily up until a few days ago when the dose was reduced to 40 mg daily under the guidance of his screedman/laborer. The dose was reduced due to complaints of weakness. Weakness did not improve and he noticed weight gain
which prompted his referral back to the emergency room.
Overall prognosis remains poor as per cardiology. It appears that patient has poor insight.
Right heart catheterization done September 24 showing PCWP 35, cardiac index 1.85, SVR 1530. Continue IV Lasix. Weight down 10 kg so far.
Metabolic alkalosis noted with serum bicarbonate rising, now 31 today. I believe that he is at his dry weight. Will await cardiology input.
Troponin elevation -doubt ACS. Suspect acute nonischemic myocardial injury due to congestive heart failure. EKG shows atrial sensed ventricular paced rhythm. Patient denies chest pain.
CKD 3B -renal function at baseline.
CAD -with prior stenting.
Recent left lower extremity DVT -Eliquis to resume today, appropriate dose is 5 mg twice daily for DVT despite his renal insufficiency and age.
Paroxysmal atrial fibrillation -Eliquis resumed.
DM 2 without hyperglycemia -at home he has been on 70/30 Novolog mix insulin 8 units in the morning & 6 units in the evening, Farxiga 5 mg daily. Hemoglobin A1c 11% in August of this year.
In the hospital he is on aspart low resistance scale, Farxiga 5 mg daily.
Glucose 167 this morning, 219 last night. Resume 70/30 NovoLog Mix on discharge.
Chronic thrombocytopenia -unclear etiology. Follow-up with PCP.
Acute leukopenia -unclear etiology. Monitor for now.
Hypothyroidism -levothyroxine. Last TSH 4.45 in May of this year.
BPH -tamsulosin.
Full code
Dispo -can discharge today if cleared by cardiology. Outpatient follow-up.
Anticipated Discharge: Today
Subjective/Interval History
-
Date of Service: September 28, 2024
Patient seen and examined. No complaints.
Objective Data
-
Labs:
Laboratory Results
09/28/24
00:27
Sodium 140
Potassium 4.2
Chloride 97 L
Carbon Dioxide 31 H
BUN 67 H
Creatinine 1.9 H
Glucose 167 H
Calcium 9.3
Vital Signs:
Vital Signs
Temp Pulse Resp BP Pulse Ox
97.4 F 98 16 112/83 94
09/28/24 07:43 09/28/24 08:00 09/28/24 07:43 09/28/24 07:44 09/28/24 07:43
I&O
09/27/24 09/28/24 09/29/24
06:59 06:59 06:59
Intake Total 240 / 240
Output Total 3350 / 3350 3350 / 3350 900 / 900
Balance -3350 / -3350 -3110 / -3110 -900 / -900
Review of Systems
-
History Source: Patient
All other systems: Reviewed and negative
[2024-09-28] MEDS: LASIX 80 MG IV (08:52)
--- NOTE | 2024-09-28 10:21 | W.PN.CD ---
Addendum entered and electronically signed by Romel Gonzales MD 09/28/24 11:29:
I saw and examined the patient.
The SUPERINTENDENT LOGGING's note was reviewed and I agree with the note.
Comment:
Further discussions: Lasix 80 mg PO BID and anticipate home tomorrow. Increased Farxiga to 10 mg daily. Reviewed with pt the importance of daily weights and communication with his heart failure team at [facility] at [facility]
Original Note:
Today's Communication / Plan
-
stable for d/c home today on Lasix 80mg daily.
monitor daily weights, if weight gain of 2 lbs overnight or 5 lbs in 5 days, then take extra Lasix 80mg.
follow up as scheduled.
Impression / Plan
-
Impression/Plan: 79M with CAD s/p prior PCI (most recent 10/06/[address] Dangelo), ICM (LVEF 10-15%) s/p primary prevention ICD, CKD, AT/PAF, and thrombocytopenia admitted with acute on chronic HFrEF after medication misadventure due to decrease in
his diuretic dose.
Local malware analyst: Dr. Stauffer
Outpatient malware analyst (HF): Dr. Quintanilla ([facility])
Outpatient malware analyst (EP): Dr. Melara
#ICMO/HFrEF
-[id number].
-He decreased home furosemide from 80 mg daily to 40 mg daily due to fatigue, hypotension, subsequently began to notice weight gain/edema.
-LVEF 10-15%.
-Improved with diuresis, weight down to 162 lbs today, appears euvolemic on exam.
-GDMT as tolerated:
-Diuretics: Will transition to furosemide 80 mg PO daily at d/c and recommend extra dose Lasix 80mg if weight gain of 2 lbs overnight or 5 lbs in 5 days, he understands to call our office. We may supplement with metolazone 5 mg 30 minutes prior
to loop diuretic if needed to establish successful outpatient PO regimen.
-Beta Carine: Metoprolol succinate 12.5 mg daily, he did not tolerate higher doses. Tolerating this morning.
-VIKY/ARB/ARNI: Sacubitril-Valsartan 24-26 mg BID.
-SGLT2i: Dapagliflozin 10mg daily.
-MRA: Not a candidate due to CKD.
-ICD: Moreno Sci; interrogated on this admission with normal function per report.
#NSVT
-Chronic, stable.
-ICD in place.
-Continue BB. He refuses Amiodarone.
-If he has recurrence of this arrhythmia, we will reach out to his EP doctor (Dr. Melara) at [facility] to see what he recommends.
#CAD with multiple stents/troponin elevation:
-Chronic, stable.
-Denies any CP. Troponin elevation likely myocardial injury in setting of heart failure. No role for angiography.
-Continue clopidogrel (last PCI 09/2023), metoprolol.
-He is statin intolerant.
#Paroxysmal atrial tachycardia/Paroxysmal atrial fibrillation
-Chronic, stable.
-Currently stable in SR, follow telemetry.
-Rate control with metoprolol (higher doses not tolerated per chart).
-CHADS2-Vasc = 5 (CHF, Age x 2, DM, vascular disease).
-Oral anticoagulation: Eliquis 5 mg BID (dose previously reduced for age > 80, creatinine >1.5, but increased due to indication of DVT).
#DVT
-Acute, seen on US from 08/30/2024.
-VQ scan is low probability for PE.
-Apixaban 5 mg BID (no dose reduction for age, renal function).
#CKD:
-At baseline, stable with diuresis.
-Check BMP in 1 week at discharge.
#Aortic stenosis
-Chronic, progressive.
-Mild to moderate, peak/mean gradients 11/7 mmHg, GILLIAN 1.0 cm�.
#Type 2 diabetes
-Chronic, uncontrolled.
-HgbA1c = 11%.
-Care per primary service.
#TEJ, follows with Dr. Torrez
#Former smoker, continued cessation recommended
Subjective/Interval History:
weight down to 162 lbs today
Walking the halls, says he feels much better better
DATA:
RHC, 09/24/2024:
SBP 107/88 (mean 93) mmHg
RA 22 mmHg
RV 60/9 (EDP 17) mmHg
PA 66/42 (mean 49) mmHg
PCWP 35 mmHg
SaO2 93.0%
SvO2 62.9%
Hb 16.5 g/dL
CO/CI 3.71/1.85 L/min/m2
SVR 1530 dsc*-5
PVR 3.77 Wood units
TTE, 09/02/2024:
Four chamber cardiac enlargement with biventricular systolic dysfunction.
LVEF 10-15%
Mild mitral regurgitation.
Mild to moderate aortic stenosis.
Mild aortic regurgitation.
Mild to moderate tricuspid regurgitation.
Estimated PASP 50-55 mmHg and estimated RA 15 mmHg.
No significant change since the prior study of 06/03/2024.
Physical Exam
Vital Signs/Labs
Vital Signs
Temp Pulse Resp BP Pulse Ox
97.4 F 98 16 112/83 94
09/28/24 07:43 09/28/24 08:00 09/28/24 07:43 09/28/24 07:44 09/28/24 08:00
09/27/24 09/28/24 09/29/24
06:59 06:59 06:59
Actual Weight 167 lb 15.876 oz 162 lb 7.691 oz
09/26/24 04:36
09/28/24 00:27
Magnesium 2.0 mg/dl (1.6-2.3) 09/28/24 00:27
09/23/24 09/23/24
14:27 16:37
Ose-N-Wkpmnhernwt Pept Cancelled
Physical Exam
Constitutional: No acute distress and Comfortable
EENT: Anicteric and Moist mucous membranes
Cardiovascular: Rhythm & rate is regular
Respiratory: Respiratory effort normal and Lungs clear to auscul.
GI: Soft and Normal bowel sounds
Neuro/Psych: AO x 3
Other: Skin (warm, dry)
Data Reviewed
-
Date of Service: September 28, 2024
Medical Decision Making: Reviewed Test Results
EKG: Tracing Personally Visualized and interpreted
Echo: Report Reviewed by me
Labs: Labs Reviewed by me
--- NOTE | 2024-09-28 10:55 | PTCARENOTE ---
Pt w/ atrial tach on the monitor. HR 120s. BP 102/67. Dr. Gonzales aware and no new orders placed.
[2024-09-28 11:00] LABS: Glucose - Point of Care 262 mg/dl (70-99)
[2024-09-28] MEDS: NOVOLOG FLEXPEN-LOW RESISTANCE 3 UNITS SC (11:39)
[2024-09-28] MEDS: LASIX 80 MG PO (16:36)
[2024-09-28 16:47] LABS: Glucose - Point of Care 138 mg/dl (70-99)
[2024-09-28] MEDS: FLOMAX 0.4 MG PO (18:04)
[2024-09-28] MEDS: TOPROL XL 12.5 MG PO (18:05)
[2024-09-28 21:14] LABS: Glucose - Point of Care 210 mg/dl (70-99)
[2024-09-28] MEDS: TYLENOL 650 MG PO (22:40)
[2024-09-29] VITALS (8 sets, daily range): BP systolic 90–106; BP diastolic 59–78; PULSE 70–74; BMI 23.1
[2024-09-29 06:01] LABS: Blood Urea Nitrogen 63 mg/dl (9-20); Calcium 8.8 mg/dl (8.4-10.2); Carbon Dioxide 27 mmol/L (22-30); Chloride 100 mmol/L (98-107); Estimated Creatinine Clearance 35 ml/min; Glucose 172 mg/dl (70-99); Potassium 3.8 mmol/L (3.5-5.1); Sodium 135 mmol/L (135-145); eGFR 40.00
[2024-09-29] MEDS: SYNTHROID 25 MCG PO (06:04)
[2024-09-29 07:17] LABS: Glucose - Point of Care 146 mg/dl (70-99)
[2024-09-29] MEDS: NOVOLOG FLEXPEN-LOW RESISTANCE SC (07:37)
[2024-09-29] MEDS: FARXIGA 10 MG PO (07:59)
[2024-09-29] MEDS: PLAVIX 75 MG PO (07:59)
[2024-09-29] MEDS: ELIQUIS 5 MG PO (07:59)
[2024-09-29] MEDS: LASIX 80 MG PO (07:59)
[2024-09-29] MEDS: ENTRESTO 24 MG/26 MG 1 TAB PO (07:59)
--- NOTE | 2024-09-29 11:12 | W.PN.HOSP.TC ---
Today's Communication/Plan
-
Orthostatic vitals
Discharge if okay with cardiology
Assessment / Plan
Assessment / Plan
Gen-AAOx3, NAD
HEENT-NC, AT, anicteric, clear oral mm
Neck-supple
CV-reg, no M, +S1/S2
Lungs-clear B/L
Abd-soft, NT, ND
Ext-no edema
Musculoskeletal-no cyanosis, clubbing
Skin-warm and dry
Neuro-grossly non-focal
Psych-calm, cooperative
Acute on chronic heart failure with reduced EF -improving. BNP noted to be 12,000. 2 view chest x-ray shows mild pulmonary edema, small right and minimal left pleural effusions. Moderate cardiomegaly.
Recent echocardiogram done 09/02/2024 showed LVEF 10 to 15%, mild MR, mild to moderate AAS, mild AR, mild to moderate TR.
Patient was taking Lasix 80 mg daily up until a few days ago when the dose was reduced to 40 mg daily under the guidance of his counter intelligence. The dose was reduced due to complaints of weakness. Weakness did not improve and he noticed weight gain
which prompted his referral back to the emergency room.
Overall prognosis remains poor as per cardiology. It appears that patient has poor insight.
Right heart catheterization done September 24 showing PCWP 35, cardiac index 1.85, SVR 1530. Weight down 10 kg so far.
Converted to oral Lasix September 28.
Metabolic alkalosis improved, bicarb 27 today.
Somewhat hypotensive this morning, orthostatic vitals ordered. Discussed with nursing.
Troponin elevation -doubt ACS. Suspect acute nonischemic myocardial injury due to congestive heart failure. EKG shows atrial sensed ventricular paced rhythm. Patient denies chest pain.
CKD 3B -renal function at baseline.
CAD -with prior stenting.
Recent left lower extremity DVT -Eliquis to resume today, appropriate dose is 5 mg twice daily for DVT despite his renal insufficiency and age.
Paroxysmal atrial fibrillation -Eliquis resumed.
DM 2 without hyperglycemia -at home he has been on 70/30 Novolog mix insulin 8 units in the morning & 6 units in the evening, Farxiga 5 mg daily. Hemoglobin A1c 11% in August of this year.
In the hospital he is on aspart low resistance scale, Farxiga 5 mg daily.
Glucose 146 this morning, 210 last night. Resume 70/30 NovoLog Mix on discharge.
Chronic thrombocytopenia -unclear etiology. Follow-up with PCP.
Acute leukopenia -unclear etiology. Monitor for now.
Hypothyroidism -levothyroxine. Last TSH 4.45 in May of this year.
BPH -tamsulosin.
Full code
Dispo -can discharge today if cleared by cardiology. Outpatient follow-up.
Anticipated Discharge: Today
Subjective/Interval History
-
Date of Service: September 29, 2024
Patient seen and examined. No complaints.
Objective Data
-
Labs:
Laboratory Results
09/29/24
05:14
Sodium 135
Potassium 3.8
Chloride 100
Carbon Dioxide 27
BUN 63 H
Creatinine 1.7 H
Glucose 172 H
Calcium 8.8
Vital Signs:
Vital Signs
Temp Pulse Resp BP Pulse Ox
97.4 F 70 16 90/66 95
09/29/24 07:55 09/29/24 09:00 09/29/24 07:55 09/29/24 08:01 09/29/24 07:55
I&O
09/28/24 09/29/24 09/30/24
06:59 06:59 06:59
Intake Total 240 / 240 480 / 480
Output Total 3350 / 3350 3950 / 3950
Balance -3110 / -3110 -3470 / -3470
Review of Systems
-
History Source: Patient
All other systems: Reviewed and negative
--- NOTE | 2024-09-29 11:41 | W.DS.TRANS ---
DC Summary - Financial Aid
-
Discharge Instructions:
Discharge Diagnosis/Procedures Acute heart failure exacerbation
Diet Diabetic, Carb Controlled,2 Gram Sodium
Activity As tolerated
Driving Restrictions As prior to admission
Bathing Restrictions None
[facility] 1 [facility]
Other Services VN
Instructions:
Stand-Alone Forms:
Changes to Home Medications: Yes
Discharge Medications:
DC Medications w/original date entered in [email or web address]
tamsulosin 0.4 mg capsule 0.4 mg PO QPM Urinary issue 05/28/18
sacubitril 24 mg-valsartan 26 mg tablet (Entresto) 1 tab PO Q12H Heart Failure 03/27/23
apixaban 5 mg tablet (Eliquis) 5 mg PO BID Blood clot prevention/tx #60 tabs 09/04/24
clopidogrel 75 mg tablet 75 mg PO DAILY Blood clot prevention/tx #30 tabs 09/04/24
levothyroxine 25 mcg tablet 25 mcg PO DAILY Thyroid #0 tabs 09/04/24
metoprolol succinate 25 mg tablet,extended release 24 hr 12.5 mg (1/2 x 25 mg) PO QPM Heart disease/condition #30 tabs 09/04/24
insulin aspar prot-insulin aspart 100 unit/mL (70-30) subcutaneous pen 6 unit SC QPM Diabetes 09/23/24
insulin aspar prt-insulin aspart 100 unit/mL (70-30) subcutaneous soln (Novolog Mix 70-30 U-100 Insuln) 8 unit SC DAILY 09/23/24
dapagliflozin propanediol 10 mg tablet (Farxiga) 10 mg PO DAILY #30 tabs 09/29/24
furosemide 80 mg tablet 80 mg PO BID@0800,1600 #60 tabs 09/29/24
Home Medication Changes
Farxiga dose increased
Furosemide dose increased
Pending Results: No
[2024-09-29 11:53] LABS: Glucose - Point of Care 227 mg/dl (70-99)
[2024-09-29] MEDS: NOVOLOG FLEXPEN-LOW RESISTANCE 2 UNITS SC (12:10)
--- NOTE | 2024-09-29 13:42 | W.PN.CD ---
Today's Communication / Plan
-
Patient seen earlier this morning
Reviewed discharge plans/followup/importance of daily weights and communicating with his docs
OK for home
Impression / Plan
-
Impression/Plan: 79M with CAD s/p prior PCI (most recent 10/06/[address]angelo), ICM (LVEF 10-15%) s/p primary prevention ICD, CKD, AT/PAF, and thrombocytopenia admitted with acute on chronic HFrEF after medication misadventure due to decrease in
his diuretic dose.
Local engineering professor: Dr. Stauffer
Outpatient engineering professor (HF): Dr. Quintanilla ([facility])
Outpatient engineering professor (EP): Dr. Melara
#ICMO/HFrEF
-Bneki-ek-rsbmomi. Improved
- Admit weight 83.5/85 kg and today 73.1 kg, euvolemic
-He decreased home furosemide due to fatigue, hypotension, subsequently began to notice weight gain/edema.
-LVEF 10-15%.
-GDMT as tolerated:
-Diuretics: Furosemide 80 mg PO BID, may need to decrease depending on home weights
We may supplement with metolazone 5 mg 30 minutes prior to loop diuretic if needed to establish successful outpatient PO regimen.
-Beta Carine: Metoprolol succinate 12.5 mg daily, he did not tolerate higher doses. Tolerating this morning.
-VIKY/ARB/ARNI: Sacubitril-Valsartan 24-26 mg BID.
-SGLT2i: Dapagliflozin 10mg daily.
-MRA: Not a candidate due to CKD.
-ICD: Moreno Sci; interrogated on this admission with normal function per report.
#NSVT
-Chronic, stable.
-ICD in place.
-Continue BB. He refuses Amiodarone.
-If he has recurrence of this arrhythmia, we will reach out to his EP doctor (Dr. Melara) at [facility] to see what he recommends.
#CAD with multiple stents/troponin elevation:
-Chronic, stable.
-Denies any CP. Troponin elevation likely myocardial injury in setting of heart failure. No role for angiography.
-Continue clopidogrel (last PCI 09/2023), metoprolol.
-He is statin intolerant.
#Paroxysmal atrial tachycardia/Paroxysmal atrial fibrillation
-Chronic, stable.
-Currently stable in SR, follow telemetry.
-Rate control with metoprolol (higher doses not tolerated per chart).
-CHADS2-Vasc = 5 (CHF, Age x 2, DM, vascular disease).
-Oral anticoagulation: Eliquis 5 mg BID (dose previously reduced for age > 80, creatinine >1.5, but increased due to indication of DVT).
#DVT
-Acute, seen on US from 08/30/2024.
-VQ scan is low probability for PE.
-Apixaban 5 mg BID (no dose reduction for age, renal function).
#CKD:
-At baseline, stable with diuresis.
-Check BMP in 1 week at discharge.
#Aortic stenosis
-Chronic, progressive.
-Mild to moderate, peak/mean gradients 11/7 mmHg, GILLIAN 1.0 cm�.
#Type 2 diabetes
-Chronic, uncontrolled.
-HgbA1c = 11%.
-Care per primary service.
#TEJ, follows with Dr. Torrez
#Former smoker, continued cessation recommended
Subjective/Interval History:
Feels much better better
DATA:
RH, 09/24/2024:
SBP 107/88 (mean 93) mmHg
RA 22 mmHg
RV 60/9 (EDP 17) mmHg
PA 66/42 (mean 49) mmHg
PCWP 35 mmHg
SaO2 93.0%
SvO2 62.9%
Hb 16.5 g/dL
CO/CI 3.71/1.85 L/min/m2
SVR 1530 dsc*-5
PVR 3.77 Wood units
TTE, 09/02/2024:
Four chamber cardiac enlargement with biventricular systolic dysfunction.
LVEF 10-15%
Mild mitral regurgitation.
Mild to moderate aortic stenosis.
Mild aortic regurgitation.
Mild to moderate tricuspid regurgitation.
Estimated PASP 50-55 mmHg and estimated RA 15 mmHg.
No significant change since the prior study of 06/03/2024.
Physical Exam
Vital Signs/Labs
Vital Signs
Temp Pulse Resp BP Pulse Ox
97.9 F 81 17 103/68 98
09/29/24 11:44 09/29/24 12:00 09/29/24 11:44 09/29/24 11:11 09/29/24 11:44
09/28/24 09/29/24 09/30/24
06:59 06:59 06:59
Actual Weight 73.7 kg 73.1 kg
09/26/24 04:36
09/29/24 05:14
Magnesium 2.0 mg/dl (1.6-2.3) 09/28/24 00:27
09/23/24 09/23/24
14:27 16:37
Lgd-E-Xrwnhdmkeej Pept Cancelled [id number]
Physical Exam
Constitutional: No acute distress
EENT: Anicteric
Cardiovascular: Rhythm & rate is regular and Pedal edema is absent
Respiratory: Respiratory effort normal and Lungs clear to auscul.
GI: Soft and Distention absent
Neuro/Psych: AO x 3
Data Reviewed
-
Date of Service: September 29, 2024
--- NOTE | 2024-09-29 14:00 | PTCARENOTE ---
Pt for discharge with VN, case management made aware, [facility]
== END 2024-09-29 15:19 | disposition home or self-care (01) | DRG 286 ==
LOC: IVU 17:45
PROVIDERS: Emergency Medicine; Nurse Practitioner Family; Student in an Organized Health Care Education/Training Program; ADMITTING PHYSICIAN Hospitalist; CONSULT PHYSICIAN Student in an Organized Health Care Education/Training Program; EMERGENCY PHYSICIAN Emergency Medicine; FAMILY PHYSICIAN Internal Medicine
PROC: 4A023N6 Measurement of Cardiac Sampling and Pressure, Right Heart, Percutaneous Approach (ICD-10-PCS; 2024-09-24)
DX: I13.0 Hypertensive heart and chronic kidney disease with heart failure and stage 1 through stage 4 chronic kidney disease, or unspecified chronic kidney disease (principal); I50.23 Acute on chronic systolic (congestive) heart failure; I48.92 Unspecified atrial flutter; G90.521 Complex regional pain syndrome I of right lower limb; E87.3 Alkalosis; I47.19 Other supraventricular tachycardia; N18.32 Chronic kidney disease, stage 3b; E11.22 Type 2 diabetes mellitus with diabetic chronic kidney disease; I25.10 Atherosclerotic heart disease of native coronary artery without angina pectoris; N40.0 Benign prostatic hyperplasia without lower urinary tract symptoms; I50.84 End stage heart failure; I48.0 Paroxysmal atrial fibrillation; I35.0 Nonrheumatic aortic (valve) stenosis; E03.9 Hypothyroidism, unspecified; D69.6 Thrombocytopenia, unspecified; G47.33 Obstructive sleep apnea (adult) (pediatric); I5A Non-ischemic myocardial injury (non-traumatic); D72.819 Decreased white blood cell count, unspecified; I25.5 Ischemic cardiomyopathy; I27.20 Pulmonary hypertension, unspecified; E78.00 Pure hypercholesterolemia, unspecified; E11.65 Type 2 diabetes mellitus with hyperglycemia; I25.2 Old myocardial infarction; Z95.5 Presence of coronary angioplasty implant and graft; Z87.891 Personal history of nicotine dependence; Z86.718 Personal history of other venous thrombosis and embolism; Z88.8 Allergy status to other drugs, medicaments and biological substances; Z79.01 Long term (current) use of anticoagulants; Z79.02 Long term (current) use of antithrombotics/antiplatelets; Z79.4 Long term (current) use of insulin; Z79.890 Hormone replacement therapy; Z95.810 Presence of automatic (implantable) cardiac defibrillator
CPT/HCPCS: 71046; 80048; 80053; 82962; 83735; 83880; 84484; 85025; 93005; 93451; 96374; 99152; 99153; 99285

== ENCOUNTER → 2024-11-19 09:31 | Outpatient (REF) | payer OTHER, SELFPAY | LOC: RAD 09:31 | PROVIDERS: ATTENDING PHYSICIAN Internal Medicine | DX: I82.452 Acute embolism and thrombosis of left peroneal vein (principal) | CPT/HCPCS: 93971 ==

== ENCOUNTER → 2024-12-12 15:07 | Outpatient (REF) | payer OTHER, SELFPAY ==
[2024-12-12 16:49] LABS: Hematocrit 54.0 % (39.0-52.0); Hemoglobin 18.3 g/dL (13.0-18.0); Mean Corp Hgb Conc. 33.9 g/dL (33.0-37.0); Mean Corpuscular Volume 93.3 fL (80.0-94.0); Nucleated Red Blood Cells % 0 % (-); Platelet Count 100 10^3/uL (130-400); Red Cell Dist. Width 15.2 % (11.5-14.5)
[2024-12-12 17:10] LABS: Calcium 9.4 mg/dl (8.4-10.2); Carbon Dioxide 28 mmol/L (22-30); Chloride 86 mmol/L (98-107); Glucose 260 mg/dl (70-99); Potassium 3.4 mmol/L (3.5-5.1); Sodium 131 mmol/L (135-145); eGFR 19.45
[2024-12-12 17:28] LABS: Blood Urea Nitrogen 144 mg/dl (9-20)
== END ==
LOC: REG 15:07
PROVIDERS: ATTENDING PHYSICIAN Physician Assistant; OTHER PHYSICIAN Internal Medicine Cardiovascular Disease
DX: I50.9 Heart failure, unspecified (principal)
CPT/HCPCS: 36415; 80048; 83880; 85025

== ENCOUNTER → 2024-12-16 06:50 | Outpatient (REF) | payer OTHER, SELFPAY ==
[2024-12-16 08:34] LABS: Calcium 9.1 mg/dl (8.4-10.2); Carbon Dioxide 22 mmol/L (22-30); Chloride 89 mmol/L (98-107); Glucose 217 mg/dl (70-99); Potassium 3.5 mmol/L (3.5-5.1); Sodium 129 mmol/L (135-145); eGFR 21.07
[2024-12-16 09:40] LABS: Blood Urea Nitrogen 144 mg/dl (9-20)
== END ==
LOC: REG 06:50
PROVIDERS: ATTENDING PHYSICIAN Nurse Practitioner Gerontology; FAMILY PHYSICIAN Internal Medicine; REFERRING PHYSICIAN Student in an Organized Health Care Education/Training Program
DX: I25.5 Ischemic cardiomyopathy (principal)
CPT/HCPCS: 36415; 80048

== ENCOUNTER 2024-12-19 00:15 | Inpatient (IN) | payer OTHER, SELFPAY ==
[2024-12-18 18:52] VITALS: BP 117/77
--- NOTE | 2024-12-18 21:59 | ED.GENMED ---
History of Present Illness
General
Chief Complaint: Cardiac Symptoms
Source: patient and spouse
Exam Limitations: none
Time Seen by Provider: 12/18/24 21:58
History of Present Illness
History of Present Illness:
79-year-old male some increasing fatigue weakness weight gain. Scheduled for a cardioversion tomorrow. Has had issues with diuretics and creatinine function. Some shortness of breath shortness of breath with exertion. No chest pain
Past History
Past History
ED Past Medical History: Arrthythmia (Vent Tach, Atrial flutter), CAD, CHF, HTN, NIDDM, SC and Other (Enlarged prostate)
ED Past Surgical History: Cardiac (stents X2), Orthopedic (hip fx) and Other (Cardiac stent)
Social History
Tobacco: Former smoker
Alcohol: None
Drug: None
Personal:
Living: alone
Review of Systems
Review of Systems
All Other Systems: Not applicable
Constitutional: Reports fatigue; Denies fever
Respiratory: Reports trouble breathing
Cardiac: Denies chest pain or palpitations
Phy Exam
Physical Exam
Physical Exam:
GENERAL: Alert and oriented. Elderly and frail. Generally weak appearing
EYE: Orbits normal.
NECK: Supple, no significant adenopathy.
ENT: Pharynx without erythema
CARDIAC: Regular rate and rhythm without any obvious murmurs. Pacemaker upper chest wall
LUNGS: Mild bibasilar rales
ABDOMEN: Soft, without focal tenderness or distention
NEUROLOGICAL: Alert and oriented , grossly non-focal
SKIN: Warm and dry
MUSCULOSKELETAL: Bilateral lower extremity edema with Wei wrap's and some superficial oozing. Chronic erythematous changes
PSYCH: Normal and appropriate interaction.
Course
Orders/Labs/Results
Orders:
Orders
12/18/24 18:57
Electrocardiogram (*1) Urgent
Reason for Study: Shortness of Breath
CR Chest - 2 Views Urgent
Comment:
Reason For Exam: SOB
12/18/24 18:58
EKG- Treatment ONCE
12/18/24 22:15
Complete Blood Count/With Diff Urgent
Comprehensive Metabolic Panel Urgent
NT-proBNP Urgent
Troponin I Urgent
12/19/24 00:00
Consult Notification Routine
Specialty to Notify: Nephrology
NEPHROLOGY CONSULT Routine
Consulting Provider: Garrett Yen V.
Was physician already notified: No
Reason for consult: ZENAIDA. CHF EF 10-15%. Edema
Urine Creatinine Stat
Date Specimen was Collected: 12/19/24
Time Specimen was Collected: 00:25
Urine Sodium Stat
Date Specimen was Collected: 12/19/24
Time Specimen was Collected: 00:25
Renal & Bladder US [US Renal With Bladder] Stat
Comment:
Reason For Exam: ZENAIDA
12/19/24 00:01
Admit/Transfer Patient As Directed
Co-Sign Provider:
Level of Care: Inpatient admission
Assign to:: Telemetry
Physician / Group: Erma
Diagnosis: ZENAIDA, CHF exacerbation
Reason for Telemetry: Subacute Heart Failure
Date to Stop Telemetry: 12/21/24
Time to Stop Telemetry: 11:00
Reason for Hospitalization: heart failure
Expected length of stay greater than two midnights?: Yes
ELOS- Estimated Length of Stay in days: 2
I certify the patient meets the requirements for IP care: Yes
PRN Pain Medication Management As Directed
May give lesser potent ordered pain med per pt: Yes
preference::
Protocol:: Medication orders for pain may be administered in a
manner that supports deferring to patient preference
when the pt is:
- Requesting an ordered lesser potent pain medication.
Least to most potent pain medications are defined
as: acetaminophen < NSAID < tramadol < opioids
(morphine, oxycodone, hydromorphone).
- Requesting a lesser dose of the same medication IF
ORDERED.
- Requesting a less intrusive route of administration
if both routes are prescribed by the provider (PO <
IV).
12/19/24 00:02
Code Status As Directed
Resuscitation Status: Full Code
12/19/24 00:27
Urinalysis Reflex To Culture Stat
Date Specimen was Collected: 12/19/24
Time Specimen was Collected: 00:25
12/21/24 11:00
DC Protocol for Telemetry ONCE
Abnormal Lab Results
12/18/24
22:15
WBC 14.7 H 10^3/uL
(4.8-10.8)
MCH 31.2 H pg
(27.0-31.0)
RDW 15.6 H %
(11.5-14.5)
Plt Count 114 L 10^3/uL
(130-400)
MPV 12.6 H fL
(7.4-10.4)
Abs Immat Gran (auto) 0.1 H 10^3/uL
(0-0.05)
Absolute Neuts (auto) 13.2 H 10^3/uL
(1.4-6.5)
Absolute Lymphs (auto) 0.4 L 10^3/uL
(1.2-3.4)
Absolute Monos (auto) 1.0 H 10^3/uL
(0.1-0.6)
Immature Gran % 0.6 H %
(0-0.5)
Neutrophils % 90.0 H %
(42.2-75.2)
Lymphocytes % 2.6 L %
(20.5-51.1)
Sodium 126 L mmol/L
(135-145)
Chloride 87 L mmol/L
(98-107)
BUN 175 H* mg/dl
(9-20)
Creatinine 3.7 H mg/dL
(0.7-1.3)
Glucose 299 H mg/dl
(70-99)
Total Bilirubin 2.6 H mg/dl
(0.2-1.3)
Troponin I 0.165 H* ng/ml
12/18/24 22:15
12/18/24 22:15
Vital Signs
Initial and Last Documented VS:
Initial Vital Signs
Temp Pulse Resp BP Pulse Ox
98.0 F 111 20 117/77 97
12/18/24 18:52 12/18/24 18:52 12/18/24 18:52 12/18/24 18:52 12/18/24 18:52
Last Documented Vital Signs
Temp Pulse Resp BP Pulse Ox
98.0 F 109 20 117/77 96
12/18/24 18:52 12/19/24 00:15 12/19/24 00:00 12/18/24 18:52 12/19/24 00:15
MDM/Problems Addressed
Differential Diagnosis Includes:
Patient with progressive elevation in BUN and creatinine, hyponatremia, weight gain of about 6 to 7 pounds in 1 week, third spacing fluid. Warrants inpatient management
*Radiology
Radiology exam reviewed: preliminary read by ED provider (Mild cephalization)
*Pulse Oximetry
SaO2: 97
Oxygen Mode of Delivery: Room air
Patient hypoxic: no
*EKG
Interpreted by ED Provider?: Yes
Interpretation: abnormal
Comparison EKG: no changes
Heart Rate: 107
Rate: tachycardiac
*Critical Care Note
Total Time (30-74mins, 75-104mins- exclusive of procedures): Not Applicable
Data Reviewed
Review of Other/Old Records Reveals: Labs, Records, Radiology Studies, Testing and Discharge Summary
ED Attending Note
-
Portions of this chart may have been created with voice recognition software.� Occasional wrong word or��sound alike� substitutions may have occurred due to the inherent limitations of voice recognition software.
Discharge Plan
Departure
Patient Disposition: Admit
Date of Disposition: 12/18/24
Time of Disposition: 23:15
Presentation/result/management discussed w/ accepting MD/DO: Hospitalist
Discharge Problem:
Progressive renal insufficiency, CHF, Hyponatremia, Atrial fibrillation
Interventions
Interventions:
*General Assessment Last Done: 12/18/24 18:52
ED- Pulmonary Assessment Last Done: 12/18/24 22:00
ED- Cardiac Assessment Last Done: 12/18/24 22:00
[2024-12-18 22:33] LABS: Hematocrit 51.5 % (39.0-52.0); Hemoglobin 17.7 g/dL (13.0-18.0); Mean Corp Hgb Conc. 34.4 g/dL (33.0-37.0); Mean Corpuscular Volume 90.8 fL (80.0-94.0); Nucleated Red Blood Cells % 0 % (-); Platelet Count 114 10^3/uL (130-400); Red Cell Dist. Width 15.6 % (11.5-14.5)
[2024-12-18 22:57] LABS: ALT (SGPT) 23 U/L (0-50); AST (SGOT) 26 U/L (17-59); Albumin 4.2 g/dl (3.5-5.0); Alkaline Phosphatase 113 U/L (38-126); Calcium 9.3 mg/dl (8.4-10.2); Carbon Dioxide 23 mmol/L (22-30); Chloride 87 mmol/L (98-107); Glucose 299 mg/dl (70-99); Potassium 4.3 mmol/L (3.5-5.1); Sodium 126 mmol/L (135-145); Total Protein 6.8 g/dl (6.3-8.2); eGFR 15.73
[2024-12-18 23:09] LABS: Blood Urea Nitrogen 175 mg/dl (9-20)
[2024-12-18 23:11] LABS: Troponin I 0.165 ng/ml
--- NOTE | 2024-12-18 23:45 | HPS.HSE ---
Family Physician
-
Family Physician: Lian Salcedo
Chief Complaint
-
Lower extremity swelling
History of Present Illness
Patient is a 79-year-old with extensive cardiac history who presents to the emergency department after being told to come in by his design assistant with a pending cardiovascular in the AM.
Patient has a past medical history that is significant for ischemic cardiomyopathy with PCI to multiple vessels last PCI (September of last year to OM2 and mid circumflex as well as to the proximal-mid RCA, he has congestive heart failure with severely
reduced EF (10 to 15%, he is status post ICD, he has paroxysmal atrial fibrillation status post multiple cardioversions and ablation, he is on oral anticoagulation, he has CKD, BPH, hypothyroid, obstructive sleep apnea not on CPAP, insulin-dependent
diabetes, bilateral lower extremity wounds with last admission for CHF in September who now presents to the emergency department after being referred by his design assistant.
Since his last admission he had severe depression and ejection fraction to 10 to 15%, he has routine device checks and open his most recent check he had a large atrial fibrillation burden. It was reported that this was associated with his symptoms
of intermittent shortness of breath, lightheadedness and dizziness. The patient was plan for cardioversion on December 19.
In the meantime the patient reports that he has had progressive shortness of breath and a recent weight gain of about 5 pounds. He did increase his Lasix by doubling his dose. Despite this patient did not have any significant weight loss. He
states he feels dehydrated. He did have this diuretics discontinued a few days ago prior to coming to the ED. He denies any urinary symptoms including frequency urgency dysuria or retention. He denied any abdominal bloating. His weight is up
about 7 kg since his discharge in September.
In the emergency department he was afebrile, blood pressure was 117/77 with a pulse rate of 100. He was satting 94% on room air. ECG shows paced rhythm at a rate of 107 QTc of 646 and no ischemia. Chest x-ray shows a small right-sided pleural
effusion. CBC with a white count of 14.7 but otherwise unremarkable. Electrolytes notable for a sodium of 126, BUN elevated to 175 with a creatinine of 3.7 which is up from a baseline of 2. Glucose was normal.
Medical History
Past Medical History
Past Medical History: Reports Other
Additional Past Medical History:
Paroxysmal atrial fibrillation
CAD
CKD 3B
DM 2
Hypothyroidism
Chronic thrombocytopenia
Left lower extremity DVT -08/30/2024
Right lower extremity RSD
Chronic heart failure reduced EF
Mild to moderate aortic stenosis
Mild to moderate TR
FAY
BPH
History of GI bleed
Past Surgical History: Reports Orthopedic and Other
Additional Past Surgical History:
Cardiac ablation
Social History
Tobacco: Former Smoker
Alcohol: None
Drug: None
Personal: Single
Living: Alone
Employment: Not Employed
Family History
Family History: Not pertinent
Allergies / Home Medications
Allergies reflects when Allergies were last updated in [employer].
Home Medications with original date entered in [employer]
Allergy/Medication List:
Allergies
Allergy/AdvReac Type Severity Reaction Status Date / Time
Zzfkvqx-ASC-MjL Reductase Allergy Pt. Verified 09/23/24 14:08
Inhibitor reports
muscle
cramps
Home Medications
tamsulosin 0.4 mg capsule 0.4 mg PO QPM Urinary issue 05/28/18
sacubitril 24 mg-valsartan 26 mg tablet (Entresto) 1 tab PO Q12H Heart Failure 03/27/23
apixaban 5 mg tablet (Eliquis) 5 mg PO BID Blood clot prevention/tx #60 tabs 09/04/24
clopidogrel 75 mg tablet 75 mg PO DAILY Blood clot prevention/tx #30 tabs 09/04/24
dapagliflozin propanediol 5 mg tablet 5 mg PO DAILY Heart disease/condition #30 tabs 09/04/24
levothyroxine 25 mcg tablet 25 mcg PO DAILY Thyroid #0 tabs 09/04/24
metoprolol succinate 25 mg tablet,extended release 24 hr 12.5 mg (1/2 x 25 mg) PO QPM Heart disease/condition #30 tabs 09/04/24
furosemide 40 mg tablet 40 mg PO DAILY Fluid Retention/Swelling 09/23/24
insulin aspar prot-insulin aspart 100 unit/mL (70-30) subcutaneous pen 6 unit SC QPM Diabetes 09/23/24
insulin aspar prt-insulin aspart 100 unit/mL (70-30) subcutaneous soln (Novolog Mix 70-30 U-100 Insuln) 8 unit SC DAILY 09/23/24
Review of Systems
-
Constitutional: Reports Weight Gain and Fatigue
EENT: Reports No Symptoms
Respiratory: Reports Trouble Breathing
Cardiac: Denies Chest Pain, Diaphoresis or Palpitations
Abdomen/GI: Denies Abdominal Pain, Nausea, Vomiting or Diarrhea
: Denies Flank Pain or Difficulty Voiding
Musculoskeletal: Reports No Symptoms
Skin: Reports No Symptoms
Neurological: Reports No Symptoms
Endocrine: Reports No Symptoms
Hematologic/Lymphatic: Reports No Symptoms
Psych: Reports No Symptoms
Physical Exam
Vital Signs
Vital Signs
Temp Pulse Resp BP Pulse Ox
98.0 F 100 23 117/77 97
12/18/24 18:52 12/18/24 22:45 12/18/24 22:45 12/18/24 18:52 12/18/24 22:45
Physical Exam
General: Respiratory Distress (Mild apparent distress without any hypoxia cough or wheezing)
HEENT: NormoCephalic, Anicteric, PERRLA and Other (Dry mucous membranes); No Oxygen
Respiratory: Clear and Non Labored Respirations
Cardiac: S1/S2, Tachycardia and Peripheral Edema
Breast: Deferred by me
GI: Soft, Non Tender, Normal Bowel Sounds and Distended
Rectal: Deferred by Provider
Genito-urinary: Deferred by me
Musculoskeletal: No Clubbing, Edema, Left Lower Extremity (Pitting edema up to the thigh) and Edema, Right Lower Extremity (Pitting edema up to the thighs bilateral)
Skin: Warm
Neuro: AO x 3 and Nonfocal/grossly intact
Hematologic/Lymphatic: No Lymphadenopathy
Laboratory Results
-
12/18/24 22:15
12/18/24 22:15
Laboratory Results
Total Bilirubin 2.6 mg/dl (0.2-1.3) H 12/18/24 22:15
AST 26 U/L (17-59) 12/18/24 22:15
ALT 23 U/L (0-50) 12/18/24 22:15
Alkaline Phosphatase 113 U/L (38-126) 12/18/24 22:15
Troponin I 0.165 ng/ml H* 12/18/24 22:15
Data Reviewed
-
Diagnostic Radiology: Image Personally Visualized and interpreted
Medical Tests (Nuc Med, Echo, EKG etc): Image Personally Visualized and interpreted
Lab Data: Labs Reviewed by me
Old Records: Reviewed
Impression/Plan
-
IMPRESSION:
79-year-old with extensive cardiac history most notable for ischemic cardiomyopathy status post multiple stenting's with current EF of around 10 to 15% status post ICD, paroxysmal atrial fibrillation on anticoagulation, CKD, BPH, hypothyroid
presenting to the emergency department with weight gain despite attempted increased diuresis at home, pending cardioversion tomorrow but here now with volume overload, 7 kg weight gain since his last discharge, creatinine that has doubled to 3.7 and
a BUN of 176. He has a white count of 14.7 which otherwise shows no acute signs of infection. ECG shows tachycardia with V paced rhythm. X-ray with possible right pleural effusion but no obvious infiltrates.
PLAN:
ZENAIDA -patient is volume overloaded with peripheral edema to the thighs, has markedly depressed EF, poor response to oral diuretics doubling at home. He however also looks intravascularly dry and has very dry mm. BUN markedly elevated to 175.
Concern is for cardiorenal however cannot rule out urinary retention yet and deydration. If no retention, likely can try to decompress with IV bumex.
-Admit to telemetry
-Bladder scan, and renal ultrasound to rule out urinary retention
-Monitor postvoid residual
- Will hold off on further diuresis right now as patient does appear to be intravascularly depleted with very dry mucous membranes however he does have peripheral edema.
- Obtain urine sodium, creatinine, protein and sediment
- Nephrology consult
Trop elevation - Suspect NIMI. No CP. paced rhythm.
- trend troponins q6
- echo for wall motion changes in am
- if stable, continue eliquis, otherwise if rising start heparin gtt w/o bolus
Hyponatremia -suspect this is secondary to total body volume overload and fluid retention
- Will have to maintain fluid restriction for now
- Holding diuresis pending evaluation of urinary retention
CHF exacerbation�possibly due to atrial fibrillation
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
- Cardiology consult
- Rule out retention
- possibly cardiorenal, if no retention, can start IV bumex
- Daily weights and ins and outs
- Consider cardioversion to optimize cardiac output
- continue metoprolol
- hold entresto
AFIB
- eliquis 2.5 bid for now given renal function
- continue metoprolol 12.5 daily
- prn metoprolol overnight for rate control
- possible CV in am, npo after midnight (there was plan for DCCV already scheduled for tomorrow)
Diabetes
- Hold Farxiga
- Continue Lantus and sliding scale insulin
DVT prophylaxis�patient on Eliquis, continue Eliquis 2.5 twice daily
CODE STATUS -full code
[2024-12-19] VITALS (15 sets, daily range): BP systolic 87–109; BP diastolic 69–91
[2024-12-19 00:32] LABS: Urine Character Clear (Clear)
[2024-12-19 01:51] LABS: Urine Red Blood Cell 0-2 /HPF (0-2)
[2024-12-19 03:39] LABS: Hematocrit 52.3 % (39.0-52.0); Hemoglobin 18.1 g/dL (13.0-18.0); Mean Corp Hgb Conc. 34.6 g/dL (33.0-37.0); Mean Corpuscular Volume 90.0 fL (80.0-94.0); Platelet Count 81 10^3/uL (130-400); Red Cell Dist. Width 16.1 % (11.5-14.5)
[2024-12-19 03:48] LABS: Carbon Dioxide 19 mmol/L (22-30); Chloride 91 mmol/L (98-107); Glucose 275 mg/dl (70-99); Magnesium 3.0 mg/dl (1.6-2.3); Potassium 3.9 mmol/L (3.5-5.1); Sodium 127 mmol/L (135-145); eGFR 16.82
[2024-12-19 03:57] LABS: Troponin I 0.139 ng/ml
[2024-12-19 04:15] LABS: Blood Urea Nitrogen 172 mg/dl (9-20); Calcium 9.4 mg/dl (8.4-10.2)
[2024-12-19 08:15] LABS: Glucose - Point of Care 227 mg/dl (70-99)
[2024-12-19] MEDS: SYNTHROID 25 MCG PO (08:20)
[2024-12-19] MEDS: ELIQUIS 2.5 MG PO (08:20)
--- NOTE | 2024-12-19 08:21 | CON.CAR ---
Addendum entered and electronically signed by Balbir Potter MD 12/19/24 13:09:
Patient seen and examined in collaboration with [employer]OR[employer]; agree with below.
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 Patient was scheduled to undergo ROSITA-got a
cardioversion this morning, but came into the ER last night with shortness of breath. Creatinine now up to almost 4 (baseline is around 2), hyponatremic, weight gain, and cardiac BNP greater than 27,000.
-The patient has end-stage cardiomyopathy with cardiorenal syndrome and hyponatremia.
-The patient is a poor candidate for any aggressive measures; palliative care has been recommended (patient declines), but there were no true medical options for this patient that remain.
-Again, palliative care is recommended.
-Will place on Lasix 80 mg IV daily; Nephrology consulted, but patient is a poor candidate for any aggressive measures.
-No need to repeat echocardiogram.
-Further GDMT has been limited by renal dysfunction and low blood pressure.
-ROSITA/cardioversion canceled; patient is not medically optimized and it likely would not benefit the patient much overall (he is fairly rate controlled).
Original Note:
Consultation
Consultation Request
Date/Time Consultation Requested: 12/19/24223
Date/Time Consultation Performed: 12/19/24819
Requesting Provider: Dr. Ritchie
Performing Provider: Carrie SR for Dr. Potter
Reason for Consultation: CHF, AFIB
Medical History
-
Chief Complaint: fatigue, AFIB
History of Present Illness:
79-year-old male (known to Dr. Quintanilla at [facility], Dr. Kelton Hoffman EP, and Dr. Stauffer) with CAD with stenting (most recent 10/06/[address] Dangelo), HFrEF, ICM EF 10-15%, ICD, atrial tachycardia, CKD, mild to moderate , paroxysmal
atrial fibrillation, DVT, and thrombocytopenia. Plan as OP was for ROSITA/CV today. However, plan was to cancel because he was felt to be in heart failure exacerbation and with ZENAIDA. He declined going to hospital when recommended by his primary
surgical sales representative and it looks like he missed an appointment in the office yesterday. He reports he was confused about the plan and a friend made him come in. He tells me that he has had poor energy overall and has not been eating much. He is not
particularly SOB. He has had 6-8 lbs weight gain. He has been holding his lasix over the past few days, he tells me that was advised by our office due to abnormal lab values.
Past Medical History
Past Medical History: Arrhythmias (Paroxysmal atrial fibrillation, paroxysmal atrial tachycardia), CAD (With stenting), CHF (HFrEF/ICM), Renal Failure (CKD) and Other (as above)
Past Surgical History: Orthopedic
Social History
Tobacco: Former Smoker
Family History
Family History: Reviewed & Not Pertinent
Allergies / Home Medications
Allergy/AdvReac Type Severity Reaction Status Date / Time
hydrocodone Allergy Nausea / Verified 12/18/24 18:52
Vomiting
Ezgcodx-TKE-YoV Reductase Allergy Pt. Verified 12/18/24 18:52
Inhibitor reports
muscle
cramps
Med rec not yet done:
-per last OV note 10/2024: cardiac medications include
Eliquis 5 mg PO BID
Plavix 75 mg PO daily
Farxiga 10 mg PO daily
furosemide 80 mg PO BID (held)
metoprolol 12.5 mg QPM
He tells me he has been taking medications as prescribed
Review of Systems
-
History Source: Patient
All other systems: Negative unless noted
Constitutional: Weight Gain and Fatigue
Musculoskeletal: Edema
Physical Exam
Vital Signs
Temp Pulse Resp BP Pulse Ox
97.6 F 95 24 105/81 84
12/19/24 08:06 12/19/24 03:15 12/19/24 08:06 12/19/24 02:35 12/19/24 08:06
Lab Results
12/19/24 03:09
12/19/24 03:09
Troponin I 0.139 ng/ml H* 12/19/24 03:09
Sbk-R-Lewbqdhhmxj Pept > 11407 pg/ml 12/18/24 22:15
Physical Exam
General: Well Developed, Well Nourished and No Apparent Distress
HEENT: Normocephalic and Anicteric
Respiratory: Other (diminished lung sounds)
Cardiac: Irregular Rhythm
Musculoskeletal: Edema (mild BLE edema)
Skin: Warm and Dry
Neuro: Awake, Alert and Oriented
Impression / Plan
-
ICM EF 10-15%/HFrEF: acute on chronic
-end-stage CHF, now with cardiorenal component. This condition is threat to life.
-he was 73.1 kg after last d/c 09/2024. Currently 79.8.
-he tells me he was taking lasix 80 mg PO BID until several days ago when he was told to stop until follow-up due to OP labs. He appears to have missed his f/u yesterday.
-He has not seen his [facility] doctors since last d/c 09/2024- Dr. Quintanilla and Dr. Melara
-regarding GDMT, continue low dose metoprolol- per chart- he has not tolerated higher doses. On Farxiga as OP- currently held. Not on MRA with renal dysfunction. Entresto causes ZENAIDA per OP chart. Moreno sci ICD in place.
-complex case and likely would benefit from palliative care- per notes he was not ready for this last time- will discuss with team
ZENAIDA on CKD:
-condition is threat to life
-lasix held by primary team
-nephrology is consulted
CAD with hx multiple stents:
-on Plavix per OP chart- will resume.
-continue metoprolol
-statin intolerant
Hyponatremia:
-nephro consulted
Paroxysmal atrial tachycardia/Paroxysmal atrial fibrillation: possibly persistent now
-per OP chart, he has been in AFIB and plan was ROSITA/CV, but cancelled with current acute illness (wound not be appropriate with current status including ZENAIDA)
-continue Eliquis for OAC- he thinks he is compliant, but is not sure
Type 2 diabetes
-management per primary team
Abnormal troponin:
-suspect acute, non-ischemic myocardial injury in setting of CHF/ZENAIDA on CKD
Data Reviewed
-
EKG: Tracing Personally Visualized and interpreted (V paced PVC's)
Radiology: Report Reviewed by me (CXR: Mild congestive heart failure. Right subpulmonic effusion.)
Medical Tests (Nuc Med, Echo etc): Report Reviewed by me (09/02/24: Four chamber cardiac enlargement with biventricular systolic dysfunction. LVEF 10-15% Mild mitral regurgitation. Mild to moderate aortic stenosis. Mild aortic regurgitation.
Mild to moderate tricuspid regurgitation. Estimated PASP 50-55 mmHg and estimated RA 15 mmHg.)
Labs: Labs Reviewed by me
--- NOTE | 2024-12-19 08:43 | VNURNOTE ---
Chart reviewed. Patient is current with [facility]. Will continue to follow hospital course and DC plans.
--- NOTE | 2024-12-19 09:50 | W.CON.NEPH ---
Consultation
-
Date/Time Consultation Requested: December 19, 2024 7:30 AM
Date/Time Consultation Performed: December 19, 2024 9:50 AM
Requesting Provider: Dr. Srivastava
Performing Provider: Dr. Yen
Reason for Consultation: Hyponatremia /acute renal failure
Medical History
-
Chief Complaint: Acute kidney injury/hyponatremia
History of Present Illness:
The patient is an 79-year-old male with a past medical history of advanced congestive heart failure with an EF of 10 to 15%. He has a history of CKD and maintained a baseline creatinine of 1.8 in September 2024. He has a history of diabetes maintained
on insulin. The patient presented with congestive heart failure to the hospital last evening. He has had a 6 to 8 pound weight gain and sob but had been holding his Lasix over the past few days at the advice of outside physicians. He now has
advanced acute renal failure with a BUN of 172 and a creatinine of 3.5 and nephrology was consulted.
Past Medical History
Paroxysmal atrial fibrillation
CAD
CKD 3B
DM 2
Hypothyroidism
Chronic thrombocytopenia
Left lower extremity DVT -08/30/2024
Right lower extremity RSD
Chronic heart failure reduced EF ~10%
Mild to moderate aortic stenosis
Mild to moderate TR
FAY
BPH
History of GI bleed
Social History
Tobacco: Former Smoker
Alcohol: None
Drug: None
Personal: Single
Living: Alone
Family History
Family History: Not Pertinent
Allergies / Home Medications
Allergy/AdvReac Type Severity Reaction Status Date / Time
hydrocodone Allergy Nausea / Verified 12/18/24 18:52
Vomiting
Ulvhnnv-NIA-BcL Reductase Allergy Pt. Verified 12/18/24 18:52
Inhibitor reports
muscle
cramps
�Medication �Instructions �Recorded �Confirmed �Type
tamsulosin 0.4 mg capsule 0.4 mg PO QPM Urinary issue 05/28/18 12/11/24 History
apixaban 5 mg tablet (Eliquis) 5 mg PO BID Blood clot 09/04/24 12/11/24 Rx
prevention/tx #60 tabs
levothyroxine 25 mcg tablet 25 mcg PO DAILY Thyroid #0 tabs 09/04/24 12/11/24 Rx
insulin aspar prot-insulin aspart 10 unit SC DAILY Diabetes 09/23/24 12/11/24 History
100 unit/mL (70-30) subcutaneous
pen
insulin aspar prt-insulin aspart 8 unit SC QPM 09/23/24 12/11/24 History
100 unit/mL (70-30) subcutaneous
soln (Novolog Mix 70-30 U-100
Insuln)
furosemide 80 mg tablet 80 mg PO BID@0800,1600 #60 tabs 09/29/24 12/11/24 Rx
dapagliflozin propanediol 5 mg 5 mg PO DAILY 12/11/24 12/11/24 History
tablet (Farxiga)
Review of Systems
-
All other systems: Negative unless noted
Constitutional: Weight Gain and Fatigue
Respiratory: Trouble Breathing
Musculoskeletal: Edema and Other (Profound leg pain)
Physical Exam
Vital Signs
Vital Signs
Temp Pulse Resp BP Pulse Ox
97.6 F 101 24 102/75 97
12/19/24 08:06 12/19/24 08:31 12/19/24 08:06 12/19/24 08:31 12/19/24 08:22
Lab Results
12/19/24 03:09
12/19/24 03:09
WBC 12.1 10^3/uL (4.8-10.8) H 12/19/24 03:09
RBC 5.81 10^6/uL (4.70-6.10) 12/19/24 03:09
Hgb 18.1 g/dL (13.0-18.0) H 12/19/24 03:09
Hct 52.3 % (39.0-52.0) H 12/19/24 03:09
Plt Count 81 10^3/uL (130-400) L D 12/19/24 03:09
Sodium 127 mmol/L (135-145) L 12/19/24 03:09
Potassium 3.9 mmol/L (3.5-5.1) 12/19/24 03:09
Chloride 91 mmol/L (98-107) L 12/19/24 03:09
Carbon Dioxide 19 mmol/L (22-30) L 12/19/24 03:09
BUN 172 mg/dl (9-20) H* 12/19/24 03:09
Creatinine 3.5 mg/dL (0.7-1.3) H 12/19/24 03:09
eGFR 16.82 12/19/24 03:09
Glucose 275 mg/dl (70-99) H 12/19/24 03:09
Calcium 9.4 mg/dl (8.4-10.2) 12/19/24 03:09
Phosphorus 7.3 mg/dl (2.5-4.5) H 12/19/24 03:09
Sxb-E-Cztahaazbst Pept > 37355 pg/ml 12/18/24 22:15
Albumin 4.2 g/dl (3.5-5.0) 12/18/24 22:15
Physical Exam
General: AOx2 Nontoxic , NAD
HEENT: PERRL, EOMI, Anicteric, Conjunctivae Clear, Ear/Nose Intact, Hearing Normal, Oropharynx Clear/Moist, Dentition Intact, Facial Symmetry, Neck Supple, Neck: Trachea Midline, No JVD and No Thyromegaly, no Bruits
Respiratory: coarse to auscultation bilaterally with normal lung excursion
Cardiac: S1/S2 with ectopy
Breast: Deferred by me
Abdomen: Soft, Nontender, Nondistended, Normal Bowel Sounds and No Hepatosplenomegaly
Rectal: Deferred by Provider
Genito-urinary: No Costovertebral Tenderness
Extremities: No Clubbing, No Cyanosis and Noted Edema
Skin: No Rash or open lesions, erythema of lower extremities
Neuro: Nonfocal/Grossly Intact, CN II-XII (Intact) , no asterixis
Hematologic/Lymphatic: No Cervical Lymphadenopathy, No Submandibular Lymphadenopathy and No Supraclavicular Lymphadenopathy
Psych: Mood/afflect flat,
Vascular: feint pedal and radial pulses
Data Reviewed
-
Radiology: Report Reviewed by me (Chest x-ray reviewed by me noted elevation of right hemidiaphragm the presence of an AICD in the left anterior chest wall bilateral interstitial edema)
Labs: Labs Reviewed by me ([facility] CBC urinalysis)
Old Records: Reviewed (Reviewed previous records from date 09/29/2024 BUN 63 creatinine 1.7)
Assessment/Plan
-
Impression:
ZENAIDA
Advanced ischemic cardiomyopathy with EF of 10% with congestive heart failure decompensation
CKD stage IIIb with baseline creatinine of 1.7 in September 2024
Hyponatremia
Proteinuria
Diabetes
BPH
CAD with history of multiple stents
History of paroxysmal atrial tachycardia and fibrillation
Positive troponin
Plan:
Advancing cardiorenal syndrome with subsequent acute kidney injury and profound uremia
No obstruction by renal and bladder ultrasound, continue to check postvoid bladder scan
Unfortunately patient is not a dialysis candidate given his advanced cardiomyopathy and hemodynamic instability
If aggressive care is to be pursued I would recommend right heart cath to assess true volume status and possibility for inotropic support if cardiac index is profoundly low, I suspect he is volume overloaded
Patient is more appropriate for hospice care although he has refused this in the past
Would hold SGLT2 inhibitor
Hyponatremia likely a function of congestive heart failure, maintain fluid restriction
--- NOTE | 2024-12-19 10:25 | WOUNDNOTE ---
WO RN note: Patient admitted with LE swelling
See H&P for complete history.
PMH: Af-b, CHF, CAD, HTN, ex-smoker
Wound Location and type/assessment: Patient admitted with LE wounds that appear to be abrasions and skin tears. Patient states 'I'm always banging my legs and getting wounds.' See worklist for measurements and descriptions of wounds. Patient
reports pain in bilateral legs and heel. Heels and sacrum are intact. Doppler pulses are faint. Patient reports using 'compression wraps' and has home health cna for wound care. Patient uses Aquaphor daily to dry skin on arms and legs. A dry abrasion
is noted on the right elbow. Right lateral foot also with dry, healing wound. He reports living alone. Patient demonstrated ability to sit self on side of bed and stand with assistance.
Appetite: Reports good
Pressure redistribution devices in place: Centrella Max, heels off-loaded with pillow under calves
Plan: Wound care completed with adaptic, alginate and silicone boarder foam. Will recommend every other day wound care to legs due to pain and limited drainage. Protective foam applied to right elbow. Patient uses Aqaphor to dry skin daily and is
requesting use while in hospital. Discussed with Dr. Srivastava who will order CHEL for patient. HAM paulino.
Note to case management of equipment requested for discharge:
Recommend follow up at wound care center upon discharge.
[2024-12-19] MEDS: TYLENOL 650 MG PO ×2 (10:37→17:12)
--- NOTE | 2024-12-19 10:39 | WOUNDNOTE ---
RIGHT HEEL1943, [id number]
--- NOTE | 2024-12-19 10:42 | WOUNDNOTE ---
LEFT LOWER LEG
--- NOTE | 2024-12-19 10:43 | WOUNDNOTE ---
RIGHT LATERAL FOOT
--- NOTE | 2024-12-19 10:43 | WOUNDNOTE ---
RIGHT L
RIGHT LOWER LEG
--- NOTE | 2024-12-19 10:44 | PTCARENOTE ---
Assumed care, Patient AO x 3, impulsive, ROSEBUD, fixating on shaving this morning. Explained to patient that I could assist him a few minutes. AV paced underlying A-F-b, faint pedal pulses with Doppler, legs tender, red shining, + 1 edema. Tylenol
given. CV cancelled. Patient given a diet. AM care completed. Assisted to use urinal, voided 300 of elizabet urine. He was insisting he wanted to into the bathroom, tried using the bedside table for support but agreeable to using the urinal with help.
Bed and chair alarms placed, unsteady, pain in legs with standing and walking. Wound care to legs completed by [facility] nurse. Using call kimble for assistance
[2024-12-19] MEDS: NOVOLOG MIX 70/30 FLEXPEN 5 UNITS SC (10:50)
[2024-12-19] MEDS: NOVOLOG FLEXPEN-LOW RESISTANCE 2 UNITS SC (10:51)
--- NOTE | 2024-12-19 12:12 | CM ---
Chart reviewed. Patient is independent of ADLS, lives alone in a [address], [address] [facility], occasionally will use a SPC and RW. Patient is current with [facility]. Plan to resume services with [facility] when medically stable for discharge. CM to follow
[2024-12-19 12:55] LABS: Glucose - Point of Care 353 mg/dl (70-99)
[2024-12-19] MEDS: NOVOLOG FLEXPEN-LOW RESISTANCE 5 UNITS SC ×2 (12:57→17:20)
[2024-12-19] MEDS: PLAVIX 75 MG PO (13:00)
--- NOTE | 2024-12-19 13:43 | W.PN.HOSP.TC ---
Today's Communication/Plan
-
Monitor vital signs and see plan
Ongoing goals of care discussion
Continue with insulin
Continue Lasix
Eliquis
Continue tamsulosin
Assessment / Plan
Assessment / Plan
General: No acute distress
HEENT: NormoCephalic, Anicteric, PERRLA
Respiratory: Clear and Non Labored Respirations
Cardiac: S1/S2, Tachycardia and Peripheral Edema
GI: Soft, Non Tender, Normal Bowel Sounds and Distended
Musculoskeletal: No Clubbing, Edema, Left Lower Extremity (Pitting edema up to the thigh) and Edema, Right Lower Extremity (Pitting edema up to the thighs bilateral)
Neuro: AO x 3 and Nonfocal/grossly intact
ZENAIDA
Likely cardiorenal
Discussed with nephrology
Patient is likely appropriate for palliative/hospice however not ready. Cardiology and nephrology following. Will do 80 IV daily Lasix for now. Would not pursue aggressive measures with cardiac catheterization at this time
-Bladder scan
-Monitor postvoid residual
Discussed with nephrology, not a HD candidate
Elevated troponin, likely nonischemic myocardial injury
Monitor
Hyponatremia -suspect this is secondary to Volume overload
Continue with fluid restriction, monitor with diuresis
Acute on chronicCHF exacerbation
A-fib burden, Persistent
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
- cardiology following
Continue with IV diuresis
Cardiology and nephrology following
- Daily weights and ins and outs
No plans for cardioversion per cardiology
- continue metoprolol
- hold entresto
AFIB
cw eliquis
- continue metoprolol 12.5 daily
- prn metoprolol overnight for rate control
- possible CV in am, npo after midnight (there was plan for DCCV already scheduled for tomorrow)
Diabetes
- Hold Farxiga
- Continue Lantus and sliding scale insulin
History of DVT
Eliquis should be 5 mg twice daily which he takes at home, change dosing to 5 mg twice daily
Chronic thrombocytopenia
Monitor
Chronic lower extremity pain
No need for Doppler with CHEL, positive pulses with Doppler. Poor surgical candidate
Hypothyroidism
Continue with Synthroid
History of BPH
Continue tamsulosin
Bladder scan
DVT prophylaxis� continue Eliquis
CODE STATUS -full code
Discussed in length with patient, he has refused palliative/hospice in the past. He has advanced cardiac disease and now with significant acute kidney injury. Will continue to discuss goals of care
I spent a total of 54 minutes with the patient or on the floor. More than 50% of this time involved counseling and coordination of care.
Anticipated Discharge: > 48 hours
Subjective/Interval History
-
Date of Service: December 19, 2024
has pain
Objective Data
-
Labs:
Laboratory Results
12/19/24
03:09
WBC 12.1 H
Hgb 18.1 H
Hct 52.3 H
Plt Count 81 L D
Sodium 127 L
Potassium 3.9
Chloride 91 L
Carbon Dioxide 19 L
BUN 172 H*
Creatinine 3.5 H
Glucose 275 H
Calcium 9.4
Vital Signs:
Vital Signs
Temp Pulse Resp BP Pulse Ox
96.2 F L 104 26 101/79 98
12/19/24 11:19 12/19/24 12:00 12/19/24 11:19 12/19/24 11:33 12/19/24 12:00
[2024-12-19] MEDS: HYDROPHOR 1 APPLIC TOPICAL (14:16)
--- NOTE | 2024-12-19 15:47 | PTCARENOTE ---
Addendum entered by Jesus Springer RN 12/19/24 18:24:
Patient refusing IV Lasix. Patient states he would like to talk to Dr. Peraza from [facility] who had done his ablations in the past. He is fearful that IV Lasix is only hurting his kidneys. Multiple attempts to persuade him to comply with treatment plan
with education. His POA present in the room and she explained the importance of taking the IV Lasix but he is unwilling to comply. Dr. Srivastava notified
Original Note:
Patient refusing IV Lasix. Patient states he would like to talk to Dr. Peraza for [facility] who had done his ablations in the past. He is fearful that IV Lasix is only hurting his kidneys. Multiple attempts to persuade him to comply with treatment plan
with education. His POA present in the room and she explained the importance of taking the IV Lasix but he is unwilling to comply. Dr. Srivastava notified
[2024-12-19] MEDS: LASIX IV (15:56)
[2024-12-19 16:12] LABS: Troponin I 0.128 ng/ml
[2024-12-19] MEDS: TOPROL XL 12.5 MG PO (17:12)
[2024-12-19] MEDS: FLOMAX 0.4 MG PO (17:12)
[2024-12-19 17:21] LABS: Glucose - Point of Care 352 mg/dl (70-99)
[2024-12-19] MEDS: NOVOLOG MIX 70/30 FLEXPEN 8 UNITS SC (17:21)
[2024-12-19] MEDS: LASIX 80 MG IV (17:26)
--- NOTE | 2024-12-19 17:31 | PTCARENOTE ---
Tylenol given for leg cramps. Agreeable to IV Lasix and given
[2024-12-19] MEDS: ELIQUIS 5 MG PO (19:49)
--- NOTE | 2024-12-19 21:22 | PTCARENOTE ---
Pt rec'd at change of shift calling out for nursing staff. Pt awake,alert oriented. When asked about his hollering he said ' I don't know why I yell but my legs hurt'. Tylenol was given appox 90 mins before. Pt requesting more Tylenol when he can.
SUPPLY CHAIN ANALYST on telemetry. Assisted oob to bathroom using walker. gait unsteady. Pt passed mod formed bm. When back in bed and settled pt could be heard from hallway stating ' I don't know how much longer I can go'. Pt also called his friend and could be
heard stating ' Hey, I just wanted to call you and let you know I'm in the hospital and dying'.
Pt currently resting in bed. Breathing improved less dyspneic at rest on O2 at 3 lit n/c.
[2024-12-19 22:11] LABS: Glucose - Point of Care 283 mg/dl (70-99)
[2024-12-20] VITALS (8 sets, daily range): BP systolic 86–108; BP diastolic 67–81
[2024-12-20] MEDS: SYNTHROID 25 MCG PO (04:59)
--- NOTE | 2024-12-20 05:03 | PTCARENOTE ---
Pt oob in recliner chair with legs elevated most of the night. Back to bed at present. Visible oozing seen on lower ext, saturating foam drsg on shins.
Wt unchanged from yesterday.
[2024-12-20 05:30] LABS: Hematocrit 51.0 % (39.0-52.0); Hemoglobin 17.6 g/dL (13.0-18.0); Mean Corp Hgb Conc. 34.5 g/dL (33.0-37.0); Mean Corpuscular Volume 90.7 fL (80.0-94.0); Nucleated Red Blood Cells % 0 % (-); Platelet Count 91 10^3/uL (130-400); Red Cell Dist. Width 15.3 % (11.5-14.5)
[2024-12-20 05:37] LABS: Calcium 8.8 mg/dl (8.4-10.2); Carbon Dioxide 19 mmol/L (22-30); Chloride 91 mmol/L (98-107); Glucose 195 mg/dl (70-99); Potassium 3.8 mmol/L (3.5-5.1); Sodium 125 mmol/L (135-145); eGFR 15.24
[2024-12-20 05:47] LABS: Blood Urea Nitrogen 189 mg/dl (9-20)
[2024-12-20 07:16] LABS: Glucose - Point of Care 190 mg/dl (70-99)
[2024-12-20] MEDS: LASIX IV (09:44)
--- NOTE | 2024-12-20 10:50 | W.PN.NEPH.PH ---
Today's Communication / Plan
-
hospice eval, cont lasix
Assessment/Plan
-
Impression:
ALAYNA
Advanced ischemic cardiomyopathy with EF of 10% with congestive heart failure decompensation
CKD stage IIIb with baseline creatinine of 1.7 in September 2024
Hyponatremia
Proteinuria
Diabetes
BPH
CAD with history of multiple stents
History of paroxysmal atrial tachycardia and fibrillation
Positive troponin
Plan:
Advancing cardiorenal syndrome with subsequent acute kidney injury and profound uremia
No obstruction by renal and bladder ultrasound, continue to check postvoid bladder scan
Unfortunately patient is not a dialysis candidate given his advanced cardiomyopathy and hemodynamic instability
Patient is more appropriate for hospice care, d/w POA in detail at bedside who is agreeable
Would hold SGLT2 inhibitor, cont lasix IV for now
Hyponatremia likely a function of congestive heart failure, maintain fluid restriction
hospice consulted
d/w primary
-
-
Date of Service: December 20, 2024
CC / HPI / ROS
-
Chief Complaint:
Alayna, Azotemia
History of Present Illness:
sodium down at 125
BUN up at 189, cr 3.8
wt no change
BP soft
Review of Systems:
no cp or sob at rest
no n/v
Labs
-
Labs:
WBC 11.3 10^3/uL (4.8-10.8) H 12/20/24 04:43
RBC 5.62 10^6/uL (4.70-6.10) 12/20/24 04:43
Hgb 17.6 g/dL (13.0-18.0) 12/20/24 04:43
Hct 51.0 % (39.0-52.0) 12/20/24 04:43
Plt Count 91 10^3/uL (130-400) L 12/20/24 04:43
Sodium 125 mmol/L (135-145) L 12/20/24 04:43
Potassium 3.8 mmol/L (3.5-5.1) 12/20/24 04:43
Chloride 91 mmol/L (98-107) L 12/20/24 04:43
Carbon Dioxide 19 mmol/L (22-30) L 12/20/24 04:43
BUN 189 mg/dl (9-20) H* 12/20/24 04:43
Creatinine 3.8 mg/dL (0.7-1.3) H 12/20/24 04:43
eGFR 15.24 12/20/24 04:43
Glucose 195 mg/dl (70-99) H 12/20/24 04:43
Calcium 8.8 mg/dl (8.4-10.2) 12/20/24 04:43
Phosphorus 7.3 mg/dl (2.5-4.5) H 12/19/24 03:09
Hhp-S-Oqydrywfhvu Pept > 92343 pg/ml 12/18/24 22:15
Albumin 4.2 g/dl (3.5-5.0) 12/18/24 22:15
Physical Exam
-
Vital Signs:
Vital Signs
Temp Pulse Resp BP Pulse Ox
97.4 F 93 22 107/81 93
12/20/24 12:05 12/20/24 11:45 12/20/24 12:05 12/20/24 11:43 12/20/24 07:56
Cardiovascular:: Regular rate and rhythm
Respiratory:: Bilateral: Coarse
Lung Excursion:: Normal
Abdomen:: Nontender and Soft
Extremity Edema:: +3: Bilateral:
Douglass Catheter: No
--- NOTE | 2024-12-20 11:08 | HOSPNOTE ---
After reading the physicians notes the patient is not ready for hospice at this time, however is appropriate. I will reach out to [facility] who he is current with and once patient is home we can do an in person intro about hospice and the philosophy if
the patient wishes. If the patient declines and needs hospice prior to discharge please reach out.
--- NOTE | 2024-12-20 11:09 | CM ---
Chart reviewed. Patient is independent of ADLS, lives alone 1 STH, 5 ZOEY, ambulates with a RW and SPC. Patient is current with [facility]. Patient and POA are interested in pursing Hospice Care. Referral sent to [facility]. CM to follow
[2024-12-20] MEDS: ELIQUIS 5 MG PO ×2 (11:22→20:12)
[2024-12-20] MEDS: HYDROPHOR 1 APPLIC TOPICAL (11:23)
[2024-12-20] MEDS: NOVOLOG FLEXPEN-LOW RESISTANCE 1 UNITS SC (11:23)
[2024-12-20] MEDS: NOVOLOG MIX 70/30 FLEXPEN 10 UNITS SC (11:24)
[2024-12-20] MEDS: PLAVIX 75 MG PO (11:24)
--- NOTE | 2024-12-20 12:00 | W.PN.CD ---
Today's Communication / Plan
-
-Spoke to patient and his POA at bedside this a.m. regarding patient's poor prognosis and the recommendation of palliative care/hospice; they are now agreeable. Hospitalist updated who will help arrange things with case management.
-Supportive care; unable to give Lasix or metoprolol succinate this a.m. due to hypotension (86/67 mmHg).
-Will turn off ICD when patient fully agrees to palliative care/hospice.
Impression / Plan
-
ICM EF 10-15%/HFrEF (acute on chronic) s/p ICD;
-Patient with end-stage CHF, now with cardiorenal component. This condition is threat to life.
-He was 73.1 kg after last d/c 09/2024. Currently 79.7.
-he tells me he was taking lasix 80 mg PO BID until several days ago when he was told to stop until follow-up due to OP labs. He appears to have missed his f/u yesterday.
-He has not seen his [facility] doctors since last d/c 09/2024- Dr. Quintanilla and Dr. Melara
-regarding GDMT, continue low dose metoprolol- per chart- he has not tolerated higher doses. On Farxiga as OP- currently held. Not on MRA with renal dysfunction. Entresto causes ZENAIDA per OP chart. [place] sci ICD in place.
-Spoke to patient and his POA at bedside this a.m. regarding patient's poor prognosis and the recommendation of palliative care/hospice; they are now agreeable. Hospitalist updated who will help arrange things with case management.
-Supportive care; unable to give Lasix or metoprolol succinate this a.m. due to hypotension (86/67 mmHg).
-Will turn off ICD when patient fully agrees to palliative care/hospice.
ZENAIDA on CKD:
-condition is threat to life
-Worsening BUN/creatinine (cardiorenal).
-Poor candidate for any aggressive measures, per Nephrology.
CAD with hx multiple stents:
-Continue Plavix.
-Continue metoprolol succinate.
-statin intolerant
Hyponatremia:
-Secondary to end-stage cardiomyopathy.
Paroxysmal atrial tachycardia/Paroxysmal atrial fibrillation: possibly persistent now
-per OP chart, he has been in AFIB and plan was ROSITA/CV, but cancelled with current acute illness (wound not be appropriate with current status including ZENAIDA)
-Poor candidate for any aggressive measures.
-Continue Eliquis for OAC- he thinks he is compliant, but is not sure
Type 2 diabetes
-management per primary team
Abnormal troponin:
-suspect acute, non-ischemic myocardial injury in setting of CHF/ZENAIDA on CKD
Physical Exam
Vital Signs/Labs
Vital Signs
Temp Pulse Resp BP Pulse Ox
97.5 F 93 22 107/81 79
12/20/24 07:05 12/20/24 11:45 12/20/24 07:05 12/20/24 11:43 12/20/24 07:07
12/19/24 12/20/24 12/21/24
06:59 06:59 06:59
Actual Weight 79.379 kg 79.7 kg
12/20/24 04:43
12/20/24 04:43
Magnesium 3.0 mg/dl (1.6-2.3) H 12/19/24 03:09
12/18/24
22:15
Hxs-K-Ghrjlxylcla Pept > 38847
LAB Results
12/18/24 12/19/24 12/19/24
22:15 03:09 15:16
Troponin I 0.165 H* 0.139 H* Cancelled
12/19/24 12/19/24
15:17 22:59
Troponin I 0.128 H* Cancelled
Physical Exam
Constitutional: No acute distress and Comfortable
EENT: Anicteric
Cardiovascular: Rhythm/rate is irregular, Pedal edema present (Trace), Systolic murmur present (04/25) and S1S2 is normal
Respiratory: Respiratory effort normal and Lungs clear to auscul.
GI: Soft
Neuro/Psych: AO x 3
Other: Skin (Bilateral lower lower extremity erythema)
Data Reviewed
-
Date of Service: December 20, 2024
EKG: Tracing Personally Visualized and interpreted (Telemetry: A-fib)
Echo: Report Reviewed by me (08/23/2024: LVEF 10-50%)
Medical Tests (PFT, Pathology etc): Discussed with Physician (Primary Hospitalist), Discussed with Nurse, Discussed with Patient and Discussed with Family (POA at bedside)
Labs: Labs Reviewed by me
Old Records: Reviewed
[2024-12-20] MEDS: NOVOLOG FLEXPEN-LOW RESISTANCE 2 UNITS SC (12:40)
[2024-12-20 12:41] LABS: Glucose - Point of Care 219 mg/dl (70-99)
--- NOTE | 2024-12-20 12:53 | W.PN.HOSP.TC ---
Addendum entered and electronically signed by Felipe Srivastava MD 12/20/24 18:07:
notified by RN that patient and family decided for code status to be changed to DNR. Cardiology is aware and will switch off the ICD. hospice involved.
Original Note:
Today's Communication/Plan
-
Monitor vitals
See plan
Discussed with nephrology, not a HD candidate
Discussed with cardiology as well and there are very limited options. Discussed at length with patient and his friend who is POA at bedside. They understand and wants to speak to hospice. information technology program manager consulted for hospice.
Fyi if he does get signed on to hospice then would need ICD device turned off
Assessment / Plan
Assessment / Plan
General: No acute distress
HEENT: NormoCephalic, Anicteric, PERRLA
Respiratory: Clear and Non Labored Respirations
Cardiac: S1/S2, Tachycardia and Peripheral Edema
GI: Soft, Non Tender, Normal Bowel Sounds and Distended
Musculoskeletal: No Clubbing, Edema, Left Lower Extremity (Pitting edema up to the thigh) and Edema, Right Lower Extremity (Pitting edema up to the thighs bilateral)
Neuro: AO x 3 and Nonfocal/grossly intact
ZENAIDA
Likely cardiorenal
Discussed with nephrology
Patient is likely appropriate for palliative/hospice however not ready. Cardiology and nephrology following. Will do 80 IV daily Lasix for now If his blood pressure can tolerate. Would not pursue aggressive measures with cardiac catheterization
at this time
-Bladder scan
-Monitor postvoid residual
Discussed with nephrology, not a HD candidate
Discussed with cardiology as well and there are very limited options. Discussed at length with patient and his friend who is POA at bedside. They understand and wants to speak to hospice. information technology program manager consulted for hospice.
Fyi if he does get signed on to hospice then would need ICD device turned off
Elevated troponin, likely nonischemic myocardial injury
Monitor
Hyponatremia -suspect this is secondary to Volume overload
Continue with fluid restriction, monitor with diuresis
Acute on chronicCHF exacerbation
A-fib burden, Persistent
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
- cardiology following
Continue with IV diuresis If BP can tolerate
Cardiology and nephrology following
- Daily weights and ins and outs
No plans for cardioversion per cardiology
- continue metoprolol
- hold entresto
AFIB
cw eliquis
- continue metoprolol 12.5 daily if BP can tolerate
- prn metoprolol overnight for rate control
Diabetes
- Hold Farxiga
- Continue Lantus and sliding scale insulin
History of DVT
Eliquis should be 5 mg twice daily which he takes at home, change dosing to 5 mg twice daily
Chronic thrombocytopenia
Monitor
Chronic lower extremity pain
No need for Doppler with CHEL, positive pulses with Doppler. Poor surgical candidate
Hypothyroidism
Continue with Synthroid
History of BPH
Continue tamsulosin
Bladder scan
DVT prophylaxis� continue Eliquis
CODE STATUS -full code
Discussed with nephrology, not a HD candidate
Discussed with cardiology as well and there are very limited options. Discussed at length with patient and his friend who is POA at bedside. They understand and wants to speak to hospice. information technology program manager consulted for hospice.
Fyi if he does get signed on to hospice then would need ICD device turned off
I spent a total of 52 minutes with the patient or on the floor. More than 50% of this time involved counseling and coordination of care.
Anticipated Discharge: 24 - 48 hours
Subjective/Interval History
-
Date of Service: December 20, 2024
declining
Objective Data
-
Labs:
Laboratory Results
12/20/24
04:43
WBC 11.3 H
Hgb 17.6
Hct 51.0
Plt Count 91 L
Sodium 125 L
Potassium 3.8
Chloride 91 L
Carbon Dioxide 19 L
BUN 189 H*
Creatinine 3.8 H
Glucose 195 H
Calcium 8.8
Vital Signs:
Vital Signs
Temp Pulse Resp BP Pulse Ox
97.4 F 87 22 107/81 93
12/20/24 12:05 12/20/24 12:15 12/20/24 12:05 12/20/24 11:43 12/20/24 07:56
I&O
12/19/24 12/20/24 12/21/24
06:59 06:59 06:59
Intake Total 1010 / 1010 240 / 240
Output Total 350 / 350
Balance 660 / 660 240 / 240
[2024-12-20] MEDS: TYLENOL 650 MG PO ×2 (13:26→20:11)
--- NOTE | 2024-12-20 13:28 | HOSPNOTE ---
Addendum entered by Kayleen Gallego RN 12/20/24 13:32:
Spoke with patient he wanted to be a DNR however still wanted the ICD not turned off, so the patient will remain a full code. I will speak with Niki again and the plan would be for patient to go to [place] [id number] if
patient agrees to hospice. I told the patient under hospice you would not seek aggressive treatments, you would remain home with Niki and we would manage any symptoms that you may have, order equipment and support Niki and patient. He was not able
to make any decisions right now. If the patient agrees we could order all equipment tomorrow and get patient home on Monday or tomorrow afternoon.
Original Note:
Called and left a message for Niki to discuss hospice and the philosophy. The patient resides alone so I need to know if Niki will be the primary caregiver. Once I receive a call back from A more information to follow.
[2024-12-20 16:25] LABS: Glucose - Point of Care 302 mg/dl (70-99)
--- NOTE | 2024-12-20 19:41 | PTCARENOTE ---
pt is paced on the monitor, vss. pt and POA in room to speak w/ RN about requesting code status change to DNR. notified dr. santiago, dr. vasquez and layout designer. Code status changed, DNR bracelet applied. pt educated on plan of care and pt verbalized
understanding. bed alarm on. call kimble within reach.
[2024-12-20] MEDS: NOVOLOG FLEXPEN-LOW RESISTANCE 4 UNITS SC (19:52)
[2024-12-20] MEDS: TOPROL XL 12.5 MG PO (20:12)
[2024-12-20] MEDS: FLOMAX 0.4 MG PO (20:13)
[2024-12-20] MEDS: NOVOLOG MIX 70/30 FLEXPEN SC (20:13)
[2024-12-21] MEDS: DILAUDID 0.25 MG IV (00:10)
[2024-12-21 03:50] VITALS: BP 92/69
[2024-12-21 04:47] LABS: Hematocrit 52.5 % (39.0-52.0); Hemoglobin 18.3 g/dL (13.0-18.0); Mean Corp Hgb Conc. 34.9 g/dL (33.0-37.0); Mean Corpuscular Volume 91.8 fL (80.0-94.0); Nucleated Red Blood Cells % 0 % (-); Platelet Count 89 10^3/uL (130-400); Red Cell Dist. Width 15.1 % (11.5-14.5)
[2024-12-21 04:54] LABS: Calcium 8.6 mg/dl (8.4-10.2); Carbon Dioxide 25 mmol/L (22-30); Chloride 86 mmol/L (98-107); Glucose 243 mg/dl (70-99); Potassium 3.9 mmol/L (3.5-5.1); Sodium 125 mmol/L (135-145); eGFR 15.24
[2024-12-21 05:10] LABS: Blood Urea Nitrogen 202 mg/dl (9-20)
[2024-12-21] MEDS: SYNTHROID 25 MCG PO (06:04)
--- NOTE | 2024-12-21 06:05 | PTCARENOTE ---
Assumed care on pt at 1900, alert oriented with some forgetfulness, drowsy and weak, restless all shift, yelling and calling out, c/o back pain and generalized discomfort, PRN tylenol given at bedtime with no effect, scrap iron loader ROOMING HOUSE OPERATOR made aware, x1 dose
of dilaudid IV ordered and given with some effect. Pt refused blood sugar check at bedtime, glucose 243 with morning labs. Bladder scanned x2 during shift, d/t suprapubic area distention and decreased urine output, see worklist doc. for bs results.
AV paced on tele, HR 80's, Pox 96% on 4L O2 via NC. Pt refusing repositioning in bed d/t pain and discomfort. Call kimble within reach.
[2024-12-21 07:32] VITALS: BP 99/63
[2024-12-21] MEDS: DILAUDID 0.5 MG IV (09:09)
[2024-12-21] MEDS: ELIQUIS 5 MG PO (09:10)
[2024-12-21] MEDS: PLAVIX 75 MG PO (09:10)
--- NOTE | 2024-12-21 09:45 | W.CARD.DEVCH ---
Cardiac Device Check
-
Device: Implanted Cardioverter-Defibrillator
Professional Bondsman: [employer]
The patient's device was interrogated personally by me. The device had normal function. No abnormalities seen.
Patient is now DNR and under Hospice for palliative care. The ICD is requested to be modified to avoid shocks.
The ICD was programmed to have tachytherapies off and AF/SVT tuned off as well. Pt is in AF. The pacing theraoies for PMT is maintained. The bradycardia therapies with pacing is maintained.
The ICD tachy therapies are turned off.
--- NOTE | 2024-12-21 09:47 | W.PN.CD ---
Today's Communication / Plan
-
- ICD is turned off
- Please call with questions.
Impression / Plan
-
ICM EF 10-15%/HFrEF (acute on chronic) s/p ICD;
-Poor prognosis and end of life
-With family and patient in agreement, ICD is turned off ICD. Continue pacemaker function
Palliative / Hospice care as per primary team
Please call with questions.
Physical Exam
Vital Signs/Labs
Vital Signs
Temp Pulse Resp BP Pulse Ox
96.5 F L 82 30 99/63 87
12/21/24 07:29 12/21/24 07:45 12/21/24 07:29 12/21/24 07:32 12/21/24 07:29
12/20/24 12/21/24 12/22/24
06:59 06:59 06:59
Actual Weight 79.7 kg 81.8 kg
12/21/24 03:57
12/21/24 03:57
Magnesium 3.0 mg/dl (1.6-2.3) H 12/19/24 03:09
12/18/24
22:15
Bma-V-Dlhonavskeq Pept > 13187
LAB Results
12/18/24 12/19/24 12/19/24
22:15 03:09 15:16
Troponin I 0.165 H* 0.139 H* Cancelled
12/19/24 12/19/24
15:17 22:59
Troponin I 0.128 H* Cancelled
Physical Exam
Constitutional: No acute distress and Comfortable
EENT: Anicteric and Moist mucous membranes
Cardiovascular: Rhythm & rate is regular and Systolic murmur present
Respiratory: Respiratory effort normal and Crackles Present
Neuro/Psych: Alert and Other (confused)
Data Reviewed
-
Date of Service: December 21, 2024
Medical Decision Making: Reviewed Test Results, Test Interpretation and Review of Case with other Provider
EKG: Tracing Personally Visualized and interpreted
Labs: Labs Reviewed by me
Old Records: Reviewed
[2024-12-21 09:54] VITALS: BP 87/50
[2024-12-21] MEDS: LASIX IV (10:21)
[2024-12-21] MEDS: NOVOLOG FLEXPEN-LOW RESISTANCE SC (10:21)
[2024-12-21] MEDS: NOVOLOG MIX 70/30 FLEXPEN SC (10:22)
[2024-12-21 11:19] VITALS: BP 100/77
--- NOTE | 2024-12-21 11:22 | W.PN.NEPH.PH ---
Today's Communication / Plan
-
hospice, pain control
Assessment/Plan
-
Impression:
ALAYNA
Advanced ischemic cardiomyopathy with EF of 10% with congestive heart failure decompensation
CKD stage IIIb with baseline creatinine of 1.7 in September 2024
Hyponatremia
Proteinuria
Diabetes
BPH
CAD with history of multiple stents
History of paroxysmal atrial tachycardia and fibrillation
Positive troponin
Plan:
Advanced cardiorenal syndrome with subsequent acute kidney injury and profound uremia
No obstruction by renal and bladder ultrasound, continue to check postvoid bladder scan
Unfortunately patient is not a dialysis candidate given his advanced cardiomyopathy and hemodynamic instability
Patient is more appropriate for hospice care, d/w POA in detail at bedside who is agreeable
hospice consulted
comfort is priority , likely inpt hospice for pain control
d/w POA and pt
d/w nursing
will s/o, call with ?s
-
-
Date of Service: December 21, 2024
CC / HPI / ROS
-
Chief Complaint:
Alayna, Azotemia
History of Present Illness:
sodium no change at 125
BUN up at 202, cr 3.8
wt is up
BP soft
Review of Systems:
no cp or sob at rest
c/o back pian, yelling intermittently
Labs
-
Labs:
WBC 9.1 10^3/uL (4.8-10.8) 12/21/24 03:57
RBC 5.72 10^6/uL (4.70-6.10) 12/21/24 03:57
Hgb 18.3 g/dL (13.0-18.0) H 12/21/24 03:57
Hct 52.5 % (39.0-52.0) H 12/21/24 03:57
Plt Count 89 10^3/uL (130-400) L 12/21/24 03:57
Sodium 125 mmol/L (135-145) L 12/21/24 03:57
Potassium 3.9 mmol/L (3.5-5.1) 12/21/24 03:57
Chloride 86 mmol/L (98-107) L 12/21/24 03:57
Carbon Dioxide 25 mmol/L (22-30) 12/21/24 03:57
BUN 202 mg/dl (9-20) H* 12/21/24 03:57
Creatinine 3.8 mg/dL (0.7-1.3) H 12/21/24 03:57
eGFR 15.24 12/21/24 03:57
Glucose 243 mg/dl (70-99) H 12/21/24 03:57
Calcium 8.6 mg/dl (8.4-10.2) 12/21/24 03:57
Phosphorus 7.3 mg/dl (2.5-4.5) H 12/19/24 03:09
Rcn-H-Yujfhkifgwo Pept > 65724 pg/ml 12/18/24 22:15
Albumin 4.2 g/dl (3.5-5.0) 12/18/24 22:15
Physical Exam
-
Vital Signs:
Vital Signs
Temp Pulse Resp BP Pulse Ox
96.5 F L 82 30 87/63 87
12/21/24 07:29 12/21/24 10:15 12/21/24 07:29 12/21/24 10:21 12/21/24 07:29
Cardiovascular:: Regular rate and rhythm
Respiratory:: Bilateral: Coarse
Lung Excursion:: Normal
Abdomen:: Nontender and Soft
Extremity Edema:: +2: Bilateral:
Douglass Catheter: No
--- NOTE | 2024-12-21 12:33 | W.DCSUMMARY ---
Discharge Summary
Discharge Data
Date of Admission: 12/19/24
Date of Discharge: 12/21/24
-
Pending Results: No
Hospital Course
Discharging Physician : Dr Joseph Zelaya
Disposition : Inpatient hospice
Primary care physician : Dr Lian Salcedo
Principal Discharge diagnosis :
Acute kidney injury from cardiorenal syndrome
Systolic congestive heart failure exacerbation
history of paroxysmal atrial fibrillation
Toxic metabolic encephalopathy
Chronic Discharge diagnosis :
coronary disease
chronic kidney disease stage IIIb
type 2 diabetes
hypothyroidism
history of DVT
history of ICD placement
moderate tricuspid regurgitation
obstructive sleep apnea
BPH
history of GI bleed
history of ablation
Physical examination:
HEENT: moist mucus membrane
Chest: Clear to auscultation
Heart: N s1/s2, RRR, no rub/mrumur/gallops
Abd: N BS, soft, nontender, nondistended,
Neuro: awake, not oriented to time/place/person
Ext: LE swelling
Hospital Course :
Patient is a 79-year-old male with no mentioned past medical history was sent from cardiology office after patient was noted to having exertional dyspnea with uncontrolled heart rate. Patient was felt to having heart failure exacerbation and was
sent in for further evaluation for possible need of cardioversion which is planned outpatient. On evaluation in ER patient was noted to having worsening renal function associated electrolyte imbalances. Cardiology and nephrology was involved in
care. Patient was felt to be having an end-stage cardiomyopathy related cardiorenal syndrome and related problems. Patient was deemed a poor candidate for any further aggressive measures and was not deemed a candidate for dialysis if needed.
Patient was started on empiric IV diuretic trial for volume optimization. Unfortunately patient overall cardiorenal status continued to decline and goal of care was discussed with patient and friend(POA). Patient/POA agreed for initiation of
hospice care. ICD was turned off and patient was transition to inpatient hospice care.
Important imaging findings :
None
Procedure findings :
None
Discharge Plan
-
Patient Disposition: Hospice - Inpatient [facility]
Discharge Orders:
Discharge Patient (As Directed); Ordered 12/21/24
Ordered By: Joseph Zelaya
Discharge Date and Time
Discharge Date/Time: 12/21/24 12:47
Print Language: ROMANSH
== END 2024-12-21 12:47 | disposition hospice, inpatient (51) | DRG 291 ==
LOC: IVU 00:15
PROVIDERS: Emergency Medicine; Internal Medicine; Internal Medicine Cardiovascular Disease; ADMITTING PHYSICIAN Internal Medicine; ATTENDING PHYSICIAN Hospitalist; CONSULT PHYSICIAN Internal Medicine; CONSULT PHYSICIAN Specialist; EMERGENCY PHYSICIAN Emergency Medicine; FAMILY PHYSICIAN Internal Medicine
PROC: 4B02XTZ Measurement of Cardiac Defibrillator, External Approach (ICD-10-PCS; 2024-12-21)
DX: I13.0 Hypertensive heart and chronic kidney disease with heart failure and stage 1 through stage 4 chronic kidney disease, or unspecified chronic kidney disease (principal); G92.8 Other toxic encephalopathy; I50.23 Acute on chronic systolic (congestive) heart failure; N17.9 Acute kidney failure, unspecified; E87.1 Hypo-osmolality and hyponatremia; I47.19 Other supraventricular tachycardia; I48.19 Other persistent atrial fibrillation; I48.92 Unspecified atrial flutter; Z87.891 Personal history of nicotine dependence; I5A Non-ischemic myocardial injury (non-traumatic); I27.20 Pulmonary hypertension, unspecified; I48.0 Paroxysmal atrial fibrillation; N18.32 Chronic kidney disease, stage 3b; E11.22 Type 2 diabetes mellitus with diabetic chronic kidney disease; D69.6 Thrombocytopenia, unspecified; E03.9 Hypothyroidism, unspecified; Z51.5 Encounter for palliative care; I25.10 Atherosclerotic heart disease of native coronary artery without angina pectoris; Z95.5 Presence of coronary angioplasty implant and graft; Z79.01 Long term (current) use of anticoagulants; Z79.02 Long term (current) use of antithrombotics/antiplatelets; Z79.4 Long term (current) use of insulin; Z95.810 Presence of automatic (implantable) cardiac defibrillator
CPT/HCPCS: 71046; 76770; 80048; 80053; 81003; 81015; 82570; 82962; 83735; 83880; 83935; 84100; 84300; 84484; 85025; 85027; 87070; 87086; 93005; 97116; 97163; 99285

== ENCOUNTER 2024-12-21 12:48 | Inpatient (IN) | payer OTHER, SELFPAY ==
--- NOTE | 2024-12-21 11:45 | HOSPNOTE ---
CASE REVIEWED WITH DR ATWOOD AND REMBERTO DIA. PATIENT TO BE ADMITTED GIP FOR MANAGEMENT OF PAIN THAT CAN NOT BE MANAGED IN AN OUTPATIENT SETTING. ONCE SYMPTOMS ARE MANAGED THE PLAN WOULD BE TO HAVE PATIENT REMAIN ON HOSPICE CARE AND
TRANSFER TO SNF HIS POA IS UNABLE TO CARE FOR HIM IN THE HOME.
--- NOTE | 2024-12-21 12:35 | HPS.HSE ---
Family Physician
-
Family Physician: Lian Salcedo
Chief Complaint
-
Inpatient hospice admission
History of Present Illness
Patient is a 79-year-old male with past medical history of paroxysmal atrial fibrillation, coronary disease, chronic kidney disease stage IIIb, chronic systolic congestive heart failure, history of paroxysmal atrial fibrillation, type 2 diabetes,
hypothyroidism, history of DVT, history of ICD placement, moderate tricuspid regurgitation, obstructive sleep apnea, BPH, history of GI bleed, history of ablation was sent into ER by primary insurance adviser on 12/18 after patient was noted to having
exertional dyspnea signs of heart failure and uncontrolled A-fib. Cardiology/nephrology was consulted and patient was started on medical management of patient underlying cardiac issues. Unfortunately patient continued to have worsening renal
function. Patient was deemed appropriate for evaluation for hospice/palliative care to which patient and POA was in agreement. Patient has been transition to inpatient hospice care @ at this point.
Medical History
Past Medical History
Past Medical History: Reports Other
Additional Past Medical History:
history of paroxysmal atrial fibrillation, coronary disease, chronic kidney disease stage IIIb, chronic systolic congestive heart failure, history of paroxysmal atrial fibrillation, type 2 diabetes, hypothyroidism, history of DVT, history of ICD
placement, moderate tricuspid regurgitation, obstructive sleep apnea, BPH, history of GI bleed, history of ablation
Past Surgical History: Reports Other
Social History
Tobacco: Non-smoker
Alcohol: None
Living: Alone
Family History
Family History: Not pertinent
Allergies / Home Medications
Allergies reflects when Allergies were last updated in [employer].
Home Medications with original date entered in [employer]
Allergy/Medication List:
Allergies
Allergy/AdvReac Type Severity Reaction Status Date / Time
hydrocodone Allergy Nausea / Verified 12/19/24 11:54
Vomiting
[id number] Reductase Allergy Pt. Verified 12/19/24 11:54
Inhibitor reports
muscle
cramps
Home Medications
tamsulosin 0.4 mg capsule 0.4 mg PO QPM Urinary issue 05/28/18
apixaban 5 mg tablet (Eliquis) 5 mg PO BID Blood clot prevention/tx #60 tabs 09/04/24
levothyroxine 25 mcg tablet 25 mcg PO DAILY Thyroid #0 tabs 09/04/24
insulin aspar prot-insulin aspart 100 unit/mL (70-30) subcutaneous pen 10 unit SC DAILY Diabetes 09/23/24
insulin aspar prt-insulin aspart 100 unit/mL (70-30) subcutaneous soln (Novolog Mix 70-30 U-100 Insuln) 8 unit SC QPM 09/23/24
furosemide 80 mg tablet 80 mg PO BID@0800,1600 #60 tabs 09/29/24
dapagliflozin propanediol 5 mg tablet (Farxiga) 5 mg PO DAILY 12/11/24
Review of Systems
-
Unable to obtain full review of systems at this time due to: Acuity
Physical Exam
Physical Exam
General: No Appears in Distress
HEENT: No Oxygen
Cardiac: S1/S2 and Regular Rhythm; No Murmur
GI: Soft, Non Tender and Non Distended
Neuro: Awake; No Alert or Oriented
Impression/Plan
-
Acute kidney injury from cardiorenal syndrome
Systolic congestive heart failure exacerbation
history of paroxysmal atrial fibrillation
Toxic metabolic encephalopathy
coronary disease
chronic kidney disease stage IIIb
type 2 diabetes
hypothyroidism
history of DVT
history of ICD placement
moderate tricuspid regurgitation
obstructive sleep apnea
BPH
history of GI bleed
history of ablation
Care plan discussed with patient friend/POA and all questions answered
Patient having significant pain in the morning, required to be given IV Dilaudid. Maintained on IV morphine
Patient has some uremic encephalopathy setting in conjunction with hyponatremia
As needed morphine followed by morphine drip if needed ordered for dyspnea/pain
As needed Ativan ordered for anxiety
As needed Haldol ordered for agitation
As needed Zofran ordered for nausea vomiting
[facility]
Hospice staff following
ICD has been deactivated by cardiology
DNR/DNI
Total time spent : 77 mins
I personally saw and examined the patient.
I have reviewed all diagnostic interpretations and treatment plans as written.
Time includes patient management by me, time spent at the patients bedside, time to review lab and imaging results, discussing patient care, documentation in the medical record, and time spent with the family or caregiver and discussing care plan
with RN/Consultants.
--- NOTE | 2024-12-21 13:03 | HOSPNOTE ---
Patient admitted onto hospice under [facility] level of care for management of pain and anxiety. At this time symptoms can not be managed in the outpatient setting. FLACC Moderate to severe. Has had 2 IV doses of Dilauded in 24 hours. Assessed patient in
the bed yelling out, grabbing onto rail, oriented x 2. Unable to vocalize what is hurting him but did state 'of course' when asked is he was feeling anxious. Coordinated care with patients nurse Jacinda CHEEK. Requested dose of pain and anxiety medication
atov. Bed requested on 2N. Will be seen by hospice daily. Discharge planning to continue.
[2024-12-21] MEDS: VALIUM INJECTION 5 MG IV ×3 (13:11→22:04)
[2024-12-21 16:00] VITALS: BP 101/73
[2024-12-21] MEDS: MORPHINE SULFATE 1 MG IV ×3 (17:21→20:49)
[2024-12-21] MEDS: MORPHINE 100 IV (21:15)
[2024-12-21] MEDS: MORPHINE SULFATE 2 MG IV (22:04)
[2024-12-21 23:00] VITALS: BP 96/63
[2024-12-22] MEDS: MORPHINE SULFATE 2 MG IV ×2 (03:20→07:09)
[2024-12-22] MEDS: VALIUM INJECTION 5 MG IV ×2 (03:20→07:10)
[2024-12-22 07:00] VITALS: BP 88/62
--- NOTE | 2024-12-22 08:42 | CM ---
Chart reviewed. Patient admitted under [place] level of care. hospice following at this time
--- NOTE | 2024-12-22 09:59 | W.PN.DEATH ---
Addendum entered and electronically signed by Joseph Zelaya MD 12/22/24 10:58:
E- certificate has been signed
Original Note:
Pronouncement of
-
Called to see patient to pronounce.
No spontaneous heart tones or respirations noted.
Patient not responsive to verbal stimuli.
Patient is pronounced .
Time of : 09:42
Date of : 12/22/24
Cause of : Systolic Heart failure
Family Notified: Yes
--- NOTE | 2024-12-22 10:31 | PTCARENOTE ---
Pt passed at 0942, Dr. Zelaya called to pronounce patient.
--- NOTE | 2024-12-22 10:58 | W.DCSUMMARY ---
Discharge Summary
Discharge Data
Date of Admission: 12/21/24
Date of Discharge: 12/22/24
-
Pending Results: No
Hospital Course
This a summary for Mr Km Ruiz who on 12/22/2024 at 0942 under hospice care.
List of diagnosis:
Acute kidney injury from cardiorenal syndrome
Systolic congestive heart failure exacerbation
history of paroxysmal atrial fibrillation
Toxic metabolic encephalopathy
Hyponatremia
coronary disease
chronic kidney disease stage IIIb
type 2 diabetes
hypothyroidism
history of DVT
history of ICD placement
moderate tricuspid regurgitation
obstructive sleep apnea
BPH
history of GI bleed
history of ablation
Hospital course
Mr. 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 Patient was tried on diuretic therapy with nonimprovement symptoms and new renal failure setting in due
to cardiorenal syndrome. Patient was deemed not a candidate for any advanced aggressive measures. Patient was not a candidate for hemodialysis. Patient was transition to hospice care on 12/21/24. Patient comfortably while on hospice
care at 12/22/2024 at 0942. Patient friend/POA was notified over the phone.
Discharge Plan
-
Referrals:
Lian Salcedo MD [Family Provider, Internal Medicine]
Prescriptions:
No Action
tamsulosin 0.4 MG capsule
0.4 mg PO QPM
levothyroxine 25 MCG tablet
25 mcg PO DAILY Qty: 0 0RF
Eliquis 5 mg tablet
5 mg PO BID Qty: 60 0RF
insulin asp prt-insulin aspart [Novolog Mix 70-30 U-100 Insuln] 100 unit/mL (70-30) Solution
8 unit SC QPM
insulin asp prt-insulin aspart 100 unit/mL (70-30) insulin pen
10 unit SC DAILY
dapagliflozin propanediol [Farxiga] 5 mg Tablet
5 mg PO DAILY
furosemide 80 mg tablet
80 mg PO BID@0800,1600
Rx Instructions:
last took a few days ago, not taking
Discharge Date and Time
Print Language: PERUVIAN
== END 2024-12-22 09:42 | disposition expired | DRG 951 ==
LOC: 2 NORTH 12:48
PROVIDERS: ADMITTING PHYSICIAN Internal Medicine; ATTENDING PHYSICIAN Hospitalist; FAMILY PHYSICIAN Internal Medicine
DX: Z51.5 Encounter for palliative care (principal); I50.23 Acute on chronic systolic (congestive) heart failure; G92.8 Other toxic encephalopathy; N17.9 Acute kidney failure, unspecified; E87.1 Hypo-osmolality and hyponatremia; N18.32 Chronic kidney disease, stage 3b; I48.0 Paroxysmal atrial fibrillation; E11.22 Type 2 diabetes mellitus with diabetic chronic kidney disease; E03.9 Hypothyroidism, unspecified; G47.33 Obstructive sleep apnea (adult) (pediatric); I07.1 Rheumatic tricuspid insufficiency; N40.0 Benign prostatic hyperplasia without lower urinary tract symptoms; Z66 Do not resuscitate; Z86.718 Personal history of other venous thrombosis and embolism; Z95.810 Presence of automatic (implantable) cardiac defibrillator